=== PATIENT | female | born 1930 | race Caucasian/White ===

== ENCOUNTER 2017-02-17 13:51 | Outpatient (CLI) | payer MEDICARE, OTHER | END 2017-02-17 13:52 | disposition critical access hospital (66) | LOC: EMS 13:51 | PROVIDERS: ATTEND Surgery | DX: M25.562 Pain in left knee (principal); M25.561 Pain in right knee; M25.531 Pain in right wrist; W10.1XXA Fall (on)(from) sidewalk curb, initial encounter; Y92.480 Sidewalk as the place of occurrence of the external cause | CPT/HCPCS: A0425; A0429 ==

== ENCOUNTER 2017-02-17 14:25 | Emergency (ER) | payer MEDICARE, OTHER ==
[2017-02-17 14:40] VITALS: BP 111/65
--- NOTE | 2017-02-17 16:14 | XRAY Preliminary Report ---
Exam: XR Knee 4 View BILAT IMPRESSION: No acute disease. [facility] SITE ID: [id number]
--- NOTE | 2017-02-17 16:15 | XRAY Preliminary Report ---
Exam: XR Wrist 4 View RT IMPRESSION: No acute disease. [facility] SITE ID: [id number]
--- NOTE | 2017-02-17 16:16 | XRAY Report ---
EXAM: BILATERAL KNEE RADIOGRAPHY EXAM DATE: 02/17/2017 03:54 PM. CLINICAL HISTORY: Fall, injury. COMPARISON: None. TECHNIQUE: Each knee, 4 views, including oblique views. FINDINGS: Bones: Osteopenia. No definite fracture or other bone lesion. Joints: Joint spaces generally well preserved. No effusion. 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 Soft Tissues: Unremarkable. IMPRESSION: No acute disease. [facility] Referring Provider Line: [phone] SITE ID: [id number]
--- NOTE | 2017-02-17 16:18 | XRAY Report ---
EXAM: RIGHT WRIST RADIOGRAPHY EXAM DATE: 02/17/2017 03:57 PM. CLINICAL HISTORY: Fall, pain. COMPARISON: None. TECHNIQUE: 4 views. FINDINGS: Bones: Normal. No fractures or bone lesions. Joints: Joint spaces well-preserved. Tiny subchondral cysts in base of navicular and in radial styloi d process. Minimal marginal lipping at first CMC level. Soft Tissues: Unremarkable. IMPRESSION: No acute disease. [facility] Referring Provider Line: [phone] SITE ID: [id number]
[2017-02-17] MEDS ORDERED: traMADol 50 MG TABLET PO STA (16:27)
--- NOTE | 2017-02-17 16:32 | ED Physician Documentation ---
PD HPI Fall - Stated complaint Stated Complaint: GLF - Chief complaint Chief Complaint: Ext Problem - History obtained from History obtained from: Patient, EMS - History of Present Illness Mechanism of injury: Slipped Fall distance: Standing position Where injury occurred: Home Timing - onset: Today Injury(ies) location: Right Upper Extremity (wrist), Right Lower Extremity (knee ), Left Lower Extremity (knee) Pain level max: 3 Pain level now: 3 Quality of pain: Pain, Aching Associated symptoms: No: LOC, AMS, Amnesia, Seizures, Ear drainage, Nasal drainage, Neck pain, Weakness, Paresthesias, Dyspnea, Nausea / vomiting, Hematemesis, Abdominal distension Symptoms improve with: Rest Worsens with: Movement, Palpation Contributing factors: No: Anticoagulated, Intoxicated Similar symptoms before: Has not had sx before Recently seen: Not recently seen - Additional information Additional information: Pt tripped and fell, hurt B knees and R palm. mild abrasions Review of Systems Nose: denies: Rhinorrhea / runny nose, Congestion Throat: denies: Sore throat Cardiac: denies: Chest pain / pressure Respiratory: denies: Cough, Wheezing GI: denies: Nausea, Vomiting, Diarrhea Skin: denies: Rash Musculoskeletal: denies: Neck pain, Back pain Neurologic: denies: Focal weakness, Numbness, Headache PD PAST MEDICAL HISTORY - Past Medical History Cardiovascular: Hypertension, Other Respiratory: COPD Neuro: None Endocrine/Autoimmune: None GI: GERD HEENT: Glaucoma, Macular degeneration Psych: Depression, Anxiety Derm: None - Past Surgical History Past Surgical History: Yes General: Cholecystectomy, Other Ortho: Spine surgery /FINISH REMOVER: Hysterectomy - Present Medications Home Medications: Ambulatory Orders Medication Instructions Recorded Confirmed Albuterol Sulfate [Proair Hfa] 2 puffs INH Q4HR PRN 02/17/14 02/17/14 Aspirin [Dionisio] 325 mg ORAL DAILY 02/17/14 02/17/14 LORazepam [Ativan] 0.5 mg ORAL DAILY 02/17/14 02/17/14 Pantoprazole [Protonix] 20 mg ORAL DAILY 02/17/14 02/17/14 Pregabalin [Lyrica] 50 mg ORAL DAILY 02/17/14 02/17/14 Travoprost [Travatan Z] 1 drop EACHEYE DAILY 02/17/14 02/17/14 traMADol [Ultram] 50 mg ORAL BID 02/17/14 02/17/14 - Allergies Allergies/Adverse Reactions: Allergies Allergy/AdvReac Type Severity Reaction Status Date / Time hydrocodone [Hydrocodone] Allergy Rash Verified 02/17/17 14:40 Penicillins Allergy Rash Verified 02/17/17 14:40 rofecoxib [From Vioxx] Allergy Rash Verified 02/17/17 14:40 - Social History Does the pt smoke?: No Smoking Status: Never smoker Does the pt drink ETOH?: No Does the pt have substance abuse?: No - Immunizations Immunizations are current?: Yes Immunizations: TDAP current <10years PD ED PE NORMAL - Vitals Vital signs reviewed: Yes - General General: Alert and oriented X 3, No acute distress, Well developed/nourished - HEENT HEENT: Atraumatic, PERRL, EOMI, Ears normal, Moist mucous membranes, Pharynx benign - Neck Neck: Supple, no meningeal sign, No bony TTP - Cardiac Cardiac: RRR - Respiratory Respiratory: No respiratory distress, Clear bilaterally - Back Back: No spinal TTP - Derm Derm: Warm and dry, No rash - Extremities Extremities: No deformity, Other (mild diffuse TTP over the anterior aspects of the B knees. No effusions. mild abrasions. TTP over the R wrist diffusely. no deformity. No snuffbox tenderness. NVI) - Neuro Neuro: Alert and oriented X 3, loan consultant 2-12 intact, No motor deficit, No sensory deficit, Normal speech - Psych Psych: Normal mood, Normal affect Results - Vitals Vitals: Oxygen O2 Source Nasal cannula - Rads (name of study) R wrist xray Radiology: Prelim report reviewed, EMP read contemporaneously, See rad report ( No acute disease. ) B knee xray Radiology: Prelim report reviewed, EMP read contemporaneously, See rad report ( No acute disease. ) PD MEDICAL DECISION MAKING - ED course Complexity details: reviewed results, re-evaluated patient, considered differential, d/w patient, d/w family ED course: Patient is an 86-year-old female who is status post a ground-level fall, injuring the bilateral knees and wrist. There are slight abrasions at each knee and on the breast, these were cleansed and bandaged. Tetanus up-to-date. No acute findings on x-ray. Ambulating well. Declines any pain medication for home. Did not strike her head. No headache. Normal neurological exam. Patient counseled regarding signs and symptoms for which I believe and urgent re -evaluation would be necessary. Patient with good understanding of and agreement to plan and is comfortable going home at this time This document was made in part using voice recognition software. While efforts are made to proofread this document, sound alike and grammatical errors may occur. Departure - Departure Disposition: 01 Home, Self Care Clinical Impression: Abrasion Fall Qualifiers: Encounter type: initial encounter Qualified Code(s): W19.XXXA - Unspecified fall, initial encounter Condition: Good Instructions: ED Abrasion Follow-Up: Imtiaz Barba MD [Primary Care Provider] - Within 1 week Comments: Return if you worsen. Keep the wounds clean and dry. Your x-rays are normal today. Discharge Date/Time: 02/17/17 16:49
[2017-02-17] MEDS ORDERED: traMADol 50 MG TABLET PO ONE (16:37)
[2017-02-17] MEDS ORDERED: BACITRACIN OINT TOP ONE (16:43)
== END 2017-02-17 16:49 | disposition home or self-care (01) ==
LOC: EDUNIT# → ED 14:25
DX: S80.211A Abrasion, right knee, initial encounter (principal); S80.212A Abrasion, left knee, initial encounter; S20.119A Abrasion of breast, unspecified breast, initial encounter; S69.91XA Unspecified injury of right wrist, hand and finger(s), initial encounter; W01.0XXA Fall on same level from slipping, tripping and stumbling without subsequent striking against object, initial encounter; Y92.009 Unspecified place in unspecified non-institutional (private) residence as the place of occurrence of the external cause; I10 Essential (primary) hypertension; Z79.82 Long term (current) use of aspirin
CPT/HCPCS: 73110; 73564; 99283; A9270

== ENCOUNTER 2017-02-19 09:19 | Outpatient (CLI) | payer MEDICARE, OTHER | END 2017-02-19 09:20 | disposition short-term general hospital (02) | LOC: EMS 09:19 | PROVIDERS: ATTEND Surgery | DX: R53.1 Weakness (principal); R41.82 Altered mental status, unspecified; R51 Headache; R47.81 Slurred speech | CPT/HCPCS: A0170; A0425; A0427 ==

== ENCOUNTER 2017-11-19 14:27 | Outpatient (CLI) | payer MEDICARE, OTHER ==
--- NOTE | 2017-11-19 14:48 | XRAY Report ---
Procedure Date: 11/19/2017 Accession Number: [id number] / [id number] Procedure: XRS - Chest 2 View X-Ray CPT Code: 91951 FULL RESULT: EXAM: Chest 2 View X-Ray DATE: 11/19/2017 2:41 PM CLINICAL HISTORY: COUGH, SOB, CP COMPARISON: 02/17/2014 TECHNIQUE: 2 views. FINDINGS: Lungs/Pleura: No focal opacities evident. No pneumothorax or pleural effusion. Normal volumes. Mediastinum: Heart is enlarged in size. Other: Degenerative change in the spine. Surgical clips right upper quadrant. IMPRESSION: Cardiac enlargement. Clear lungs. [facility]
== END 2017-11-19 14:28 | disposition home or self-care (01) ==
LOC: DI.S 14:27
PROVIDERS: ATTEND Internal Medicine
DX: R05 Cough (principal); R06.02 Shortness of breath; R07.9 Chest pain, unspecified; I51.7 Cardiomegaly
CPT/HCPCS: 71046

== ENCOUNTER 2017-12-30 15:00 | Outpatient (CLI) | payer MEDICARE, OTHER ==
[2017-12-30 15:24] LABS: BASOPHILS % (AUTO) 0.2 %; EOSINOPHILS # (AUTO) 0.1 10^3/uL (0.0-0.7); EOSINOPHILS % (AUTO) 0.4 %; LYMPHOCYTES # (AUTO) 1.4 10^3/uL (1.5-3.5); LYMPHOCYTES % (AUTO) 8.1 %; MEAN CORPUSCULAR HEMOGLOBIN 31.4 pg (27.0-31.0); MEAN CORPUSCULAR VOLUME 95.3 fL (81.0-99.0); MEAN PLATELET VOLUME 8.4 fL (7.9-10.8); MONOCYTES # (AUTO) 0.8 10^3/uL (0.0-1.0); MONOCYTES % (AUTO) 4.7 %; NEUTROPHILS # (AUTO) 15.1 10^3/uL (1.5-6.6); NEUTROPHILS % (AUTO) 86.6 %; PLT - PLATELET COUNT 216 10^3/uL (130-450); RED BLOOD COUNT 4.45 10^6/uL (4.20-5.40); RED CELL DISTRIBUTION WIDTH 14.5 % (12.0-15.0)
[2017-12-30 15:31] LABS: INR 0.9 (0.8-1.2); PT - PROTHROMBIN TIME 10.4 secs (9.9-12.6)
[2017-12-30 15:37] LABS: ALBUMIN 3.8 g/dL (3.2-5.5); ALBUMIN/GLOBULIN RATIO 1.4 (1.0-2.2); BILIRUBIN,TOTAL 1.1 mg/dL (0.2-1.0); CREATININE 0.9 mg/dL (0.4-1.0); TOTAL PROTEIN 6.5 g/dL (6.7-8.2)
[2017-12-30 15:53] LABS: D-DIMER 350.4 ng/mL (200.0-255.0)
[2017-12-30 19:48] LABS: WHITE BLOOD COUNT 17.5 x10^3/uL (4.8-10.8)
== END 2017-12-30 15:01 | disposition home or self-care (01) ==
LOC: LAB 15:00
PROVIDERS: ATTEND Nurse Practitioner Family
DX: D68.9 Coagulation defect, unspecified (principal); R21 Rash and other nonspecific skin eruption; L30.9 Dermatitis, unspecified; E11.9 Type 2 diabetes mellitus without complications; I10 Essential (primary) hypertension; R60.9 Edema, unspecified
CPT/HCPCS: 36415; 80053; 85025; 85379; 85610; 85730

== ENCOUNTER 2018-02-25 18:33 | Outpatient (CLI) | payer MEDICARE, OTHER | END 2018-02-25 18:34 | disposition short-term general hospital (02) | LOC: EMS 18:33 | PROVIDERS: ATTEND Surgery | DX: R06.02 Shortness of breath (principal); R05 Cough | CPT/HCPCS: A0425; A0429 ==

== ENCOUNTER 2018-08-05 10:26 | Outpatient (CLI) | payer MEDICARE, OTHER ==
--- NOTE | 2018-08-05 13:16 | XRAY Report ---
Reason: ACUTE BRONCHITIS,UNSPECIFIED Procedure Date: 08/05/2018 Accession Number: [id number] / [id number] Procedure: XR - Chest 2 View X-Ray CPT Code: 66956 FULL RESULT: EXAM: CHEST RADIOGRAPHY EXAM DATE: 08/05/2018 10:59 AM. CLINICAL HISTORY: Acute bronchitis, unspecified. COMPARISON: CHEST 2 VIEW 11/19/2017 2:44 PM. TECHNIQUE: 2 views. FINDINGS: Lungs/Pleura: No focal opacities evident. No pleural effusion. No pneumothorax. Normal volumes. Mediastinum: Stable cardiomediastinal silhouette with tortuous aorta, mildly calcified arch. Other: The bones are qualitatively osteopenic; this limits evaluation for underlying fractures or masses. Thoracic kyphosis is noted. IMPRESSION: No definite acute airspace disease is detected. [facility]
== END 2018-08-05 10:27 | disposition home or self-care (01) ==
LOC: DI 10:26
PROVIDERS: ATTEND Nurse Practitioner Family
DX: J20.9 Acute bronchitis, unspecified (principal)
CPT/HCPCS: 71046

== ENCOUNTER 2018-08-14 09:21 | Outpatient (CLI) | payer MEDICARE, OTHER | END 2018-08-14 09:22 | disposition short-term general hospital (02) | LOC: EMS 09:21 | PROVIDERS: ATTEND Surgery | DX: R06.02 Shortness of breath (principal); R06.2 Wheezing; R42 Dizziness and giddiness; R53.83 Other fatigue; R53.1 Weakness | CPT/HCPCS: A0425; A0429 ==

== ENCOUNTER 2019-03-07 11:24 | Outpatient (CLI) | payer MEDICARE, OTHER ==
[2019-03-07 11:47] LABS: BASOPHILS # (AUTO) 0.1 10^3/uL (0.0-0.1); BASOPHILS % (AUTO) 0.7 %; EOSINOPHILS # (AUTO) 0.1 10^3/uL (0.0-0.7); HGB - HEMOGLOBIN 13.7 g/dL (12.0-16.0); LYMPHOCYTES # (AUTO) 1.6 10^3/uL (1.5-3.5); LYMPHOCYTES % (AUTO) 18.1 %; MEAN CORPUSCULAR HEMOGLOBIN 29.3 pg (27.0-31.0); MEAN CORPUSCULAR HGB CONC 29.5 g/dL (32.0-36.0); MEAN CORPUSCULAR VOLUME 99.4 fL (81.0-99.0); MEAN PLATELET VOLUME 10.6 fL (7.9-10.8); MONOCYTES # (AUTO) 0.6 10^3/uL (0.0-1.0); MONOCYTES % (AUTO) 6.9 %; NEUTROPHILS # (AUTO) 6.5 10^3/uL (1.5-6.6); PLT - PLATELET COUNT 224 10^3/uL (130-450); RED BLOOD COUNT 4.68 10^6/uL (4.20-5.40); RED CELL DISTRIBUTION WIDTH 14.6 % (12.0-15.0); WHITE BLOOD COUNT 8.9 x10^3/uL (4.8-10.8)
== END 2019-03-07 11:25 | disposition home or self-care (01) ==
LOC: LAB 11:24
PROVIDERS: ATTEND Internal Medicine
DX: E44.0 Moderate protein-calorie malnutrition (principal)
CPT/HCPCS: 36415; 82607; 85025

== ENCOUNTER 2019-07-04 10:41 | Outpatient (CLI) | payer MEDICARE, OTHER | END 2019-07-04 10:42 | disposition short-term general hospital (02) | LOC: EMS 10:41 | PROVIDERS: ATTEND Surgery | DX: R06.02 Shortness of breath (principal); R05 Cough; R50.9 Fever, unspecified | CPT/HCPCS: A0425; A0427 ==

== ENCOUNTER 2019-09-16 21:03 | Outpatient (CLI) | payer MEDICARE, OTHER | END 2019-09-16 21:04 | disposition short-term general hospital (02) | LOC: EMS 21:03 | PROVIDERS: ATTEND Surgery | DX: R06.02 Shortness of breath (principal); R50.9 Fever, unspecified; R05 Cough | CPT/HCPCS: A0425; A0427 ==

== ENCOUNTER 2019-10-03 17:35 | Outpatient (CLI) | payer MEDICARE, OTHER | END 2019-10-03 17:36 | disposition critical access hospital (66) | LOC: EMS 17:35 | PROVIDERS: ATTEND Surgery | DX: R50.9 Fever, unspecified (principal); R53.1 Weakness; R52 Pain, unspecified | CPT/HCPCS: A0425; A0427 ==

== ENCOUNTER 2019-10-03 18:06 | Inpatient (IN) | payer MEDICARE, OTHER ==
--- NOTE | 2019-10-03 18:34 | ED Physician Documentation ---
History of Present Illness - Stated complaint Stated Complaint: FEVER - History obtained from History obtained from: Patient (Patient is brought in by EMS From [facility], with a chief complaint of having a low-grade fever. Until the patient was seen and inpatient over [facility] in [place], she was there for urinary tract infection that grew Pseudomonas. She was on IV antibiotics for 6 days, then discharged home without oral antibiotics. Since being home the patient states that she has had a continued low-grade fever. She is unsure why she keeps getting recurrent urinary tract infections. Patient was also worked up [facility] for meningitis she came back negative, right foot first MTP joint worked up for gout, she was told this was negative.) Review of Systems Constitutional: reports: Fever, Chills Eyes: reports: Loss of vision (chronic, can see shadows.) Ears: reports: Reviewed and negative Nose: reports: Reviewed and negative Throat: reports: Reviewed and negative Cardiac: denies: Chest pain / pressure, Palpitations, Pedal edema Respiratory: reports: Cough, Wheezing GI: denies: Nausea : reports: Reviewed and negative Skin: reports: Other (right MTP edematous and erythemous.) Neurologic: reports: Generalized weakness PD PAST MEDICAL HISTORY - Past Medical History Cardiovascular: None Respiratory: Asthma, COPD Neuro: None Endocrine/Autoimmune: Type 2 diabetes GI: GERD : None HEENT: Glaucoma, Macular degeneration Psych: Depression, Anxiety Musculoskeletal: Fatigue Derm: None - Past Surgical History Past Surgical History: Yes General: Cholecystectomy, Other Ortho: Spine surgery /ANIMAL CARE PROVIDER: Hysterectomy - Present Medications Home Medications: Ambulatory Orders Medication Instructions Recorded Confirmed Albuterol Sulfate [Proair Hfa] 2 puffs INH Q4HR PRN 02/17/14 02/17/14 Pantoprazole [Protonix] 20 mg ORAL DAILY 02/17/14 02/17/14 Travoprost [Travatan Z] 1 drop EACHEYE DAILY 02/17/14 02/17/14 traMADol [Ultram] 50 mg ORAL PRN 02/17/14 02/17/14 Acetaminophen [Tylenol] 325 mg PO PRN 06/30/19 Biotin 5,000 mcg PO DAILY 06/30/19 06/30/19 Brimonidine 0.2% Ophth Drops 1 drops OPTH TID 06/30/19 06/30/19 [Alphagan P 0.2% Ophth Drops] C,E,Zinc,Copper 11/Dbomu3a/Lut 1 each PO DAILY 06/30/19 06/30/19 [Ocuvite Adult 50 Plus Softgel] Calcium Carbonate [Tums (Calcium 500 mg PO TID 06/30/19 06/30/19 Carbonate 500mg)] Cyanocobalamin (Vitamin B-12) 500 mcg SL DAILY 06/30/19 06/30/19 [Vitamin B-12 (500 mcg sublingual)] Ibuprofen [Motrin] 400 mg PO Q6HR PRN 06/30/19 06/30/19 Miconazole Cream [Remedy 0 applic TOP PRN 06/30/19 Antifungal] Phenylephrine/Dm/Acetaminop/GG 100 ml PO BID 06/30/19 06/30/19 [Mucinex Fast-Max Cold-Flu Liq] Potassium Chloride 20 meq PO DAILY 06/30/19 06/30/19 Pravastatin [Pravachol] 40 mg PO DAILY 06/30/19 06/30/19 Prednisone 10 mg PO DAILY 06/30/19 06/30/19 Pregabalin [Lyrica] 250 mg PO BID 06/30/19 06/30/19 Vit A/Vit C/Vit E/Zinc/Copper 1 each PO DAILY 06/30/19 06/30/19 [Preservision Areds Softgel] acetaZOLAMIDE [Acetazolamide] 250 mg PO BID 06/30/19 06/30/19 polyethylene glycoL 3350 [Miralax] 17 gm PO DAILY PRN 06/30/19 06/30/19 - Allergies Allergies/Adverse Reactions: Allergies Allergy/AdvReac Type Severity Reaction Status Date / Time azithromycin Allergy Anaphylaxis Verified 10/03/19 18:38 diclofenac Allergy Hives Verified 10/03/19 18:38 hydrocodone [Hydrocodone] Allergy Rash Verified 10/03/19 18:38 penicillin G Allergy Hives Verified 10/03/19 18:38 Penicillins Allergy Rash Verified 10/03/19 18:38 rofecoxib [From Vioxx] Allergy Rash Verified 10/03/19 18:38 Sulfa (Sulfonamide Allergy Hives Verified 10/03/19 18:38 Antibiotics) Cephalosporins AdvReac Unknown Verified 10/03/19 18:38 codeine AdvReac Hives Verified 10/03/19 18:38 oxycodone AdvReac Unknown Verified 10/03/19 18:38 - Social History Does the pt smoke?: No Smoking Status: Never smoker Does the pt drink ETOH?: No Does the pt have substance abuse?: No - Immunizations Immunizations are current?: Yes PD ED PE NORMAL - General General: Alert and oriented X 3, No acute distress - HEENT HEENT: Atraumatic, PERRL (4 mm) - Neck Neck: Supple, no meningeal sign - Cardiac Cardiac: RRR. No: No murmur (murmur) - Respiratory Respiratory: No respiratory distress. No: Clear bilaterally (coarse breath sounds, expiratory wheezing. ) - Abdomen Abdomen: Normal bowel sounds, Soft, Non tender - Back Back: No CVA TTP - Neuro Neuro: Alert and oriented X 3 Eye Opening: Spontaneous Motor: Obeys Commands Verbal: Oriented GCS Score: 15 Results - Vitals Vitals: Vital Signs - 24 hr 10/03/19 10/03/19 18:38 20:29 Temperature 37.7 C H Heart Rate 85 74 Respiratory 16 18 Rate Blood Pressure 144/85 H 138/64 H O2 Saturation 96 97 Oxygen O2 Source Room air - Labs Labs: Laboratory Tests 10/03/19 10/03/19 10/03/19 18:40 19:02 19:02 WBC 19.8 H RBC 4.37 Hgb 13.5 Hct 39.8 MCV 91.1 MCH 30.9 MCHC 33.9 RDW 15.3 H Plt Count 351 MPV 10.0 Neut # (Auto) Not Reportable Lymph # (Auto) Not Reportable Moore # (Auto) Not Reportable Eos # (Auto) Not Reportable Baso # (Auto) Not Reportable Absolute Nucleated RBC Not Reportable Total Counted 100 Band Neuts % (Manual) 2 Reactive Lymphs % (Man) 1 Abnorm Lymph % (Manual) 0 Nucleated RBC % Not Reportable Neutrophils # (Manual) 15.8 H Lymphocytes # (Manual) 2.8 Monocytes # (Manual) 1.0 Eosinophils # (Manual) 0.2 Basophils # (Manual) 0.0 Differential Comment MANUAL DIFFERENTIAL Platelet Estimate NORMAL (130-450,000) Platelet Morphology NORMAL APPEARANCE RBC Morph Micro Appear NORMAL APPEARANCE Sodium 136 Potassium 2.7 L Chloride 103 Carbon Dioxide 23 Anion Gap 10.0 BUN 20 Creatinine 0.8 Estimated GFR (MDRD) 68 L Glucose 115 H Lactic Acid Calcium 8.8 Total Bilirubin 1.0 AST 19 ALT 20 Alkaline Phosphatase 81 B-Natriuretic Peptide Total Protein 6.6 L Albumin 3.0 L Globulin 3.6 Albumin/Globulin Ratio 0.8 L Lipase 28 Urine Color YELLOW Urine Clarity CLEAR Urine pH 7.5 Ur Specific [place] 1.010 Urine Protein NEGATIVE Urine Glucose (UA) NEGATIVE Urine Ketones NEGATIVE Urine Occult Blood TRACE-INTA Urine Nitrite POSITIVE H Urine Bilirubin NEGATIVE Urine Urobilinogen 1 (NORMAL) Ur Leukocyte Esterase NEGATIVE Urine RBC 0-5 Urine WBC 0-3 Ur Squamous Epith Cells NONE SEEN Amorphous Sediment Moderate Urine Bacteria Rare Ur Microscopic Review INDICATED Urine Culture Comments INDICATED 10/03/19 10/03/19 19:02 19:55 WBC RBC Hgb Hct MCV MCH MCHC RDW Plt Count MPV Neut # (Auto) Lymph # (Auto) Moore # (Auto) Eos # (Auto) Baso # (Auto) Absolute Nucleated RBC Total Counted Band Neuts % (Manual) Reactive Lymphs % (Man) Abnorm Lymph % (Manual) Nucleated RBC % Neutrophils # (Manual) Lymphocytes # (Manual) Monocytes # (Manual) Eosinophils # (Manual) Basophils # (Manual) Differential Comment Platelet Estimate Platelet Morphology RBC Morph Micro Appear Sodium Potassium Chloride Carbon Dioxide Anion Gap BUN Creatinine Estimated GFR (MDRD) Glucose Lactic Acid 1.3 Calcium Total Bilirubin AST ALT Alkaline Phosphatase B-Natriuretic Peptide 43 Total Protein Albumin Globulin Albumin/Globulin Ratio Lipase Urine Color Urine Clarity Urine pH Ur Specific [place] Urine Protein Urine Glucose (UA) Urine Ketones Urine Occult Blood Urine Nitrite Urine Bilirubin Urine Urobilinogen Ur Leukocyte Esterase Urine RBC Urine WBC Ur Squamous Epith Cells Amorphous Sediment Urine Bacteria Ur Microscopic Review Urine Culture Comments - Rads (name of study) No standard instances Radiology: Final report received (1. developing mild perihilar interstitial edema.) PD MEDICAL DECISION MAKING - ED course Complexity details: reviewed results, re-evaluated patient, d/w patient ED course: After obtaining the patient's urinalysis, blood work, noting her hypokalemia 2.7, and elevated white blood cell count at 19.8. Called and spoke to Dr. Mason in the hospitalist group who is agreed to accept the patient. Patient was given Tylenol 650 mg p.o. for fever in the ER today. She is also given 20 mEq of potassium chloride for her hypokalemia. IV fluids were not started due to developing mild perihilar interstitial edema noted on the x-ray, the sounds of her lungs. Patient's daughter has been updated on the patient's status and that she is here to be admitted Departure - Departure Disposition: [facility] DC/Xfer Clinical Impression: Fever Qualifiers: Fever type: unspecified Qualified Code(s): R50.9 - Fever, unspecified UTI (urinary tract infection) Qualifiers: Urinary tract infection type: site unspecified Hematuria presence: with hematuria Qualified Code(s): N39.0 - Urinary tract infection, site not specified; R31.9 - Hematuria, unspecified
[2019-10-03 18:50] LABS: BILIRUBIN,URINE NEGATIVE (NEGATIVE); GLUCOSE, URINE (UA) NEGATIVE (NEGATIVE); KETONES,URINE (UA) NEGATIVE (NEGATIVE); LEUKOCYTE ESTERASE, URINE NEGATIVE (NEGATIVE); NITRITE,URINE POSITIVE (NEGATIVE); OCCULT BLOOD,URINE TRACE-INTA (NEGATIVE); PH,URINE 7.5 PH (5.0-7.5); PROTEIN,URINE NEGATIVE (NEGATIVE); UROBILINOGEN,URINE 1 (NORMAL) E.U./dL (NORMAL)
[2019-10-03 18:51] LABS: CLARITY,URINE CLEAR (CLEAR)
[2019-10-03 18:58] LABS: RBC,URINE 0-5 /HPF (0-5); SQUAMOUS EPITHELIAL CELL,UR NONE SEEN (<= Few)
[2019-10-03 18:59] LABS: AMORPHOUS SEDIMENT,UR Moderate /LPF; BACTERIA,URINE Rare /HPF (None Seen)
[2019-10-03 19:10] LABS: BASOPHILS % (AUTO) 0.4 %; EOSINOPHILS % (AUTO) 0.5 %; HGB - HEMOGLOBIN 13.5 g/dL (12.0-16.0); LYMPHOCYTES % (AUTO) 10.7 %; MEAN CORPUSCULAR HEMOGLOBIN 30.9 pg (27.0-31.0); MEAN CORPUSCULAR HGB CONC 33.9 g/dL (32.0-36.0); MEAN CORPUSCULAR VOLUME 91.1 fL (81.0-99.0); MONOCYTES % (AUTO) 8.4 %; NEUTROPHILS % (AUTO) 79.3 %; PLT - PLATELET COUNT 351 10^3/uL (130-450); RED BLOOD COUNT 4.37 10^6/uL (4.20-5.40); RED CELL DISTRIBUTION WIDTH 15.3 % (12.0-15.0); WHITE BLOOD COUNT 19.8 x10^3/uL (4.8-10.8)
[2019-10-03 19:15] LABS: ABNORMAL LYMPHS % (MANUAL) 0 %
--- NOTE | 2019-10-03 19:16 | XRAY Report ---
Reason: chest pain Procedure Date: 10/03/2019 Accession Number: [id number] / [id number] Procedure: XR - Chest 1 View X-Ray CPT Code: 99825 Final Report FULL RESULT: EXAM: CHEST RADIOGRAPHY EXAM DATE: 10/03/2019 07:05 PM. CLINICAL HISTORY: Chest pain. COMPARISON: CHEST 2 VIEW 08/05/2018 10:59 AM. TECHNIQUE: 1 view. FINDINGS: Lungs/Pleura: There are bilateral perihilar interstitial opacities with mild thickening of the minor fissure. There is no consolidation. Lung volumes are stable. Negative for pneumothorax. Mediastinum: Heart size is normal. There is mild to moderate calcification of the thoracic aorta. Other: None. IMPRESSION: 1. Developing mild perihilar interstitial edema. [facility]
[2019-10-03 19:23] LABS: ALBUMIN/GLOBULIN RATIO 0.8 (1.0-2.2); CALCIUM 8.8 mg/dL (8.5-10.3); CREATININE 0.8 mg/dL (0.4-1.0); TOTAL PROTEIN 6.6 g/dL (6.7-8.2)
[2019-10-03 19:39] LABS: BAND NEUTROPHILS % (MANUAL) 2 %; DIFFERENTIAL COMMENT MANUAL DIFFERENTIAL; EOSINOPHILS # (MANUAL) 0.2 10^3/uL (0-0.7); LYMPHOCYTES # (MANUAL) 2.8 10^3/uL (1.5-3.5); LYMPHOCYTES % (MANUAL) 13 %; PLATELET ESTIMATE, MANUAL NORMAL (130-450,000) (NORMAL); PLATELET MORPHOLOGY NORMAL APPEARANCE (NORMAL); RBC MORPHOLOGY (MULTIPLE) NORMAL APPEARANCE (NORMAL)
[2019-10-03] MEDS ORDERED: POTASSIUM CHLOR 20 MEQ/100 ML 20 MEQ/100 ML BAG IV ONE (19:55)
[2019-10-03] MEDS ORDERED: ACETAMINOPHEN 325 MG TABLET PO STA (20:15)
[2019-10-03] MEDS ORDERED: ONDANSETRON 4 MG/2 ML VIAL IVP PRN (21:02)
--- NOTE | 2019-10-03 21:20 | HISTORY & PHYSICAL EXAMINATION ---
Chief Complaint - Chief Complaint Chief Complaint: fever History of Present Illness - Admitted From [facility] - History Obtained From Records Reviewed: yes History obtained from: records, patient, family and ED staff - History of Present Illness HPI Comment/Other: Patient is an 88-year-old female with a significant medical history of COPD, diabetes mellitus type 2, hypertension, recurrent UTIs, glaucoma and chronic pain who presented to the ED from [place]. She was sent to the ED because she had a fever today. Upon presentation recheck showed a temperature of 37.7 C. However she was also found to have a white blood cell count of 19.8. On 09/20/2019, her WBC was 6.5. The patient is awake alert but somewhat lethargic. She was recently discharged from [facility] on September 24, 2019. She had been admitted there with generalized weakness and fever on September 16, 2019 she was treated for pseudomonal UTI with ceftazadime for 5 days, then transitioned to cefdinir for the last 2 days. She has a significant history of joint pains and back pain for which she underwent a significant work-up.This included a bilateral temporal artery biopsy which was negative. Her CHANDAN was unremarkable. Her ESR was mildly elevated at 42. However she was still treated with high-dose IV methylprednisolone 500 mg daily for 3 days. She also had a COVID-19 testing which was negative. She underwent a lumbar puncture, CT scan of her head and neck which were all largely unremarkable She sees physiatry outpatient for SI joint and lumbar epidural injections. As a result of her presentation she is being admitted for further work up. She was scheduled to see rheumatology outpatient on October 04, 2019. However that was canceled because she was admitted in the hospital. At bedside she denies chest pain, dyspnea, abdominal pain, nausea, vomiting. She reports a greenish productive cough, generalized joint and back pain. In particular her right big toe appears erythematous and painful to touch. This was noted on her last admission in [place] as well. It was also noted to improve when she was treated with IV steroids. The cause at that time was thought to be likely rheumatologic and less likely or unlikely to be infectious. 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 He was a smoker) Living arrangement: Assisted living ([facility]) Social History Notes: Hx of tobacco use in the past. No illicit drug use - POLST Patient has POLST: Yes POLST Status: DNR Meds/Allgy - Home Medications Home Medications: Ambulatory Orders Medication Instructions Recorded Confirmed Albuterol Sulfate [Proair Hfa] 2 puffs INH Q4HR PRN 02/17/14 10/04/19 Travoprost [Travatan Z] 1 drop RIGHTEYE QPM 02/17/14 10/04/19 traMADol [Ultram] 50 mg PO BID PRN 02/17/14 10/04/19 Acetaminophen [Tylenol] 650 mg PO Q4H PRN 06/30/19 10/04/19 Brimonidine 0.2% Ophth Drops 1 drops EACHEYE TID 06/30/19 10/04/19 [Alphagan P 0.2% Ophth Drops] C,E,Zinc,Copper 11/Fosxd9f/Lut 1 each PO DAILY 06/30/19 10/04/19 [Ocuvite Adult 50 Plus Softgel] Cyanocobalamin (Vitamin B-12) 500 mcg SL DAILY 06/30/19 10/04/19 [Vitamin B-12 (500 mcg sublingual)] Potassium Chloride 20 meq PO DAILY 06/30/19 10/04/19 Pravastatin [Pravachol] 40 mg PO QPM 06/30/19 10/04/19 Vit A/Vit C/Vit E/Zinc/Copper 1 each PO DAILY 06/30/19 10/04/19 [Preservision Areds Softgel] acetaZOLAMIDE [Acetazolamide] 250 mg PO BID 06/30/19 10/04/19 polyethylene glycoL 3350 [Miralax] 17 gm PO DAILY PRN 06/30/19 10/04/19 Calcium Carbonate 500 mg PO TIDWM 10/04/19 10/04/19 Pregabalin 125 mg PO BID 10/04/19 10/04/19 Trazodone HCl 100 mg PO QPM 10/04/19 10/04/19 hydroCHLOROthiazide 25 mg PO DAILY 10/04/19 10/04/19 [Hydrochlorothiazide] predniSONE [Prednisone] 10 mg PO DAILYWM 10/04/19 10/04/19 - Allergies Allergies/Adverse Reactions: Allergies Allergy/AdvReac Type Severity Reaction Status Date / Time azithromycin Allergy Anaphylaxis Verified 10/03/19 18:38 diclofenac Allergy Hives Verified 10/03/19 18:38 hydrocodone [Hydrocodone] Allergy Rash Verified 10/03/19 18:38 penicillin G Allergy Hives Verified 10/03/19 18:38 Penicillins Allergy Rash Verified 10/03/19 18:38 rofecoxib [From Vioxx] Allergy Rash Verified 10/03/19 18:38 Sulfa (Sulfonamide Allergy Hives Verified 10/03/19 18:38 Antibiotics) Cephalosporins AdvReac Unknown Verified 10/03/19 18:38 codeine AdvReac Hives Verified 10/03/19 18:38 oxycodone AdvReac Unknown Verified 10/03/19 18:38 Review of Systems - Constitutional Constitutional: reports: Fever, Weakness - Eyes Eyes: denies: Pain, Vision loss - Ears, Nose & Throat Ears, Nose & Throat: denies: Vertigo, Sore throat - Cardiovascular Cariovascular: reports: Edema. denies: Irregular heart rate, Chest pain, Lightheadedness, Syncope, Exertional dyspnea - Respiratory Respiratory: reports: Cough, Sputum production (greenish), Wheezing. denies: SO B at rest, SOB with exertion - Gastrointestinal Gastrointestinal: denies: Abdominal pain, Abdominal distention, Constipation, Diarrhea, Nausea, Vomiting - Genitourinary Genitourinary: denies: Dysuria, Frequency, Urgency, Hematuria, Incontinence - Musculoskeletal Musculoskeletal: reports: Muscle pain, Back pain, Stiffness, Joint pain, Joint swelling (right big toe) - Integumentary Integumentary: denies: Rash, Pruritis, Lesions - Neurological Neurological: reports: General weakness. denies: Focal weakness, Headache, Dizziness - Psychiatric Psychiatric: denies: Depression, Anxiety - Endocrine Endocrine: denies: Polyuria, Polydypsia - Hematologic/Lymphatic Hematologic/Lymphatic: denies: Anemia, Bruising, Petechiae Prior Level of Functionality: She resides at [facility]. She gets around using a wheelchair. She is to be able to handle her personal cares but has been unable to do so in the past couple of weeks since she has been very sick. Exam - Vital Signs Vital Signs: Vital Signs x48h Temp Pulse Resp BP Pulse Ox 10/03/19 21:18 74 15 116/56 L 98 10/03/19 20:29 74 18 138/64 H 97 10/03/19 18:38 37.7 C H 85 16 144/85 H 96 - Physical Exam General Appearance: positive: Alert, Mild distress, Moderate distress, Lethargic Eyes Bilateral: positive: PERRL, EOMI ENT: positive: No signs of dehydration Neck: positive: No JVD, Trachea midline Respiratory: positive: Chest non-tender, No respiratory distress, Rhonchi Cardiovascular: positive: Regular rate & rhythm, No murmur Abdomen: positive: Non-tender, No organomegaly, Nml bowel sounds, No distention. negative: Guarding, Rebound Back: positive: Nml inspection Skin: positive: No rash, Warm, Dry Extremities: positive: No pedal edema, Joint swelling (right big toes swollen and erythematous) Neurologic/Psychiatric: positive: Oriented x3, Weakness, Depressed mood/affect Conclusion/Plan - Problem List (1) Fever Conclusion/Plan: Etiology undetermined Infectious versus rheumatologic Patient's white blood cell count is 19.8. 2 weeks ago it was 6.5. Patient was recently treated for pseudomonal UTI with ceftazidime and subsequently cefdinir. She had 7 days worth of antibiotics. Urine culture and blood cultures have been obtained. Patient has been started on vancomycin and meropenem. COVID-19 testing pending.The previous test done at [place] during her last admission 2 weeks ago was negative Tylenol PRN for fever. Patient underwent temporal artery biopsy bilaterally which were unremarkable. However during her last admission she was treated with high-dose steroids IV for 3 days. She was scheduled to see rheumatology outpatient today. This has been postponed because she is in the hospital. Qualifiers: Fever type: unspecified Qualified Code(s): R50.9 - Fever, unspecified (2) Chronic pain Conclusion/Plan: Likely multifactorial. Patient has history of chronic back pain for which she has undergone multiple back surgeries. She also follows outpatient with physiatry and gets SI joint and lumbar epidural injections. Work-up within the past 2 weeks at her last admission at [place] included an LP, CT of the head and neck, CHANDAN, CRP and temporal artery biopsies. Patient is to follow-up with rheumatology outpatient We will manage pain as needed. (3) COPD (chronic obstructive pulmonary disease) Conclusion/Plan: Currently not in exacerbation. Patient breathing on room air. We will order albuterol inhaler to be used as needed until patient's COVID testing comes back. At which point we will determine if patient can be placed on nebulizer treatment. (4) Diabetes mellitus Conclusion/Plan: Will monitor. Sliding-scale insulin ordered. Accu-Cheks. Qualifiers: Diabetes mellitus type: type 2 (5) Hypokalemia Conclusion/Plan: Hold HCTZ. Will replace and recheck. We will also check magnesium level. (6) Hyperlipidemia Conclusion/Plan: Patient's pravastatin was recently discontinued by her primary care physician Dr. Colby Torres due to the patient's generalized body pain, joint aches and wea kness. - Lab Results Fish Bones: 10/04/19 06:10 10/04/19 06:10 Core Measures - Anticipated LOS I expect patient to be DC'd or transferred within 96 hours.: Yes - DVT/VTE - Prophylaxis VTE/DVT Device ordered at admit?: Yes VTE/DVT Prophylaxis med ordered at admit?: Yes
[2019-10-03] MEDS ORDERED: SODIUM CHLORIDE 0.9% 1,000 ML IV SCH (22:00)
[2019-10-03] MEDS ORDERED: MEROPENEM 1 GM in SODIUM CHLORIDE 0.9% MINIBAG 100 ML IV SCH (23:45)
[2019-10-04] MEDS: SODIUM CHLORIDE FLUSH 0.9% 10 ML SYRINGE IVP PRN ×2 (00:16→06:05)
[2019-10-04] MEDS ORDERED: ALBUTEROL NEB 2.5 MG/3 ML INH PRN (00:23)
[2019-10-04] MEDS: SODIUM CHLORIDE FLUSH 0.9% 10 ML SYRINGE IVP SCH ×3 (00:54→16:18)
[2019-10-04] MEDS ORDERED: VANCOMYCIN INJ 0.75 GM in SODIUM CHLORIDE 0.9% 250 ML IV SCH (01:00)
[2019-10-04] MEDS: POTASSIUM CHLOR 10 MEQ/100 ML 10 MEQ/100 ML BAG IV SCH ×10 (01:02→13:43)
[2019-10-04] MEDS: ACETAMINOPHEN 325 MG TABLET PO PRN (03:32)
[2019-10-04] MEDS: traMADol 50 MG TABLET PO PRN ×3 (05:01→22:12)
[2019-10-04] MEDS: PANTOPRAZOLE 40 MG VIAL IVP SCH (06:07)
[2019-10-04 06:22] LABS: BASOPHILS # (AUTO) 0.1 10^3/uL (0.0-0.1); BASOPHILS % (AUTO) 0.5 %; EOSINOPHILS # (AUTO) 0.1 10^3/uL (0.0-0.7); EOSINOPHILS % (AUTO) 0.9 %; HGB - HEMOGLOBIN 12.3 g/dL (12.0-16.0); LYMPHOCYTES # (AUTO) 2.5 10^3/uL (1.5-3.5); MEAN CORPUSCULAR HEMOGLOBIN 30.4 pg (27.0-31.0); MEAN CORPUSCULAR HGB CONC 32.6 g/dL (32.0-36.0); MEAN CORPUSCULAR VOLUME 93.1 fL (81.0-99.0); MEAN PLATELET VOLUME 9.9 fL (7.9-10.8); MONOCYTES # (AUTO) 1.4 10^3/uL (0.0-1.0); MONOCYTES % (AUTO) 9.6 %; NEUTROPHILS # (AUTO) 10.6 10^3/uL (1.5-6.6); NEUTROPHILS % (AUTO) 71.5 %; PLT - PLATELET COUNT 314 10^3/uL (130-450); RED BLOOD COUNT 4.05 10^6/uL (4.20-5.40); RED CELL DISTRIBUTION WIDTH 15.3 % (12.0-15.0); WHITE BLOOD COUNT 14.8 x10^3/uL (4.8-10.8)
[2019-10-04 06:34] LABS: CALCIUM 8.3 mg/dL (8.5-10.3); CREATININE 0.8 mg/dL (0.4-1.0); MAGNESIUM 2.1 mg/dL (1.7-2.8)
[2019-10-04 06:42] LABS: HB2 TOTAL 12.9 g/dL; HEMOGLOBIN A1C 0.51 g/dL; HEMOGLOBIN A1C % 5.8 % (4.6-6.2)
[2019-10-04] MEDS ORDERED: FUROSEMIDE 40 MG/4 ML VIAL IVP SCH (07:14)
[2019-10-04] MEDS: ALBUTEROL 1 PUFF INH PRN ×3 (07:45→19:36)
[2019-10-04] MEDS: MEROPENEM 1 GM in SODIUM CHLORIDE 0.9% MINIBAG 100 ML IV SCH ×2 (08:01→16:15)
[2019-10-04] MEDS: ENOXAPARIN 40 MG/0.4 ML SYRINGE SUBQ SCH (08:18)
[2019-10-04] MEDS: polyethylene glycoL 3350 17 GM PACKET PO SCH (08:19)
[2019-10-04] MEDS ORDERED: IPRATROPIUM/ALBUTEROL 3 ML NEB INH PRN (08:29)
[2019-10-04] MEDS: DOCUSATE SODIUM 250 MG CAPSULE PO SCH (08:35)
[2019-10-04] MEDS: INSULIN ASPART 300 UNIT/3 ML PEN SUBQ SCH ×4 (09:14→22:11)
--- NOTE | 2019-10-04 09:22 | PHARMACY PROGRESS NOTE ---
- Therapy Status Vancomycin regimen day #: 1 Therapy status: Awaiting steady state Basis for treatment: Empirical Treatment indication: Slight fever and high WBC Concurrent antibiotics: Meropenem - FLORESITA Risk Risk level for Acute Kidney Injury: Moderate Acute Kidney Injury risk factors: Goal trough >15, Chronic baseline hypertension, Diabetes - Monitoring and Recommendation Clinical response to treatment: I&O Previous 24 hours 10/02/19 10/03/19 10/04/19 23:59 23:59 23:59 Intake Total 100 1100 Output Total 100 1150 Balance 0 -50 Lab Results 10/04/19 10/03/19 06:10 19:02 BUN 17 20 Creatinine 0.8 0.8 Estimated GFR (MDRD) 68 L 68 L Monitoring plan: Daily serum creatinine Next trough due (date/time): 10/06/2019 at 0530 Areas for additional monitoring: IV to PO when appropriate, Therapy de-escalatio n based on culture results Pharmacy recommendation: Continue current regime
--- NOTE | 2019-10-04 09:58 | PHARMACY PROGRESS NOTE ---
- Best Possible Medication History Admit Date and Time: 10/03/192101 Processed by: Pharmacy Medication History completed: In progress Waiting on Med list from [facility] As the person ultimately responsible for medication therapy, providers are able to order a medication from an existing home medication list in [facility] via the "Reconcile Routine" prior to Confirmation of that medication by program support assistant. Such practice is discouraged except when the physician, in their clinical judgment, deems that a medical need exists for a medication without regard to previous use.
--- NOTE | 2019-10-04 10:03 | XRAY Report ---
Reason: right big toe pain and swelling Procedure Date: 10/04/2019 Accession Number: [id number] / [id number] Procedure: XR - Foot 3 View RT CPT Code: Final Report FULL RESULT: EXAM: RIGHT FOOT RADIOGRAPHY EXAM DATE: 10/04/2019 09:37 AM. CLINICAL HISTORY: Right big toe pain and swelling. COMPARISON: None. TECHNIQUE: 3 views. FINDINGS: Bones: Moderate plantar and small Achilles calcaneal enthesophytes. Minimal bony bunion formation medially at the first metatarsal head. No fractures or bone lesions. Joints: Mild joint space narrowing and minimal osteophyte formation at the first metatarsal phalangeal joint. Soft Tissues: Minimal calcification of the distal Achilles tendon without pavel thickening. Mild soft tissue thickening medial to the first metatarsal head. Minimal atherosclerotic calcification of dorsalis pedis and posterior tibial arteries. IMPRESSION: 1. Mild bony and soft tissue bunion formation medially at the first metatarsal head. 2. 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 3. Nonspecific moderate plantar and mild Achilles calcaneal enthesophytes. Minimal calcification of the distal Achilles tendon without pavel thickening, suggesting mild chronic calcific tendinosis. RADIA
--- NOTE | 2019-10-04 10:07 | PROVIDER PROGRESS NOTE ---
Subjective - Prog Note Date Prog Note Date: 10/04/19 - Subjective Pt reports feeling: No change Subjective: pt still complain pain over to all of her joints. she denies fever, chill, chest pain, shortness of breath. her right big toe presents mild swelling and mild erythema. Pt also present profound weakness. Current Medications - Current Medications Current Medications: Active Medications Acetaminophen (Tylenol) 650 mg PO Q6HR PRN PRN Reason: Pain 1 to 4 Last Admin: 10/04/19 03:32 Dose: 650 mg Albuterol (Mdi: Albuterol) 2 puffs INH RTQ4H PRN PRN Reason: DYSPNEA Last Admin: 10/04/19 07:45 Dose: 2 puffs Albuterol/Ipratropium (Duoneb) 3 ml INH RTQID PRN PRN Reason: Shortness of Air/Wheezing Docusate Sodium (Colace 250mg Capsule) 250 - 500 mg PO DAILY [facility] Last Admin: 10/04/19 08:35 Dose: Not Given Enoxaparin Sodium (Lovenox) 40 mg SUBQ DAILY [facility] Last Admin: 10/04/19 08:18 Dose: 40 mg Meropenem 1 gm/ Sodium (Chloride) 100 mls @ 200 mls/hr IV Q8H [facility] Last Infusion: 10/04/19 09:17 Dose: Infused Potassium Chloride (Potassium Chloride) 10 meq in 100 mls @ 100 mls/hr IV Q1H [facility] Stop: 10/04/19 12:59 Last Infusion: 10/04/19 09:26 Dose: 0 mls/hr Vancomycin HCl 1 gm/ Sodium (Chloride) 250 mls @ 167 mls/hr IV Q18H [facility] Insulin Aspart (Novolog) 1 - 5 unit SUBQ 0800,1200,1700,2100 [facility]; Protocol Last Admin: 10/04/19 09:14 Dose: Not Given Ondansetron HCl (Zofran Inj) 4 mg IVP Q6HR PRN PRN Reason: Nausea / Vomiting Pantoprazole Sodium (Protonix) 40 mg IVP QDAC [facility] Last Admin: 10/04/19 06:07 Dose: 40 mg Polyethylene Glycol (Miralax) 17 gm PO DAILY [facility] Last Admin: 10/04/19 08:19 Dose: 17 gm Prednisone (Deltasone) 10 mg PO DAILYWM [facility] Pregabalin (Lyrica) 100 mg PO TID [facility] Sodium Chloride (Normal Saline Flush 0.9%) 10 ml IVP PRN PRN PRN Reason: NEEDED PER PROVIDER ORDERS Last Admin: 10/04/19 06:05 Dose: 10 ml Sodium Chloride (Normal Saline Flush 0.9%) 10 ml IVP 0100,0900,1700 [facility] Last Admin: 10/04/19 09:17 Dose: 10 ml Tramadol HCl (Ultram) 50 mg PO Q6HR PRN PRN Reason: PAIN Last Admin: 10/04/19 05:01 Dose: 50 mg Albuterol Sulfate [Proair Hfa] 2 puffs INH Q4HR PRN 02/17/14 Pantoprazole [Protonix] 20 mg ORAL DAILY 02/17/14 Travoprost [Travatan Z] 1 drop EACHEYE DAILY 02/17/14 traMADol [Ultram] 50 mg ORAL PRN 02/17/14 Acetaminophen [Tylenol] 325 mg PO PRN 06/30/19 Biotin 5,000 mcg PO DAILY 06/30/19 Brimonidine 0.2% Ophth Drops [Alphagan P 0.2% Ophth Drops] 1 drops OPTH TID 06/30/19 C,E,Zinc,Copper 11/Vkizf8y/Lut [Ocuvite Adult 50 Plus Softgel] 1 each PO DAILY 06/30/19 Calcium Carbonate [Tums (Calcium Carbonate 500mg)] 500 mg PO TID 06/30/19 Cyanocobalamin (Vitamin B-12) [Vitamin B-12 (500 mcg sublingual)] 500 mcg SL DAILY 06/30/19 Ibuprofen [Motrin] 400 mg PO Q6HR PRN 06/30/19 Miconazole Cream [Remedy Antifungal] 0 applic TOP PRN 06/30/19 Phenylephrine/Dm/Acetaminop/GG [Mucinex Fast-Max Cold-Flu Liq] 100 ml PO BID 06/30/19 Potassium Chloride 20 meq PO DAILY 06/30/19 Pravastatin [Pravachol] 40 mg PO DAILY 06/30/19 Prednisone 10 mg PO DAILY 06/30/19 Pregabalin [Lyrica] 250 mg PO BID 06/30/19 Vit A/Vit C/Vit E/Zinc/Copper [Preservision Areds Softgel] 1 each PO DAILY 06/30/19 acetaZOLAMIDE [Acetazolamide] 250 mg PO BID 06/30/19 polyethylene glycoL 3350 [Miralax] 17 gm PO DAILY PRN 06/30/19 Objective - Vital Signs/Intake & Output Vital Signs: Vital Signs x48h Temp Pulse Pulse Resp BP Pulse Ox 10/04/19 09:36 36.6 C 58 L 18 98 10/04/19 09:00 36.4 C L 55 L 19 100/42 L 95 10/04/19 07:45 58 L 18 10/04/19 03:20 36.6 C 58 L 18 105/69 98 Intake & Output: Intake & Output 10/01/19 10/02/19 10/03/19 10/04/19 23:59 23:59 23:59 23:59 Intake Total 100 1116.667 Output Total 100 1800 Balance 0 -683.333 - Objective General Appearance: positive: No acute distress, Alert. negative: Lethargic Eyes Bilateral: positive: Normal inspection, PERRL, No lid inflammation ENT: positive: ENT inspection nml, No signs of dehydration. negative: Purulent nasal drainage Neck: positive: Nml inspection, Thyroid nml, Trachea midline. negative: Thyromegaly, Stiff neck, Tracheal deviation Respiratory: positive: Chest non-tender, No respiratory distress. negative: Wheezes, Rales, Rhonchi Cardiovascular: positive: Regular rate & rhythm, No murmur, Bradycardia. negative: Tachycardia, Systolic murmur, Diastolic murmur Peripheral Pulses: 2+ Radial (R), 2+ Radial (L), 2+ Dorsalis pedis (R), 2+ Dorsalis pedis (L) Abdomen: positive: Non-tender, No organomegaly, Nml bowel sounds, No distention. negative: Tenderness, Guarding, Rebound Back: positive: Nml inspection. negative: CVA tenderness (R), CVA tenderness (L) Skin: positive: Color nml, No rash, Warm, Dry. negative: Cyanosis, Diaphoresis, Pallor Extremities: positive: Non-tender, Nml appearance. negative: Calf tenderness, Michael's sign/cords Neurologic/Psychiatric: positive: Sensation nml. negative: Weakness, Sensory loss, Facial droop, Slurred/abnml speech - Lab Results Fish Bones: 10/04/19 06:10 10/04/19 06:10 Other Labs: Lab Results x24hrs 10/04/19 10/04/19 10/04/19 Range/Units 06:10 06:10 06:10 WBC (4.8-10.8) x10^3/uL RBC (4.20-5.40) 10^6/uL Hgb (12.0-16.0) g/dL Hct (37.0-47.0) % MCV (81.0-99.0) fL MCH (27.0-31.0) pg MCHC (32.0-36.0) g/dL RDW (12.0-15.0) % Plt Count (130-450) 10^3/uL MPV (7.9-10.8) fL Neut # (Auto) Lymph # (Auto) [place] # (Auto) Eos # (Auto) Baso # (Auto) Absolute Nucleated RBC Total Counted Band Neuts % (Manual) (0 - 10) % Reactive Lymphs % (Man) % Abnorm Lymph % (Manual) % Nucleated RBC % Neutrophils # (Manual) (1.5-6.6) 10^3/uL Lymphocytes # (Manual) (1.5-3.5) 10^3/uL Monocytes # (Manual) (0.0-1.0) 10^3/uL Eosinophils # (Manual) (0-0.7) 10^3/uL Basophils # (Manual) (0-0.1) 10^3/uL Differential Comment Platelet Estimate (NORMAL) Platelet Morphology (NORMAL) RBC Morph Micro Appear (NORMAL) Sodium 136 (135-145) mmol/L Potassium 3.2 L (3.5-5.0) mmol/L Chloride 106 (101-111) mmol/L Carbon Dioxide 23 (21-32) mmol/L Anion Gap 7.0 (6-13) BUN 17 (6-20) mg/dL Creatinine 0.8 (0.4-1.0) mg/dL Estimated GFR (MDRD) 68 L (>89) Glucose 117 H (70-100) mg/dL Glycated Hemoglobin 5.8 (4.6-6.2) % Estim Average Glucose 120 H (70-100) Lactic Acid (0.5-2.2) mmol/L Uric Acid 5.7 (2.6-7.2) mg/dL Calcium 8.3 L (8.5-10.3) mg/dL Magnesium 2.1 (1.7-2.8) mg/dL Total Bilirubin (0.2-1.0) mg/dL AST (10-42) IU/L ALT (10-60) IU/L Alkaline Phosphatase (42-121) IU/L B-Natriuretic Peptide (5-100) pg/mL Total Protein (6.7-8.2) g/dL Albumin (3.2-5.5) g/dL Globulin (2.1-4.2) g/dL Albumin/Globulin Ratio (1.0-2.2) Lipase (22-51) U/L Urine Color Urine Clarity (CLEAR) Urine pH (5.0-7.5) PH Ur Specific Altha (1.002-1.030) Urine Protein (NEGATIVE) mg/dL Urine Glucose (UA) (NEGATIVE) mg/dL Urine Ketones (NEGATIVE) mg/dL Urine Occult Blood (NEGATIVE) Urine Nitrite (NEGATIVE) Urine Bilirubin (NEGATIVE) Urine Urobilinogen (NORMAL) E.U./dL Ur Leukocyte Esterase (NEGATIVE) Urine RBC (0-5) /HPF Urine WBC (0-5) /HPF Ur Squamous Epith Cells (<= Few) Amorphous Sediment /LPF Urine Bacteria (None Seen) /HPF Ur Microscopic Review Urine Culture Comments 10/04/19 10/03/19 10/03/19 Range/Units 06:10 19:55 19:02 WBC 14.8 H (4.8-10.8) x10^3/uL RBC 4.05 L (4.20-5.40) 10^6/uL Hgb 12.3 (12.0-16.0) g/dL Hct 37.7 (37.0-47.0) % MCV 93.1 (81.0-99.0) fL MCH 30.4 (27.0-31.0) pg MCHC 32.6 (32.0-36.0) g/dL RDW 15.3 H (12.0-15.0) % Plt Count 314 (130-450) 10^3/uL MPV 9.9 (7.9-10.8) fL Neut # (Auto) 10.6 H Lymph # (Auto) 2.5 [place] # (Auto) 1.4 H Eos # (Auto) 0.1 Baso # (Auto) 0.1 Absolute Nucleated RBC 0.00 Total Counted Band Neuts % (Manual) (0 - 10) % Reactive Lymphs % (Man) % Abnorm Lymph % (Manual) % Nucleated RBC % 0.0 Neutrophils # (Manual) (1.5-6.6) 10^3/uL Lymphocytes # (Manual) (1.5-3.5) 10^3/uL Monocytes # (Manual) (0.0-1.0) 10^3/uL Eosinophils # (Manual) (0-0.7) 10^3/uL Basophils # (Manual) (0-0.1) 10^3/uL Differential Comment Platelet Estimate (NORMAL) Platelet Morphology (NORMAL) RBC Morph Micro Appear (NORMAL) Sodium (135-145) mmol/L Potassium (3.5-5.0) mmol/L Chloride (101-111) mmol/L Carbon Dioxide (21-32) mmol/L Anion Gap (6-13) BUN (6-20) mg/dL Creatinine (0.4-1.0) mg/dL Estimated GFR (MDRD) (>89) Glucose (70-100) mg/dL Glycated Hemoglobin (4.6-6.2) % Estim Average Glucose (70-100) Lactic Acid 1.3 (0.5-2.2) mmol/L Uric Acid (2.6-7.2) mg/dL Calcium (8.5-10.3) mg/dL Magnesium (1.7-2.8) mg/dL Total Bilirubin (0.2-1.0) mg/dL AST (10-42) IU/L ALT (10-60) IU/L Alkaline Phosphatase (42-121) IU/L B-Natriuretic Peptide 43 (5-100) pg/mL Total Protein (6.7-8.2) g/dL Albumin (3.2-5.5) g/dL Globulin (2.1-4.2) g/dL Albumin/Globulin Ratio (1.0-2.2) Lipase (22-51) U/L Urine Color Urine Clarity (CLEAR) Urine pH (5.0-7.5) PH Ur Specific Altha (1.002-1.030) Urine Protein (NEGATIVE) mg/dL Urine Glucose (UA) (NEGATIVE) mg/dL Urine Ketones (NEGATIVE) mg/dL Urine Occult Blood (NEGATIVE) Urine Nitrite (NEGATIVE) Urine Bilirubin (NEGATIVE) Urine Urobilinogen (NORMAL) E.U./dL Ur Leukocyte Esterase (NEGATIVE) Urine RBC (0-5) /HPF Urine WBC (0-5) /HPF Ur Squamous Epith Cells (<= Few) Amorphous Sediment /LPF Urine Bacteria (None Seen) /HPF Ur Microscopic Review Urine Culture Comments 10/03/19 10/03/19 10/03/19 Range/Units 19:02 19:02 18:40 WBC 19.8 H (4.8-10.8) x10^3/uL RBC 4.37 (4.20-5.40) 10^6/uL Hgb 13.5 (12.0-16.0) g/dL Hct 39.8 (37.0-47.0) % MCV 91.1 (81.0-99.0) fL MCH 30.9 (27.0-31.0) pg MCHC 33.9 (32.0-36.0) g/dL RDW 15.3 H (12.0-15.0) % Plt Count 351 (130-450) 10^3/uL MPV 10.0 (7.9-10.8) fL Neut # (Auto) Not Reportable Lymph # (Auto) Not Reportable [place] # (Auto) Not Reportable Eos # (Auto) Not Reportable Baso # (Auto) Not Reportable Absolute Nucleated RBC Not Reportable Total Counted 100 Band Neuts % (Manual) 2 (0 - 10) % Reactive Lymphs % (Man) 1 % Abnorm Lymph % (Manual) 0 % Nucleated RBC % Not Reportable Neutrophils # (Manual) 15.8 H (1.5-6.6) 10^3/uL Lymphocytes # (Manual) 2.8 (1.5-3.5) 10^3/uL Monocytes # (Manual) 1.0 (0.0-1.0) 10^3/uL Eosinophils # (Manual) 0.2 (0-0.7) 10^3/uL Basophils # (Manual) 0.0 (0-0.1) 10^3/uL Differential Comment MANUAL DIFFERENTIAL Platelet Estimate NORMAL (130-450,000) (NORMAL) Platelet Morphology NORMAL APPEARANCE (NORMAL) RBC Morph Micro Appear NORMAL APPEARANCE (NORMAL) Sodium 136 (135-145) mmol/L Potassium 2.7 L (3.5-5.0) mmol/L Chloride 103 (101-111) mmol/L Carbon Dioxide 23 (21-32) mmol/L Anion Gap 10.0 (6-13) BUN 20 (6-20) mg/dL Creatinine 0.8 (0.4-1.0) mg/dL Estimated GFR (MDRD) 68 L (>89) Glucose 115 H (70-100) mg/dL Glycated Hemoglobin (4.6-6.2) % Estim Average Glucose (70-100) Lactic Acid (0.5-2.2) mmol/L Uric Acid (2.6-7.2) mg/dL Calcium 8.8 (8.5-10.3) mg/dL Magnesium (1.7-2.8) mg/dL Total Bilirubin 1.0 (0.2-1.0) mg/dL AST 19 (10-42) IU/L ALT 20 (10-60) IU/L Alkaline Phosphatase 81 (42-121) IU/L B-Natriuretic Peptide (5-100) pg/mL Total Protein 6.6 L (6.7-8.2) g/dL Albumin 3.0 L (3.2-5.5) g/dL Globulin 3.6 (2.1-4.2) g/dL Albumin/Globulin Ratio 0.8 L (1.0-2.2) Lipase 28 (22-51) U/L Urine Color YELLOW Urine Clarity CLEAR (CLEAR) Urine pH 7.5 (5.0-7.5) PH Ur Specific Altha 1.010 (1.002-1.030) Urine Protein NEGATIVE (NEGATIVE) mg/dL Urine Glucose (UA) NEGATIVE (NEGATIVE) mg/dL Urine Ketones NEGATIVE (NEGATIVE) mg/dL Urine Occult Blood TRACE-INTA (NEGATIVE) Urine Nitrite POSITIVE H (NEGATIVE) Urine Bilirubin NEGATIVE (NEGATIVE) Urine Urobilinogen 1 (NORMAL) (NORMAL) E.U./dL Ur Leukocyte Esterase NEGATIVE (NEGATIVE) Urine RBC 0-5 (0-5) /HPF Urine WBC 0-3 (0-5) /HPF Ur Squamous Epith Cells NONE SEEN (<= Few) Amorphous Sediment Moderate /LPF Urine Bacteria Rare (None Seen) /HPF Ur Microscopic Review INDICATED Urine Culture Comments INDICATED ABX Reporting Has patient been on IV antibiotics over the past 48 hours?: Yes Sepsis Event Note (H) - Evaluation Current Stage of Sepsis: Sepsis Possible source of Sepsis: positive: Genitourinary - Sepsis Criteria Sepsis Criteria: Recorded Temperature greater than 38.3C or Less than 36C, WBC count greater than 10% bands, WBC count greater than 12,000 or less than 4000 Assessment/Plan - Problem List (1) Sepsis Impression: 5/6 pt has no more fever on today, blood and urine culture both are pending. pt's WBC is running down. the resource is likely from UTI Plan: continue antibiotics, slight hydration. Covid 19 test is pending (2)UTI 5/6 pt has recent hx of pseudomonus UTI. UA analysis indicate pt might have UTI again. continue antibiotics (3) right big toe swelling 5/6 pt's right big toe has mild to moderate swelling, erythema and slight warmth. unfortunately we does not have orthopedics surgeon for consult. PLan: order Xray to r/o injury and detect if there is any effusion in the joint. order uric acid, continue home lower dosage of Prednisone and pain meds Lyrica. (4)profound weakness 5/6 pt present profound weakness today. she denies chest pain, SOB. pt came on last night, we let pt have some sleep on the day, continue PT/OT on tomorrow. (5) Chronic pain Conclusion/Plan: 5/6 it is likely multifactorial cause. Patient has hx of chronic back pain for which she has undergone multiple back surgeries in the previous. She also follows outpatient with physiatry and gets SI joint and lumbar epidural injections at outpt setting. pt has been Work-up within the past 2 weeks at her last admission at [facility]. pt had LP, CT of the head and neck, CHANDAN, CRP and temporal artery biopsies which were all unremarkable per 's report. Patient is to follow-up with rheumatology outpatient today but she is here. continue manage pain as needed, and resume home Lyrica (6) COPD (chronic obstructive pulmonary disease) Conclusion/Plan: 5/6 stable, resume PRN breath treatment of Albuterol and Duoneb (7) Diabetes mellitus Conclusion/Plan: 5/6 A1C is 5.8, continue Sliding-scale insulin ordered. Accu-Cheks. (8) Hypokalemia Conclusion/Plan: will replacement, and lab monitor (9) Hyperlipidemia Conclusion/Plan: hold Statin, per her PCP, due to the patient's generalized body pain, joint aches and weakness.
[2019-10-04] MEDS: PREGABALIN 100 MG CAPSULE PO SCH ×2 (10:20→22:12)
[2019-10-04] MEDS: predniSONE 10 MG TABLET PO SCH (10:20)
--- NOTE | 2019-10-04 13:37 | PHARMACY PROGRESS NOTE ---
- Best Possible Medication History Admit Date and Time: 10/03/192101 Processed by: Pharmacy Medication History completed: Yes Secondary Source(s): Facility MAR as ONLY source As the person ultimately responsible for medication therapy, providers are able to order a medication from an existing home medication list in [facility] via the "Reconcile Routine" prior to Confirmation of that medication by it desktop support technician. Such practice is discouraged except when the physician, in their clinical judgment, deems that a medical need exists for a medication without regard to previous use.
[2019-10-04] MEDS: SODIUM CHLORIDE 0.9% 1,000 ML IV SCH ×3 (13:51→18:55)
[2019-10-04] MEDS ORDERED: VANCOMYCIN INJ 1 GM in SODIUM CHLORIDE 0.9% 250 ML IV SCH (18:00)
[2019-10-05] MEDS: MEROPENEM 1 GM in SODIUM CHLORIDE 0.9% MINIBAG 100 ML IV SCH ×2 (00:25→08:06)
[2019-10-05] MEDS: ACETAMINOPHEN 325 MG TABLET PO PRN ×2 (00:27→18:47)
[2019-10-05] MEDS: SODIUM CHLORIDE FLUSH 0.9% 10 ML SYRINGE IVP SCH ×4 (01:04→23:28)
[2019-10-05 05:06] LABS: BASOPHILS # (AUTO) 0.1 10^3/uL (0.0-0.1); BASOPHILS % (AUTO) 0.7 %; EOSINOPHILS # (AUTO) 0.2 10^3/uL (0.0-0.7); HGB - HEMOGLOBIN 11.7 g/dL (12.0-16.0); LYMPHOCYTES # (AUTO) 2.5 10^3/uL (1.5-3.5); MEAN CORPUSCULAR HEMOGLOBIN 29.9 pg (27.0-31.0); MEAN CORPUSCULAR HGB CONC 32.1 g/dL (32.0-36.0); MEAN CORPUSCULAR VOLUME 93.4 fL (81.0-99.0); MEAN PLATELET VOLUME 10.1 fL (7.9-10.8); MONOCYTES # (AUTO) 0.8 10^3/uL (0.0-1.0); MONOCYTES % (AUTO) 7.6 %; NEUTROPHILS # (AUTO) 6.8 10^3/uL (1.5-6.6); NEUTROPHILS % (AUTO) 65.2 %; PLT - PLATELET COUNT 291 10^3/uL (130-450); RED BLOOD COUNT 3.91 10^6/uL (4.20-5.40); RED CELL DISTRIBUTION WIDTH 15.3 % (12.0-15.0); WHITE BLOOD COUNT 10.5 x10^3/uL (4.8-10.8)
[2019-10-05 05:13] LABS: CALCIUM 8.1 mg/dL (8.5-10.3); CREATININE 0.6 mg/dL (0.4-1.0); MAGNESIUM 2.3 mg/dL (1.7-2.8)
[2019-10-05] MEDS: ALBUTEROL 1 PUFF INH SCH ×4 (05:19→21:56)
[2019-10-05] MEDS: PREGABALIN 100 MG CAPSULE PO SCH ×3 (06:26→21:11)
[2019-10-05] MEDS: PANTOPRAZOLE 40 MG VIAL IVP SCH (06:26)
[2019-10-05] MEDS: SODIUM CHLORIDE FLUSH 0.9% 10 ML SYRINGE IVP PRN (06:28)
[2019-10-05] MEDS: INSULIN ASPART 300 UNIT/3 ML PEN SUBQ SCH ×4 (08:05→21:14)
[2019-10-05] MEDS ORDERED: POTASSIUM CHLORIDE 20 MEQ TABLET PO SCH (08:06)
[2019-10-05] MEDS: predniSONE 10 MG TABLET PO SCH (08:11)
[2019-10-05] MEDS: polyethylene glycoL 3350 17 GM PACKET PO SCH (08:11)
[2019-10-05] MEDS: ENOXAPARIN 40 MG/0.4 ML SYRINGE SUBQ SCH (08:21)
[2019-10-05] MEDS ORDERED: FUROSEMIDE 20 MG TABLET PO SCH (09:00)
[2019-10-05] MEDS: DOCUSATE SODIUM 250 MG CAPSULE PO SCH (09:00)
[2019-10-05] MEDS: traMADol 50 MG TABLET PO SCH ×2 (09:24→21:11)
[2019-10-05] MEDS ORDERED: FUROSEMIDE 20 MG/2 ML VIAL IVP ONE (09:30)
--- NOTE | 2019-10-05 10:38 | PROVIDER PROGRESS NOTE ---
Subjective - Prog Note Date Prog Note Date: 10/05/19 - Subjective Pt reports feeling: No change Subjective: pt is feeding by her self. it seems comfortable now. pt still complain of lots pain on all her joints. she denies fever, chill, chest pain, and shortness of breath. Per neonatal social worker pt talked with her pest to have wish palliative care and hospice care, eventually wish naturally . pt did have this wish. pt's daughter knew this is pt's wish per neonatal social worker report, and want to followup her wish. we will consult with palliative care first. Current Medications - Current Medications Current Medications: Active Medications Acetaminophen (Tylenol) 650 mg PO Q6HR PRN PRN Reason: Pain 1 to 4 Last Admin: 10/05/19 00:27 Dose: 650 mg Albuterol (Mdi: Albuterol) 2 puffs INH TID [facility] Last Admin: 10/05/19 06:08 Dose: 2 puffs Albuterol/Ipratropium (Duoneb) 3 ml INH RTQID PRN PRN Reason: Shortness of Air/Wheezing Docusate Sodium (Colace 250mg Capsule) 250 - 500 mg PO DAILY [facility] Last Admin: 10/05/19 09:00 Dose: Not Given Enoxaparin Sodium (Lovenox) 40 mg SUBQ DAILY [facility] Last Admin: 10/05/19 08:21 Dose: 40 mg Meropenem 1 gm/ Sodium (Chloride) 100 mls @ 200 mls/hr IV Q8H [facility] Last Infusion: 10/05/19 09:38 Dose: Infused Vancomycin HCl 1 gm/ Sodium (Chloride) 250 mls @ 167 mls/hr IV Q18H [facility] Last Infusion: 10/04/19 20:26 Dose: Infused Insulin Aspart (Novolog) 1 - 5 unit SUBQ 0800,1200,1700,2100 [facility]; Protocol Last Admin: 10/05/19 08:05 Dose: Not Given Ondansetron HCl (Zofran Inj) 4 mg IVP Q6HR PRN PRN Reason: Nausea / Vomiting Pantoprazole Sodium (Protonix) 40 mg IVP QDAC [facility] Last Admin: 10/05/19 06:26 Dose: 40 mg Polyethylene Glycol (Miralax) 17 gm PO DAILY [facility] Last Admin: 10/05/19 08:11 Dose: 17 gm Prednisone (Deltasone) 10 mg PO DAILYWM [facility] Last Admin: 10/05/19 08:11 Dose: 10 mg Pregabalin (Lyrica) 100 mg PO TID [facility] Last Admin: 10/05/19 06:26 Dose: 100 mg Sodium Chloride (Normal Saline Flush 0.9%) 10 ml IVP PRN PRN PRN Reason: NEEDED PER PROVIDER ORDERS Last Admin: 10/05/19 06:28 Dose: 10 ml Sodium Chloride (Normal Saline Flush 0.9%) 10 ml IVP 0100,0900,1700 [facility] Last Admin: 10/05/19 08:24 Dose: 10 ml Tramadol HCl (Ultram) 50 mg PO BID [facility] Last Admin: 10/05/19 09:24 Dose: 50 mg Albuterol Sulfate [Proair Hfa] 2 puffs INH Q4HR PRN 02/17/14 Travoprost [Travatan Z] 1 drop RIGHTEYE QPM 02/17/14 traMADol [Ultram] 50 mg PO BID PRN 02/17/14 Acetaminophen [Tylenol] 650 mg PO Q4H PRN 06/30/19 Brimonidine 0.2% Ophth Drops [Alphagan P 0.2% Ophth Drops] 1 drops EACHEYE TID 06/30/19 C,E,Zinc,Copper 11/Afdpy0j/Lut [Ocuvite Adult 50 Plus Softgel] 1 each PO DAILY 06/30/19 Cyanocobalamin (Vitamin B-12) [Vitamin B-12 (500 mcg sublingual)] 500 mcg SL DAILY 06/30/19 Potassium Chloride 20 meq PO DAILY 06/30/19 Pravastatin [Pravachol] 40 mg PO QPM 06/30/19 Vit A/Vit C/Vit E/Zinc/Copper [Preservision Areds Softgel] 1 each PO DAILY 06/30/19 acetaZOLAMIDE [Acetazolamide] 250 mg PO BID 06/30/19 polyethylene glycoL 3350 [Miralax] 17 gm PO DAILY PRN 06/30/19 Calcium Carbonate 500 mg PO TIDWM 10/04/19 Pregabalin 125 mg PO BID 10/04/19 Trazodone HCl 100 mg PO QPM 10/04/19 hydroCHLOROthiazide [Hydrochlorothiazide] 25 mg PO DAILY 10/04/19 predniSONE [Prednisone] 10 mg PO DAILYWM 10/04/19 Objective - Vital Signs/Intake & Output Vital Signs: Vital Signs x48h Temp Pulse Pulse Resp BP Pulse Ox 10/05/19 08:28 36.9 C 54 L 12 121/42 L 97 10/05/19 06:23 36.5 C 52 L 16 108/72 93 10/05/19 06:12 66 16 Intake & Output: Intake & Output 10/02/19 10/03/19 10/04/19 10/05/19 23:59 23:59 23:59 23:59 Intake Total 100 2390.000 1660 Output Total 100 3325 775 Balance 0 -935.000 885 - Objective General Appearance: positive: Alert, Mild distress. negative: Lethargic Eyes Bilateral: positive: Normal inspection, PERRL, No lid inflammation ENT: positive: ENT inspection nml, No signs of dehydration. negative: Purulent nasal drainage Neck: positive: Nml inspection, Thyroid nml, Trachea midline. negative: Thyromegaly, Stiff neck, Tracheal deviation Respiratory: positive: Chest non-tender, No respiratory distress. negative: Wheezes, Rales Cardiovascular: positive: Regular rate & rhythm, No murmur, No gallop, Bradycardia. negative: Tachycardia, Systolic murmur, Diastolic murmur Peripheral Pulses: 2+ Radial (R), 2+ Radial (L), 2+ Dorsalis pedis (R), 2+ Dorsalis pedis (L) Abdomen: positive: Non-tender, No organomegaly, Nml bowel sounds. negative: Tenderness, Guarding, Rebound Back: positive: Nml inspection Skin: positive: Color nml, No rash, Warm, Dry. negative: Cyanosis, Diaphoresis, Pallor Extremities: positive: Non-tender. negative: Calf tenderness, Michael's sign/cords Neurologic/Psychiatric: positive: Oriented x3, Sensation nml. negative: Weakness, Sensory loss, Facial droop, Slurred/abnml speech - Lab Results Fish Bones: 10/05/19 04:40 10/05/19 04:40 Other Labs: Lab Results x24hrs 10/05/19 10/05/19 10/03/19 Range/Units 04:40 04:40 18:40 WBC 10.5 (4.8-10.8) x10^3/uL RBC 3.91 L (4.20-5.40) 10^6/uL Hgb 11.7 L (12.0-16.0) g/dL Hct 36.5 L (37.0-47.0) % MCV 93.4 (81.0-99.0) fL MCH 29.9 (27.0-31.0) pg MCHC 32.1 (32.0-36.0) g/dL RDW 15.3 H (12.0-15.0) % Plt Count 291 (130-450) 10^3/uL MPV 10.1 (7.9-10.8) fL Neut # (Auto) 6.8 H (1.5-6.6) 10^3/uL Lymph # (Auto) 2.5 (1.5-3.5) 10^3/uL [place] # (Auto) 0.8 (0.0-1.0) 10^3/uL Eos # (Auto) 0.2 (0.0-0.7) 10^3/uL Baso # (Auto) 0.1 (0.0-0.1) 10^3/uL Absolute Nucleated RBC 0.00 x10^3/uL Nucleated RBC % 0.0 /100WBC Sodium 139 (135-145) mmol/L Potassium 3.2 L (3.5-5.0) mmol/L Chloride 110 (101-111) mmol/L Carbon Dioxide 23 (21-32) mmol/L Anion Gap 6.0 (6-13) BUN 14 (6-20) mg/dL Creatinine 0.6 (0.4-1.0) mg/dL Estimated GFR (MDRD) 95 (>89) Glucose 97 (70-100) mg/dL Calcium 8.1 L (8.5-10.3) mg/dL Magnesium 2.3 (1.7-2.8) mg/dL Coronavirus (PCR) NEGATIVE ABX Reporting Has patient been on IV antibiotics over the past 48 hours?: Yes Sepsis Event Note (H) - Evaluation Current Stage of Sepsis: Sepsis Possible source of Sepsis: positive: Genitourinary - Sepsis Criteria Sepsis Criteria: Recorded Temperature greater than 38.3C or Less than 36C, WBC count greater than 10% bands, WBC count greater than 12,000 or less than 4000 Assessment/Plan - Problem List (1) Sepsis Impression: 10/04 improved. pt has no more fever. blood culture is negative. WBC is down to normal. UA culture show positive for pseudomenaus, sensitivity study is still pending. continue antibiotics. and vital and lab monitor 5/6 pt has no more fever on today, blood and urine culture both are pending. pt's WBC is running down. the resource is likely from UTI Plan: continue antibiotics, slight hydration. Covid 19 test is pending (2)UTI 10/04 UA culture show positive for pseudomenaus, sensitivity study is still pending. continue antibiotics 5/6 pt has recent hx of pseudomonus UTI. UA analysis indicate pt might have UTI again. continue antibiotics (3) right big toe swelling 5/7 significant improved. pt denies pain on her right big toe, erythema and swelling is significantly reducing. Xray reveals mild chronic calcific tendinosis. 5/6 pt's right big toe has mild to moderate swelling, erythema and slight warmth. unfortunately we does not have orthopedics surgeon for consult. PLan: order Xray to r/o injury and detect if there is any effusion in the joint. order uric acid, continue home lower dosage of Prednisone and pain meds Lyrica. (4)profound weakness / improved. pt can feed by her self. continue PT/OT at this moment 5/6 pt present profound weakness today. she denies chest pain, SOB. pt came on last night, we let pt have some sleep on the day, continue PT/OT on tomorrow. (5) Chronic pain Conclusion/Plan: 10/04 still present. schedule Tramadol as her home schedule, continue Lyrica. 5/6 it is likely multifactorial cause. Patient has hx of chronic back pain for which she has undergone multiple back surgeries in the previous. She also follows outpatient with physiatry and gets SI joint and lumbar epidural injections at outpt setting. pt has been Work-up within the past 2 weeks at her last admission at [facility]. pt had LP, CT of the head and neck, CHANDAN, CRP and temporal artery biopsies which were all unremarkable per 's report. Patient is to follow-up with rheumatology outpatient today but she is here. continue manage pain as needed, and resume home Lyrica (6) COPD (chronic obstructive pulmonary disease) Conclusion/Plan: 10/04 CXR reveals interstitial edema. clinic pt's lung sound indicate mild to moderate fluid overloaded. pt is given once Lasix. closely monitor pt. now pt has 97% sat on room air. 5/6 stable, resume PRN breath treatment of Albuterol and Duoneb (7) Diabetes mellitus Conclusion/Plan: 10/03 A1C is 5.8, continue Sliding-scale insulin ordered. Accu-Cheks. (8) Hypokalemia Conclusion/Plan: will replacement, and lab monitor (9) Hyperlipidemia stable (10)palliative care pt's wish to have palliative care and hospice care, consult with palliative care and will followup
[2019-10-05] MEDS: CIPROFLOXACIN 250 MG TABLET PO SCH ×2 (12:24→21:11)
[2019-10-05] MEDS: SENNA 8.6 MG TABLET PO SCH (21:11)
[2019-10-06] MEDS ORDERED: traMADol 50 MG TABLET PO PRN (00:08)
[2019-10-06] MEDS: SENNA 8.6 MG TABLET PO SCH ×3 (02:58→13:29)
[2019-10-06 05:25] LABS: BASOPHILS # (AUTO) 0.1 10^3/uL (0.0-0.1); BASOPHILS % (AUTO) 0.8 %; EOSINOPHILS # (AUTO) 0.4 10^3/uL (0.0-0.7); EOSINOPHILS % (AUTO) 4.8 %; HGB - HEMOGLOBIN 12.2 g/dL (12.0-16.0); LYMPHOCYTES # (AUTO) 2.8 10^3/uL (1.5-3.5); LYMPHOCYTES % (AUTO) 36.7 %; MEAN CORPUSCULAR HEMOGLOBIN 29.3 pg (27.0-31.0); MEAN CORPUSCULAR HGB CONC 30.3 g/dL (32.0-36.0); MEAN CORPUSCULAR VOLUME 96.6 fL (81.0-99.0); MEAN PLATELET VOLUME 10.1 fL (7.9-10.8); MONOCYTES # (AUTO) 0.6 10^3/uL (0.0-1.0); MONOCYTES % (AUTO) 8.3 %; NEUTROPHILS # (AUTO) 3.7 10^3/uL (1.5-6.6); NEUTROPHILS % (AUTO) 49.1 %; PLT - PLATELET COUNT 326 10^3/uL (130-450); RED BLOOD COUNT 4.17 10^6/uL (4.20-5.40); RED CELL DISTRIBUTION WIDTH 15.5 % (12.0-15.0); WHITE BLOOD COUNT 7.6 x10^3/uL (4.8-10.8)
[2019-10-06] MEDS: PREGABALIN 100 MG CAPSULE PO SCH ×3 (05:32→21:38)
[2019-10-06 05:39] LABS: CALCIUM 8.6 mg/dL (8.5-10.3); CREATININE 0.6 mg/dL (0.4-1.0); MAGNESIUM 2.3 mg/dL (1.7-2.8)
[2019-10-06] MEDS: ALBUTEROL NEB 2.5 MG/3 ML INH SCH ×2 (07:39→16:31)
[2019-10-06] MEDS: INSULIN ASPART 300 UNIT/3 ML PEN SUBQ SCH ×4 (08:48→21:44)
[2019-10-06] MEDS ORDERED: FAMOTIDINE 20 MG TABLET PO SCH (09:00)
--- NOTE | 2019-10-06 10:14 | PROVIDER PROGRESS NOTE ---
Subjective - Prog Note Date Prog Note Date: 10/06/19 - Subjective Pt reports feeling: Improved Subjective: pt report she feel better, she is sitting comfort at the chair and feeding herself. pt refused to have new IV insert for her on yesterday. TOday, I d iscussed with pt about PICC. pt state she had PICC line before, she like to have that, and agreed to have PICC line. I called pt's daughter Esme Law at [phone], update her mother's medical condition, discussed with the care plan. she report her mother had previous twice UTI with pseudomoneus infection, need continuing with IV antibiotics with PICC line. she will followup her mother's wishes for advance care plan if her mother choose to do. Current Medications - Current Medications Current Medications: Active Medications Acetaminophen (Tylenol) 650 mg PO Q6HR PRN PRN Reason: Pain 1 to 4 Last Admin: 10/05/19 18:47 Dose: 650 mg Albuterol () 2.5 mg INH RTTID [facility] Last Admin: 10/06/19 07:39 Dose: 2.5 mg Albuterol/Ipratropium (Duoneb) 3 ml INH RTQID PRN PRN Reason: Shortness of Air/Wheezing Cholecalciferol (Vitamin D3) 2,000 unit PO DAILY [facility] Docusate Sodium (Colace 250mg Capsule) 250 - 500 mg PO DAILY [facility] Last Admin: 10/05/19 09:00 Dose: Not Given Enoxaparin Sodium (Lovenox) 40 mg SUBQ DAILY [facility] Last Admin: 10/05/19 08:21 Dose: 40 mg Famotidine (Pepcid) 20 mg PO BID [facility] Meropenem 1 gm/ Sodium (Chloride) 100 mls @ 200 mls/hr IV BID [facility] Insulin Aspart (Novolog) 1 - 5 unit SUBQ 0800,1200,1700,2100 [facility]; Protocol Last Admin: 10/06/19 08:48 Dose: Not Given Ondansetron HCl (Zofran Inj) 4 mg IVP Q6HR PRN PRN Reason: Nausea / Vomiting Polyethylene Glycol (Miralax) 17 gm PO DAILY [facility] Last Admin: 10/05/19 08:11 Dose: 17 gm Prednisone (Deltasone) 10 mg PO DAILYWM [facility] Last Admin: 10/05/19 08:11 Dose: 10 mg Pregabalin (Lyrica) 100 mg PO TID [facility] Last Admin: 10/06/19 05:32 Dose: 100 mg Senna (Senokot) 17.2 - 25.8 mg PO Q6H [facility] Stop: 10/06/19 14:01 Last Admin: 10/06/19 02:58 Dose: Not Given Sodium Chloride (Normal Saline Flush 0.9%) 10 ml IVP PRN PRN PRN Reason: NEEDED PER PROVIDER ORDERS Last Admin: 10/05/19 06:28 Dose: 10 ml Sodium Chloride (Normal Saline Flush 0.9%) 10 ml IVP 0100,0900,1700 [facility] Last Admin: 10/05/19 23:28 Dose: Not Given Tramadol HCl (Ultram) 50 mg PO BID [facility] Last Admin: 10/05/19 21:11 Dose: 50 mg Albuterol Sulfate [Proair Hfa] 2 puffs INH Q4HR PRN 02/17/14 Travoprost [Travatan Z] 1 drop RIGHTEYE QPM 02/17/14 traMADol [Ultram] 50 mg PO BID PRN 02/17/14 Acetaminophen [Tylenol] 650 mg PO Q4H PRN 06/30/19 Brimonidine 0.2% Ophth Drops [Alphagan P 0.2% Ophth Drops] 1 drops EACHEYE TID 06/30/19 C,E,Zinc,Copper 11/Wabvc5y/Lut [Ocuvite Adult 50 Plus Softgel] 1 each PO DAILY 06/30/19 Cyanocobalamin (Vitamin B-12) [Vitamin B-12 (500 mcg sublingual)] 500 mcg SL DAILY 06/30/19 Potassium Chloride 20 meq PO DAILY 06/30/19 Pravastatin [Pravachol] 40 mg PO QPM 06/30/19 Vit A/Vit C/Vit E/Zinc/Copper [Preservision Areds Softgel] 1 each PO DAILY 06/30/19 acetaZOLAMIDE [Acetazolamide] 250 mg PO BID 06/30/19 polyethylene glycoL 3350 [Miralax] 17 gm PO DAILY PRN 06/30/19 Calcium Carbonate 500 mg PO TIDWM 10/04/19 Pregabalin 125 mg PO BID 10/04/19 Trazodone HCl 100 mg PO QPM 10/04/19 hydroCHLOROthiazide [Hydrochlorothiazide] 25 mg PO DAILY 10/04/19 predniSONE [Prednisone] 10 mg PO DAILYWM 10/04/19 Objective - Vital Signs/Intake & Output Vital Signs: Vital Signs x48h Temp Pulse Pulse Resp BP Pulse Ox 10/06/19 08:45 36.8 C 72 18 117/72 98 10/06/19 07:36 60 16 10/06/19 03:47 36.6 C 58 L 16 115/54 L 95 Intake & Output: Intake & Output 10/03/19 10/04/19 10/05/19 10/06/19 23:59 23:59 23:59 23:59 Intake Total 100 2390.000 2710 160 Output Total 100 3325 2505 350 Balance 0 -935.000 205 -190 - Objective General Appearance: positive: No acute distress, Alert. negative: Lethargic Eyes Bilateral: positive: Normal inspection, PERRL, No lid inflammation ENT: positive: ENT inspection nml, No signs of dehydration. negative: Purulent nasal drainage Neck: positive: Nml inspection, Thyroid nml, No JVD, Trachea midline. negative: Thyromegaly, Stiff neck, Tracheal deviation Respiratory: positive: Chest non-tender, No respiratory distress, Rales. negative: Wheezes Cardiovascular: positive: Regular rate & rhythm, No murmur, No gallop. negative: Tachycardia, Bradycardia, Systolic murmur, Diastolic murmur Peripheral Pulses: 2+ Radial (R), 2+ Radial (L), 2+ Dorsalis pedis (R), 2+ Dorsalis pedis (L) Abdomen: positive: Non-tender, No organomegaly, Nml bowel sounds, No distention. negative: Tenderness, Guarding, Rebound Back: positive: Nml inspection. negative: CVA tenderness (R), CVA tenderness (L) Skin: positive: Color nml, No rash, Warm, Dry. negative: Cyanosis, Diaphoresis, Pallor Extremities: positive: Non-tender, Nml appearance. negative: Calf tenderness, Michael's sign/cords Neurologic/Psychiatric: positive: Oriented x3, Sensation nml. negative: Weakness, Sensory loss, Facial droop, Slurred/abnml speech - Lab Results Fish Bones: 10/06/19 04:20 10/06/19 04:20 Other Labs: Lab Results x24hrs 10/06/19 10/06/19 Range/Units 04:20 04:20 WBC 7.6 (4.8-10.8) x10^3/uL RBC 4.17 L (4.20-5.40) 10^6/uL Hgb 12.2 (12.0-16.0) g/dL Hct 40.3 (37.0-47.0) % MCV 96.6 (81.0-99.0) fL MCH 29.3 (27.0-31.0) pg MCHC 30.3 L (32.0-36.0) g/dL RDW 15.5 H (12.0-15.0) % Plt Count 326 (130-450) 10^3/uL MPV 10.1 (7.9-10.8) fL Neut # (Auto) 3.7 (1.5-6.6) 10^3/uL Lymph # (Auto) 2.8 (1.5-3.5) 10^3/uL Whiteside # (Auto) 0.6 (0.0-1.0) 10^3/uL Eos # (Auto) 0.4 (0.0-0.7) 10^3/uL Baso # (Auto) 0.1 (0.0-0.1) 10^3/uL Absolute Nucleated RBC 0.00 x10^3/uL Nucleated RBC % 0.0 /100WBC Sodium 139 (135-145) mmol/L Potassium 3.9 (3.5-5.0) mmol/L Chloride 110 (101-111) mmol/L Carbon Dioxide 23 (21-32) mmol/L Anion Gap 6.0 (6-13) BUN 16 (6-20) mg/dL Creatinine 0.6 (0.4-1.0) mg/dL Estimated GFR (MDRD) 95 (>89) Glucose 99 (70-100) mg/dL Calcium 8.6 (8.5-10.3) mg/dL Magnesium 2.3 (1.7-2.8) mg/dL ABX Reporting Has patient been on IV antibiotics over the past 48 hours?: Yes Sepsis Event Note (H) - Evaluation Current Stage of Sepsis: Sepsis Possible source of Sepsis: positive: Genitourinary - Sepsis Criteria Sepsis Criteria: Recorded Temperature greater than 38.3C or Less than 36C, WBC count greater than 10% bands, WBC count greater than 12,000 or less than 4000 Assessment/Plan - Problem List (1) Sepsis Impression: 10/05 improved. WBC is normal. pt has no fever, blood culture was negative. UA culture reveals pseudomoneus. 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 So far only IV antibiotics is working in the sensitivity study. pt refused to have IV peripheral, now she agreed to have PICC line. order PICC and order Meropenem IV, plan total have 10-14 days antibiotics. 5/ improved. pt has no more fever. blood culture is negative. WBC is down to normal. UA culture show positive for pseudomenaus, sensitivity study is still pending. continue antibiotics. and vital and lab monitor 5/6 pt has no more fever on today, blood and urine culture both are pending. pt's WBC is running down. the resource is likely from UTI Plan: continue antibiotics, slight hydration. Covid 19 test is pending (2)UTI 10/05 PICC and order Meropenem IV, plan total have 10-14 days antibiotics according to sensitivity of UA study. 10/04 UA culture show positive for pseudomenaus, sensitivity study is still pending. continue antibiotics 5/6 pt has recent hx of pseudomonus UTI. UA analysis indicate pt might have UTI again. continue antibiotics (3) right big toe swelling / significant improved. 5/7 significant improved. pt denies pain on her right big toe, erythema and swelling is significantly reducing. Xray reveals mild chronic calcific tendinosis. 5/6 pt's right big toe has mild to moderate swelling, erythema and slight warmth. unfortunately we does not have orthopedics surgeon for consult. PLan: order Xray to r/o injury and detect if there is any effusion in the joint. order uric acid, continue home lower dosage of Prednisone and pain meds Lyrica. (4)profound weakness /8 significant improved, pt is alert and oriented today. continue PT/OT 5/7 improved. pt can feed by her self. continue PT/OT at this moment 5/6 pt present profound weakness today. she denies chest pain, SOB. pt came on last night, we let pt have some sleep on the day, continue PT/OT on tomorrow. (5) Chronic pain Conclusion/Plan: 10/05 improved. according to palliative care provider suggestions, continue schedule Tramadol, add PRN as well 10/04 still present. schedule Tramadol as her home schedule, continue Lyrica. 10/03 it is likely multifactorial cause. Patient has hx of chronic back pain for which she has undergone multiple back surgeries in the previous. She also follows outpatient with physiatry and gets SI joint and lumbar epidural injections at outpt setting. pt has been Work-up within the past 2 weeks at her last admission at [facility]. pt had LP, CT of the head and neck, CHANDAN, CRP and temporal artery biopsies which were all unremarkable per 's report. Patient is to follow-up with rheumatology outpatient today but she is here. continue manage pain as needed, and resume home Lyrica (6) COPD (chronic obstructive pulmonary disease) Conclusion/Plan: 10/05 present mild congestion, as her chronic condition. pt will CXR for PICC line, will followup. order INH of Duoneb as schedule, continue home lower dosage of steroid. 10/04 CXR reveals interstitial edema. clinic pt's lung sound indicate mild to moderate fluid overloaded. pt is given once Lasix. closely monitor pt. now pt has 97% sat on room air. 6 stable, resume PRN breath treatment of Albuterol and Duoneb (7) Diabetes mellitus Conclusion/Plan: 10/03 A1C is 5.8, continue Sliding-scale insulin ordered. Accu-Cheks. (8) Hypokalemia Conclusion/Plan: will replacement, and lab monitor (9) Hyperlipidemia stable (10)palliative care 10/05 palliative care provider Esme will see pt, will followup recommendations. pt's wish to have palliative care and hospice care, consult with palliative care and will followup
--- NOTE | 2019-10-06 10:37 | CONSULTATION NOTE ---
Palliative Care Consultation - Referral Referring Provider: Zachery CATES Time of Visit: 10:00-11:15 Referral setting: Hospitalized patient Referral Reason: FTT/Goals of Care - Information Sources Records reviewed: Previous records reviewed History/Review of Systems obtained from: Patient Exam limitations: Clinical condition (hard of hearing; A & O x 3) - History of Present Illness Brief History of Present Illness: This is a 88-year-old woman who has multiple comorbidities, but is hospitalized with recurrent UTI. Unfortunately has grown out Pseudomonas, with multiple resistance and patient with multiple allergies. She has had several infections, including sepsis in April, was treated for Pseudomonas in her second infection in May, was just at [facility] and discharged on 09/26, and now admitted yet again. Patient has poor venous access, will be getting a PICC line for IV antibiotics, and will need 14 days thus pushing need for further SNF placement. Patient also recently diagnosed with RA, nothing definitive one way or the other, has had multiple tests and trying to define her exacerbation of pain. This is been mostly in her joints, diminishing her functional status, 6 weeks ago she was walking, and able to manage her own ADLs. She has had escalating pain, patient long-term has chronic pain including peripheral neuropathy, which is currently managed on pregabalin now scheduled 100 mg 3 times daily. Patient has multiple reactions to previous opioids, has been able to tolerate the tramadol. Currently is scheduled for 50 mg twice daily, would benefit from a PRN dosing for escalating pain. In review with patient, she has had a significant difficulty with quarantine, and isolation. She already has macular degeneration and glaucoma, poor vision, and is finding social isolation at [facility] very depressing and adding to her distress. Her daughter reports her appetite is been decreasing, she has had weight loss, and does attribute this to not being with her friends and having stimulation. Family are not allowed in as well. She was also not allowed to have family in during hospitalization. Patient does report this is definitely adding to her worsening quality of life. When discussed with patient regarding goals of care, and concerned that she has been expressing that she was ready to go. She reports reports "I do not know what to do", she thought her demise would be related to her lungs. In fact patient has not had her regular treatments and feelings like she might have a "touch of pneumonia,". She does have moist cough, with expiratory wheezes and diminished breath sounds throughout. Patient is actually been quite functional up to about 6 weeks ago, with her methocarbamol on discharge from [facility], was having increased confusion, also with difficulty getting staff to change her depends, she ended up incontinent without assistance. Daughter is concerned that her knees will not be managed particularly with her most recent current decline in infection, and is in agreement SNF placement would be appropriate. Medical/Surgical History - Past Medical History Cardiovascular: reports: Hypertension, High cholesterol, Coronary artery disease Respiratory: reports: Asthma, COPD, Other (Tracheobronchomalacia s/p Y stent placement in 2017) Neuro: TIA, Peripheral neuropathy Endocrine/Autoimmune: reports: Type 2 diabetes GI: reports: GERD : reports: Chronic bladder infection HEENT: reports: Glaucoma, Macular degeneration, Chronic hearing loss Psych: reports: Depression, Anxiety Musculoskeletal: reports: Osteoarthritis, Rheumatoid arthritis, Fatigue Derm: reports: None MRSA Hx?: No Other Past Medical History: Asthma, COPD, glaucoma, macular degeneration - Past Surgical History General: reports: Cholecystectomy, Other Ortho: reports: Spine surgery /[employer]: reports: Hysterectomy Social History - Living Situation Living arrangement: Assisted living Living Situation: Alone Support System: Patient lives at [facility], this had been a good fit, she has had many of her long-term friends there, unfortunately most of she has 1 left there that she wants to keep in touch with. Unfortunately with the COVID restrictions has not been able to see her or dying with her usual contacts and friendships. She does have a daughter Esme, who is very distressed at patient's isolation and worsening depression. She is more than happy to support mother's goals, but does see this as coming out more of a place of her current isolation and distress with this. She is concerned as they are talking about not opening it up for more family support or dining until November. Family History - Family History Family History: Mother: (father lung cancer), Father: Medications/Allergies - Medications Active Medication List: Active Medications Acetaminophen (Tylenol) 650 mg PO Q6HR PRN PRN Reason: Pain 1 to 4 Last Admin: 10/05/19 18:47 Dose: 650 mg Albuterol () 2.5 mg INH RTTID RAMSES Last Admin: 10/06/19 07:39 Dose: 2.5 mg Albuterol/Ipratropium (Duoneb) 3 ml INH RTQID PRN PRN Reason: Shortness of Air/Wheezing Cholecalciferol (Vitamin D3) 2,000 unit PO DAILY [facility] Docusate Sodium (Colace 250mg Capsule) 250 - 500 mg PO DAILY [facility] Last Admin: 10/05/19 09:00 Dose: Not Given Enoxaparin Sodium (Lovenox) 40 mg SUBQ DAILY [facility] Last Admin: 10/05/19 08:21 Dose: 40 mg Famotidine (Pepcid) 20 mg PO BID [facility] Meropenem 1 gm/ Sodium (Chloride) 100 mls @ 200 mls/hr IV Q8H [facility] Insulin Aspart (Novolog) 1 - 5 unit SUBQ 0800,1200,1700,2100 [facility]; Protocol Last Admin: 10/06/19 08:48 Dose: Not Given Ondansetron HCl (Zofran Inj) 4 mg IVP Q6HR PRN PRN Reason: Nausea / Vomiting Polyethylene Glycol (Miralax) 17 gm PO DAILY [facility] Last Admin: 10/05/19 08:11 Dose: 17 gm Prednisone (Deltasone) 10 mg PO DAILYWM [facility] Last Admin: 10/05/19 08:11 Dose: 10 mg Pregabalin (Lyrica) 100 mg PO TID [facility] Last Admin: 10/06/19 05:32 Dose: 100 mg Senna (Senokot) 17.2 - 25.8 mg PO Q6H [facility] Stop: 10/06/19 14:01 Last Admin: 10/06/19 02:58 Dose: Not Given Sodium Chloride (Normal Saline Flush 0.9%) 10 ml IVP PRN PRN PRN Reason: NEEDED PER PROVIDER ORDERS Last Admin: 10/05/19 06:28 Dose: 10 ml Sodium Chloride (Normal Saline Flush 0.9%) 10 ml IVP 0100,0900,1700 [facility] Last Admin: 10/05/19 23:28 Dose: Not Given Tramadol HCl (Ultram) 50 mg PO BID [facility] Last Admin: 10/05/19 21:11 Dose: 50 mg Albuterol Sulfate [Proair Hfa] 2 puffs INH Q4HR PRN 02/17/14 Travoprost [Travatan Z] 1 drop RIGHTEYE QPM 02/17/14 traMADol [Ultram] 50 mg PO BID PRN 02/17/14 Acetaminophen [Tylenol] 650 mg PO Q4H PRN 06/30/19 Brimonidine 0.2% Ophth Drops [Alphagan P 0.2% Ophth Drops] 1 drops EACHEYE TID 06/30/19 C,E,Zinc,Copper 11/Yftrd9v/Lut [Ocuvite Adult 50 Plus Softgel] 1 each PO DAILY 06/30/19 Cyanocobalamin (Vitamin B-12) [Vitamin B-12 (500 mcg sublingual)] 500 mcg SL DAILY 06/30/19 Potassium Chloride 20 meq PO DAILY 06/30/19 Pravastatin [Pravachol] 40 mg PO QPM 06/30/19 Vit A/Vit C/Vit E/Zinc/Copper [Preservision Areds Softgel] 1 each PO DAILY 06/30/19 acetaZOLAMIDE [Acetazolamide] 250 mg PO BID 06/30/19 polyethylene glycoL 3350 [Miralax] 17 gm PO DAILY PRN 06/30/19 Calcium Carbonate 500 mg PO TIDWM 10/04/19 Pregabalin 125 mg PO BID 10/04/19 Trazodone HCl 100 mg PO QPM 10/04/19 hydroCHLOROthiazide [Hydrochlorothiazide] 25 mg PO DAILY 10/04/19 predniSONE [Prednisone] 10 mg PO DAILYWM 10/04/19 - Allergies Allergies/Adverse Reactions: Allergies Allergy/AdvReac Type Severity Reaction Status Date / Time azithromycin Allergy Anaphylaxis Verified 10/03/19 18:38 diclofenac Allergy Hives Verified 10/03/19 18:38 hydrocodone [Hydrocodone] Allergy Rash Verified 10/03/19 18:38 penicillin G Allergy Hives Verified 10/03/19 18:38 Penicillins Allergy Rash Verified 10/03/19 18:38 rofecoxib [From Vioxx] Allergy Rash Verified 10/03/19 18:38 Sulfa (Sulfonamide Allergy Hives Verified 10/03/19 18:38 Antibiotics) Cephalosporins AdvReac Unknown Verified 10/03/19 18:38 codeine AdvReac Hives Verified 10/03/19 18:38 oxycodone AdvReac Unknown Verified 10/03/19 18:38 Review of Systems - Constitutional Constitutional: reports: Fatigue, Fever (previous to admit), Poor appetite, Weight loss - Eyes Eyes: reports: Blurred vision, Vision loss - Ears, Nose & Throat Ears, Nose & Throat: reports: Hearing loss, Hearing aids (needs batteries not working well), Dentures, Dry mouth - Cardiovascular Cardiovascular: reports: Exertional dyspnea, Decr. exercise tolerance. denies: Chest pain - Respiratory Respiratory: reports: Cough (patient concerned not getting regular neb; scheduled at home TID; had been on COVID restrictions; feels more difficult getting secretions moved), SOB with exertion. denies: SOB at rest - Gastrointestinal Gastrointestinal: reports: Early satiety. denies: Nausea - Genitourinary Genitourinary: reports: Other (has anderson catheter) - Musculoskeletal Musculoskeletal: reports: Muscle pain, Back pain, Muscle aches, Stiffness, Limited range of motion, Muscle weakness, Joint pain - Integumentary Integumentary: reports: Dryness - Neurological Neurological: reports: General weakness, Numbness - Psychiatric Psychiatric: reports: Depression, Anxiety - Endocrine Endocrine: reports: Diabetes type 2 - Hematologic/Lymphatic Hematologic/Lymphatic: reports: Recurrent infections (bladder) - All Other Systems All Other Systems: reports: Reviewed and negative Physical Exam - Vital Signs Vital Signs: Vital Signs x48h Temp Pulse Pulse Resp BP Pulse Ox 10/06/19 08:45 36.8 C 72 18 117/72 98 10/06/19 07:36 60 16 10/06/19 03:47 36.6 C 58 L 16 115/54 L 95 - Physical Exam General Appearance: positive: No acute distress, Alert Eyes Bilateral: positive: Other (macular degeneration/glaucoma can see only shadows on exam) ENT: negative: Pharyngeal erythema Neck: positive: Trachea midline Cardiovascular: positive: Regular rate & rhythm Respiratory: positive: Diminished throughout, Rhonchi, Other (difficult with cough effort) Abdomen: positive: Soft Skin: positive: Pallor, Bruising (poor IV access; getting PICC line placed) Extremities: positive: Other (difficulty moving with pain in neck/back and joints) Neurologic/Psychiatric: positive: Oriented x3, Depressed mood/affect, Flat affect Palliative Care - POLST Patient has POLST: Yes POLST Status: DNR, Selective Treatment Pain: Pain worsening, Location (see HPI) Tiredness/Fatigue: Moderate (4-6) Drowsiness/Sedation: Mild (1-3) Nausea: Mild (1-3) Anorexia: Mild (1-3) Dyspnea: Moderate (4-6) Depression: Moderate (4-6) Anxiety: Moderate (4-6) Feelings of wellbeing/Perceived Quality of Life: Poor, Worsening Sleep: Variable sleep pattern Performance Status: Patient did have eaten home health working with physical therapy, she reports she was mostly wheelchair-bound. She had been ambulatory previous to [facility] admit and pain escalation. She does admit to being quite deconditioned, daughter perceives patient was receiving methocarbamol with no improvement in pain and worsening functional status as well as confusion. - Palliative Care Discussion: Discussed patient's feelings of helplessness and hopelessness, her declining quality of life particularly in the context of isolation. She very much misses seeing and being with her daughter, and is tired of the persistent pain. We did discuss in the context of his current window in time, which she be willing her with this makes sense to her to consider trying to get stronger, working on her pain control, and considering a transition plan at least to a SNF. Patient had been offered SNF before on discharge from [facility], daughter reports she had chosen to go back home. Though she had not been able to improve. Patient is more alert and awake today, we did discuss she is not with any "terminal diagnosis", though her recurrent UTIs are certainly of concern. We discussed at any point in time she can make a different decision, but at this point she would like to move forward and looking at SNF placement, and treating her current infection. She had always thought she would most likely of her COPD, and is worried currently she might have a touch of pneumonia". She has not had her follow-up with Rheumatology, so may have other options as far as treatment and relief of her distress. She does feel the tramadol helps, but does worry about long-term suffering. We did discuss in the context of choosing to focus on comfort only that this is still an option in the future if things continue to deteriorate. When spoke with Esme, if patient were to transition to hospice, she would want to bring her home to her house. She is hoping that a SNF stay will get her over this current hump, though we did discuss the seriousness of recurrent UTIs, and can lead to long-term debilitation and deterioration. Patient does have already a POLST form, with DNA R and limited additional interventions, at this point in time she is willing to accept supportive measures and treatment for infections. Results - Lab Results Lab results reviewed: Yes Fish Bones: 10/06/19 04:20 10/06/19 04:20 Lab and Imaging Results: Lab Results x24hrs 10/06/19 10/06/19 Range/Units 04:20 04:20 WBC 7.6 (4.8-10.8) x10^3/uL RBC 4.17 L (4.20-5.40) 10^6/uL Hgb 12.2 (12.0-16.0) g/dL Hct 40.3 (37.0-47.0) % MCV 96.6 (81.0-99.0) fL MCH 29.3 (27.0-31.0) pg MCHC 30.3 L (32.0-36.0) g/dL RDW 15.5 H (12.0-15.0) % Plt Count 326 (130-450) 10^3/uL MPV 10.1 (7.9-10.8) fL Neut # (Auto) 3.7 (1.5-6.6) 10^3/uL Lymph # (Auto) 2.8 (1.5-3.5) 10^3/uL Dunn # (Auto) 0.6 (0.0-1.0) 10^3/uL Eos # (Auto) 0.4 (0.0-0.7) 10^3/uL Baso # (Auto) 0.1 (0.0-0.1) 10^3/uL Absolute Nucleated RBC 0.00 x10^3/uL Nucleated RBC % 0.0 /100WBC Sodium 139 (135-145) mmol/L Potassium 3.9 (3.5-5.0) mmol/L Chloride 110 (101-111) mmol/L Carbon Dioxide 23 (21-32) mmol/L Anion Gap 6.0 (6-13) BUN 16 (6-20) mg/dL Creatinine 0.6 (0.4-1.0) mg/dL Estimated GFR (MDRD) 95 (>89) Glucose 99 (70-100) mg/dL Calcium 8.6 (8.5-10.3) mg/dL Magnesium 2.3 (1.7-2.8) mg/dL Impression and Recommendations - Palliative Care Impression: This is an 88-year-old woman hospitalized acutely for recurrent UTI, needing long-term IV antibiotics. Patient does have multiple comorbidities, and high symptom burden of fatigue, pain, depression, anxiety, and functional decline. Patient expressing feelings of existential distress, and her emotional health has been impacted by increasing isolation brought on by COVID19. Palliative care to provide support regarding symptom management, clarification of goals, and and anticipatory guidance. Recommendations/Counseling Done: 1. Depression. This is multifactorial in origin, patient has been expressing feelings of persistent hopelessness and helplessness, worsening with isolation and current living situation. She is also been hospitalized recently again without family support. Counseling provided regarding normalizing feelings of grief and loss, did discuss with daughter initiating mirtazapine 7.5 mg at bedtime, this would help with sleep depression and appetite as she has had weight loss and decreased interest in eating. 2. Acute on chronic pain. Patient with new diagnosis of rheumatoid arthritis, has not been able to follow through on most recent referral. Patient is on prednisone 10 mg for her maintenance of her COPD, not her RA. Patient also has long-term peripheral neuropathy, would recommend continue on the pregabalin at 100 mg 3 times daily. Patient does have scheduled tramadol 50 mg twice daily, would recommend continuing this as well as adding 50 mg PRN dosing in between. Patient would benefit from ongoing PT/OT and increased activity. Patient at this point in time is scheduled to transition to SNF. Patient goals including improving functional status and independence. 3.Recurrent UTIs. This is multifactorial, does appear additional risk factor is incontinence and difficulty in her current living situation for regular melyssa- care and or assistance to the bathroom. This is her fourth infection since April when she was admitted for sepsis. Patient will be discharged on IV antibiotics for 2 weeks. Counseling provided daughter regarding multiresistant UTI and concern for future, we did discuss weighing benefits and burdens with each episode as they come up. Given patient's goals of care in the context of her current situation and functional status at that time. 4. COPD. Patient is concerned regarding she might have "a touch of pneumonia". She feels she would be better if she had her regular scheduled nebulizers 3 times a day, this was communicated to the hospitalist, she had been on precautions because of COVID-19. Patient does have a loose cough, she will get a chest x-ray with PICC line placement, she does have advanced disease. 5. Advanced care planning. Patient is struggling with her declining quality of life, increasing isolation, and now recurrent hospitalizations. Both patient and daughter recognize the seriousness of her illness and possible impending dec line. Daughter is quite supportive of patient, and willing to take her home for hospice if this were appropriate. Patient does not have any terminal diagnosis at this point in time, she is quite frail, and is at high risk for ongoing decline. Current goals so are to treat infection, improved functional status, and independence. Daughter feels if patient's living situation were improved, this may help. She will explore other options as well as hopefully treating depression will assist patient's mood in meantime. Will get outpatient referral for follow-up when she discharges home, patient is quite frail most likely continued to decline. Time Spent: 75 minutes with greater than 50% of this done in counseling and coordination of care related to finding defining goals of care, pain and symptom management and anticipatory guidance.
[2019-10-06] MEDS: predniSONE 10 MG TABLET PO SCH (11:49)
[2019-10-06] MEDS: DOCUSATE SODIUM 250 MG CAPSULE PO SCH (11:51)
[2019-10-06] MEDS: ENOXAPARIN 40 MG/0.4 ML SYRINGE SUBQ SCH (11:51)
[2019-10-06] MEDS: traMADol 50 MG TABLET PO SCH ×2 (11:52→21:37)
[2019-10-06] MEDS: polyethylene glycoL 3350 17 GM PACKET PO SCH (11:52)
[2019-10-06] MEDS: CHOLECALCIFEROL 1,000 UNIT TABLET PO SCH (11:52)
[2019-10-06] MEDS: SODIUM CHLORIDE FLUSH 0.9% 10 ML SYRINGE IVP SCH ×2 (11:52→16:45)
--- NOTE | 2019-10-06 11:52 | ANESTHESIA PROCEDURE NOTE ---
Height and Weight: Height 5 ft 4 in Weight (kg) 68 kg Body Mass Index 25.7 Vital Signs: Temp Pulse Resp BP Pulse Ox 36.8 C 72 18 117/72 98 10/06/19 08:45 10/06/19 08:45 10/06/19 08:45 10/06/19 08:45 10/06/19 08:45 Allergies azithromycin Allergy (Verified 10/03/19 18:38) Anaphylaxis diclofenac Allergy (Verified 10/03/19 18:38) Hives hydrocodone [Hydrocodone] Allergy (Verified 10/03/19 18:38) Rash penicillin G Allergy (Verified 10/03/19 18:38) Hives Penicillins Allergy (Verified 10/03/19 18:38) Rash rofecoxib [From Vioxx] Allergy (Verified 10/03/19 18:38) Rash Sulfa (Sulfonamide Antibiotics) Allergy (Verified 10/03/19 18:38) Hives Cephalosporins Adverse Reaction (Verified 10/03/19 18:38) Unknown codeine Adverse Reaction (Verified 10/03/19 18:38) Hives oxycodone Adverse Reaction (Verified 10/03/19 18:38) Unknown Anesth Central Line Template - Central Line Central Line Preparation: Consent Obtained, Unable to obtain consent, Time out completed, Ultrasound used, Sterile prep and drape Central line type: Double lumen Central line catheter tip site resides: Superior vena cava (SVC) Central line aftercare: Secured, Placement confirmed, No complications, Bundle checklist complete, Pt tolerated well, Other (double lumeb picc 5 uzbek total 33cm in zero at the skin.)
--- NOTE | 2019-10-06 11:55 | PROCEDURE REPORT ---
Hospitalist Procedure Note - Procedure Note Procedure Note: PICC line placed in right UE. Double lumen 5 croatian picc placed as per hospitalist request. US guidance used. Sterile prep and sterility maintained through out the procedure. Radiographic confirmation obtained. Informed consent obtained from the patient. Risks and benefits explained to the patient and all her questions were answered. Patient tolerated the procedure well.
--- NOTE | 2019-10-06 11:58 | ADVANCE CARE PLANNING NOTE ---
Advance Care Planning - Planning Encounter Date: 10/06/19 Time: 10:00 Purpose: advance care plan for pt Parties in Attendance: pt, pt's daughter Esme, and me Decisional Capacity of the Patient: today pt's pain is good control. she is alert and oriented today, she can make her own decision now. - Diagnosis for Encounter (1) Sepsis Summary: (1) Sepsis (2)recurrent UTI (3) right big toe swelling (4)profound weakness (5) Chronic pain (6) COPD (chronic obstructive pulmonary disease) (7) Diabetes mellitus (8) Hypokalemia (9) Hyperlipidemia - Encounter Subjective/Patient's Story: pt has been telling her pest she want to have palliative care and end of with hospice care. I discussed with pt Ms. Esme Law, pt's daughter, she report her mother did talk about the idea before. When I discussed with patient regarding goals of care today, and concerned that she has been expressing that she was ready to go. She reports reports "I do not know what I can". In fact clinically pt recovered significantly from when she was admitted. she is alert and oriented today. she became stronger than before, she did work with PT/OT. Unfortunately pt had recurrent UTI with pseudomonaus infection with multiple antibiotics resistance and previous twice infection, and sepsis. As about quality of life, she choose moving forward at this time. pt is planing to be d/c to SNF. Patient is actually been quite functional up to about 6 weeks ago, with her methocarbamol on discharge from [place], was having increased confusion, also with difficulty getting staff to change her depends. pt is in agreement SNF placement would be appropriate. Objective/Medical Story: pt has a significant medical history of COPD, diabetes mellitus type 2, hypertension, recurrent UTIs with pseudomoneas infection, glaucoma and chronic pain pt is currently living at [place]. She was sent to the ED because she had a fever. pt was found septic. She was recently discharged from [facility] on September 24, 2019. She had been admitted there with generalized weakness and fever on September 16, 2019 she was treated for pseudomonal UTI She has a significant history of joint pains and back pain for which she underwent a significant work-up.This included a bilateral temporal artery biopsy which was negative. Her CHANDAN was unremarkable. Her ESR was mildly elevated at 42. However she was d/c with lower dosage of Prednisone. She also had a COVID- 19 testing which was negative. She underwent a lumbar puncture, CT scan of her head and neck which were all largely unremarkable. Goals of Care: quality of life Plan: continue keep DNR/DNI code status, and plan d/c to SNF for weakness, and continue for treatment of recurrent and complex pseudomonas infection which caused her sepsis. Code Status: Do Not Attempt Resuscitation Time spent on advance care plannin
[2019-10-06] MEDS ORDERED: BISACODYL 10 MG SUPP PR ONE (12:05)
--- NOTE | 2019-10-06 12:06 | XRAY Report ---
Reason: picc placemen Procedure Date: 10/06/2019 Accession Number: [id number] / [id number] Procedure: XR - Chest for Line Placement CPT Code: Final Report FULL RESULT: EXAM: CHEST RADIOGRAPHY EXAM DATE: 10/06/2019 11:47 AM. CLINICAL HISTORY: Picc placemen. COMPARISON: CHEST 1 VIEW 10/03/2019 6:37 PM. TECHNIQUE: 1 view. FINDINGS: Lungs/Pleura: Increased interstitial markings bilaterally. Possible retrocardiac nodule, left costophrenic angle infiltrate. No focal opacities evident. No pleural effusion. No pneumothorax. Mediastinum: Within exam limitations, the cardiomediastinal contour is normal. Other: Right-sided PICC line tip in the lower SVC. IMPRESSION: 1. Possible retrocardiac nodule. Costophrenic angle infiltrate. 2. Right-sided PICC line in lower SVC RADIA
[2019-10-06] MEDS: IPRATROPIUM/ALBUTEROL 3 ML NEB INH SCH ×3 (12:49→20:08)
[2019-10-06] MEDS ORDERED: FUROSEMIDE 20 MG TABLET PO SCH (13:00)
[2019-10-06] MEDS: MEROPENEM 1 GM in SODIUM CHLORIDE 0.9% MINIBAG 100 ML IV SCH ×2 (14:00→22:20)
[2019-10-06] MEDS: traMADol 50 MG TABLET PO PRN (15:53)
--- NOTE | 2019-10-06 17:05 | CT Report ---
Reason: noduls and SOB Procedure Date: 10/06/2019 Accession Number: [id number] / [id number] Procedure: CT - CHEST WO CPT Code: Final Report FULL RESULT: EXAM: CT CHEST EXAM DATE: 10/06/2019 04:17 PM. CLINICAL HISTORY: Increasing shortness of breath COMPARISONS: CHEST FOR LINE PLACEMENT 10/06/2019 11:26 AM. TECHNIQUE: Routine helical CT imaging was performed through the chest. IV contrast: None. Reconstructions: Coronal and sagittal. In accordance with CT protocol optimization, one or more of the following dose reduction techniques were utilized for this exam: automated exposure control, adjustment of mA and/or KV based on patient size, or use of iterative reconstructive technique. FINDINGS: The visible portions of the thyroid gland are within normal limits. Atherosclerotic plaque calcifications are seen in the aorta. The unenhanced aorta and pulmonary artery are normal in course and caliber. The heart is normal in size. There is no pericardial effusion. Subcentimeter mediastinal lymph nodes are seen without evidence of lymphadenopathy. There is no hilar or axillary lymphadenopathy. A bronchial stent is seen extending from the midportion of the trachea into the right and left mainstem bronchi. A small amount of debris is seen within the stent. A right upper extremity approach PICC terminates at the cavoatrial junction. Tree-in-bud opacities are seen in the inferior left lower lobe. Subpleural reticulations are seen in both lung bases, likely chronic. There is no focal consolidation, pleural effusion, or pneumothorax. Bronchiectasis is seen bilaterally, greatest in the bilateral lower lobes. A 7 mm nodule is seen in the superior segment of the left lower lobe (series 6, image 60). The visible portions of the unenhanced liver and spleen are within normal limits. Postcholecystectomy clips are seen. The pancreas is mildly atrophic. Diverticula are seen in the imaged portions of the colon. Mild degenerative changes are seen in the spine. There is an upper thoracic levoscoliosis with lower thoracic dextroscoliosis. IMPRESSION: 1. Tree-in-bud opacities in the left lung base, which may be the result of infection or aspiration. 2. 7 mm nodule in the left lower lobe. Per Fleischner guidelines, a follow-up CT is recommended in 6-12 months. 3. Lower lobe predominant bronchiectasis. 4. Subpleural reticulations in both lung bases, likely chronic. 5. Patent tracheal stent. Recommend follow-up of the described nodule(s) according to the following guidelines: Fleischner Society Recommendations 2017 MacMahon et al. Radiology 2017 Solid Nodules-Low Risk Patients: <6 mm (single or multiple) - No routine follow-up* 6-8 mm (single) -CT at 6-12 months, then consider CT at 18-24 months 6-8mm (multiple) -CT at 3-6 months, then consider at CT 18-24 months >8 mm (single) -Consider CT, PET/CT, or tissue sampling at 3 months >8 mm (multiple) -CT at 3-6 months, then consider CT at 18-24 months Solid Nodules-High Risk Patients: <6 mm (single or multiple) -Optional CT at 12 months* 6-8 mm (single) -CT at 6-12 months, then CT at 18-24 months 6-8mm (multiple) -CT at 3-6 months, then CT at 18-24 months >8 mm (single) -Consider CT, PET/CT, or tissue sampling at 3 months >8 mm (multiple) -CT at 3-6 months, then at 18-24 months *Nodules < 6mm do not require routine follow-up, but suspicious nodule morphology, upper lobe location, or both may warrant 12 month follow-up Subsolid nodules: <6 mm (single, GG or part solid) -No routine follow-up >=6 mm (single GG) -CT at 6-12 months to confirm, then CT q2 years until 5 years >=6 mm (single part solid) -CT at 3-6 months to confirm, if unchanged and solid <6mm, annual CT for 5 years <6 mm (multiple GG or part solid) -CT at 3-6 months. If stable, consider CT at 2 and 4 years >=6 mm (multiple GG or part solid) -CT at 3-6 months. Subsequent management based on most suspicious nodule(s). Consider follow-up at 2 and 4 years for certain suspicious nodules <6mm. If solid component develops or growth, consider resection. RADIA
[2019-10-06] MEDS: MIRTAZAPINE 15 MG TABLET PO SCH (21:37)
[2019-10-07] MEDS: SODIUM CHLORIDE FLUSH 0.9% 10 ML SYRINGE IVP SCH ×3 (00:08→18:09)
[2019-10-07] MEDS: ACETAMINOPHEN 325 MG TABLET PO PRN ×2 (00:35→21:10)
[2019-10-07] MEDS ORDERED: SODIUM CHLORIDE FLUSH 0.9% 10 ML SYRINGE IVP PRN (01:20)
[2019-10-07 05:15] LABS: BASOPHILS % (AUTO) 0.4 %; EOSINOPHILS # (AUTO) 0.2 10^3/uL (0.0-0.7); EOSINOPHILS % (AUTO) 1.9 %; HGB - HEMOGLOBIN 12.1 g/dL (12.0-16.0); LYMPHOCYTES # (AUTO) 2.4 10^3/uL (1.5-3.5); LYMPHOCYTES % (AUTO) 24.9 %; MEAN CORPUSCULAR HGB CONC 31.7 g/dL (32.0-36.0); MEAN CORPUSCULAR VOLUME 94.8 fL (81.0-99.0); MEAN PLATELET VOLUME 10.1 fL (7.9-10.8); MONOCYTES # (AUTO) 0.6 10^3/uL (0.0-1.0); MONOCYTES % (AUTO) 6.3 %; NEUTROPHILS # (AUTO) 6.5 10^3/uL (1.5-6.6); NEUTROPHILS % (AUTO) 66.2 %; PLT - PLATELET COUNT 332 10^3/uL (130-450); RED BLOOD COUNT 4.03 10^6/uL (4.20-5.40); RED CELL DISTRIBUTION WIDTH 15.2 % (12.0-15.0); WHITE BLOOD COUNT 9.8 x10^3/uL (4.8-10.8)
[2019-10-07 05:17] LABS: CALCIUM 8.5 mg/dL (8.5-10.3); CREATININE 0.5 mg/dL (0.4-1.0); MAGNESIUM 2.3 mg/dL (1.7-2.8)
[2019-10-07] MEDS: PREGABALIN 100 MG CAPSULE PO SCH ×3 (05:34→20:59)
[2019-10-07] MEDS: IPRATROPIUM/ALBUTEROL 3 ML NEB INH SCH ×4 (07:56→19:34)
[2019-10-07] MEDS: MEROPENEM 1 GM in SODIUM CHLORIDE 0.9% MINIBAG 100 ML IV SCH ×2 (08:29→20:58)
[2019-10-07] MEDS: CHOLECALCIFEROL 1,000 UNIT TABLET PO SCH (08:32)
[2019-10-07] MEDS: FAMOTIDINE 20 MG TABLET PO SCH (08:32)
[2019-10-07] MEDS: traMADol 50 MG TABLET PO SCH ×2 (08:32→20:59)
[2019-10-07] MEDS: predniSONE 10 MG TABLET PO SCH (08:32)
[2019-10-07] MEDS: INSULIN ASPART 300 UNIT/3 ML PEN SUBQ SCH ×4 (08:33→20:50)
[2019-10-07] MEDS: ENOXAPARIN 40 MG/0.4 ML SYRINGE SUBQ SCH (08:34)
[2019-10-07] MEDS: DOCUSATE SODIUM 250 MG CAPSULE PO SCH (08:34)
[2019-10-07] MEDS: polyethylene glycoL 3350 17 GM PACKET PO SCH (08:34)
--- NOTE | 2019-10-07 16:21 | PROVIDER PROGRESS NOTE ---
Assessment/Plan - Problem List (1) Pseudomonas urinary tract infection Assessment/Plan: She has a PICC line already and needs a 14 day total course of antibiotics. The plan is for this to be administered at a SNF, and we are awaiting a second COVID result to be negative, for her to be accepted at that facility. (2) Generalized weakness Assessment/Plan: PT had started, but today her back and neck pain prevent her from getting OOB. (3) Chronic pain Assessment/Plan: As per Hx. She has been undergoing eval for what type of arthritis she has. (4) COPD (chronic obstructive pulmonary disease) Assessment/Plan: She did not have an exacerbation. Her usual meds continue. (5) Diabetes mellitus Qualifiers: Diabetes mellitus type: type 2 Assessment/Plan: ss Insulin and fingerstick checks continue. (6) Hypokalemia Assessment/Plan: Replace. Follow BMP daily. (7) Hyperlipidemia Assessment/Plan: Her statin continues (8) Sepsis Assessment/Plan: Resolved - Current Meds Current Meds: Current Medications Generic Name Dose Route Start Last Admin Trade Name Freq PRN Reason Stop Dose Admin Acetaminophen 650 mg 10/03/19 21:02 10/07/19 00:35 Tylenol PO 650 mg Q6HR PRN Administration Pain 1 to 4 Albuterol/Ipratropium 3 ml 10/06/19 11:45 10/07/19 15:23 Duoneb INH 3 ml RTQID RAMSES Administration Cholecalciferol 2,000 unit 10/06/19 10:00 10/07/19 08:32 Vitamin D3 PO 2,000 unit DAILY RAMSES Administration Docusate Sodium 250 - 500 mg 10/04/19 09:00 10/07/19 08:34 Colace 250mg Capsule PO Not Given DAILY RAMSES Enoxaparin Sodium 40 mg 10/04/19 09:00 10/07/19 08:34 Lovenox SUBQ 40 mg DAILY RAMSES Administration Famotidine 20 mg 10/07/19 09:00 10/07/19 08:32 Pepcid PO 20 mg DAILY RAMSES Administration Meropenem 1 gm/ Sodium 100 mls @ 200 mls/hr 10/06/19 12:00 10/07/19 09:06 Chloride IV Infused BID RAMSES Infusion Insulin Aspart 1 - 5 unit 10/04/19 08:00 10/07/19 11:48 Novolog SUBQ 1 unit 0800,1200,1700,2100 RAMSES Administration Protocol Mirtazapine 7.5 mg 10/06/19 21:00 10/06/19 21:37 Remeron PO 7.5 mg QPM RAMSES Administration Polyethylene Glycol 17 gm 10/04/19 09:00 10/07/19 08:34 Miralax PO 17 gm DAILY RAMSES Administration Prednisone 10 mg 10/04/19 10:00 10/07/19 08:32 Deltasone PO 10 mg DAILYWM RAMSES Administration Pregabalin 100 mg 10/04/19 10:00 10/07/19 13:03 Lyrica PO 100 mg TID RAMSES Administration Sodium Chloride 10 ml 10/03/19 21:02 10/05/19 06:28 Normal Saline Flush 0.9% IVP 10 ml PRN PRN Administration NEEDED PER PROVIDER ORDERS Sodium Chloride 10 ml 10/04/19 01:00 10/07/19 08:34 Normal Saline Flush 0.9% IVP 10 ml 0100,0900,1700 RAMSES Administration Tramadol HCl 50 mg 10/05/19 09:07 10/07/19 08:32 Ultram PO 50 mg BID RAMSES Administration Tramadol HCl 50 mg 10/06/19 11:32 10/06/19 15:53 Ultram PO 50 mg Q12H PRN Administration PAIN - Lab Result Fish Bone Diagrams: 10/08/19 04:50 10/08/19 04:50 Subjective - Subjective Patient Reports: Pain (Today her back and neck hurt, the PT thinks she slept in a bad position of her neck overnight. Due to the pain, she refuses to get OOIB or to participate with PT today.) Objective Vital Signs: Vital Signs - 24 hr 10/06/19 10/06/19 10/06/19 16:32 20:07 20:10 Temperature 36.9 C Heart Rate 67 70 Heart Rate [ 65 Brachial] Respiratory 18 18 18 Rate Blood Pressure 103/40 L [Left Brachial artery] O2 Saturation 95 10/07/19 10/07/19 10/07/19 00:25 07:55 08:22 Temperature 37.1 C 36.8 C Heart Rate 72 Heart Rate [ 60 61 Brachial] Respiratory 16 16 16 Rate Blood Pressure 131/56 H 111/56 L [Left Brachial artery] O2 Saturation 94 92 10/07/19 10/07/19 10:37 15:23 Temperature Heart Rate 71 73 Heart Rate [ Brachial] Respiratory 16 16 Rate Blood Pressure [Left Brachial artery] O2 Saturation Oxygen O2 Source Room air I&O (Last 24 Hrs): Intake and Output Totals x24h 10/05/19 10/06/19 10/07/19 23:59 23:59 23:59 Intake Total 2710 630 510 Output Total 2505 1050 625 Balance 205 -420 -115 General: Alert, Oriented x3, Other (Sleeping on her stomach currently, had a warm pack on her neck and spine.) HEENT: Mucous membr. moist/pink, Other (Face is facing downward into her pillow, in bed.) Neck: Other (Not visulaized) Neuro: Alert Cardiovascular: Regular rate Respiratory: No respiratory distress, Breath sounds nml Abdomen: Other (Not seen) Extremities: No edema - Results Results: Laboratory Results WBC 9.8 x10^3/uL (4.8-10.8) 10/07/19 04:30 RBC 4.03 10^6/uL (4.20-5.40) L 10/07/19 04:30 Hgb 12.1 g/dL (12.0-16.0) 10/07/19 04:30 Hct 38.2 % (37.0-47.0) 10/07/19 04:30 MCV 94.8 fL (81.0-99.0) 10/07/19 04:30 MCH 30.0 pg (27.0-31.0) 10/07/19 04:30 MCHC 31.7 g/dL (32.0-36.0) L 10/07/19 04:30 RDW 15.2 % (12.0-15.0) H 10/07/19 04:30 Plt Count 332 10^3/uL (130-450) 10/07/19 04:30 MPV 10.1 fL (7.9-10.8) 10/07/19 04:30 Neut # (Auto) 6.5 10^3/uL (1.5-6.6) 10/07/19 04:30 Lymph # (Auto) 2.4 10^3/uL (1.5-3.5) 10/07/19 04:30 [place] # (Auto) 0.6 10^3/uL (0.0-1.0) 10/07/19 04:30 Eos # (Auto) 0.2 10^3/uL (0.0-0.7) 10/07/19 04:30 Baso # (Auto) 0.0 10^3/uL (0.0-0.1) 10/07/19 04:30 Absolute Nucleated RBC 0.00 x10^3/uL 10/07/19 04:30 Total Counted 100 10/03/19 19:02 Band Neuts % (Manual) 2 % (0-10) 10/03/19 19:02 Reactive Lymphs % (Man) 1 % 10/03/19 19:02 Abnorm Lymph % (Manual) 0 % 10/03/19 19:02 Nucleated RBC % 0.0 /100WBC 10/07/19 04:30 Neutrophils # (Manual) 15.8 10^3/uL (1.5-6.6) H 10/03/19 19:02 Lymphocytes # (Manual) 2.8 10^3/uL (1.5-3.5) 10/03/19 19:02 Monocytes # (Manual) 1.0 10^3/uL (0.0-1.0) 10/03/19 19:02 Eosinophils # (Manual) 0.2 10^3/uL (0-0.7) 10/03/19 19:02 Basophils # (Manual) 0.0 10^3/uL (0-0.1) 10/03/19 19:02 Differential Comment MANUAL DIFFERENTIAL 10/03/19 19:02 Platelet Estimate NORMAL (130-450,000) (NORMAL) 10/03/19 19:02 Platelet Morphology NORMAL APPEARANCE (NORMAL) 10/03/19 19:02 RBC Morph Micro Appear NORMAL APPEARANCE (NORMAL) 10/03/19 19:02 Sodium 140 mmol/L (135-145) 10/07/19 04:30 Potassium 4.1 mmol/L (3.5-5.0) 10/07/19 04:30 Chloride 106 mmol/L (101-111) 10/07/19 04:30 Carbon Dioxide 27 mmol/L (21-32) 10/07/19 04:30 Anion Gap 7.0 (6-13) 10/07/19 04:30 BUN 18 mg/dL (6-20) 10/07/19 04:30 Creatinine 0.5 mg/dL (0.4-1.0) 10/07/19 04:30 Estimated GFR (MDRD) 117 (>89) 10/07/19 04:30 Glucose 103 mg/dL (70-100) H 10/07/19 04:30 Glycated Hemoglobin 5.8 % (4.6-6.2) 10/04/19 06:10 Estim Average Glucose 120 (70-100) H 10/04/19 06:10 Lactic Acid 1.3 mmol/L (0.5-2.2) 10/03/19 19:55 Uric Acid 5.7 mg/dL (2.6-7.2) 10/04/19 06:10 Calcium 8.5 mg/dL (8.5-10.3) 10/07/19 04:30 Magnesium 2.3 mg/dL (1.7-2.8) 10/07/19 04:30 Total Bilirubin 1.0 mg/dL (0.2-1.0) 10/03/19 19:02 AST 19 IU/L (10-42) 10/03/19 19:02 ALT 20 IU/L (10-60) 10/03/19 19:02 Alkaline Phosphatase 81 IU/L (42-121) 10/03/19 19:02 B-Natriuretic Peptide 43 pg/mL (5-100) 10/03/19 19:02 Total Protein 6.6 g/dL (6.7-8.2) L 10/03/19 19:02 Albumin 3.0 g/dL (3.2-5.5) L 10/03/19 19:02 Globulin 3.6 g/dL (2.1-4.2) 10/03/19 19:02 Albumin/Globulin Ratio 0.8 (1.0-2.2) L 10/03/19 19:02 Lipase 28 U/L (22-51) 10/03/19 19:02 Urine Color YELLOW 10/03/19 18:40 Urine Clarity CLEAR (CLEAR) 10/03/19 18:40 Urine pH 7.5 PH (5.0-7.5) 10/03/19 18:40 Ur Specific [place] 1.010 (1.002-1.030) 10/03/19 18:40 Urine Protein NEGATIVE mg/dL (NEGATIVE) 10/03/19 18:40 Urine Glucose (UA) NEGATIVE mg/dL (NEGATIVE) 10/03/19 18:40 Urine Ketones NEGATIVE mg/dL (NEGATIVE) 10/03/19 18:40 Urine Occult Blood TRACE-INTA (NEGATIVE) 10/03/19 18:40 Urine Nitrite POSITIVE (NEGATIVE) H 10/03/19 18:40 Urine Bilirubin NEGATIVE (NEGATIVE) 10/03/19 18:40 Urine Urobilinogen 1 (NORMAL) E.U./dL (NORMAL) 10/03/19 18:40 Ur Leukocyte Esterase NEGATIVE (NEGATIVE) 10/03/19 18:40 Urine RBC 0-5 /HPF (0-5) 10/03/19 18:40 Urine WBC 0-3 /HPF (0-5) 10/03/19 18:40 Ur Squamous Epith Cells NONE SEEN (<= Few) 10/03/19 18:40 Amorphous Sediment Moderate /LPF 10/03/19 18:40 Urine Bacteria Rare /HPF (None Seen) 10/03/19 18:40 Ur Microscopic Review INDICATED 10/03/19 18:40 Urine Culture Comments INDICATED 10/03/19 18:40 Coronavirus (PCR) NEGATIVE 10/03/19 18:40 Sepsis Event Note (H) - Evaluation Current Stage of Sepsis: Sepsis Possible source of Sepsis: positive: Genitourinary - Sepsis Criteria Sepsis Criteria: Recorded Temperature greater than 38.3C or Less than 36C, WBC count greater than 10% bands, WBC count greater than 12,000 or less than 4000
[2019-10-07] MEDS: MIRTAZAPINE 15 MG TABLET PO SCH (20:58)
[2019-10-08] MEDS: NYSTATIN CREAM 15 GM TUBE TOP SCH ×2 (00:59→08:53)
[2019-10-08] MEDS: SODIUM CHLORIDE FLUSH 0.9% 10 ML SYRINGE IVP SCH ×2 (01:00→08:53)
[2019-10-08] MEDS: SODIUM CHLORIDE FLUSH 0.9% 10 ML SYRINGE IVP PRN (01:00)
[2019-10-08] MEDS: traMADol 50 MG TABLET PO PRN ×2 (01:07→13:55)
[2019-10-08] MEDS: PREGABALIN 100 MG CAPSULE PO SCH ×2 (05:20→13:55)
[2019-10-08 05:47] LABS: BASOPHILS # (AUTO) 0.1 10^3/uL (0.0-0.1); BASOPHILS % (AUTO) 0.4 %; EOSINOPHILS # (AUTO) 0.3 10^3/uL (0.0-0.7); EOSINOPHILS % (AUTO) 1.5 %; HGB - HEMOGLOBIN 11.8 g/dL (12.0-16.0); LYMPHOCYTES # (AUTO) 2.9 10^3/uL (1.5-3.5); LYMPHOCYTES % (AUTO) 15.5 %; MEAN CORPUSCULAR HEMOGLOBIN 29.1 pg (27.0-31.0); MEAN CORPUSCULAR HGB CONC 31.1 g/dL (32.0-36.0); MEAN CORPUSCULAR VOLUME 93.8 fL (81.0-99.0); MEAN PLATELET VOLUME 10.3 fL (7.9-10.8); MONOCYTES # (AUTO) 1.2 10^3/uL (0.0-1.0); MONOCYTES % (AUTO) 6.3 %; NEUTROPHILS # (AUTO) 14.3 10^3/uL (1.5-6.6); NEUTROPHILS % (AUTO) 75.7 %; PLT - PLATELET COUNT 312 10^3/uL (130-450); RED BLOOD COUNT 4.05 10^6/uL (4.20-5.40); RED CELL DISTRIBUTION WIDTH 15.4 % (12.0-15.0); WHITE BLOOD COUNT 18.9 x10^3/uL (4.8-10.8)
[2019-10-08 05:49] LABS: CALCIUM 8.4 mg/dL (8.5-10.3); CREATININE 0.6 mg/dL (0.4-1.0); MAGNESIUM 2.3 mg/dL (1.7-2.8)
[2019-10-08] MEDS: IPRATROPIUM/ALBUTEROL 3 ML NEB INH SCH ×2 (08:11→10:44)
[2019-10-08 08:26] VITALS: BP 99/50
[2019-10-08] MEDS: INSULIN ASPART 300 UNIT/3 ML PEN SUBQ SCH (08:32)
[2019-10-08] MEDS: MEROPENEM 1 GM in SODIUM CHLORIDE 0.9% MINIBAG 100 ML IV SCH (08:49)
--- NOTE | 2019-10-08 08:49 | Discharge Plan ---
"Discharge Plan for SNF / [facility] - Discharge Plan And Transition Orders Problem Reviewed?: Yes Disposition: 03 SNF DC/Xfer Condition: Fair Allergies and Adverse Reactions: Allergies Allergy/AdvReac Type Severity Reaction Status Date / Time azithromycin Allergy Anaphylaxis Verified 10/03/19 18:38 diclofenac Allergy Hives Verified 10/03/19 18:38 hydrocodone [Hydrocodone] Allergy Rash Verified 10/03/19 18:38 penicillin G Allergy Hives Verified 10/03/19 18:38 Penicillins Allergy Rash Verified 10/03/19 18:38 rofecoxib [From Vioxx] Allergy Rash Verified 10/03/19 18:38 Sulfa (Sulfonamide Allergy Hives Verified 10/03/19 18:38 Antibiotics) Cephalosporins AdvReac Unknown Verified 10/03/19 18:38 codeine AdvReac Hives Verified 10/03/19 18:38 oxycodone AdvReac Unknown Verified 10/03/19 18:38 Health Concerns: Admitted with sepsis from a UTI. 2 weeks of antibiotics are needed for a Pseudomonas positive culture. Plan of Treatment: IV antibiotics for a total of 14 days. 12 more days are left. Pain medications for her back pain. Daily PT and OT. PICC line care per protocol. Care Goals: Improvement in symptoms and stabilization are the goals. Assessment: The patient understands the plan. - SNF / [facility] Transition Orders Admit to (Facility): [facility] Discharge Diagnosis: (1) Sepsis, resolved (2) Pseudomonas UTI, recurrent (3) COPD without exacerbation (4) Diabetes mellitus (5) Arthritis (6) Chronic pain (7) Weakness (8) Hypokalemia, resolved (9) Hyperlipidemia Medicare Certification Statement: I certify that Post Hospital detention care is medically necessary on a continuing basis for any of the conditions for which she/he is receiving care during hospitalization. Notify PCP of admission and forward orders to primary provider for signature. Weight on admission and: Weekly Call PCP immediately if weight increases by: 5 kg Other Notification Orders: Call PCP immediately if patient develops dyspnea, chest pain/tightness or edema. House Bowel Program: Yes Additional Bowel Program Orders: If no BM after 2 days, nurse may give M.O.M. 30ml PO PRN and/or ducolax Supp 1 [place] and/or CARLITO 250mg P.O., and/or senna 1-2 tabs PO. On day 3 nurse may give repeat above order until residents constipation is resolved. Annual Influenza Vaccine (between Jan 29 and August 28): Yes Two-step PPD per [facility] [id number] or approved exception documents: Yes Treatments & Other Orders: Twice daily antibiotics via her PICC line. Daily PT. Daily OT. PICC line care per protocol of SNF. Pills have to be crushed. Lab Tests or X-ray Orders: BMP every Mon to check Potassium Medication Orders: PLEASE REFER TO THE DISCHARGE MEDICATION LIST. Insulin Orders?: Yes - Medications New Prescriptions: Cholecalciferol [Vitamin D3] 5,000 unit PO DAILY #30 capsule Dextromethorphan Polistirex [Robitussin ER] 30 mg PO BID PRN 30 Days ronal.er.12h PRN Reason: Cough Insulin Aspart [NovoLOG] 1 - 5 unit SUBQ 0800,1200,1700,2100 #1 pen Lidocaine Patch 5% [Lidoderm Patch] 1 patch TOP DAILY #30 patch Meropenem [Merrem] 1 gm IV BID #24 vial Mirtazapine [Remeron] 7.5 mg PO QPM #30 tablet Pregabalin [Lyrica] 100 mg PO TID #90 capsule - Diet Type: Geriatric (Diabetic diet) Texture: Regular Liquids: Thin May have monthly special meal: Yes - Therapies | Activity Therapy: Evaluation | Treat if indicated: PT, OT Rehabilitation Potential: Maximize functional status Activity: Activity as Tolerated Weight Bearing: Full Weight Assistance Devices: Walker Additional Instructions: See PCP after discharge from SNF. Insulin Orders - SNF Basal | Correction | Custom Orders: Diagnosis: Diabetes Initiate hypo and hyperglycemia protocols for BG <70 and BG >375. May check BG PRN for signs/symptoms of dysglycemia. Frequency of BG checks: [AC/Meal/HS] Basal Insulin: None Correction Insulin: - Select the type of insulin below Novolog 100 units /ml insulin inject subq per orders indicate below [X] LOW DOSE [] MODERATE DOSE [] MODERATE/HIGH DOSE [] HIGH DOSE GB UNITS GB UNITS GB UNITS GB UNITS 61-140 0 UNITS 61-140 0 UNITS 61-140 0 UNITS 61-140 0 UNITS 141-175 1 UNITS 141-175 1 UNITS 141-175 2 UNITS 141-175 3 UNITS 176-225 2 UNITS 176-225 3 UNITS 176-225 4 UNITS 176-225 5 UNITS 226-275 3 UNITS 226-275 5 UNITS 226-275 6 UNITS 226-275 7 UNITS 276-325 4 UNITS 276-325 7 UNITS 276-325 8 UNITS 276-325 9 UNITS 326-375 5 UNITS 326-375 9 UNITS 326-375 10 UNITS 326-375 11 UNITS >375 CONTACT MD >375 CONTACT MD >375 CONTACT MD >375 CONTACT MD c"
[2019-10-08] MEDS: polyethylene glycoL 3350 17 GM PACKET PO SCH ×2 (08:52→10:01)
[2019-10-08] MEDS: FAMOTIDINE 20 MG TABLET PO SCH (08:52)
[2019-10-08] MEDS: predniSONE 10 MG TABLET PO SCH (08:52)
[2019-10-08] MEDS: ENOXAPARIN 40 MG/0.4 ML SYRINGE SUBQ SCH (08:52)
[2019-10-08] MEDS: CHOLECALCIFEROL 1,000 UNIT TABLET PO SCH (08:52)
[2019-10-08] MEDS: DOCUSATE SODIUM 250 MG CAPSULE PO SCH (08:55)
[2019-10-08] MEDS ORDERED: LIDOCAINE PATCH 5% TOP SCH (09:00)
[2019-10-08] MEDS ORDERED: guaiFENesin 600 MG TABLET PO SCH (11:00)
--- NOTE | 2019-10-08 11:31 | DISCHARGE SUMMARY ---
Discharge Summary Admit Date: 10/03/19 Discharge Date: 10/08/19 Discharging Provider: Dr Reina Vaughan Primary Care Provider: Dr Colby Swenson Code Status: Do Not Attempt Resuscitation Condition at Discharge: Fair Discharge Disposition: SNF DC/Xfer Discharge Facility Name: [facility] History of Present Illness: From the admission H&P of Dr Helena Villedau: Patient is an 88-year-old female with a significant medical history of COPD, diabetes mellitus type 2, hypertension, recurrent UTIs, glaucoma and chronic pain who presented to the ED from [facility]. She was sent to the ED because she had a fever today. Upon presentation recheck showed a low-grade fever of 37.7 C. The patient is awake alert but somewhat lethargic. She was also found to have a white blood cell count of 19.8. (On 09/20/2019, her WBC was 6.5). Her urine showed a UTI. She was recently discharged from [facility] on September 24, 2019. She had been admitted there with generalized weakness and fever on September 16, 2019 she was treated for Pseudomonal UTI with ceftazadime for 5 days, then transitioned to oral Cefdinir for the last 2 days. She has a significant history of joint pains and back pain for which she underwent a significant work-up. This included a bilateral temporal artery biopsy which was negative. Her CHANDAN was unremarkable. Her ESR was mildly elevated at 42. However she was still treated with high-dose IV methylp rednisolone 500 mg daily for 3 days. She also had a COVID-19 testing which was negative. She underwent a lumbar puncture, CT scan of her head and neck which were all largely unremarkable. She sees physiatry outpatient for SI joint and lumbar epidural injections. She was scheduled to see Rheumatology outpatient on October 04, 2019. However that was canceled because she was admitted in the hospital. At bedside she denies chest pain, dyspnea, abdominal pain, nausea, vomiting. She reports a greenish productive cough, generalized joint and back pain. In particular her right big toe appears erythematous and painful to touch. This was noted on her last admission in [facility] as well. It was also noted to improve when she was treated with IV steroids. The cause at that time was thought to be likely rheumatologic and less likely or unlikely to be infectious. As a result of her presentation she is being admitted for further work up. - HOSPITAL COURSE Hospital Course: (1) Sepsis, resolved She was started on iv fluids and empiric antibiotics of Vanco and Meropenem. Her fever and WBC improved. The blood culture remained neg. The urine culture grew Pseudomonas. (2) Pseudomonas UTI, recurrent When the bacteria was identified, she had a PICC line inserted and needs a 14 day total course of iv antibiotics due to recurrence of the Pseudomonas, using Meropenem, based on the culture sensitivity results. The plan is for this to be administered at a SNF, and two COVID negative results were awaited, for her to be accepted at that facility. There was no renal imaging ordered by her provider, Zachery Plummer NP, while here. At the time of discharge it was noted that the patient had no pharmacy listed in our EMR, even regarding where her previous home meds were dispensed from. Head Inspector called the SNF and learned that she will be getting meds from [id number]. This is not a pharmacy that is listed in our EMR, [facility], and we do not have email prescrip tion ordering capability. Therefore, [facility] requested that all her prescriptions be provided to them on a hard copy, which was done. (3) COPD without exacerbation She did not have an exacerbation. Her usual meds were continued. (4) Diabetes mellitus She was put on a sliding scale of insulin coverage, carb controlled diet and ss Insulin were ordered for the SNF. (5) Arthritis As per Hx. She has been undergoing extensive outpatient evaluation, even including temporal artery biopsy, for what type of arthritis she has. (6) Chronic pain Multifactorial. Pain meds were offered. New Lidocaine patch was ordered at discharge. One location was her right big toe, which had erythema and swelling at admission. The swelling and pain significantly reduced. Foot Xray revealed mild chronic calcific tendinosis. (7) Weakness Physical Therapy was started here, but during the last 2 days, her back and neck pain prevented her from getting OOB. (8) Hypokalemia, resolved It was felt to be from HCTZ use, was replaced. We followed her BMP daily. (9) Hyperlipidemia Patient's Pravastatin was recently discontinued by her primary care physician Dr. Colby Swenson, due to the patient's generalized body pain, joint aches and weakness. It can be restarted now, if possible. (10) Glaucoma Her eye drops were continued. - ALLERGIES Allergies/Adverse Reactions: Allergies Allergy/AdvReac Type Severity Reaction Status Date / Time azithromycin Allergy Anaphylaxis Verified 10/03/19 18:38 diclofenac Allergy Hives Verified 10/03/19 18:38 hydrocodone [Hydrocodone] Allergy Rash Verified 10/03/19 18:38 penicillin G Allergy Hives Verified 10/03/19 18:38 Penicillins Allergy Rash Verified 10/03/19 18:38 rofecoxib [From Vioxx] Allergy Rash Verified 10/03/19 18:38 Sulfa (Sulfonamide Allergy Hives Verified 10/03/19 18:38 Antibiotics) Cephalosporins AdvReac Unknown Verified 10/03/19 18:38 codeine AdvReac Hives Verified 10/03/19 18:38 oxycodone AdvReac Unknown Verified 10/03/19 18:38 - MEDICATIONS Home Medications: Ambulatory Orders Medication Instructions Recorded Confirmed Albuterol Sulfate [Proair Hfa 2 puffs INH Q4HR PRN 02/17/14 10/04/19 Inhaler] Travoprost [Travatan Z] 1 drop RIGHTEYE QPM 02/17/14 10/04/19 traMADol [Ultram] 50 mg PO BID PRN 02/17/14 10/04/19 Acetaminophen [Tylenol] 650 mg PO Q4H PRN 06/30/19 10/04/19 Brimonidine 0.2% Ophth Drops 1 drops EACHEYE TID 06/30/19 10/04/19 [Alphagan P 0.2% Ophth Drops] C,E,Zinc,Copper 11/Vcitj2t/Lut 1 each PO DAILY 06/30/19 10/04/19 [Ocuvite Adult 50 Plus Softgel] Cyanocobalamin (Vitamin B-12) 500 mcg SL DAILY 06/30/19 10/04/19 [Vitamin B-12 (500 mcg sublingual)] Potassium Chloride 20 meq PO DAILY 06/30/19 10/04/19 Pravastatin [Pravachol] 40 mg PO QPM 06/30/19 10/04/19 Vit A/Vit C/Vit E/Zinc/Copper 1 each PO DAILY 06/30/19 10/04/19 [Preservision Areds Softgel] polyethylene glycoL 3350 [Miralax] 17 gm PO DAILY PRN 06/30/19 10/04/19 Calcium Carbonate 500 mg PO TIDWM 10/04/19 10/04/19 predniSONE [Prednisone] 10 mg PO DAILYWM 10/04/19 10/04/19 Cholecalciferol [Vitamin D3] 5,000 unit PO DAILY #30 capsule 10/08/19 Dextromethorphan Polistirex 30 mg PO BID PRN 30 Days 10/08/19 [Robitussin ER] [email or web address] Insulin Aspart [NovoLOG] 1 - 5 unit SUBQ 10/08/19 0800,1200,1700,2100 #1 pen Lidocaine Patch 5% [Lidoderm Patch] 1 patch TOP DAILY #30 patch 10/08/19 Meropenem [Merrem] 1 gm IV BID #24 vial 10/08/19 Mirtazapine [Remeron] 7.5 mg PO QPM #30 tablet 10/08/19 Pregabalin [Lyrica] 100 mg PO TID #90 capsule 10/08/19 Trazodone HCl 100 mg PO QPM PRN #0 10/08/19 10/04/19 predniSONE [Deltasone] 10 mg PO DAILYWM tablet 10/08/19 - PHYSICAL EXAM AT DISCHARGE General Appearance: positive: No acute distress, Alert Eyes Bilateral: positive: Normal inspection, EOMI ENT: positive: ENT inspection nml, No signs of dehydration Neck: positive: Nml inspection, No JVD Respiratory: positive: No respiratory distress, Breath sounds nml Cardiovascular: positive: Regular rate & rhythm Abdomen: positive: Non-tender, No distention Skin: positive: Color nml Extremities: positive: No pedal edema, Other (Minimal swelling of R great toe.) Neurologic/Psychiatric: positive: Oriented x3, Other (Grossly non-focal.) - LABS Result Diagrams: 10/08/19 04:50 10/08/19 04:50 - DIAGNOSTIC IMAGING Diagnostic Imaging Results: Final report reviewed - SEPSIS Current Stage of Sepsis: Sepsis Possible source of Sepsis: Genitourinary Sepsis Criteria: Recorded Temperature greater than 38.3C or Less than 36C, WBC count greater than 10% bands, WBC count greater than 12,000 or less than 4000 - FOLLOW UP Follow Up: PCP F/U as per SNF orders when discharged from [facility]. - TIME SPENT Time Spent in Discharge (Minutes): 90
== END 2019-10-08 14:00 | DRG 872 ==
LOC: EDUNIT# → ED 18:06 → MS2 21:02
PROVIDERS: ADMIT Internal Medicine; ATTEND Nurse Practitioner Gerontology
PROC: 02HV33Z Insertion of Infusion Device into Superior Vena Cava, Percutaneous Approach (ICD-10-PCS; principal; 2019-10-06)
DX: A41.52 Sepsis due to Pseudomonas (principal); R31.9 Hematuria, unspecified; N39.0 Urinary tract infection, site not specified; J44.9 Chronic obstructive pulmonary disease, unspecified; E11.9 Type 2 diabetes mellitus without complications; E11.42 Type 2 diabetes mellitus with diabetic polyneuropathy; M79.674 Pain in right toe(s); R53.83 Other fatigue; E87.6 Hypokalemia; M54.9 Dorsalgia, unspecified; H40.9 Unspecified glaucoma; H35.30 Unspecified macular degeneration; G89.29 Other chronic pain; M19.90 Unspecified osteoarthritis, unspecified site; Z20.828 Contact with and (suspected) exposure to other viral communicable diseases; E78.5 Hyperlipidemia, unspecified; R91.8 Other nonspecific abnormal finding of lung field; I10 Essential (primary) hypertension; I25.10 Atherosclerotic heart disease of native coronary artery without angina pectoris; K21.9 Gastro-esophageal reflux disease without esophagitis; Z86.73 Personal history of transient ischemic attack (TIA), and cerebral infarction without residual deficits; Z87.891 Personal history of nicotine dependence; Z66 Do not resuscitate; Z99.3 Dependence on wheelchair; Z51.5 Encounter for palliative care; J39.8 Other specified diseases of upper respiratory tract; Z96.89 Presence of other specified functional implants; F32.9 Major depressive disorder, single episode, unspecified
CPT/HCPCS: 36415; 71045; 71250; 73630; 80048; 80053; 81001; 82652; 83036; 83605; 83690; 83735; 83880; 84550; 85025; 87040; 87086; 87181; 93306; 94640; 96365; 97161; 97166; 97530; 99223; 99284; 99285; A9270; J1650; J2185; J3370; U0004; 81003; 81599

== ENCOUNTER 2020-03-09 11:17 | Outpatient (CLI) | payer MEDICARE, OTHER | END 2020-03-09 11:18 | disposition critical access hospital (66) | LOC: EMS 11:17 | PROVIDERS: ATTEND Surgery | DX: R55 Syncope and collapse (principal) | CPT/HCPCS: A0425; A0427 ==

== ENCOUNTER 2020-03-09 11:40 | Inpatient (IN) | payer MEDICARE, OTHER ==
--- NOTE | 2020-03-09 12:09 | CT Report ---
PROCEDURE: HEAD WO INDICATIONS: collapse unresponsive TECHNIQUE: Noncontrast 4.5 mm thick angled axial sections acquired from the foramen magnum to the vertex. For r adiation dose reduction, the following was used: automated exposure control, adjustment of mA and/or kV according to patient size. COMPARISON: None. FINDINGS: Image quality: Excellent. CSF spaces: Basal cisterns are patent. No extra-axial fluid collections. Ventricles are prominent in size secondary to expected dilatation from diffuse cortical volume loss. Brain: No midline shift. No intracranial masses or hemorrhage. Mckeon-white matter interface is norm al. Diffuse cortical volume loss. Periventricular and deep white matter hypoattenuation compatible w ith sequela of chronic small vessel ischemic disease. Skull and face: Calvarium and visualized facial bones are intact, without suspicious lesions. Sinuses: Visualized sinuses and mastoids are clear. IMPRESSION: 1. CT head without acute intracranial abnormalities. 2. No calvarial fractures. 3. Age-related senescent changes and sequela of chronic small vessel ischemic disease. Reviewed by: Joseph Hines MD on 03/09/2020 12:08 PM PDT Approved by: Joseph Hines MD on 03/09/2020 12:08 PM PDT Station ID: [id number]
[2020-03-09] MEDS ORDERED: DEXTROSE 50% ABBOJECT 25 GM/50 ML SYRINGE IVP STA (12:16)
[2020-03-09] MEDS ORDERED: SODIUM CHLORIDE 0.9% 1,000 ML IV STA (12:16)
--- NOTE | 2020-03-09 12:25 | ED Physician Documentation ---
PD HPI ALTERED MENTAL STATUS - Stated complaint Stated Complaint: POSS STROKE - Chief complaint Chief Complaint: Neuro - History obtained from History obtained from: Family, EMS - History of Present Illness Timing - onset: Today Timing - duration: Minutes Timing - details: Abrupt onset, Still present Quality / character: Unresponsive Associated symptoms: No: Fever, Headache, Stiff neck, Dyspnea, Cough, NVD, Urinary sx, General weakness, Focal weakness, Seizure activity, Syncope Contributing factors: Diabetic. 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 When she went to talk to her, her mother asked her what the weather was like outside because she is blind and cannot see and the daughter answered it was cloudy out and the patient went on her walk. She goes on a morning walk she returned was sitting at the table when she had a syncopal episode and became unresponsive. She was not feeling ill prior to this to anyone's knowledge. PD PAST MEDICAL HISTORY - Past Medical History Cardiovascular: Hypertension, High cholesterol, Coronary artery disease Respiratory: Asthma, COPD, Other (Tracheobronchomalacia s/p Y stent placement in 2017) Neuro: TIA, Peripheral neuropathy Endocrine/Autoimmune: Type 2 diabetes GI: GERD : Chronic bladder infection HEENT: Glaucoma, Macular degeneration, Chronic hearing loss Psych: Depression, Anxiety Musculoskeletal: Osteoarthritis, Rheumatoid arthritis, Fatigue Derm: None - Past Surgical History Past Surgical History: Yes General: Cholecystectomy, Other Ortho: Spine surgery /[employer]: Hysterectomy - Present Medications Home Medications: Ambulatory Orders Medication Instructions Recorded Confirmed Albuterol Sulfate [Proair Hfa 2 puffs INH Q4HR PRN 02/17/14 10/04/19 Inhaler] Travoprost [Travatan Z] 1 drop RIGHTEYE QPM 02/17/14 10/04/19 traMADol [Ultram] 50 mg PO BID PRN 02/17/14 10/04/19 Acetaminophen [Tylenol] 650 mg PO Q4H PRN 06/30/19 10/04/19 Brimonidine 0.2% Ophth Drops 1 drops EACHEYE TID 06/30/19 10/04/19 [Alphagan P 0.2% Ophth Drops] C,E,Zinc,Copper 11/Ydqos9x/Lut 1 each PO DAILY 06/30/19 10/04/19 [Ocuvite Adult 50 Plus Softgel] Cyanocobalamin (Vitamin B-12) 500 mcg SL DAILY 06/30/19 10/04/19 [Vitamin B-12 (500 mcg sublingual)] Potassium Chloride 20 meq PO DAILY 06/30/19 10/04/19 Vit A/Vit C/Vit E/Zinc/Copper 1 each PO DAILY 06/30/19 10/04/19 [Preservision Areds Softgel] polyethylene glycoL 3350 [Miralax] 17 gm PO DAILY PRN 06/30/19 10/04/19 Calcium Carbonate 500 mg PO TIDWM 10/04/19 10/04/19 predniSONE [Prednisone] 10 mg PO DAILYWM 10/04/19 10/04/19 Cholecalciferol [Vitamin D3] 5,000 unit PO DAILY #30 capsule 10/08/19 Pregabalin [Lyrica] 100 mg PO TID #90 capsule 10/08/19 Trazodone HCl 100 mg PO QPM PRN #0 10/08/19 10/04/19 Dorzolamide HCl/Pf [Dorzolamide 2% 1 drops EACHEYE TID 03/09/20 03/09/20 Eye Drop] Ipratropium/Albuterol Sulfate 3 ml TID 03/09/20 03/09/20 [Iprat-Albut 0.5-3(2.5) mg/3 ml] Tiotropium [place] [Spiriva] 1 cap DAILY 03/09/20 03/09/20 - Allergies Allergies/Adverse Reactions: Allergies Allergy/AdvReac Type Severity Reaction Status Date / Time azithromycin Allergy Anaphylaxis Verified 03/09/20 12:08 diclofenac Allergy Hives Verified 03/09/20 12:08 hydrocodone [Hydrocodone] Allergy Rash Verified 03/09/20 12:08 penicillin G Allergy Hives Verified 03/09/20 12:08 Penicillins Allergy Rash Verified 03/09/20 12:08 rofecoxib [From Vioxx] Allergy Rash Verified 03/09/20 12:08 Sulfa (Sulfonamide Allergy Hives Verified 03/09/20 12:08 Antibiotics) Cephalosporins AdvReac Unknown Verified 03/09/20 12:08 codeine AdvReac Hives Verified 03/09/20 12:08 oxycodone AdvReac Unknown Verified 03/09/20 12:08 - Social History Does the pt smoke?: No Smoking Status: Never smoker Does the pt drink ETOH?: No Does the pt have substance abuse?: No - Immunizations Immunizations are current?: Yes - POLST Patient has POLST: Yes POLST Status: DNR PD ED PE NORMAL - Vitals Vital signs reviewed: Yes (hypertensive ) - General General: No acute distress, Well developed/nourished - HEENT HEENT: Atraumatic, Other (The right pupil is round and reactive the left is mildly distorted 5mm and sluggish reaction ) - Neck Neck: Supple, no meningeal sign, No bony TTP - Cardiac Cardiac: RRR, No murmur - Respiratory Respiratory: No respiratory distress, Clear bilaterally - Abdomen Abdomen: Soft, Non tender - Back Back: No CVA TTP, No spinal TTP - Derm Derm: Normal color, Warm and dry - Extremities Extremities: No deformity, No edema, No calf tenderness / cord - Neuro Neuro: Other (On arrival the patient is closed eyed, motionless and limp. She does move eyes when forced open and has continued improvement in LOC) Eye Opening: To Pain Motor: Localizes to Pain Verbal: Incomprehensible GCS Score: 9 Results - Vitals Vitals: Vital Signs - 24 hr 03/09/20 03/09/20 03/09/20 11:57 12:24 12:30 Temperature 36.1 C L Heart Rate 67 70 67 Respiratory 12 11 L 10 L Rate Blood Pressure 138/89 H 157/67 H 147/63 H O2 Saturation 97 98 97 03/09/20 03/09/20 03/09/20 13:03 13:17 13:37 Temperature 36.0 C L 36.2 C L Heart Rate 67 66 65 Respiratory 14 20 11 L Rate Blood Pressure 146/76 H 149/73 H 149/65 H O2 Saturation 2 L 100 100 03/09/20 03/09/20 03/09/20 14:00 14:53 15:00 Temperature Heart Rate 65 63 63 Respiratory 12 12 12 Rate Blood Pressure 145/79 H 136/73 H 137/56 H O2 Saturation 100 94 94 Oxygen O2 Source Room air - EKG (time done) 1206 Rate: Rate (enter#) (74) Rhythm: NSR [place]: LAD Compare to prior EKG: Unchanged from prior EKG (SPT 02-17-2014 no changes) Computer interpretation: Agree with computer - Labs Labs: Laboratory Tests 03/09/20 03/09/20 03/09/20 12:55 12:55 12:55 WBC 12.1 H RBC 4.55 Hgb 13.8 Hct 43.5 MCV 95.6 MCH 30.3 MCHC 31.7 L RDW 14.9 Plt Count 325 MPV 9.3 Neut # (Auto) 10.4 H Lymph # (Auto) 0.9 L [place] # (Auto) 0.6 Eos # (Auto) 0.0 Baso # (Auto) 0.1 Absolute Nucleated RBC 0.00 Nucleated RBC % 0.0 Sodium 140 Potassium 4.0 Chloride 105 Carbon Dioxide 24 Anion Gap 11.0 BUN 13 Creatinine 1.1 H Estimated GFR (MDRD) 47 L Glucose 210 H Lactic Acid 2.2 Calcium 8.9 Total Bilirubin 0.7 AST 16 ALT 14 Alkaline Phosphatase 58 Troponin I High Sens B-Natriuretic Peptide Total Protein 5.8 L Albumin 3.6 Globulin 2.2 Albumin/Globulin Ratio 1.6 Lipase 24 Urine Color Urine Clarity Urine pH Ur Specific [place] Urine Protein Urine Glucose (UA) Urine Ketones Urine Occult Blood Urine Nitrite Urine Bilirubin Urine Urobilinogen Ur Leukocyte Esterase Urine RBC Urine WBC Urine WBC Clumps Ur Squamous Epith Cells Urine Bacteria Urine Casts Ur Microscopic Review Urine Culture Comments 03/09/20 03/09/20 03/09/20 12:55 12:55 13:00 WBC RBC Hgb Hct MCV MCH MCHC RDW Plt Count MPV Neut # (Auto) Lymph # (Auto) [place] # (Auto) Eos # (Auto) Baso # (Auto) Absolute Nucleated RBC Nucleated RBC % Sodium Potassium Chloride Carbon Dioxide Anion Gap BUN Creatinine Estimated GFR (MDRD) Glucose Lactic Acid Calcium Total Bilirubin AST ALT Alkaline Phosphatase Troponin I High Sens 4.9 B-Natriuretic Peptide 97 Total Protein Albumin Globulin Albumin/Globulin Ratio Lipase Urine Color YELLOW Urine Clarity TURBID Urine pH 5.5 Ur Specific [place] 1.025 Urine Protein 30 H Urine Glucose (UA) 500 H Urine Ketones NEGATIVE Urine Occult Blood TRACE-INTA Urine Nitrite NEGATIVE Urine Bilirubin NEGATIVE Urine Urobilinogen 0.2 (NORMAL) Ur Leukocyte Esterase LARGE H Urine RBC 6-10 H Urine WBC >25 H Urine WBC Clumps PRESENT Ur Squamous Epith Cells RARE Squamous Urine Bacteria Few Urine Casts 0-2 Hyaline Casts Ur Microscopic Review INDICATED Urine Culture Comments INDICATED - Rads (name of study) chest Radiology: Prelim report reviewed (Impression: Diffuse interstitial prominence and mild loss of vascular distinctness suggestive of pulmonary edema/CHF. Findings are more most pronounced in the right upper lung zone. Concurrent infectious/inflammatory process not excluded if clinically appropriate. Recommend follow-up chest x-ray), EMP read indepedently, See rad report CT head Radiology: Prelim report reviewed (Impression: 1. CT head without acute intracranial abnormalities. 2. No calvarial fractures. 3. Age-related senescent changes and sequela of chronic small vessel ischemic disease.), EMP read indepedently, See rad report CT ab/pel w Radiology: Prelim report reviewed (Impression: 1. CTA abdomen and pelvis without acute abnormalities. Minimal circumferential urinary bladder wall thickening which may be related to incomplete distention. However cystitis not excluded given history of UTI. Moderate left renal cortical scarring. ), Final report received (Otherwise, no evidence for obstructive uropathy or perinephric inflammatory changes. 3. A 1.1 cm hypodense lesion involving the pancreatic body with suggestion of communication with the main pancreatic duct. This may represent an IPMN or other pancreatic neoplasm versus pancreatic pseudocyst. ), EMP read indepedently, See rad report (consider outpatient imaging with dedicated multiphasic CT or MRI using pancreatic mass protocol to further characterize. 5.Atherosclerosis. 6. Hepatic steatosis.) Procedures - IVC sono (time) 1212 Bedside IVC sono: IVC measures (cm) (0.70), Profound dehydration (est nearly 3 liter deficit) PD MEDICAL DECISION MAKING - ED course Complexity details: reviewed old records, reviewed results, re-evaluated patient, considered differential, d/w patient, d/w family ED course: 89 y/o female with a witnessed syncopal episode without injury arrives to the ED unresponsive and limp. She has a seizure disorder and has a history of hypoglycemia. She did not appear to be seizing but the nature of her seizure disorder is not clear after talking to the patient's daughter. We found her glucose to be 69 and we administered D50. The patient had some improvement in mentation with minimal IV fluid infused and this was not dramatically better after administration of D50. We have continued to hydrate and a urine specimen is obtained indicating infection. The patient has slow steady improvement in mentation and is now A&OX4. She will need continued hydration, antibiotic and repeat imaging of the chest. Dr. Goss is consulted in the case and recommends CT ab/pel to rule out obstruction prior to admission. She is administered meropenum Departure - Departure Disposition: 66 [facility] DC/Xfer Clinical Impression: Dehydration UTI (urinary tract infection) Qualifiers: Urinary tract infection type: acute cystitis Hematuria presence: without hematuria Qualified Code(s): N30.00 - Acute cystitis without hematuria
--- NOTE | 2020-03-09 12:32 | XRAY Report ---
PROCEDURE: Chest 1 View X-Ray INDICATIONS: chest pain TECHNIQUE: One view of the chest was acquired. COMPARISON: 10/03/2019, 08/05/2018, and 11/19/2017 FINDINGS: Surgical changes and devices: None. Lungs and pleura: Diffuse interstitial prominence and mild loss of vascular distinctness, slightly m ore pronounced than before. Findings are most severe in the right upper lung zone. No focal consolida tion. No pneumothorax seen. No substantial pleural effusion. Mediastinum: Mediastinal contours appear stable. Heart size is normal. Bones and chest wall: No suspicious bony lesions. Overlying soft tissues appear unremarkable. IMPRESSION: Diffuse interstitial prominence and mild loss of vascular distinctness suggestive of pulmonary edema/ CHF. Findings are most pronounced in the right upper lung zone. Concurrent infectious/inflammatory pr ocess not excluded if clinically appropriate. Recommend follow-up chest radiograph 4-6 weeks after treatment to document return to baseline exam. Reviewed by: Joseph Hines MD on 03/09/2020 12:31 PM PDT Approved by: Joseph Hines MD on 03/09/2020 12:31 PM PDT Station ID: [id number]
[2020-03-09 13:03] LABS: BASOPHILS # (AUTO) 0.1 10^3/uL (0.0-0.1); BASOPHILS % (AUTO) 0.6 %; EOSINOPHILS % (AUTO) 0.3 %; HGB - HEMOGLOBIN 13.8 g/dL (12.0-16.0); LYMPHOCYTES # (AUTO) 0.9 10^3/uL (1.5-3.5); LYMPHOCYTES % (AUTO) 7.5 %; MEAN CORPUSCULAR HEMOGLOBIN 30.3 pg (27.0-31.0); MEAN CORPUSCULAR HGB CONC 31.7 g/dL (32.0-36.0); MEAN CORPUSCULAR VOLUME 95.6 fL (81.0-99.0); MEAN PLATELET VOLUME 9.3 fL (7.9-10.8); MONOCYTES # (AUTO) 0.6 10^3/uL (0.0-1.0); MONOCYTES % (AUTO) 4.6 %; NEUTROPHILS # (AUTO) 10.4 10^3/uL (1.5-6.6); NEUTROPHILS % (AUTO) 86.4 %; PLT - PLATELET COUNT 325 10^3/uL (130-450); RED BLOOD COUNT 4.55 10^6/uL (4.20-5.40); RED CELL DISTRIBUTION WIDTH 14.9 % (12.0-15.0); WHITE BLOOD COUNT 12.1 x10^3/uL (4.8-10.8)
[2020-03-09 13:11] LABS: BILIRUBIN,URINE NEGATIVE (NEGATIVE); GLUCOSE, URINE (UA) 500 mg/dL (NEGATIVE); KETONES,URINE (UA) NEGATIVE (NEGATIVE); LEUKOCYTE ESTERASE, URINE LARGE (NEGATIVE); NITRITE,URINE NEGATIVE (NEGATIVE); OCCULT BLOOD,URINE TRACE-INTA (NEGATIVE); PH,URINE 5.5 PH (5.0-7.5); PROTEIN,URINE 30 mg/dL (NEGATIVE); UROBILINOGEN,URINE 0.2 (NORMAL) E.U./dL (NORMAL)
[2020-03-09 13:12] LABS: CLARITY,URINE TURBID (CLEAR)
[2020-03-09 13:16] LABS: ALBUMIN 3.6 g/dL (3.2-5.5); ALBUMIN/GLOBULIN RATIO 1.6 (1.0-2.2); BILIRUBIN,TOTAL 0.7 mg/dL (0.2-1.0); CALCIUM 8.9 mg/dL (8.5-10.3); CREATININE 1.1 mg/dL (0.4-1.0); TOTAL PROTEIN 5.8 g/dL (6.7-8.2)
[2020-03-09 13:31] LABS: BACTERIA,URINE Few /HPF (None Seen); SQUAMOUS EPITHELIAL CELL,UR RARE Squamous (<= Few); WBC CLUMPS,URINE PRESENT
[2020-03-09 13:32] LABS: CASTS, URINE 0-2 Hyaline Casts /LPF
[2020-03-09] MEDS ORDERED: MEROPENEM 1 GM in SODIUM CHLORIDE 0.9% MINIBAG 100 ML IV STA (13:54)
[2020-03-09] MEDS ORDERED: IOVERSOL 320 100 ML VIAL IVP ONE ×2 (14:06→14:30)
--- NOTE | 2020-03-09 15:15 | CT Report ---
PROCEDURE: Abdomen/Pelvis W INDICATIONS: recurrent UTI CONTRAST: IV CONTRAST: Optiray 320 ml: 80 PO CONTRAST: *NO PO CONTRAST TECHNIQUE: After the administration of weight appropriate dose of intravenous contrast, 5 mm thick sections acqu ired from the diaphragms to the symphysis. 5 mm thick coronal and sagittal reformats were acquired. For radiation dose reduction, the following was used: automated exposure control, adjustment of mA and/or kV according to patient size. COMPARISON: None. FINDINGS: Image quality: Excellent. ABDOMEN: Lung bases: Patchy bibasilar atelectasis. Very small hiatal hernia. Heart size is normal. Atheroscle rotic calcifications of the coronary arteries. Solid organs: Liver and spleen are normal in size and enhancement. Hepatic steatosis. Gallbladder h as been surgically removed. Biliary system is non dilated. Prominence of the common bile duct likely related to postcholecystectomy physiologic dilatation. Pancreas enhances normally. There is a 0.9 x 1.1 cm hypodense lesion involving the pancreatic body (axial image 26, series 3). There is suggestion of communication with the main pancreatic duct. Main pancreatic duct is not dilated. No adrenal nodu les. Kidneys demonstrate normal size and enhancement, without hydronephrosis. Moderate left renal c ortical scarring. Peritoneum and bowel: Scattered colonic diverticulosis without acute diverticulitis. Bowel loops dem onstrate normal wall thickness and caliber. No free fluid or air. Nodes and vessels: No retroperitoneal or mesenteric adenopathy by size criteria. Aorta and inferior vena cava are normal in size. Scattered atherosclerosis of the abdominal aorta and iliac vessels wi thout aneurysmal dilatation. Miscellaneous: No ventral hernias. PELVIS: Genitourinary: Bladder wall thickness is minimally thickened without pericystic stranding. Miscellaneous: No inguinal hernias or adenopathy. Bones: No suspicious bony lesions. No vertebral body compression fractures. Moderate streak artifac t secondary to surgical hardware from posterior lumbar fusion of L4-S1. IMPRESSION: 1. CT abdomen and pelvis without acute abnormalities. 2. Minimal circumferential urinary bladder wall thickening which may be related to incomplete distent ion. However, cystitis not excluded given history of UTI. 3. Moderate left renal cortical scarring. Otherwise, no evidence for obstructive uropathy or perineph marva inflammatory changes. 4. A 1.1 cm hypodense lesion involving the pancreatic body with suggestion of communication with the main pancreatic duct. This may represent an IPMN or other pancreatic neoplasm versus pancreatic pseud ocyst. Consider outpatient imaging with dedicated multiphasic CT or MRI using pancreatic mass protoco l to further characterize. 5. Atherosclerosis. 6. Hepatic steatosis. Other chronic findings as above. Reviewed by: Joseph Hines MD on 03/09/2020 3:14 PM PDT Approved by: Joseph Hines MD on 03/09/2020 3:14 PM PDT Station ID: [id number]
[2020-03-09] MEDS ORDERED: ACETAMINOPHEN 325 MG TABLET PO PRN (16:10)
[2020-03-09] MEDS ORDERED: ONDANSETRON 4 MG/2 ML VIAL IVP PRN (16:10)
[2020-03-09] MEDS ORDERED: SODIUM CHLORIDE FLUSH 0.9% 10 ML SYRINGE IVP PRN (16:10)
[2020-03-09] MEDS: SODIUM CHLORIDE FLUSH 0.9% 10 ML SYRINGE IVP SCH (17:56)
[2020-03-09] MEDS: LACTATED RINGERS 1,000 ML IV SCH (17:56)
--- NOTE | 2020-03-09 19:49 | HISTORY & PHYSICAL EXAMINATION ---
Chief Complaint - Chief Complaint Chief Complaint: syncope History of Present Illness - Admitted From Admitted From:: [facility] ED - History Obtained From Records Reviewed: Yes History obtained from: Patient - History of Present Illness HPI Comment/Other: Patient is 88-year-old female with medical history significant for COPD, diabetes mellitus type 2, hypertension, recurrent UTIs, glaucoma and chronic pain who presented to the ED from [facility] after a syncopal episode. She went for a walk around 10:50 AM this morning and when she returned collapsed and does not remember anything after that. It is reported that she was unresponsive a fter the collapse. She presented to the ED where she was administered IV hydration and she readily woke up. Work-up in the ED included a UA which showed a UTI. She denies dysuria, increased urinary frequency, change in color or odor of the urine. She also denies fever, chills, dizziness or any symptoms prior to this happening. She usually goes walking using a walker and today covered 4 blocks. At the time of this visit she was resting comfortably in bed. She denied chest pain, abdominal pain, dyspnea, nausea, vomiting, fever or chills. She was presented for admission because in the past she has had a multidrug-resistant bacteria greater in previous urinary cultures for which IV antibiotic was necessary. History - Past Medical History Cardiovascular: reports: Hypertension, High cholesterol, Coronary artery disease Respiratory: reports: Asthma, COPD, Other Neuro: reports: TIA, Peripheral neuropathy Endocrine/Autoimmune: reports: Type 2 diabetes GI: reports: GERD : reports: Chronic bladder infection HEENT: reports: Glaucoma, Macular degeneration, Chronic hearing loss Psych: reports: Depression, Anxiety Musculoskeletal: reports: Osteoarthritis, Rheumatoid arthritis, Fatigue Derm: reports: None MRSA Hx?: No - Past Surgical History General: reports: Cholecystectomy, Other Ortho: reports: Spine surgery /CLIPMAN: reports: Hysterectomy - Family & Social History Family History: Mother: (father lung cancer), Father: , Cancer (lung cancer. He was a smoker) Living arrangement: [facility] ([facility] Living Situation: Alone Social History Notes: Hx of tobacco use in the past. No illicit drug use - POLST Patient has POLST: Yes POLST Status: DNR Meds/Allgy - Home Medications Home Medications: Ambulatory Orders Medication Instructions Recorded Confirmed Albuterol Sulfate [Proair Hfa 2 puffs INH Q4HR PRN 02/17/14 10/04/19 Inhaler] Travoprost [Travatan Z] 1 drop RIGHTEYE QPM 02/17/14 10/04/19 traMADol [Ultram] 50 mg PO BID PRN 02/17/14 03/09/20 Acetaminophen [Tylenol] 650 mg PO Q4H PRN 06/30/19 10/04/19 Brimonidine 0.2% Ophth Drops 1 drops EACHEYE TID 06/30/19 03/09/20 [Alphagan P 0.2% Ophth Drops] C,E,Zinc,Copper 11/Blwwt9i/Lut 1 each PO DAILY 06/30/19 10/04/19 [Ocuvite Adult 50 Plus Softgel] Cyanocobalamin (Vitamin B-12) 500 mcg SL DAILY 06/30/19 10/04/19 [Vitamin B-12 (500 mcg sublingual)] Potassium Chloride 20 meq PO DAILYWM 06/30/19 03/09/20 Vit A/Vit C/Vit E/Zinc/Copper 1 each PO DAILY 06/30/19 10/04/19 [Preservision Areds Softgel] polyethylene glycoL 3350 [Miralax] 17 gm PO DAILY PRN 06/30/19 10/04/19 Calcium Carbonate 500 mg PO TIDWM 10/04/19 10/04/19 predniSONE [Prednisone] 10 mg PO DAILYWM 10/04/19 03/09/20 Cholecalciferol [Vitamin D3] 5,000 unit PO DAILY #30 capsule 10/08/19 Pregabalin [Lyrica] 100 mg PO TID #90 capsule 10/08/19 Trazodone HCl 100 mg PO QPM PRN #0 10/08/19 10/04/19 Dorzolamide HCl/Pf [Dorzolamide 2% 1 drops EACHEYE TID 03/09/20 03/09/20 Eye Drop] Ipratropium/Albuterol Sulfate 3 ml TID 03/09/20 03/09/20 [Iprat-Albut 0.5-3(2.5) mg/3 ml] Tiotropium [place] [Spiriva] 1 cap DAILY 03/09/20 03/09/20 - Allergies Allergies/Adverse Reactions: Allergies Allergy/AdvReac Type Severity Reaction Status Date / Time azithromycin Allergy Anaphylaxis Verified 03/09/20 12:08 diclofenac Allergy Hives Verified 03/09/20 12:08 hydrocodone [Hydrocodone] Allergy Rash Verified 03/09/20 12:08 penicillin G Allergy Hives Verified 03/09/20 12:08 Penicillins Allergy Rash Verified 03/09/20 12:08 rofecoxib [From Vioxx] Allergy Rash Verified 03/09/20 12:08 Sulfa (Sulfonamide Allergy Hives Verified 03/09/20 12:08 Antibiotics) Cephalosporins AdvReac Unknown Verified 03/09/20 12:08 codeine AdvReac Hives Verified 03/09/20 12:08 oxycodone AdvReac Unknown Verified 03/09/20 12:08 Review of Systems - Constitutional Constitutional: denies: Fatigue, Fever, Chills, Weakness - Eyes Eyes: reports: Other (legally blind). denies: Pain - Ears, Nose & Throat Ears, Nose & Throat: denies: Ear pain, Sore throat - Cardiovascular Cariovascular: reports: Syncope. denies: Irregular heart rate, Palpitations, Chest pain, Edema - Respiratory Respiratory: reports: Cough (chronic), Sputum production, Wheezing. denies: SOB at rest, SOB with exertion - Gastrointestinal Gastrointestinal: denies: Abdominal pain, Abdominal distention, Constipation, Diarrhea, Nausea, Vomiting, Reflux/heartburn - Genitourinary Genitourinary: denies: Dysuria, Frequency, Urgency, Hematuria - Musculoskeletal Musculoskeletal: denies: Muscle pain, Back pain, Muscle aches - Integumentary Integumentary: denies: Rash, Pruritis, Lesions - Neurological Neurological: denies: General weakness, Focal weakness, Headache, Dizziness - Psychiatric Psychiatric: denies: Depression - Endocrine Endocrine: denies: Polyuria, Polydypsia - Hematologic/Lymphatic Hematologic/Lymphatic: denies: Anemia, Bruising, Petechiae Prior Level of Functionality: She resides at [facility]. She gets around using a walker. She usually goes for a walk daily and walks about 4 blocks. She is legally blind. Exam - Vital Signs Vital Signs: Vital Signs x48h Temp Pulse Pulse Resp BP BP Pulse Ox 03/09/20 17:15 36.5 C 63 16 160/89 H 99 03/09/20 16:37 67 13 136/55 H 99 03/09/20 16:00 67 20 147/67 H 100 03/09/20 15:30 36.3 C L 66 13 140/58 H 97 03/09/20 15:00 63 12 137/56 H 94 03/09/20 14:53 63 12 136/73 H 94 03/09/20 14:00 65 12 145/79 H 100 03/09/20 13:37 36.2 C L 65 11 L 149/65 H 100 03/09/20 13:17 66 20 149/73 H 100 03/09/20 13:03 36.0 C L 67 14 146/76 H 2 L 03/09/20 12:30 67 10 L 147/63 H 97 03/09/20 12:24 70 11 L 157/67 H 98 03/09/20 11:57 36.1 C L 67 12 138/89 H 97 - Physical Exam General Appearance: positive: No acute distress, Alert Eyes Bilateral: positive: PERRL, EOMI ENT: positive: Dry mucous membranes Neck: positive: No JVD, Trachea midline Respiratory: positive: Chest non-tender, No respiratory distress, Wheezes. negative: Rales, Rhonchi Cardiovascular: positive: Regular rate & rhythm, No murmur Abdomen: positive: Non-tender, No organomegaly, Nml bowel sounds, No distention. negative: Guarding, Rebound Back: positive: Nml inspection Skin: positive: Color nml, No rash, Warm, Dry Extremities: positive: Non-tender, Full ROM, Nml appearance, No pedal edema Neurologic/Psychiatric: positive: Oriented x3, Mood/affect nml Conclusion/Plan - Problem List (1) UTI (urinary tract infection) Conclusion/Plan: Patient has grown Pseudomonas and Klebsiella in the past. The Pseudomonas had been significantly resistant to multi antibiotics. Urine culture is pending. Will await sensitivities. Patient was started on meropenem. Will continue. Qualifiers: Urinary tract infection type: acute cystitis Hematuria presence: without hematuria Qualified Code(s): N30.00 - Acute cystitis without hematuria (2) COPD (chronic obstructive pulmonary disease) Conclusion/Plan: Not in exacerbation. Patient is on DuoNeb 3 times daily and albuterol 2 puffs every 4 hours. Will resume. (3) Chronic pain Conclusion/Plan: Patient's tramadol and Lyrica resumed. (4) Diabetes mellitus Conclusion/Plan: Accu-Cheks and sliding scale insulin ordered. It appears patient is not on any medications at home. Qualifiers: Diabetes mellitus type: type 2 (5) Glaucoma Conclusion/Plan: Patient's eyedrops resume - Lab Results Fish Bones: 03/09/20 12:55 03/09/20 12:55 Core Measures - Anticipated LOS I expect patient to be DC'd or transferred within 96 hours.: Yes - DVT/VTE - Prophylaxis VTE/DVT Device ordered at admit?: Yes VTE/DVT Prophylaxis med ordered at admit?: Yes
[2020-03-09] MEDS ORDERED: TRAVOPROST RIGHTEYE SCH (21:00)
[2020-03-09] MEDS: MEROPENEM 1 GM in SODIUM CHLORIDE 0.9% MINIBAG 100 ML IV SCH (21:07)
[2020-03-09] MEDS: PREGABALIN 100 MG CAPSULE PO SCH (21:08)
[2020-03-09] MEDS: BRIMONIDINE 0.2% OPHTH DROPS 5 ML EACHEYE SCH (21:23)
[2020-03-09] MEDS ORDERED: IPRATROPIUM/ALBUTEROL 3 ML NEB INH SCH (22:00)
[2020-03-09] MEDS ORDERED: DORZOLAMIDE HCL EACHEYE SCH (22:00)
[2020-03-10] MEDS: SODIUM CHLORIDE FLUSH 0.9% 10 ML SYRINGE IVP SCH ×3 (03:01→16:32)
[2020-03-10] MEDS: LACTATED RINGERS 1,000 ML IV SCH ×2 (04:09→14:10)
[2020-03-10 05:42] LABS: BASOPHILS # (AUTO) 0.1 10^3/uL (0.0-0.1); BASOPHILS % (AUTO) 0.8 %; EOSINOPHILS # (AUTO) 0.2 10^3/uL (0.0-0.7); EOSINOPHILS % (AUTO) 2.9 %; HGB - HEMOGLOBIN 13.2 g/dL (12.0-16.0); LYMPHOCYTES # (AUTO) 2.9 10^3/uL (1.5-3.5); LYMPHOCYTES % (AUTO) 36.4 %; MEAN CORPUSCULAR HEMOGLOBIN 29.8 pg (27.0-31.0); MEAN CORPUSCULAR HGB CONC 32.4 g/dL (32.0-36.0); MEAN CORPUSCULAR VOLUME 92.1 fL (81.0-99.0); MEAN PLATELET VOLUME 9.2 fL (7.9-10.8); MONOCYTES # (AUTO) 0.7 10^3/uL (0.0-1.0); MONOCYTES % (AUTO) 8.1 %; NEUTROPHILS # (AUTO) 4.1 10^3/uL (1.5-6.6); NEUTROPHILS % (AUTO) 51.4 %; PLT - PLATELET COUNT 310 10^3/uL (130-450); RED BLOOD COUNT 4.43 10^6/uL (4.20-5.40)
[2020-03-10 05:59] LABS: CALCIUM 8.7 mg/dL (8.5-10.3); CREATININE 0.8 mg/dL (0.4-1.0); MAGNESIUM 2.1 mg/dL (1.7-2.8); PHOSPHORUS 3.6 mg/dL (2.5-4.6)
[2020-03-10] MEDS: BRIMONIDINE 0.2% OPHTH DROPS 5 ML EACHEYE SCH ×3 (06:21→21:24)
[2020-03-10] MEDS: PREGABALIN 100 MG CAPSULE PO SCH ×3 (06:25→21:28)
[2020-03-10] MEDS ORDERED: IPRATROPIUM/ALBUTEROL 3 ML NEB INH PRN (06:41)
--- NOTE | 2020-03-10 07:37 | PROVIDER PROGRESS NOTE ---
Subjective - Prog Note Date Prog Note Date: 03/10/20 - Subjective Subjective: She reports feeling well. Denies any chest pain, dyspnea. She does not remember what happened yesterday except for the fact that she passed out after her walk. She denies having any symptoms of urinary tract infection including dysuria, urgency. Current Medications - Current Medications Current Medications: Active Medications Acetaminophen (Tylenol) 650 mg PO Q4HR PRN PRN Reason: Pain 1 to 4 Albuterol/Ipratropium (Duoneb) 3 ml INH Q4HR PRN PRN Reason: Wheezing Last Admin: 03/10/20 09:35 Dose: 3 ml Documented by: Brimonidine Tartrate (Alphagan P 0.2% Ophth Drops) 1 drops EACHEYE TID [facility] Last Admin: 03/10/20 06:21 Dose: 1 drops Documented by: Dorzolamide HCl (Trusopt 2% Ophth Drops) 1 drops EACHEYE TID [facility] Last Admin: 03/10/20 10:25 Dose: 1 drops Documented by: Enoxaparin Sodium (Lovenox) 40 mg SUBQ DAILY [facility] Last Admin: 03/10/20 09:57 Dose: 40 mg Documented by: Lactated Ringer's (Lr) 1,000 mls @ 100 mls/hr IV .Q10H [facility] Last Admin: 03/10/20 04:09 Dose: 100 mls/hr Documented by: Meropenem 1 gm/ Sodium (Chloride) 100 mls @ 200 mls/hr IV BID [facility] Last Admin: 03/10/20 09:53 Dose: 200 mls/hr Documented by: Insulin Aspart (Novolog) 1 - 5 unit SUBQ 0800,1200,1700,2100 [facility]; Protocol Last Admin: 03/10/20 10:00 Dose: Not Given Documented by: Latanoprost (Xalatan Ophth Drops) 1 drops RIGHTEYE QPM [facility] Ondansetron HCl (Zofran Inj) 4 mg IVP Q6HR PRN PRN Reason: Nausea / Vomiting Prednisone (Deltasone) 10 mg PO DAILYWM [facility] Pregabalin (Lyrica) 100 mg PO TID [facility] Last Admin: 03/10/20 06:25 Dose: 100 mg Documented by: Sodium Chloride (Normal Saline Flush 0.9%) 10 ml IVP PRN PRN PRN Reason: NEEDED PER PROVIDER ORDERS Sodium Chloride (Normal Saline Flush 0.9%) 10 ml IVP 0100,0900,1700 [facility] Last Admin: 03/10/20 10:01 Dose: Not Given Documented by: Trazodone HCl (Desyrel) 100 mg PO QPM PRN PRN Reason: Insomnia Albuterol Sulfate [Proair Hfa Inhaler] 2 puffs INH Q4HR PRN 02/17/14 Travoprost [Travatan Z] 1 drop RIGHTEYE QPM 02/17/14 traMADol [Ultram] 50 mg PO BID PRN 02/17/14 Acetaminophen [Tylenol] 650 mg PO Q4H PRN 06/30/19 Brimonidine 0.2% Ophth Drops [Alphagan P 0.2% Ophth Drops] 1 drops EACHEYE TID 06/30/19 C,E,Zinc,Copper 11/Ganqt0l/Lut [Ocuvite Adult 50 Plus Softgel] 1 each PO DAILY 06/30/19 Cyanocobalamin (Vitamin B-12) [Vitamin B-12 (500 mcg sublingual)] 500 mcg SL DAILY 06/30/19 Potassium Chloride 20 meq PO DAILYWM 06/30/19 Vit A/Vit C/Vit E/Zinc/Copper [Preservision Areds Softgel] 1 each PO DAILY 06/30/19 polyethylene glycoL 3350 [Miralax] 17 gm PO DAILY PRN 06/30/19 Calcium Carbonate 500 mg PO TIDWM 10/04/19 predniSONE [Prednisone] 10 mg PO DAILYWM 10/04/19 Dorzolamide HCl/Pf [Dorzolamide 2% Eye Drop] 1 drops EACHEYE TID 03/09/20 Ipratropium/Albuterol Sulfate [Iprat-Albut 0.5-3(2.5) mg/3 ml] 3 ml TID 03/09/20 Tiotropium [place] [Spiriva] 1 cap DAILY 03/09/20 Objective - Vital Signs/Intake & Output Reviewed Vital Signs: Yes Vital Signs: Vital Signs x48h Temp Pulse Resp BP BP Pulse Ox 03/10/20 02:58 36.4 C L 52 L 16 129/53 L 96 03/10/20 00:20 36.3 C L 53 L 16 120/49 L 94 Intake & Output: Intake & Output 03/07/20 03/08/20 03/09/20 03/10/20 23:59 23:59 23:59 23:59 Intake Total 1490 1000 Output Total 250 100 Balance 1240 900 - Objective General Appearance: positive: No acute distress, Alert Eyes Bilateral: positive: Normal inspection ENT: positive: ENT inspection nml Neck: positive: Nml inspection Respiratory: positive: No respiratory distress. negative: Wheezes, Rales Cardiovascular: positive: Regular rate & rhythm, No murmur. negative: Tachycardia, Bradycardia, Systolic murmur Abdomen: positive: Non-tender, No distention. negative: Tenderness Skin: positive: Warm, Dry Extremities: positive: No pedal edema Neurologic/Psychiatric: positive: Other (No focal deficits.). negative: Disoriented to person, Disoriented to place - Lab Results Fish Bones: 03/10/20 05:25 03/10/20 05:25 Other Labs: Lab Results x24hrs 03/10/20 03/10/20 03/09/20 Range/Units 05:25 05:25 13:00 WBC 8.0 (4.8-10.8) x10^3/uL RBC 4.43 (4.20-5.40) 10^6/uL Hgb 13.2 (12.0-16.0) g/dL Hct 40.8 (37.0-47.0) % MCV 92.1 (81.0-99.0) fL MCH 29.8 (27.0-31.0) pg MCHC 32.4 (32.0-36.0) g/dL RDW 15.0 (12.0-15.0) % Plt Count 310 (130-450) 10^3/uL MPV 9.2 (7.9-10.8) fL Neut # (Auto) 4.1 (1.5-6.6) 10^3/uL Lymph # (Auto) 2.9 (1.5-3.5) 10^3/uL [place] # (Auto) 0.7 (0.0-1.0) 10^3/uL Eos # (Auto) 0.2 (0.0-0.7) 10^3/uL Baso # (Auto) 0.1 (0.0-0.1) 10^3/uL Absolute Nucleated RBC 0.00 x10^3/uL Nucleated RBC % 0.0 /100WBC Sodium 142 (135-145) mmol/L Potassium 3.8 (3.5-5.0) mmol/L Chloride 113 H (101-111) mmol/L Carbon Dioxide 22 (21-32) mmol/L Anion Gap 7.0 (6-13) BUN 10 (6-20) mg/dL Creatinine 0.8 (0.4-1.0) mg/dL Estimated GFR (MDRD) 68 L (>89) Glucose 94 (70-100) mg/dL Lactic Acid (0.5-2.2) mmol/L Calcium 8.7 (8.5-10.3) mg/dL Phosphorus 3.6 (2.5-4.6) mg/dL Magnesium 2.1 (1.7-2.8) mg/dL Total Bilirubin (0.2-1.0) mg/dL AST (10-42) IU/L ALT (10-60) IU/L Alkaline Phosphatase (42-121) IU/L Troponin I High Sens (2.3-14.8) ng/L B-Natriuretic Peptide (5-100) pg/mL Total Protein (6.7-8.2) g/dL Albumin (3.2-5.5) g/dL Globulin (2.1-4.2) g/dL Albumin/Globulin Ratio (1.0-2.2) Lipase (22-51) U/L Urine Color YELLOW Urine Clarity TURBID (CLEAR) Urine pH 5.5 (5.0-7.5) PH Ur Specific [place] 1.025 (1.002-1.030) Urine Protein 30 H (NEGATIVE) mg/dL Urine Glucose (UA) 500 H (NEGATIVE) mg/dL Urine Ketones NEGATIVE (NEGATIVE) mg/dL Urine Occult Blood TRACE-INTA (NEGATIVE) Urine Nitrite NEGATIVE (NEGATIVE) Urine Bilirubin NEGATIVE (NEGATIVE) Urine Urobilinogen 0.2 (NORMAL) (NORMAL) E.U./dL Ur Leukocyte Esterase LARGE H (NEGATIVE) Urine RBC 6-10 H (0-5) /HPF Urine WBC >25 H (0-5) /HPF Urine WBC Clumps PRESENT Ur Squamous Epith Cells RARE Squamous (<= Few) Urine Bacteria Few (None Seen) /HPF Urine Casts 0-2 Hyaline Casts /LPF Ur Microscopic Review INDICATED Urine Culture Comments INDICATED 03/09/20 03/09/20 03/09/20 Range/Units 12:55 12:55 12:55 WBC (4.8-10.8) x10^3/uL RBC (4.20-5.40) 10^6/uL Hgb (12.0-16.0) g/dL Hct (37.0-47.0) % MCV (81.0-99.0) fL MCH (27.0-31.0) pg MCHC (32.0-36.0) g/dL RDW (12.0-15.0) % Plt Count (130-450) 10^3/uL MPV (7.9-10.8) fL Neut # (Auto) (1.5-6.6) 10^3/uL Lymph # (Auto) (1.5-3.5) 10^3/uL [place] # (Auto) (0.0-1.0) 10^3/uL Eos # (Auto) (0.0-0.7) 10^3/uL Baso # (Auto) (0.0-0.1) 10^3/uL Absolute Nucleated RBC x10^3/uL Nucleated RBC % /100WBC Sodium (135-145) mmol/L Potassium (3.5-5.0) mmol/L Chloride (101-111) mmol/L Carbon Dioxide (21-32) mmol/L Anion Gap (6-13) BUN (6-20) mg/dL Creatinine (0.4-1.0) mg/dL Estimated GFR (MDRD) (>89) Glucose (70-100) mg/dL Lactic Acid 2.2 (0.5-2.2) mmol/L Calcium (8.5-10.3) mg/dL Phosphorus (2.5-4.6) mg/dL Magnesium (1.7-2.8) mg/dL Total Bilirubin (0.2-1.0) mg/dL AST (10-42) IU/L ALT (10-60) IU/L Alkaline Phosphatase (42-121) IU/L Troponin I High Sens 4.9 (2.3-14.8) ng/L B-Natriuretic Peptide 97 (5-100) pg/mL Total Protein (6.7-8.2) g/dL Albumin (3.2-5.5) g/dL Globulin (2.1-4.2) g/dL Albumin/Globulin Ratio (1.0-2.2) Lipase (22-51) U/L Urine Color Urine Clarity (CLEAR) Urine pH (5.0-7.5) PH Ur Specific [place] (1.002-1.030) Urine Protein (NEGATIVE) mg/dL Urine Glucose (UA) (NEGATIVE) mg/dL Urine Ketones (NEGATIVE) mg/dL Urine Occult Blood (NEGATIVE) Urine Nitrite (NEGATIVE) Urine Bilirubin (NEGATIVE) Urine Urobilinogen (NORMAL) E.U./dL Ur Leukocyte Esterase (NEGATIVE) Urine RBC (0-5) /HPF Urine WBC (0-5) /HPF Urine WBC Clumps Ur Squamous Epith Cells (<= Few) Urine Bacteria (None Seen) /HPF Urine Casts /LPF Ur Microscopic Review Urine Culture Comments 03/09/20 03/09/20 Range/Units 12:55 12:55 WBC 12.1 H (4.8-10.8) x10^3/uL RBC 4.55 (4.20-5.40) 10^6/uL Hgb 13.8 (12.0-16.0) g/dL Hct 43.5 (37.0-47.0) % MCV 95.6 (81.0-99.0) fL MCH 30.3 (27.0-31.0) pg MCHC 31.7 L (32.0-36.0) g/dL RDW 14.9 (12.0-15.0) % Plt Count 325 (130-450) 10^3/uL MPV 9.3 (7.9-10.8) fL Neut # (Auto) 10.4 H (1.5-6.6) 10^3/uL Lymph # (Auto) 0.9 L (1.5-3.5) 10^3/uL [place] # (Auto) 0.6 (0.0-1.0) 10^3/uL Eos # (Auto) 0.0 (0.0-0.7) 10^3/uL Baso # (Auto) 0.1 (0.0-0.1) 10^3/uL Absolute Nucleated RBC 0.00 x10^3/uL Nucleated RBC % 0.0 /100WBC Sodium 140 (135-145) mmol/L Potassium 4.0 (3.5-5.0) mmol/L Chloride 105 (101-111) mmol/L Carbon Dioxide 24 (21-32) mmol/L Anion Gap 11.0 (6-13) BUN 13 (6-20) mg/dL Creatinine 1.1 H (0.4-1.0) mg/dL Estimated GFR (MDRD) 47 L (>89) Glucose 210 H (70-100) mg/dL Lactic Acid (0.5-2.2) mmol/L Calcium 8.9 (8.5-10.3) mg/dL Phosphorus (2.5-4.6) mg/dL Magnesium (1.7-2.8) mg/dL Total Bilirubin 0.7 (0.2-1.0) mg/dL AST 16 (10-42) IU/L ALT 14 (10-60) IU/L Alkaline Phosphatase 58 (42-121) IU/L Troponin I High Sens (2.3-14.8) ng/L B-Natriuretic Peptide (5-100) pg/mL Total Protein 5.8 L (6.7-8.2) g/dL Albumin 3.6 (3.2-5.5) g/dL Globulin 2.2 (2.1-4.2) g/dL Albumin/Globulin Ratio 1.6 (1.0-2.2) Lipase 24 (22-51) U/L Urine Color Urine Clarity (CLEAR) Urine pH (5.0-7.5) PH Ur Specific [place] (1.002-1.030) Urine Protein (NEGATIVE) mg/dL Urine Glucose (UA) (NEGATIVE) mg/dL Urine Ketones (NEGATIVE) mg/dL Urine Occult Blood (NEGATIVE) Urine Nitrite (NEGATIVE) Urine Bilirubin (NEGATIVE) Urine Urobilinogen (NORMAL) E.U./dL Ur Leukocyte Esterase (NEGATIVE) Urine RBC (0-5) /HPF Urine WBC (0-5) /HPF Urine WBC Clumps Ur Squamous Epith Cells (<= Few) Urine Bacteria (None Seen) /HPF Urine Casts /LPF Ur Microscopic Review Urine Culture Comments ABX Reporting Has patient been on IV antibiotics over the past 48 hours?: Yes Assessment/Plan - Problem List (1) UTI (urinary tract infection) Impression: This is a suspected cause of her syncope yesterday. Urinalysis is suggestive of infection although she does not have any symptoms. Imaging did not reveal any obstruction. Her prior cultures have grown Pseudomonas in the past and so we have her on meropenem IV. We are awaiting urine culture as if she grows Pseudomonas again, she will need outpatient IV antibiotics to complete her course of treatment. We will follow-up blood cultures. There is no evidence of sepsis. Qualifiers: Urinary tract infection type: acute cystitis Hematuria presence: without hematuria Qualified Code(s): N30.00 - Acute cystitis without hematuria (2) Syncope Impression: This appears to be secondary to her urinary tract infection. She had an e chocardiogram earlier this year which was relatively unremarkable so we will not repeated at this time. She really has been hydrated but we will check orthostatics. There is been no evidence of arrhythmia on telemetry we will continue to monitor on telemetry. We will continue antibiotics as mentioned above for urinary tract infection. (3) COPD (chronic obstructive pulmonary disease) Impression: Stable and not in exacerbation. She is reportedly on prednisone for her COPD which she will continue. Continue her home inhalers as well. (4) Diabetes mellitus Impression: She reportedly has a history of diabetes but not any medications at home and her last A1c was 5.8%. We will monitor her blood glucose with meals. Qualifiers: Diabetes mellitus type: type 2 (5) Glaucoma Impression: Unfortunate, she is blind which appears to be secondary to her glaucoma. We will continue her eyedrops while she is hospitalized.
[2020-03-10] MEDS: IPRATROPIUM/ALBUTEROL 3 ML NEB INH PRN (09:35)
[2020-03-10] MEDS: MEROPENEM 1 GM in SODIUM CHLORIDE 0.9% MINIBAG 100 ML IV SCH ×2 (09:53→21:28)
[2020-03-10] MEDS: ENOXAPARIN 40 MG/0.4 ML SYRINGE SUBQ SCH (09:57)
[2020-03-10] MEDS: INSULIN ASPART 300 UNIT/3 ML PEN SUBQ SCH ×4 (10:00→21:27)
[2020-03-10] MEDS: DORZOLAMIDE 2% OPHTH DROPS EACHEYE SCH ×3 (10:25→21:36)
--- NOTE | 2020-03-10 15:47 | PHARMACY PROGRESS NOTE ---
- Best Possible Medication History Admit Date and Time: 03/09/20 1610 Processed by: Pharmacy Medication History completed: Yes Secondary Source(s): Facility MAR as ONLY source As the person ultimately responsible for medication therapy, providers are able to order a medication from an existing home medication list in [facility] via the "Reconcile Routine" prior to Confirmation of that medication by operations support professionals. Such practice is discouraged except when the physician, in their clinical judgment, deems that a medical need exists for a medication without regard to previous use.
[2020-03-10] MEDS ORDERED: traZODone 50 MG TABLET PO PRN (21:00)
[2020-03-10] MEDS: LATANOPROST 0.005% OPHTH DROPS RIGHTEYE SCH (21:30)
[2020-03-11] MEDS: IPRATROPIUM/ALBUTEROL 3 ML NEB INH PRN (08:47)
[2020-03-11] MEDS ORDERED: ENOXAPARIN 40 MG/0.4 ML SYRINGE SUBQ ONE (08:53)
[2020-03-11] MEDS ORDERED: IPRATROPIUM/ALBUTEROL 3 ML NEB INH ONE ×2 (08:55→14:07)
[2020-03-11] MEDS ORDERED: predniSONE 20 MG TABLET ONE (09:07)
--- NOTE | 2020-03-11 09:18 | PROVIDER PROGRESS NOTE ---
Subjective - Prog Note Date Prog Note Date: 03/11/20 - Subjective Subjective: She reports feeling very well today. She was able to ambulate in the hallways. Denies dizziness or lightheadedness. No dyspnea. Current Medications - Current Medications Current Medications: Active Medications Acetaminophen (Tylenol) 650 mg PO Q4HR PRN PRN Reason: Pain 1 to 4 Albuterol/Ipratropium (Duoneb) 3 ml INH Q4HR PRN PRN Reason: Wheezing Last Admin: 03/11/20 08:47 Dose: 3 ml Documented by: Brimonidine Tartrate (Alphagan P 0.2% Ophth Drops) 1 drops EACHEYE TID [facility] Last Admin: 03/10/20 21:24 Dose: 1 drops Documented by: Dorzolamide HCl (Trusopt 2% Ophth Drops) 1 drops EACHEYE TID [facility] Last Admin: 03/10/20 21:36 Dose: 1 drops Documented by: Enoxaparin Sodium (Lovenox) 40 mg SUBQ DAILY [facility] Last Admin: 03/10/20 09:57 Dose: 40 mg Documented by: Lactated Ringer's (Lr) 1,000 mls @ 100 mls/hr IV .Q10H [facility] Last Infusion: 03/10/20 19:41 Dose: 100 mls/hr Documented by: Meropenem 1 gm/ Sodium (Chloride) 100 mls @ 200 mls/hr IV BID [facility] Last Infusion: 03/10/20 21:58 Dose: Infused Documented by: Insulin Aspart (Novolog) 1 - 5 unit SUBQ 0800,1200,1700,2100 [facility]; Protocol Last Admin: 03/10/20 21:27 Dose: Not Given Documented by: Latanoprost (Xalatan Ophth Drops) 1 drops RIGHTEYE QPM [facility] Last Admin: 03/10/20 21:30 Dose: 1 drops Documented by: Ondansetron HCl (Zofran Inj) 4 mg IVP Q6HR PRN PRN Reason: Nausea / Vomiting Prednisone (Deltasone) 10 mg PO DAILYWM [facility] Pregabalin (Lyrica) 100 mg PO TID [facility] Last Admin: 03/10/20 21:28 Dose: 100 mg Documented by: Sodium Chloride (Normal Saline Flush 0.9%) 10 ml IVP PRN PRN PRN Reason: NEEDED PER PROVIDER ORDERS Sodium Chloride (Normal Saline Flush 0.9%) 10 ml IVP 0100,0900,1700 [facility] Last Admin: 03/10/20 16:32 Dose: Not Given Documented by: Trazodone HCl (Desyrel) 100 mg PO QPM PRN PRN Reason: Insomnia Last Admin: 03/10/20 21:28 Dose: 100 mg Documented by: Albuterol Sulfate [Proair Hfa Inhaler] 2 puffs INH Q4HR PRN 02/17/14 Travoprost [Travatan Z] 1 drop EACHEYE QPM 02/17/14 traMADol [Ultram] 50 mg PO BID PRN 02/17/14 Acetaminophen [Tylenol] 650 mg PO Q6HR PRN 06/30/19 Brimonidine 0.2% Ophth Drops [Alphagan P 0.2% Ophth Drops] 1 drops EACHEYE TID 06/30/19 Potassium Chloride 20 meq PO DAILYWM 06/30/19 Vit A/Vit C/Vit E/Zinc/Copper [Preservision Areds Softgel] 1 each PO DAILY 06/30/19 polyethylene glycoL 3350 [Miralax] 17 gm PO DAILY PRN 06/30/19 Calcium Carbonate 500 mg PO TID 10/04/19 predniSONE [Prednisone] 10 mg PO DAILYWM 10/04/19 Dorzolamide HCl/Pf [Dorzolamide 2% Eye Drop] 1 drops EACHEYE TID 03/09/20 Ipratropium/Albuterol Sulfate [Iprat-Albut 0.5-3(2.5) mg/3 ml] 3 ml INH TID 03/09/20 Tiotropium Hanna [Spiriva] 1 cap INH DAILY 03/09/20 Benzonatate [Tessalon Perle] 100 mg PO Q8HR PRN 03/10/20 Cyanocobalamin (Vitamin B-12) [Vitamin B-12] 500 mcg PO DAILY 03/10/20 Guaifenesin/Dextromethorphan [Siltussin Dm Ashton 100-10Mg/5 ml] 10 ml PO BID 03/10/20 Lidocaine [Aspercreme Lidocaine] 1 patch TOP DAILY 03/10/20 Pregabalin [Lyrica] 100 mg PO QPM 03/10/20 Pregabalin [Lyrica] 150 mg PO DAILY 03/10/20 Objective - Vital Signs/Intake & Output Vital Signs: Vital Signs x48h Pulse Resp 03/11/20 08:50 66 16 Intake & Output: Intake & Output 03/08/20 03/09/20 03/10/20 03/11/20 23:59 23:59 23:59 23:59 Intake Total 1490 3431.667 Output Total 250 3850 Balance 1240 -418.333 - Lab Results Fish Bones: 03/11/20 05:51 03/11/20 05:51 ABX Reporting Has patient been on IV antibiotics over the past 48 hours?: Yes Assessment/Plan - Problem List (1) UTI (urinary tract infection) Impression: Clinically, she is improving and doing well. Imaging did not reveal any ob struction. Her prior cultures have grown Pseudomonas in the past and so we continue her on meropenem IV. We are awaiting urine culture as if she grows Pseudomonas again, she will need outpatient IV antibiotics to complete her course of treatment. Blood cultures have been negative. We will follow up urine culture as that will decide disposition. Qualifiers: Urinary tract infection type: acute cystitis Hematuria presence: without hematuria Qualified Code(s): N30.00 - Acute cystitis without hematuria (2) Syncope Impression: This appears to be secondary to her urinary tract infection. She had an echocardiogram earlier this year which was relatively unremarkable so we will not repeated at this time. There is been no evidence of arrhythmia on telemetry we will continue to monitor on telemetry. We will continue antibiotics as mentioned above for urinary tract infection. (3) Abnormal chest x-ray Impression: Her chest x-ray on admission was concerning for CHF and a prominent infiltrate in the right upper lung. Clinically she does not appear to have CHF and her BNP is normal. This could be aspiration causing the infiltrate. She does not appear to have pneumonia given lack of cough and normal white count. Will repeat a chest x-ray for further evaluation today. Hold off on antibiotics for pneumonia for time being. (4) Gram-positive bacteremia Impression: 1 out of 4 blood cultures growing gram-positive cocci. This is likely contaminant. We will await speciation to confirm this. (5) COPD (chronic obstructive pulmonary disease) Impression: Stable and not in exacerbation. She is reportedly on prednisone for her COPD which she will continue. Continue her home inhalers as well. (6) Diabetes mellitus Impression: She is not on therapy and her last A1c was 5.8%. Continue with her current diet as blood glucose has been controlled. Qualifiers: Diabetes mellitus type: type 2 (7) Glaucoma Impression: We will continue her eyedrops while she is hospitalized.
[2020-03-11] MEDS ORDERED: ALBUTEROL NEB 2.5 MG/3 ML INH PRN (13:35)
[2020-03-11] MEDS: IPRATROPIUM/ALBUTEROL 3 ML NEB INH SCH ×2 (14:16→20:19)
[2020-03-11] MEDS: LACTATED RINGERS 1,000 ML IV SCH ×2 (14:38)
[2020-03-11] MEDS: BRIMONIDINE 0.2% OPHTH DROPS 5 ML EACHEYE SCH ×3 (14:40→21:49)
[2020-03-11] MEDS: ENOXAPARIN 40 MG/0.4 ML SYRINGE SUBQ SCH (14:40)
[2020-03-11] MEDS: INSULIN ASPART 300 UNIT/3 ML PEN SUBQ SCH ×4 (14:40→20:49)
[2020-03-11] MEDS: predniSONE 10 MG TABLET PO SCH (14:40)
[2020-03-11] MEDS: DORZOLAMIDE 2% OPHTH DROPS EACHEYE SCH ×3 (14:40→21:54)
[2020-03-11] MEDS: SODIUM CHLORIDE FLUSH 0.9% 10 ML SYRINGE IVP SCH ×3 (14:40→17:55)
[2020-03-11] MEDS: MEROPENEM 1 GM in SODIUM CHLORIDE 0.9% MINIBAG 100 ML IV SCH ×2 (14:44→21:44)
[2020-03-11] MEDS ORDERED: LACTATED RINGERS 1,000 ML IV ONE (14:45)
[2020-03-11 16:34] LABS: CALCIUM 8.4 mg/dL (8.5-10.3); CREATININE 0.8 mg/dL (0.4-1.0); PHOSPHORUS 3.3 mg/dL (2.5-4.6)
[2020-03-11 16:48] LABS: BASOPHILS # (AUTO) 0.1 10^3/uL (0.0-0.1); BASOPHILS % (AUTO) 1.2 %; EOSINOPHILS # (AUTO) 0.2 10^3/uL (0.0-0.7); EOSINOPHILS % (AUTO) 3.9 %; HGB - HEMOGLOBIN 14.7 g/dL (12.0-16.0); LYMPHOCYTES # (AUTO) 1.7 10^3/uL (1.5-3.5); LYMPHOCYTES % (AUTO) 33.1 %; MEAN CORPUSCULAR HEMOGLOBIN 30.3 pg (27.0-31.0); MEAN CORPUSCULAR HGB CONC 32.4 g/dL (32.0-36.0); MEAN CORPUSCULAR VOLUME 93.6 fL (81.0-99.0); MEAN PLATELET VOLUME 9.6 fL (7.9-10.8); MONOCYTES # (AUTO) 0.5 10^3/uL (0.0-1.0); MONOCYTES % (AUTO) 9.9 %; NEUTROPHILS # (AUTO) 2.7 10^3/uL (1.5-6.6); NEUTROPHILS % (AUTO) 51.5 %; PLT - PLATELET COUNT 269 10^3/uL (130-450); RED BLOOD COUNT 4.85 10^6/uL (4.20-5.40); RED CELL DISTRIBUTION WIDTH 15.1 % (12.0-15.0); WHITE BLOOD COUNT 5.2 x10^3/uL (4.8-10.8)
[2020-03-11] MEDS: LATANOPROST 0.005% OPHTH DROPS RIGHTEYE SCH (21:43)
[2020-03-11] MEDS: guaiFENesin 600 MG TABLET PO SCH (21:55)
[2020-03-11] MEDS: PREGABALIN 100 MG CAPSULE PO SCH (21:55)
[2020-03-12] MEDS: LACTATED RINGERS 1,000 ML IV SCH (00:13)
[2020-03-12] MEDS: SODIUM CHLORIDE FLUSH 0.9% 10 ML SYRINGE IVP SCH ×3 (02:56→17:39)
[2020-03-12 05:20] LABS: BASOPHILS # (AUTO) 0.1 10^3/uL (0.0-0.1); BASOPHILS % (AUTO) 0.8 %; EOSINOPHILS # (AUTO) 0.2 10^3/uL (0.0-0.7); EOSINOPHILS % (AUTO) 3.3 %; HGB - HEMOGLOBIN 13.6 g/dL (12.0-16.0); LYMPHOCYTES # (AUTO) 2.9 10^3/uL (1.5-3.5); LYMPHOCYTES % (AUTO) 40.2 %; MEAN CORPUSCULAR HEMOGLOBIN 29.6 pg (27.0-31.0); MEAN CORPUSCULAR HGB CONC 31.7 g/dL (32.0-36.0); MEAN CORPUSCULAR VOLUME 93.3 fL (81.0-99.0); MEAN PLATELET VOLUME 9.4 fL (7.9-10.8); MONOCYTES # (AUTO) 0.6 10^3/uL (0.0-1.0); MONOCYTES % (AUTO) 8.5 %; NEUTROPHILS # (AUTO) 3.4 10^3/uL (1.5-6.6); NEUTROPHILS % (AUTO) 46.9 %; PLT - PLATELET COUNT 263 10^3/uL (130-450); WHITE BLOOD COUNT 7.2 x10^3/uL (4.8-10.8)
[2020-03-12 05:25] LABS: CALCIUM 8.5 mg/dL (8.5-10.3); CREATININE 0.8 mg/dL (0.4-1.0); MAGNESIUM 1.9 mg/dL (1.7-2.8); PHOSPHORUS 3.6 mg/dL (2.5-4.6)
[2020-03-12] MEDS: BRIMONIDINE 0.2% OPHTH DROPS 5 ML EACHEYE SCH ×3 (05:40→21:35)
[2020-03-12] MEDS: DORZOLAMIDE 2% OPHTH DROPS EACHEYE SCH ×3 (05:40→21:23)
[2020-03-12] MEDS ORDERED: LACTATED RINGERS 1,000 ML IV SCH (07:45)
[2020-03-12] MEDS: IPRATROPIUM/ALBUTEROL 3 ML NEB INH SCH ×3 (07:50→20:16)
[2020-03-12] MEDS: INSULIN ASPART 300 UNIT/3 ML PEN SUBQ SCH ×4 (07:54→21:22)
[2020-03-12] MEDS: predniSONE 10 MG TABLET PO SCH (07:54)
[2020-03-12] MEDS ORDERED: TIOTROPIUM BROMIDE INH SCH (09:00)
--- NOTE | 2020-03-12 09:08 | XRAY Report ---
PROCEDURE: Chest 1 View X-Ray INDICATIONS: Follow up infiltrates. TECHNIQUE: One view of the chest was acquired. COMPARISON: Chest radiograph 03/09/2020 FINDINGS: Surgical changes and devices: None. Lungs and pleura: There is improved obliteration of the lungs bilaterally, especially involving the r ight upper lobe. Mild atelectasis is seen at the left lung base. There is mild interstitial prominenc e and mild central pulmonary vascular congestion. Mediastinum: Mediastinal contours appear normal. Heart size is normal. Bones and chest wall: No suspicious bony lesions. Overlying soft tissues appear unremarkable. IMPRESSION: Interstitial prominence and central pulmonary vascular congestion appear mildly improved when compare d to the radiographs from 03/09/2020, with improved aeration of the bilateral lungs including the rig ht upper lobe. Findings were discussed with Dr. Goss by telephone on the afternoon of 03/11/2020. This dictation i s being submitted the following day due to system downtime. Reviewed by: Brien Nguyen MD on 03/12/2020 9:07 AM PDT Approved by: Brien Nguyen MD on 03/12/2020 9:07 AM PDT Station ID: [id number]
[2020-03-12] MEDS: SACCHAROMYCES BOULARDII 250 MG CAPSULE PO SCH ×2 (09:49→17:38)
[2020-03-12] MEDS: ENOXAPARIN 40 MG/0.4 ML SYRINGE SUBQ SCH (09:49)
[2020-03-12] MEDS: guaiFENesin 600 MG TABLET PO SCH ×2 (09:49→21:27)
[2020-03-12] MEDS: PREGABALIN 25 MG CAPSULE PO SCH (09:49)
[2020-03-12] MEDS: PREGABALIN 100 MG CAPSULE PO SCH ×2 (09:49→21:27)
[2020-03-12] MEDS: MEROPENEM 1 GM in SODIUM CHLORIDE 0.9% MINIBAG 100 ML IV SCH ×2 (09:52→21:24)
[2020-03-12 13:13] LABS: BILIRUBIN,URINE NEGATIVE (NEGATIVE); GLUCOSE, URINE (UA) NEGATIVE (NEGATIVE); KETONES,URINE (UA) NEGATIVE (NEGATIVE); LEUKOCYTE ESTERASE, URINE NEGATIVE (NEGATIVE); NITRITE,URINE NEGATIVE (NEGATIVE); OCCULT BLOOD,URINE NEGATIVE (NEGATIVE); PH,URINE 7.5 PH (5.0-7.5); PROTEIN,URINE NEGATIVE (NEGATIVE); UROBILINOGEN,URINE 0.2 (NORMAL) E.U./dL (NORMAL)
[2020-03-12 13:23] LABS: CLARITY,URINE CLEAR (CLEAR)
[2020-03-12 13:28] LABS: BACTERIA,URINE Few /HPF (None Seen); RBC,URINE 0-5 /HPF (0-5); SQUAMOUS EPITHELIAL CELL,UR FEW Squamous (<= Few)
--- NOTE | 2020-03-12 14:08 | PROVIDER PROGRESS NOTE ---
Subjective - Prog Note Date Prog Note Date: 03/12/20 - Subjective Pt reports feeling: Improved Subjective: pt report she is doing better. 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 Microbiology report patient plate did have bacteria growth but Contaminated with mold, they can not read, recommend another urine culture, and repeat blood culture for possible contaminated from initially blood culture. New Covid 19 test for Richelle. Updated pt's medical condition and discussed care plan with the patient's daughter. Patient's daughter concerned patient's situation in the [facility], she had episode of severe hypoglycemia before this admission, dehydration, poor appetite, [facility]. I discussed social work for the [facility] patient, social work will contact and request more care for her with Richelle. Current Medications - Current Medications Current Medications: Active Medications Acetaminophen (Tylenol) 650 mg PO Q4HR PRN PRN Reason: Pain 1 to 4 Albuterol () 2.5 mg INH RTQ4H PRN PRN Reason: Wheezing Albuterol/Ipratropium (Duoneb) 3 ml INH TID [facility] Last Admin: 03/12/20 13:45 Dose: 3 ml Documented by: Brimonidine Tartrate (Alphagan P 0.2% Ophth Drops) 1 drops EACHEYE TID [facility] Last Admin: 03/12/20 13:17 Dose: 1 drops Documented by: Dorzolamide HCl (Trusopt 2% Ophth Drops) 1 drops EACHEYE TID [facility] Last Admin: 03/12/20 13:17 Dose: 1 drops Documented by: Enoxaparin Sodium (Lovenox) 40 mg SUBQ DAILY [facility] Last Admin: 03/12/20 09:49 Dose: 40 mg Documented by: Guaifenesin (Mucinex) 600 mg PO BID [facility] Last Admin: 03/12/20 09:49 Dose: 600 mg Documented by: Meropenem 1 gm/ Sodium (Chloride) 100 mls @ 200 mls/hr IV BID [facility] Last Infusion: 03/12/20 11:08 Dose: Infused Documented by: Insulin Aspart (Novolog) 1 - 5 unit SUBQ 0800,1200,1700,2100 [facility]; Protocol Last Admin: 03/12/20 11:39 Dose: Not Given Documented by: Latanoprost (Xalatan Ophth Drops) 1 drops RIGHTEYE QPM [facility] Last Admin: 03/11/20 21:43 Dose: 1 drops Documented by: Ondansetron HCl (Zofran Inj) 4 mg IVP Q6HR PRN PRN Reason: Nausea / Vomiting Prednisone (Deltasone) 10 mg PO DAILYWM [facility] Last Admin: 03/12/20 07:54 Dose: 10 mg Documented by: Pregabalin (Lyrica) 100 mg PO DAILY [facility] Last Admin: 03/12/20 09:49 Dose: 100 mg Documented by: Pregabalin (Lyrica) 100 mg PO QPM [facility] Last Admin: 03/11/20 21:55 Dose: 100 mg Documented by: Pregabalin (Lyrica) 50 mg PO DAILY [facility] Last Admin: 03/12/20 09:49 Dose: 50 mg Documented by: Saccharomyces Boulardii (Florastor) 250 mg PO BIDWM [facility] Last Admin: 03/12/20 09:49 Dose: 250 mg Documented by: Sodium Chloride (Normal Saline Flush 0.9%) 10 ml IVP PRN PRN PRN Reason: NEEDED PER PROVIDER ORDERS Sodium Chloride (Normal Saline Flush 0.9%) 10 ml IVP 0100,0900,1700 [facility] Last Admin: 03/12/20 11:39 Dose: Not Given Documented by: Trazodone HCl (Desyrel) 100 mg PO QPM PRN PRN Reason: Insomnia Last Admin: 03/10/20 21:28 Dose: 100 mg Documented by: Albuterol Sulfate [Proair Hfa Inhaler] 2 puffs INH Q4HR PRN 02/17/14 Travoprost [Travatan Z] 1 drop EACHEYE QPM 02/17/14 traMADol [Ultram] 50 mg PO BID PRN 02/17/14 Acetaminophen [Tylenol] 650 mg PO Q6HR PRN 06/30/19 Brimonidine 0.2% Ophth Drops [Alphagan P 0.2% Ophth Drops] 1 drops EACHEYE TID 06/30/19 Potassium Chloride 20 meq PO DAILYWM 06/30/19 Vit A/Vit C/Vit E/Zinc/Copper [Preservision Areds Softgel] 1 each PO DAILY 06/30/19 polyethylene glycoL 3350 [Miralax] 17 gm PO DAILY PRN 06/30/19 Calcium Carbonate 500 mg PO TID 10/04/19 predniSONE [Prednisone] 10 mg PO DAILYWM 10/04/19 Dorzolamide HCl/Pf [Dorzolamide 2% Eye Drop] 1 drops EACHEYE TID 03/09/20 Ipratropium/Albuterol Sulfate [Iprat-Albut 0.5-3(2.5) mg/3 ml] 3 ml INH TID 03/09/20 Tiotropium Olin [Spiriva] 1 cap INH DAILY 03/09/20 Benzonatate [Tessalon Perle] 100 mg PO Q8HR PRN 03/10/20 Cyanocobalamin (Vitamin B-12) [Vitamin B-12] 500 mcg PO DAILY 03/10/20 Guaifenesin/Dextromethorphan [Siltussin Dm Ashton 100-10Mg/5 ml] 10 ml PO BID 03/10/20 Lidocaine [Aspercreme Lidocaine] 1 patch TOP DAILY 03/10/20 Pregabalin [Lyrica] 100 mg PO QPM 03/10/20 Pregabalin [Lyrica] 150 mg PO DAILY 03/10/20 Objective - Vital Signs/Intake & Output Vital Signs: Vital Signs x48h Temp Pulse Pulse Resp BP Pulse Ox 03/12/20 13:45 78 16 03/12/20 12:05 36.6 C 63 18 152/74 H 99 03/12/20 08:51 36.8 C 71 16 124/66 100 03/12/20 07:50 74 16 Intake & Output: Intake & Output 03/09/20 03/10/20 03/11/20 03/12/20 23:59 23:59 23:59 23:59 Intake Total 1490 3431.667 3138.333 2508.333 Output Total 250 3850 2200 0 Balance 1240 -418.333 938.333 458.333 - Objective General Appearance: positive: No acute distress, Alert. negative: Lethargic Eyes Bilateral: positive: Normal inspection, PERRL, No lid inflammation ENT: positive: ENT inspection nml, Pharynx nml. negative: Purulent nasal d rainage Neck: positive: Nml inspection, Thyroid nml. negative: Thyromegaly, Tracheal deviation Respiratory: positive: Chest non-tender, No respiratory distress. negative: Wheezes, Rales, Rhonchi Cardiovascular: positive: Regular rate & rhythm, No murmur. negative: Tachycardia, Bradycardia, Systolic murmur, Diastolic murmur Peripheral Pulses: 2+ Radial (R), 2+ Radial (L) Abdomen: positive: Non-tender, Nml bowel sounds, No distention. negative: Tenderness, Guarding, Rebound Back: positive: Nml inspection Skin: positive: Color nml, No rash, Warm, Dry. negative: Cyanosis, Diaphoresis, Pallor Extremities: positive: Non-tender, Full ROM, Nml appearance. negative: Calf tenderness Neurologic/Psychiatric: positive: Motor nml, Sensation nml. negative: Weakness, Sensory loss, Facial droop, Slurred/abnml speech, Depressed mood/affect - Lab Results Fish Bones: 03/12/20 05:00 03/12/20 05:00 Other Labs: Lab Results x24hrs 03/12/20 03/12/20 03/12/20 Range/Units 12:45 05:00 05:00 WBC 7.2 (4.8-10.8) x10^3/uL RBC 4.60 (4.20-5.40) 10^6/uL Hgb 13.6 (12.0-16.0) g/dL Hct 42.9 (37.0-47.0) % MCV 93.3 (81.0-99.0) fL MCH 29.6 (27.0-31.0) pg MCHC 31.7 L (32.0-36.0) g/dL RDW 15.0 (12.0-15.0) % Plt Count 263 (130-450) 10^3/uL MPV 9.4 (7.9-10.8) fL Neut # (Auto) 3.4 (1.5-6.6) 10^3/uL Lymph # (Auto) 2.9 (1.5-3.5) 10^3/uL [place] # (Auto) 0.6 (0.0-1.0) 10^3/uL Eos # (Auto) 0.2 (0.0-0.7) 10^3/uL Baso # (Auto) 0.1 (0.0-0.1) 10^3/uL Absolute Nucleated RBC 0.00 x10^3/uL Nucleated RBC % 0.0 /100WBC Sodium 142 (135-145) mmol/L Potassium 3.9 (3.5-5.0) mmol/L Chloride 109 (101-111) mmol/L Carbon Dioxide 25 (21-32) mmol/L Anion Gap 8.0 (6-13) BUN 10 (6-20) mg/dL Creatinine 0.8 (0.4-1.0) mg/dL Estimated GFR (MDRD) 68 L (>89) Glucose 93 (70-100) mg/dL Calcium 8.5 (8.5-10.3) mg/dL Phosphorus 3.6 (2.5-4.6) mg/dL Magnesium 1.9 (1.7-2.8) mg/dL Urine Color LIGHT YELLOW Urine Clarity CLEAR (CLEAR) Urine pH 7.5 (5.0-7.5) PH Ur Specific [place] 1.015 (1.002-1.030) Urine Protein NEGATIVE (NEGATIVE) mg/dL Urine Glucose (UA) NEGATIVE (NEGATIVE) mg/dL Urine Ketones NEGATIVE (NEGATIVE) mg/dL Urine Occult Blood NEGATIVE (NEGATIVE) Urine Nitrite NEGATIVE (NEGATIVE) Urine Bilirubin NEGATIVE (NEGATIVE) Urine Urobilinogen 0.2 (NORMAL) (NORMAL) E.U./dL Ur Leukocyte Esterase NEGATIVE (NEGATIVE) Urine RBC 0-5 (0-5) /HPF Urine WBC 0-3 (0-5) /HPF Ur Squamous Epith Cells FEW Squamous (<= Few) Urine Bacteria Few (None Seen) /HPF Urine Culture Comments NOT INDICATED Coronavirus (PCR) 03/11/20 03/11/20 03/10/20 Range/Units 05:51 05:51 09:02 WBC 5.2 (4.8-10.8) x10^3/uL RBC 4.85 (4.20-5.40) 10^6/uL Hgb 14.7 (12.0-16.0) g/dL Hct 45.4 (37.0-47.0) % MCV 93.6 (81.0-99.0) fL MCH 30.3 (27.0-31.0) pg MCHC 32.4 (32.0-36.0) g/dL RDW 15.1 H (12.0-15.0) % Plt Count 269 (130-450) 10^3/uL MPV 9.6 (7.9-10.8) fL Neut # (Auto) 2.7 (1.5-6.6) 10^3/uL Lymph # (Auto) 1.7 (1.5-3.5) 10^3/uL [place] # (Auto) 0.5 (0.0-1.0) 10^3/uL Eos # (Auto) 0.2 (0.0-0.7) 10^3/uL Baso # (Auto) 0.1 (0.0-0.1) 10^3/uL Absolute Nucleated RBC 0.00 x10^3/uL Nucleated RBC % 0.0 /100WBC Sodium 142 (135-145) mmol/L Potassium 3.8 (3.5-5.0) mmol/L Chloride 111 (101-111) mmol/L Carbon Dioxide 24 (21-32) mmol/L Anion Gap 7.0 (6-13) BUN 9 (6-20) mg/dL Creatinine 0.8 (0.4-1.0) mg/dL Estimated GFR (MDRD) 68 L (>89) Glucose 89 (70-100) mg/dL Calcium 8.4 L (8.5-10.3) mg/dL Phosphorus 3.3 (2.5-4.6) mg/dL Magnesium 2.0 (1.7-2.8) mg/dL Urine Color Urine Clarity (CLEAR) Urine pH (5.0-7.5) PH Ur Specific [place] (1.002-1.030) Urine Protein (NEGATIVE) mg/dL Urine Glucose (UA) (NEGATIVE) mg/dL Urine Ketones (NEGATIVE) mg/dL Urine Occult Blood (NEGATIVE) Urine Nitrite (NEGATIVE) Urine Bilirubin (NEGATIVE) Urine Urobilinogen (NORMAL) E.U./dL Ur Leukocyte Esterase (NEGATIVE) Urine RBC (0-5) /HPF Urine WBC (0-5) /HPF Ur Squamous Epith Cells (<= Few) Urine Bacteria (None Seen) /HPF Urine Culture Comments Coronavirus (PCR) NEGATIVE ABX Reporting Has patient been on IV antibiotics over the past 48 hours?: Yes Assessment/Plan - Problem List (1) UTI (urinary tract infection) Impression: Urine culture did grow bacteria but Contaminated with mold, can not be read. repeat UA culture. Clinically, she is improving. Imaging did not reveal any obstruction. Her prior cultures have grown Pseudomonas in the past and so we continue her on meropenem IV. Now We are awaiting urine culture. repeat Blood cultures since one tube is positive staph epidermatitis, it is possible contaminated. updated patient medical condition to her daughter, Consult with social work for family concern. (2) Syncope Patient's daughter reported patient also had severe hypoglycemia in [facility] before patient was admitted hospital. Consult with social work to contact with [facility] for more care for patient. Agree this appears to be secondary to her urinary tract infection. She had an echocardiogram earlier this year which was relatively unremarkable so we will not repeated at this time. There is been no evidence of arrhythmia on telemetry we will continue to monitor on telemetry. We will continue antibiotics as mentioned above for urinary tract infection. (3) Abnormal chest x-ray Impression: Patient has 99% sats on room air, patient has no acute respiratory distress now. New chest x-ray will review mild improvement of Pulmonary vascular congestion. Stop patient intravenous IV fluids. Her chest x-ray on admission was concerning for CHF and a prominent infiltrate in the right upper lung. Clinically she does not appear to have CHF and her BNP is normal. This could be aspiration causing the infiltrate. She does not appear to have pneumonia given lack of cough and normal white count. Will repeat a chest x-ray for further evaluation today. Hold off on antibiotics for pneumonia for time being. (4) Gram-positive bacteremia Impression: repeat blood culture is pending to make sure, agree This is likely contaminant. 1 out of 4 blood cultures growing gram-positive cocci. (5) COPD (chronic obstructive pulmonary disease) Impression: Stable and not in exacerbation. (6) Diabetes mellitus Impression: She is not on therapy and her last A1c was 5.8%. (7) Glaucoma Impression: We will continue her eyedrops while she is hospitalized. Qualifiers: Urinary tract infection type: acute cystitis Hematuria presence: without hematuria Qualified Code(s): N30.00 - Acute cystitis without hematuria
[2020-03-12] MEDS: LATANOPROST 0.005% OPHTH DROPS RIGHTEYE SCH (21:27)
[2020-03-13] MEDS: SODIUM CHLORIDE FLUSH 0.9% 10 ML SYRINGE IVP SCH ×2 (00:03→08:53)
[2020-03-13 05:51] LABS: BASOPHILS # (AUTO) 0.1 10^3/uL (0.0-0.1); BASOPHILS % (AUTO) 1.1 %; EOSINOPHILS # (AUTO) 0.3 10^3/uL (0.0-0.7); EOSINOPHILS % (AUTO) 4.9 %; HGB - HEMOGLOBIN 13.3 g/dL (12.0-16.0); LYMPHOCYTES # (AUTO) 2.8 10^3/uL (1.5-3.5); LYMPHOCYTES % (AUTO) 43.4 %; MEAN CORPUSCULAR HEMOGLOBIN 29.2 pg (27.0-31.0); MEAN CORPUSCULAR HGB CONC 31.5 g/dL (32.0-36.0); MEAN CORPUSCULAR VOLUME 92.7 fL (81.0-99.0); MEAN PLATELET VOLUME 9.8 fL (7.9-10.8); MONOCYTES # (AUTO) 0.5 10^3/uL (0.0-1.0); MONOCYTES % (AUTO) 7.6 %; NEUTROPHILS # (AUTO) 2.8 10^3/uL (1.5-6.6); NEUTROPHILS % (AUTO) 42.8 %; PLT - PLATELET COUNT 262 10^3/uL (130-450); RED BLOOD COUNT 4.55 10^6/uL (4.20-5.40); RED CELL DISTRIBUTION WIDTH 15.2 % (12.0-15.0); WHITE BLOOD COUNT 6.5 x10^3/uL (4.8-10.8)
[2020-03-13] MEDS: DORZOLAMIDE 2% OPHTH DROPS EACHEYE SCH ×2 (05:52→13:15)
[2020-03-13] MEDS: BRIMONIDINE 0.2% OPHTH DROPS 5 ML EACHEYE SCH ×2 (05:52→13:15)
[2020-03-13 06:04] LABS: CALCIUM 8.8 mg/dL (8.5-10.3); CREATININE 0.8 mg/dL (0.4-1.0); MAGNESIUM 2.2 mg/dL (1.7-2.8); PHOSPHORUS 3.4 mg/dL (2.5-4.6)
[2020-03-13] MEDS: IPRATROPIUM/ALBUTEROL 3 ML NEB INH SCH ×2 (07:36→11:39)
[2020-03-13] MEDS: guaiFENesin 600 MG TABLET PO SCH (08:36)
[2020-03-13] MEDS: MEROPENEM 1 GM in SODIUM CHLORIDE 0.9% MINIBAG 100 ML IV SCH (08:36)
[2020-03-13] MEDS: SACCHAROMYCES BOULARDII 250 MG CAPSULE PO SCH (08:36)
[2020-03-13] MEDS: PREGABALIN 25 MG CAPSULE PO SCH (08:36)
[2020-03-13] MEDS: ENOXAPARIN 40 MG/0.4 ML SYRINGE SUBQ SCH (08:36)
[2020-03-13] MEDS: PREGABALIN 100 MG CAPSULE PO SCH (08:36)
[2020-03-13] MEDS: INSULIN ASPART 300 UNIT/3 ML PEN SUBQ SCH ×2 (08:37→11:59)
[2020-03-13] MEDS: predniSONE 10 MG TABLET PO SCH (08:49)
--- NOTE | 2020-03-13 10:46 | Discharge Plan ---
Discharge Plan Problem Reviewed?: Yes Disposition: Home, Self Care Condition: Stable Diet: Regular Activity Restrictions: Activity as Tolerated Shower Restrictions: No (fall precaution, caregiver closely monitor) Instruction Topics: Hypoglycemia, Syncope, Dehydration Health Concerns: syncope Plan of Treatment: your hypoglycemia, poor appetite and poor nutrition intake, and dehydration does contribute to your syncope in your nurse home. consult with social science teacher for increase care level for pt in nurse home [place], add out-pt PT/OT for pt. Pt had cleaned UA culture now, no further antibiotics needed. Care Goals: stabilization and improvement of your medical conditions Assessment: discussed the care plan with you, and your daughter by phone, you understood. Additional Instructions or Follow Up instructions: you may followup with your PCP in one to two weeks. Should your symptoms return or worsen, you may present ER or call 911 for help. Follow-Up Care: Outpatient Rehab - PT, Outpatient Rehab - OT No Smoking: If you smoke, Please STOP! Call for help. Follow-up with: SEPIDEH ALVARADO SI [Primary Care Provider] -
--- NOTE | 2020-03-13 11:54 | DISCHARGE SUMMARY ---
Discharge Summary Admit Date: 03/09/20 Discharge Date: 03/13/20 Discharging Provider: Zachery Plummer Primary Care Provider: maria esther Colón Condition at Discharge: Stable Discharge Disposition: 01 Home, Self Care Discharge Facility Name: [facility] - DIAGNOSES Discharge Diagnoses with Status of Each Condition: (1) UTI (urinary tract infection) New UA show patient has been clean urinalysis. Urine culture in the admission show contaminant with mold which could not provide data per Microbiology's report and laboratory test report. Social work was consulted for increase of care level in [facility]. Patient was advised to keep hydration, hygiene, nutrition. (2) Syncope Patient's daughter reported patient also had severe hypoglycemia and dehydration in [facility] before patient was admitted hospital. Consult with social work to contact with [facility] for increase care level for patient. She had an ech ocardiogram earlier this year which was relatively unremarkable. There is no evidence of arrhythmia on telemetry.Social work was consulted for increase of care level in [facility]. (3) Abnormal chest x-ray improved in chest x-ray.Patient has 99% sats on room air (4) Gram-positive bacteremia This is likely contaminant. 1 out of 4 blood cultures growing gram-positive cocci. Repeated blood culture show negative (5) COPD (chronic obstructive pulmonary disease) Stable (6) Diabetes mellitus She is not on therapy and her last A1c was 5.8%. (7) Glaucoma stable - HPI History of Present Illness: refer from Dr. Mason's HPI on 03/09/2020 Patient is 88-year-old female with medical history significant for COPD, diabetes mellitus type 2, hypertension, recurrent UTIs, glaucoma and chronic pain who presented to the ED from [facility] after a syncopal episode. She went for a walk around 10:50 AM this morning and when she returned collapsed and does not remember anything after that. It is reported that she was unresponsive after the collapse. She presented to the ED where she was administered IV hydration and she readily woke up. Work-up in the ED included a UA which showed a UTI. She denies dysuria, increased urinary frequency, change in color or odor of the urine. She also denies fever, chills, dizziness or any symptoms prior to this happening. She usually goes walking using a walker and today covered 4 blocks. At the time of this visit she was resting comfortably in bed. She denied chest pain, abdominal pain, dyspnea, nausea, vomiting, fever or chills. She was presented for admission because in the past she has had a multidrug-resistant bacteria greater in previous urinary cultures for which IV antibiotic was necessary. - HOSPITAL COURSE Hospital Course: Patient was admitted for evaluation of syncope. Patient had echo done early this year which show relatively unremarkable. EKG and telemetry show no arrhythmia.Patient's daughter report patient had a severe hypoglycemia in [facility] before patient was admitted for syncope, also patient show significant dehydration as well. 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 Repeated urine culture show patient clean for infection. After treatment, patient become hemodynamic stable. Consulted with social work for increases of patient care level in [facility], per patient daughter's concern. Patient had a fuel cell battery technician consult in hospital. Patient can safely walk with a walker in hospital. I saw pt walked with a walker to bathroom. Nurse reported the same condition. Patient was recommended to have outpatient physical therapist and occupational therapist. - ALLERGIES Allergies/Adverse Reactions: Allergies Allergy/AdvReac Type Severity Reaction Status Date / Time azithromycin Allergy Anaphylaxis Verified 03/09/20 12:08 diclofenac Allergy Hives Verified 03/09/20 12:08 hydrocodone [Hydrocodone] Allergy Rash Verified 03/09/20 12:08 penicillin G Allergy Hives Verified 03/09/20 12:08 Penicillins Allergy Rash Verified 03/09/20 12:08 rofecoxib [From Vioxx] Allergy Rash Verified 03/09/20 12:08 Sulfa (Sulfonamide Allergy Hives Verified 03/09/20 12:08 Antibiotics) Cephalosporins AdvReac Unknown Verified 03/09/20 12:08 codeine AdvReac Hives Verified 03/09/20 12:08 oxycodone AdvReac Unknown Verified 03/09/20 12:08 - MEDICATIONS Home Medications: Ambulatory Orders Medication Instructions Recorded Confirmed Albuterol Sulfate [Proair Hfa 2 puffs INH Q4HR PRN 02/17/14 03/10/20 Inhaler] Travoprost [Travatan Z] 1 drop EACHEYE QPM 02/17/14 03/10/20 traMADol [Ultram] 50 mg PO BID PRN 02/17/14 03/10/20 Acetaminophen [Tylenol] 650 mg PO Q6HR PRN 06/30/19 03/10/20 Brimonidine 0.2% Ophth Drops 1 drops EACHEYE TID 06/30/19 03/10/20 [Alphagan P 0.2% Ophth Drops] Potassium Chloride 20 meq PO DAILYWM 06/30/19 03/10/20 Vit A/Vit C/Vit E/Zinc/Copper 1 each PO DAILY 06/30/19 03/10/20 [Preservision Areds Softgel] polyethylene glycoL 3350 [Miralax] 17 gm PO DAILY PRN 06/30/19 03/10/20 Calcium Carbonate 500 mg PO TID 10/04/19 03/10/20 predniSONE [Prednisone] 10 mg PO DAILYWM 10/04/19 03/10/20 Dorzolamide HCl/Pf [Dorzolamide 2% 1 drops EACHEYE TID 03/09/20 03/10/20 Eye Drop] Ipratropium/Albuterol Sulfate 3 ml INH TID 03/09/20 03/10/20 [Iprat-Albut 0.5-3(2.5) mg/3 ml] Tiotropium [place] [Spiriva] 1 cap INH DAILY 03/09/20 03/10/20 Benzonatate [Tessalon Perle] 100 mg PO Q8HR PRN 03/10/20 03/10/20 Cyanocobalamin (Vitamin B-12) 500 mcg PO DAILY 03/10/20 03/10/20 [Vitamin B-12] Guaifenesin/Dextromethorphan 10 ml PO BID 03/10/20 03/10/20 [Siltussin Dm Ashton 100-10Mg/5 ml] Lidocaine [Aspercreme Lidocaine] 1 patch TOP DAILY 03/10/20 03/10/20 Pregabalin [Lyrica] 100 mg PO QPM 03/10/20 03/10/20 Pregabalin [Lyrica] 150 mg PO DAILY 03/10/20 03/10/20 - PHYSICAL EXAM AT DISCHARGE General Appearance: positive: No acute distress, Alert. negative: Lethargic Eyes Bilateral: positive: Normal inspection, PERRL, No lid inflammation ENT: positive: ENT inspection nml, No signs of dehydration. negative: Purulent nasal drainage Neck: positive: Nml inspection, Thyroid nml, Trachea midline. negative: Th yromegaly, Tracheal deviation Respiratory: positive: Chest non-tender, No respiratory distress. negative: Wheezes, Rales, Rhonchi Cardiovascular: positive: Regular rate & rhythm, No murmur. negative: Tachycardia, Bradycardia, Systolic murmur, Diastolic murmur Peripheral Pulses: positive: 2+ Abdomen: positive: Non-tender, Nml bowel sounds, No distention. negative: Tenderness, Guarding, Rebound Back: positive: Nml inspection. negative: CVA tenderness (R), CVA tenderness (L) Skin: positive: Color nml, No rash, Warm, Dry. negative: Cyanosis, Diaphoresis, Pallor Extremities: positive: Non-tender, Full ROM, Nml appearance. negative: Calf tenderness Neurologic/Psychiatric: positive: Motor nml, Sensation nml, Mood/affect nml. negative: Weakness, Sensory loss, Facial droop, Slurred/abnml speech, Depressed mood/affect - LABS Result Diagrams: 03/13/20 05:20 03/13/20 05:20 - FOLLOW UP Follow Up: your hypoglycemia, poor appetite and poor nutrition intake, and dehydration does contribute to your syncope in your nurse home. consult with social services designee for increase care level for pt in nurse home [place], add out-pt PT/OT for pt. Pt had cleaned UA culture now, no further antibiotics needed. you may followup with your PCP in one to two weeks. Should your symptoms return or worsen, you may present ER or call 911 for help. - TIME SPENT Time Spent in Discharge (Minutes): 30
[2020-03-13 12:29] VITALS: BP 148/65
== END 2020-03-13 13:30 | disposition home or self-care (01) | DRG 312 ==
LOC: EDUNIT# → ED 11:40 → MS2 16:10
PROVIDERS: ADMIT Internal Medicine; ATTEND Nurse Practitioner Gerontology
DX: R55 Syncope and collapse (principal); E86.0 Dehydration; N30.00 Acute cystitis without hematuria; R78.81 Bacteremia; E78.00 Pure hypercholesterolemia, unspecified; B95.7 Other staphylococcus as the cause of diseases classified elsewhere; R91.8 Other nonspecific abnormal finding of lung field; I10 Essential (primary) hypertension; I25.10 Atherosclerotic heart disease of native coronary artery without angina pectoris; E11.649 Type 2 diabetes mellitus with hypoglycemia without coma; K86.9 Disease of pancreas, unspecified; J44.9 Chronic obstructive pulmonary disease, unspecified; E11.42 Type 2 diabetes mellitus with diabetic polyneuropathy; M06.9 Rheumatoid arthritis, unspecified; G89.29 Other chronic pain; F32.9 Major depressive disorder, single episode, unspecified; G40.909 Epilepsy, unspecified, not intractable, without status epilepticus; F41.9 Anxiety disorder, unspecified; H54.8 Legal blindness, as defined in USA; H40.9 Unspecified glaucoma; H35.30 Unspecified macular degeneration; H91.90 Unspecified hearing loss, unspecified ear; Z20.828 Contact with and (suspected) exposure to other viral communicable diseases; Z66 Do not resuscitate; Z93.0 Tracheostomy status; Z87.440 Personal history of urinary (tract) infections; Z86.73 Personal history of transient ischemic attack (TIA), and cerebral infarction without residual deficits; Z79.51 Long term (current) use of inhaled steroids; Z79.52 Long term (current) use of systemic steroids; Z79.899 Other long term (current) drug therapy; Z87.891 Personal history of nicotine dependence
CPT/HCPCS: 36415; 70450; 71045; 74177; 80048; 80053; 81001; 83605; 83690; 83735; 83880; 84100; 84484; 85025; 87040; 87077; 87086; 87181; 93005; 94640; 96361; 96365; 96375; 99284; 99285; A9270; J1650; J2185; J7120; J7512; Q9967; U0004; 81003

== ENCOUNTER 2020-03-25 09:18 | Outpatient (CLI) | payer MEDICARE, OTHER | END 2020-03-25 09:19 | disposition critical access hospital (66) | LOC: EMS 09:18 | PROVIDERS: ATTEND Surgery | DX: R55 Syncope and collapse (principal) | CPT/HCPCS: A0425; A0427 ==

== ENCOUNTER 2020-03-25 09:37 | Inpatient (IN) | payer MEDICARE, OTHER ==
--- NOTE | 2020-03-25 09:45 | ED Physician Documentation ---
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 She presented similarly 16 days ago after coming in from a walk and she was found to be profoundly dehydrated. She responded to IV fluid. The urine specimen obtained at that time grew what appeared to be contaminant and she was discharged without antibiotic. Today she is again unresponsive and responds to the first of the IV fluid given in the ED. She indicates she has been drinking lots of water she thinks more than 4, 16 ounce bottles of water per day. Her daughter does not confirm this and indicates the patient has some dementia and she is blind. Not sure she can tell how much she is drinking. Review of Systems Constitutional: denies: Fever Eyes: denies: Decreased vision Ears: denies: Ear pain Nose: denies: Rhinorrhea / runny nose, Congestion Throat: denies: Sore throat Cardiac: denies: Chest pain / pressure Respiratory: reports: Dyspnea, Cough GI: denies: Abdominal Pain, Nausea, Vomiting : denies: Dysuria, Frequency PD PAST MEDICAL HISTORY - Past Medical History Cardiovascular: Hypertension, High cholesterol, Coronary artery disease Respiratory: Asthma, COPD, Other Neuro: TIA, Peripheral neuropathy Endocrine/Autoimmune: Type 2 diabetes GI: GERD : Chronic bladder infection HEENT: Glaucoma, Macular degeneration, Chronic hearing loss Psych: Depression, Anxiety Musculoskeletal: Osteoarthritis, Rheumatoid arthritis, Fatigue Derm: None - Past Surgical History Past Surgical History: Yes General: Cholecystectomy, Other Ortho: Spine surgery /[employer]EDER: Hysterectomy - Present Medications Home Medications: Ambulatory Orders Medication Instructions Recorded Confirmed Albuterol Sulfate [Proair Hfa 2 puffs INH Q4HR PRN 02/17/14 03/25/20 Inhaler] Travoprost [Travatan Z] 1 drop EACHEYE QPM 02/17/14 03/25/20 traMADol [Ultram] 50 mg PO BID PRN 02/17/14 03/25/20 Acetaminophen [Tylenol] 650 mg PO Q6HR PRN 06/30/19 03/25/20 Brimonidine 0.2% Ophth Drops 1 drops EACHEYE TID 06/30/19 03/25/20 [Alphagan P 0.2% Ophth Drops] Potassium Chloride 20 meq PO DAILYWM 06/30/19 03/25/20 Vit A/Vit C/Vit E/Zinc/Copper 1 each PO DAILY 06/30/19 03/25/20 [Preservision Areds Softgel] polyethylene glycoL 3350 [Miralax] 17 gm PO DAILY PRN 06/30/19 03/25/20 Calcium Carbonate 500 mg PO TID 10/04/19 03/25/20 predniSONE [Prednisone] 10 mg PO DAILYWM 10/04/19 03/25/20 Dorzolamide HCl/Pf [Dorzolamide 2% 1 drops EACHEYE TID 03/09/20 03/25/20 Eye Drop] Ipratropium/Albuterol Sulfate 3 ml INH TID 03/09/20 03/25/20 [Iprat-Albut 0.5-3(2.5) mg/3 ml] Tiotropium [place] [Spiriva] 18 mcg INH DAILY 03/09/20 03/25/20 Cyanocobalamin (Vitamin B-12) 500 mcg PO DAILY 03/10/20 03/25/20 [Vitamin B-12] Guaifenesin/Dextromethorphan 10 ml PO BID 03/10/20 03/25/20 [Siltussin Dm Ashton 100-10Mg/5 ml] Lidocaine [Aspercreme Lidocaine] 1 patch TOP DAILY PRN 03/10/20 03/25/20 Pregabalin [Lyrica] 50 mg PO .1400 03/10/20 03/25/20 Pregabalin [Lyrica] 100 mg PO BID 03/10/20 03/25/20 - Allergies Allergies/Adverse Reactions: Allergies Allergy/AdvReac Type Severity Reaction Status Date / Time azithromycin Allergy Anaphylaxis Verified 03/25/20 10:07 diclofenac Allergy Hives Verified 03/25/20 10:07 hydrocodone [Hydrocodone] Allergy Rash Verified 03/25/20 10:07 penicillin G Allergy Hives Verified 03/25/20 10:07 Penicillins Allergy Rash Verified 03/25/20 10:07 rofecoxib [From Vioxx] Allergy Rash Verified 03/25/20 10:07 Sulfa (Sulfonamide Allergy Hives Verified 03/25/20 10:07 Antibiotics) Cephalosporins AdvReac Unknown Verified 03/25/20 10:07 codeine AdvReac Hives Verified 03/25/20 10:07 oxycodone AdvReac Unknown Verified 03/25/20 10:07 - Social History Does the pt smoke?: No Smoking Status: Never smoker Does the pt drink ETOH?: No Does the pt have substance abuse?: No - Immunizations Immunizations are current?: Yes - POLST Patient has POLST: Yes POLST Status: DNR PD ED PE NORMAL - Vitals Vital signs reviewed: Yes (hyperternsive with wide pulse pressure) - General General: No acute distress, Well developed/nourished - HEENT HEENT: Atraumatic, EOMI, Other (The left pupil is larger and less reactive than the right. Similar to prior. the mucous membranes are parched. ) - Neck Neck: Supple, no meningeal sign, No bony TTP - Cardiac Cardiac: RRR, No murmur - Respiratory Respiratory: No respiratory distress, Other (diminished breath sounds. 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 ) Eye Opening: Spontaneous Motor: Obeys Commands Verbal: Oriented GCS Score: 15 - Psych Psych: Other (mood is withdrawn and the affect is flat ) Results - Vitals Vitals: Vital Signs - 24 hr 03/25/20 03/25/20 03/25/20 10:04 10:21 10:56 Temperature 36.2 C L Heart Rate 69 68 65 Respiratory 11 L 12 16 Rate Blood Pressure 132/60 H 131/63 H 130/59 L O2 Saturation 100 98 100 03/25/20 03/25/20 03/25/20 11:06 11:44 12:10 Temperature Heart Rate 68 70 69 Respiratory 10 L 11 L 14 Rate Blood Pressure 137/65 H 113/88 H O2 Saturation 99 100 03/25/20 03/25/20 03/25/20 12:28 12:30 13:00 Temperature Heart Rate 71 69 67 Respiratory 13 15 14 Rate Blood Pressure 134/62 H 131/62 H 139/70 H O2 Saturation 100 95 96 03/25/20 03/25/20 13:30 14:00 Temperature Heart Rate 68 69 Respiratory 15 14 Rate Blood Pressure 140/71 H 148/64 H O2 Saturation 97 98 Oxygen O2 Source Room air - EKG (time done) 0959 Rate: Rate (enter#) (66) Rhythm: NSR [place]: LAD QRS: Low voltage Other comments: Other comments (RSR') Compare to prior EKG: Unchanged from prior EKG ([facility] 03-09-2020 no sig change) Computer interpretation: Agree with computer - Labs Labs: Laboratory Tests 03/25/20 03/25/20 03/25/20 10:28 10:28 10:28 WBC 16.5 H RBC 4.62 Hgb 14.2 Hct 42.4 MCV 91.8 MCH 30.7 MCHC 33.5 RDW 15.0 Plt Count 294 MPV 10.0 Neut # (Auto) 12.6 H Lymph # (Auto) 2.3 Terrell # (Auto) 1.3 H Eos # (Auto) 0.2 Baso # (Auto) 0.1 Absolute Nucleated RBC 0.00 Nucleated RBC % 0.0 PT 12.4 INR 1.1 Sodium Potassium Chloride Carbon Dioxide Anion Gap BUN Creatinine Estimated GFR (MDRD) Glucose Lactic Acid 1.4 Calcium Total Bilirubin AST ALT Alkaline Phosphatase B-Natriuretic Peptide Total Protein Albumin Globulin Albumin/Globulin Ratio Lipase Urine Color Urine Clarity Urine pH Ur Specific [place] Urine Protein Urine Glucose (UA) Urine Ketones Urine Occult Blood Urine Nitrite Urine Bilirubin Urine Urobilinogen Ur Leukocyte Esterase Urine RBC Urine WBC Ur Squamous Epith Cells Urine Bacteria Ur Microscopic Review Urine Culture Comments 03/25/20 03/25/20 03/25/20 10:28 10:55 11:35 WBC RBC Hgb Hct MCV MCH MCHC RDW Plt Count MPV Neut # (Auto) Lymph # (Auto) Terrell # (Auto) Eos # (Auto) Baso # (Auto) Absolute Nucleated RBC Nucleated RBC % PT INR Sodium 134 L Potassium 4.2 Chloride 99 L Carbon Dioxide 28 Anion Gap 7.0 BUN 11 Creatinine 0.9 Estimated GFR (MDRD) 59 L Glucose 130 H Lactic Acid Calcium 9.0 Total Bilirubin 1.3 H AST 16 ALT 14 Alkaline Phosphatase 62 B-Natriuretic Peptide 67 Total Protein 5.9 L Albumin 3.7 Globulin 2.2 Albumin/Globulin Ratio 1.7 Lipase 21 L Urine Color YELLOW Urine Clarity HAZY Urine pH 7.0 Ur Specific [place] 1.020 Urine Protein NEGATIVE Urine Glucose (UA) NEGATIVE Urine Ketones NEGATIVE Urine Occult Blood TRACE-INTA Urine Nitrite POSITIVE H Urine Bilirubin NEGATIVE Urine Urobilinogen 0.2 (NORMAL) Ur Leukocyte Esterase SMALL H Urine RBC 0-5 Urine WBC >25 H Ur Squamous Epith Cells NONE SEEN Urine Bacteria Rare Ur Microscopic Review INDICATED Urine Culture Comments INDICATED - Rads (name of study) CT head w/o Radiology: Prelim report reviewed (Impression: 1. No acute intracranial abnormalities. 2. Moderate cerebral volume loss. 3. Mild periventricular white matter chronic small vessel ischemic hemic changes.), EMP read indepedently, See rad report chest Radiology: Prelim report reviewed (Impression: 1. Trace bilateral pleural effusions. 2 Bilateral lung interstitial prominence which could represent pulmonary edema versus atypical pneumonia.), EMP read indepedently, See rad report Procedures - IVC sono (time) 1020 Bedside IVC sono: IVC measures (cm) (0.78), Dehydration (est 2-3 liter deficit) PD MEDICAL DECISION MAKING - ED course Complexity details: reviewed old records, reviewed results, re-evaluated pat ient, considered differential, d/w patient, d/w family, d/w child development consultant (Dr. Rowland will admit for further care. ) ED course: 89-year-old female resident of [facility] has recently been admitted for dehydration and urinary tract infection and that admission was preceded by an episode of unresponsiveness. The patient has had similar unresponsiveness this morning and she is brought back to the hospital. She is found again to be significantly dehydrated. She has not been on diuretic and she claims to be drinking 6 to 8 16 ounce bottles of water per day. She comes into the emergency department today with parched mucous membranes and a flattened inferior vena cava. When fluid is begun she begins to respond almost immediately. IV access is an issue. She has obvious infection on a catheterize specimen and rocephin is administered. Departure - Departure Disposition: 66 [facility] DC/Xfer Clinical Impression: Dehydration UTI (urinary tract infection) Qualifiers: Urinary tract infection type: acute cystitis Hematuria presence: without hematuria Qualified Code(s): N30.00 - Acute cystitis without hematuria Altered mental status Qualifiers: Altered mental status type: stupor Qualified Code(s): R40.1 - Stupor Discharge Date/Time: 03/25/20 14:57
[2020-03-25] MEDS ORDERED: SODIUM CHLORIDE 0.9% 1,000 ML IV STA (10:10)
--- NOTE | 2020-03-25 10:28 | CT Report ---
PROCEDURE: HEAD WO INDICATIONS: Decreased responsiveness TECHNIQUE: Noncontrast 4.5 mm thick angled axial sections acquired from the foramen magnum to the vertex. For r adiation dose reduction, the following was used: automated exposure control, adjustment of mA and/or kV according to patient size. COMPARISON: CT Head 03/09/2020. FINDINGS: Image quality: Excellent. CSF spaces: Basal cisterns are patent. No extra-axial fluid collections. Ventricles are normal in size and shape. Brain: There is moderate cerebral volume loss. Mild periventricular white matter chronic small vesse l ischemic changes are present. No midline shift. No intracranial masses or hemorrhage. Mckeon-white matter interface is normal. Skull and face: Calvarium and visualized facial bones are intact, without suspicious lesions. Sinuses: Visualized sinuses and mastoids are clear. IMPRESSION: 1. No acute intracranial abnormalities. 2. Moderate cerebral volume loss. 3. Mild periventricular white matter chronic small vessel ischemic changes. Reviewed by: Perico Barney MD on 03/25/2020 10:27 AM PDT Approved by: Perico Barney MD on 03/25/2020 10:27 AM PDT Station ID: [id number]
[2020-03-25 10:41] LABS: BASOPHILS # (AUTO) 0.1 10^3/uL (0.0-0.1); BASOPHILS % (AUTO) 0.5 %; EOSINOPHILS # (AUTO) 0.2 10^3/uL (0.0-0.7); EOSINOPHILS % (AUTO) 1.1 %; HGB - HEMOGLOBIN 14.2 g/dL (12.0-16.0); LYMPHOCYTES # (AUTO) 2.3 10^3/uL (1.5-3.5); MEAN CORPUSCULAR HEMOGLOBIN 30.7 pg (27.0-31.0); MEAN CORPUSCULAR HGB CONC 33.5 g/dL (32.0-36.0); MEAN CORPUSCULAR VOLUME 91.8 fL (81.0-99.0); MONOCYTES # (AUTO) 1.3 10^3/uL (0.0-1.0); NEUTROPHILS # (AUTO) 12.6 10^3/uL (1.5-6.6); NEUTROPHILS % (AUTO) 75.9 %; PLT - PLATELET COUNT 294 10^3/uL (130-450); RED BLOOD COUNT 4.62 10^6/uL (4.20-5.40); WHITE BLOOD COUNT 16.5 x10^3/uL (4.8-10.8)
[2020-03-25 10:48] LABS: INR 1.1 (0.8-1.2); PT - PROTHROMBIN TIME 12.4 secs (9.9-12.6)
[2020-03-25 11:09] LABS: BILIRUBIN,URINE NEGATIVE (NEGATIVE); GLUCOSE, URINE (UA) NEGATIVE (NEGATIVE); KETONES,URINE (UA) NEGATIVE (NEGATIVE); LEUKOCYTE ESTERASE, URINE SMALL (NEGATIVE); NITRITE,URINE POSITIVE (NEGATIVE); OCCULT BLOOD,URINE TRACE-INTA (NEGATIVE); PROTEIN,URINE NEGATIVE (NEGATIVE); UROBILINOGEN,URINE 0.2 (NORMAL) E.U./dL (NORMAL)
[2020-03-25 11:12] LABS: CLARITY,URINE HAZY (CLEAR)
--- NOTE | 2020-03-25 11:16 | XRAY Report ---
PROCEDURE: Chest 1 View X-Ray INDICATIONS: cough sputum decreased responsiveness TECHNIQUE: One view of the chest was acquired. COMPARISON: 03/11/2020 FINDINGS: Surgical changes and devices: None. Lungs and pleura: Trace bilateral pleural effusions. Interstitial prominence is noted. Mediastinum: Mediastinal contours appear normal. Heart size is normal. Bones and chest wall: No suspicious bony lesions. Overlying soft tissues appear unremarkable. IMPRESSION: 1. Trace bilateral pleural effusions. 2. Bilateral lung interstitial prominence which could represent pulmonary edema versus atypical pneum onia. Reviewed by: Lien Mejia MD, PhD on 03/25/2020 11:14 AM PDT Approved by: Lien Mejia MD, PhD on 03/25/2020 11:14 AM PDT Station ID: [id number]
[2020-03-25 11:25] LABS: BACTERIA,URINE Rare /HPF (None Seen); RBC,URINE 0-5 /HPF (0-5); SQUAMOUS EPITHELIAL CELL,UR NONE SEEN (<= Few)
[2020-03-25] MEDS ORDERED: IPRATROPIUM/ALBUTEROL 3 ML NEB INH STA (11:42)
[2020-03-25 11:54] LABS: ALBUMIN 3.7 g/dL (3.2-5.5); ALBUMIN/GLOBULIN RATIO 1.7 (1.0-2.2); BILIRUBIN,TOTAL 1.3 mg/dL (0.2-1.0); CREATININE 0.9 mg/dL (0.4-1.0); TOTAL PROTEIN 5.9 g/dL (6.7-8.2)
[2020-03-25] MEDS ORDERED: cefTRIAXone 1 GM VIAL IVP STA (12:11)
--- NOTE | 2020-03-25 16:02 | PHARMACY PROGRESS NOTE ---
- Best Possible Medication History Admit Date and Time: 03/25/20 1427 Processed by: Pharmacy Medication History completed: Yes Patient Interview: Completed Secondary Source(s): Physician records (PATIENT INTERVIEWED BY CONSUMER SERVICES ADVISOR. PATIENT'S MAR FROM [facility]. MEDICATION RECONCILIATION COMPLETED USING MAR FROM FACILITY.), Pharmacy records, Insurance records As the person ultimately responsible for medication therapy, providers are able to order a medication from an existing home medication list in [facility] via the "Reconcile Routine" prior to Confirmation of that medication by computer support specialist. Such practice is discouraged except when the physician, in their clinical judgment, deems that a medical need exists for a medication without regard to previous use.
[2020-03-25] MEDS: D5NS W/20 MEQ KCL 1,000 ML IV SCH (16:06)
[2020-03-25] MEDS: SODIUM CHLORIDE FLUSH 0.9% 10 ML SYRINGE IVP SCH (16:09)
--- NOTE | 2020-03-25 16:29 | CONSULTATION NOTE ---
Consultation Report: Called for difficult IV placement. A #20G IV was placed in the right saphenous vein x1 attempt. Patient tolerated well.
[2020-03-25] MEDS: MEROPENEM 1 GM in SODIUM CHLORIDE 0.9% MINIBAG 100 ML IV SCH (18:24)
[2020-03-25] MEDS ORDERED: IPRATROPIUM 0.2 MG/ML NEB INH SCH (20:00)
[2020-03-25] MEDS ORDERED: TRAVOPROST EACHEYE SCH (21:00)
--- NOTE | 2020-03-25 21:12 | HISTORY & PHYSICAL EXAMINATION ---
DATE OF SERVICE: 03/25/2020 Physician: Reina Vaughan MD HISTORY OF PRESENT ILLNESS: This is an 89-year-old white female with a history of living at [facility]; has a history of hypertension, high cholesterol, CAD, COPD/asthma, TIA, diabetes, GERD, glaucoma, hearing loss, macular degeneration and some blindness, anxiety and depression, rheumatoid arthritis. There is a history of being admitted two years ago for altered mental status, which responded to IV hydration, and a UTI was found, and her mental status also improved with IV antibiotics. She was admitted here earlier this month with weakness and a possible UTI, but the urine culture did not grow any bacteria, empiric antibiotics were stopped. The patient was now found unresponsive at the [facility] and was brought to the emergency room. She is noted to be profoundly dehydrated with dry oral mucosa and IVC evaluation shows that she has volume depletion as well. She started to get IV fluids in the emergency room and has already started to become more responsive. She is overall somnolent, however. She was never hypotensive or tachycardic. She was able to answer some questions in the ER, stating that she thinks she drinks a lot of water, but her daughter does not confirm that and reports that the mother has dementia as well and blindness and therefore cannot tell how much she is drinking. PAST MEDICAL HISTORY 1. Dementia. 2. Macular degeneration and blindness. 3. Hypertension. 4. Hyperlipidemia. 5. CAD. 6. Asthma/COPD. 7. TIA. 8. Type 2 diabetes. 9. Recurrent UTIs. 10. Hearing loss. 11. Anxiety. 12. Rheumatoid arthritis. PAST SURGICAL HISTORY 1. Cholecystectomy. 2. Spine surgery. 3. Hysterectomy. ALLERGIES 1. ZITHROMAX, WHICH GAVE HER ANAPHYLAXIS. 2. DICLOFENAC, WHICH GAVE HER HIVES. 3. HYDROCODONE, WHICH GAVE HER A RASH. 4. PENICILLIN G, WHICH GAVE HER HIVES. 5. VIOXX, WHICH GAVE HER A RASH. 6. SULFA, WHICH GAVE HER HIVES. 7. CEPHALOSPORIN, GAVE AN UNKNOWN REACTION. 8. CODEINE AND OXYCODONE, GAVE HIVES. MEDICATIONS 1. Tylenol p.r.n. 2. Albuterol p.r.n. 3. Alphagan eyedrops. 4. Calcium carbonate t.i.d. scheduled. 5. Vitamin B12 at 500 mcg daily. 6. Dorzolamide eyedrops t.i.d. 7. Guaifenesin with dextromethorphan 10 mL p.o. b.i.d. 8. Ipratropium/albuterol inhaler t.i.d. 9. Lidocaine patch p.r.n. 10. MiraLax p.r.n. 11. Potassium chloride 20 mEq daily. 12. Prednisone 10 mEq daily. 13. Lyrica 50 mg in the afternoon and 100 mg b.i.d. 14. Spiriva 18 mcg once a day. 15. Tramadol 50 mg b.i.d. p.r.n. pain. 16. Travatan eyedrops every night. 17. Multivitamin with minerals. FAMILY HISTORY: No inherited diseases. SOCIAL HISTORY: She has dementia and lives in assisted living. REVIEW OF SYSTEMS: She has very mild dementia. She takes a walk daily at the [facility]. Patient is awake, and she can tell me that she has no pain anywhere currently. A comprehensive review of systems was performed mainly from chart review and speaking to the emergency room doctor, and her daughter by phone, and the pertinent positives are listed, the rest are negative. PHYSICAL EXAM GENERAL: Elderly white female. She was mostly sleeping and appeared comfortable, she is currently able to drink, and it is obvious that she is blind. VITAL SIGNS: Blood pressure 140/64, heart rate 70 in sinus rhythm, afebrile, room air saturation 97%. HEENT: Reveals disconjugate gaze and opaqueness of her left iris. Her tongue is dry. NECK: No JVD. CHEST: Clear anteriorly. HEART: Sounds normal. No murmur. ABDOMEN: Soft, nontender. Normal bowel sounds. EXTREMITIES: No clubbing, cyanosis, or edema. NEUROLOGIC: Grossly intact except for somnolence and her history of blindness. LABORATORY DATA: Sodium 134, potassium 4.2, chloride 99, anion gap is normal at 7, BUN 11, creatinine 0.9, glucose 130. Lactic acid 1.4, bilirubin 1.3. Normal liver tests. BNP 67. Lipase normal at 21. White blood count 16.5, hemoglobin 14.2, platelet count 294. INR 1.1. Urinalysis was hazy with a pH of 7 and specific gravity high at 1.02, positive for nitrites, small leukocyte esterase, many white blood cells were seen. IMAGING Head CT was done because of the altered mental status, which showed no acute intracranial abnormalities, but there is moderate cerebral volume loss and small vessel ischemic changes. Chest x-ray: Bilateral lung interstitial prominence, which could be pulmonary edema versus atypical pneumonia. EKG: Normal sinus rhythm, rate 66, right IVCD with early R/S transition. IMPRESSION/DIAGNOSES 1. Altered mental status. 2. Dehydration. 3. Urinary tract infection. 4. Abnormal chest x-ray. The validity of an infiltrate is in question. 5. Dementia, mild. 6. Glaucoma. 7. Legally blind. 8. History of chronic obstructive pulmonary disease, not in a current exacerbation. 9. Rheumatoid arthritis, on daily prednisone. 10. Chronic pain, on several medications. PLAN: Admit the patient to Inpatient status in med/surg on telemetry. Continue with moderately aggressive IV crystalloid replacement to treat the dehydration, which is already helping her altered mental status. Begin empiric treatment for the UTI with IV antibiotics. Ceftriaxone was started in the ER; however, review of her last two admissions for UTI shows that she has grown Pseudomonas, and meropenem was required. Therefore, we will start meropenem at this time. Await the urine culture identification and then sensitivity results to tailor antibiotics. Repeat the chest x-ray since there is no hypoxia, no cough, no signs of a pulmonary source to correlate with that abnormal CXR result. Continue with her eyedrops, her inhalers as needed, and her prednisone to avoid addisonian crisis. Continue with the pain medication, but decrease their doses if possible because of her obtunded state already. DEEP VENOUS THROMBOSIS PROPHYLAXIS: SCDs. CODE STATUS: DNR. ATTESTATION: The patient is expected to be discharged or transferred to another facility within 96 hours: Yes. cc: Colby Swenson MD TD: 03/25/2020 19:18 [facility]
[2020-03-25] MEDS: DORZOLAMIDE 2% OPHTH DROPS EACHEYE SCH (21:15)
[2020-03-25] MEDS: NYSTATIN POWDER 15 GM TOP SCH (21:15)
[2020-03-25] MEDS: PREGABALIN 100 MG CAPSULE PO SCH (21:15)
[2020-03-25] MEDS: CALCIUM CARB (OYSTER SHELL) 500 MG TABLET PO SCH (21:15)
[2020-03-25] MEDS: BRIMONIDINE 0.2% OPHTH DROPS 5 ML EACHEYE SCH (21:16)
[2020-03-25] MEDS: IPRATROPIUM/ALBUTEROL 3 ML NEB INH SCH (22:00)
[2020-03-26] MEDS: IPRATROPIUM/ALBUTEROL 3 ML NEB INH SCH ×5 (00:37→21:04)
[2020-03-26] MEDS: MEROPENEM 1 GM in SODIUM CHLORIDE 0.9% MINIBAG 100 ML IV SCH ×3 (02:13→17:45)
[2020-03-26] MEDS: SODIUM CHLORIDE FLUSH 0.9% 10 ML SYRINGE IVP SCH ×3 (03:32→16:59)
[2020-03-26] MEDS: D5NS W/20 MEQ KCL 1,000 ML IV SCH ×3 (03:32→17:46)
[2020-03-26 05:55] LABS: BASOPHILS # (AUTO) 0.1 10^3/uL (0.0-0.1); BASOPHILS % (AUTO) 0.7 %; EOSINOPHILS # (AUTO) 0.1 10^3/uL (0.0-0.7); EOSINOPHILS % (AUTO) 1.2 %; HGB - HEMOGLOBIN 13.3 g/dL (12.0-16.0); LYMPHOCYTES # (AUTO) 2.7 10^3/uL (1.5-3.5); LYMPHOCYTES % (AUTO) 29.2 %; MEAN CORPUSCULAR HEMOGLOBIN 30.1 pg (27.0-31.0); MEAN CORPUSCULAR HGB CONC 32.7 g/dL (32.0-36.0); MEAN CORPUSCULAR VOLUME 92.1 fL (81.0-99.0); MEAN PLATELET VOLUME 9.8 fL (7.9-10.8); MONOCYTES # (AUTO) 0.8 10^3/uL (0.0-1.0); MONOCYTES % (AUTO) 8.8 %; NEUTROPHILS # (AUTO) 5.4 10^3/uL (1.5-6.6); NEUTROPHILS % (AUTO) 59.9 %; PLT - PLATELET COUNT 271 10^3/uL (130-450); RED BLOOD COUNT 4.42 10^6/uL (4.20-5.40); RED CELL DISTRIBUTION WIDTH 14.9 % (12.0-15.0); WHITE BLOOD COUNT 9.1 x10^3/uL (4.8-10.8)
[2020-03-26] MEDS: BRIMONIDINE 0.2% OPHTH DROPS 5 ML EACHEYE SCH ×3 (06:00→22:00)
[2020-03-26] MEDS: DORZOLAMIDE 2% OPHTH DROPS EACHEYE SCH ×3 (06:01→20:51)
[2020-03-26] MEDS: CALCIUM CARB (OYSTER SHELL) 500 MG TABLET PO SCH ×3 (06:02→20:50)
[2020-03-26 06:03] LABS: CALCIUM 8.2 mg/dL (8.5-10.3); CREATININE 0.7 mg/dL (0.4-1.0); MAGNESIUM 1.9 mg/dL (1.7-2.8)
[2020-03-26] MEDS: PANTOPRAZOLE 40 MG VIAL IVP SCH (06:06)
[2020-03-26] MEDS: SODIUM CHLORIDE FLUSH 0.9% 10 ML SYRINGE IVP PRN (06:06)
[2020-03-26] MEDS: predniSONE 5 MG TABLET PO SCH (08:00)
--- NOTE | 2020-03-26 08:54 | XRAY Report ---
PROCEDURE: Chest 1 View X-Ray INDICATIONS: F/U XRay, atelectasis vs infiltrate TECHNIQUE: One view of the chest was acquired. COMPARISON: Chest radiographs 03/25/2020 and 03/11/2020 FINDINGS: Surgical changes and devices: None. Lungs and pleura: Chronic scarring and atelectasis in the lung bases is similar. Chronic interstitia l prominence is also unchanged. No acute airspace opacity. No pleural effusion or pneumothorax. Mediastinum: Mediastinal contours appear normal. Heart size is normal. Bones and chest wall: No suspicious bony lesions. Overlying soft tissues appear unremarkable. IMPRESSION: No new or worsening acute airspace opacity. Unchanged chronic interstitial opacity and bibasilar scar ring/atelectasis. Reviewed by: Chevy Mueller MD on 03/26/2020 8:53 AM PDT Approved by: Chevy Mueller MD on 03/26/2020 8:53 AM PDT Station ID: [id number]
[2020-03-26] MEDS: PREGABALIN 100 MG CAPSULE PO SCH ×2 (09:28→20:50)
[2020-03-26] MEDS: CYANOCOBALAMIN 500 MCG TABLET PO SCH (09:28)
[2020-03-26] MEDS: NYSTATIN POWDER 15 GM TOP SCH ×2 (09:32→20:50)
--- NOTE | 2020-03-26 11:42 | PROVIDER PROGRESS NOTE ---
Subjective - Prog Note Date Prog Note Date: 03/26/20 - Subjective Pt reports feeling: Improved Subjective: Today patient is alert, not confused, can logically answer the questions. She denies any fever or chilly or chest pain. She reported she has chronic cough as usual. Current Medications - Current Medications Current Medications: Active Medications Albuterol/Ipratropium (Duoneb) 3 ml INH RTTID [facility] Last Admin: 03/26/20 09:00 Dose: 3 ml Documented by: Brimonidine Tartrate (Alphagan P 0.2% Ophth Drops) 1 drops EACHEYE TID [facility] Last Admin: 03/26/20 06:00 Dose: 1 drops Documented by: Calcium Carbonate/Glycine (Oysco-500) 500 mg PO TID [facility] Last Admin: 03/26/20 06:02 Dose: 500 mg Documented by: Cyanocobalamin (Vitamin B-12) 500 mcg PO DAILY [facility] Last Admin: 03/26/20 09:28 Dose: 500 mcg Documented by: Dorzolamide HCl (Trusopt 2% Ophth Drops) 1 drops EACHEYE TID [facility] Last Admin: 03/26/20 06:01 Dose: 1 drops Documented by: Guaifenesin (Mucinex) 600 mg PO BID [facility] Meropenem 1 gm/ Sodium (Chloride) 100 mls @ 100 mls/hr IV Q8H [facility] Last Admin: 03/26/20 09:29 Dose: 100 mls/hr Documented by: Potassium Chloride/Dextrose/Sod Cl () 1,000 mls @ 100 mls/hr IV .Q10H [facility] Stop: 03/27/20 03:52 Last Admin: 03/26/20 09:36 Dose: 100 mls/hr Documented by: Ipratropium [place] (Atrovent) 0.5 mg INH RTQ6H [facility] Last Admin: 03/25/20 22:04 Dose: Not Given Documented by: Latanoprost (Xalatan Ophth Drops) 1 drops EACHEYE QPM [facility] Lidocaine (Lidoderm Patch) 1 patch TOP DAILY PRN PRN Reason: PAIN Nystatin (Nystop) 1 applic TOP BID [facility] Last Admin: 03/26/20 09:32 Dose: 1 applic Documented by: Pantoprazole Sodium (Protonix) 40 mg IVP QDAC [facility] Last Admin: 03/26/20 06:06 Dose: 40 mg Documented by: Polyethylene Glycol (Miralax) 17 gm PO DAILY PRN PRN Reason: Constipation Prednisone (Deltasone) 10 mg PO DAILYWM [facility] Last Admin: 03/26/20 08:00 Dose: 10 mg Documented by: Pregabalin (Lyrica) 50 mg PO 1400 [place] Pregabalin (Lyrica) 100 mg PO BID [facility] Last Admin: 03/26/20 09:28 Dose: 100 mg Documented by: Sodium Chloride (Normal Saline Flush 0.9%) 10 ml IVP PRN PRN PRN Reason: NEEDED PER PROVIDER ORDERS Last Admin: 03/26/20 06:06 Dose: 10 ml Documented by: Sodium Chloride (Normal Saline Flush 0.9%) 10 ml IVP 0100,0900,1700 [facility] Last Admin: 03/26/20 09:29 Dose: Not Given Documented by: Albuterol Sulfate [Proair Hfa Inhaler] 2 puffs INH Q4HR PRN 02/17/14 Travoprost [Travatan Z] 1 drop EACHEYE QPM 02/17/14 traMADol [Ultram] 50 mg PO BID PRN 02/17/14 Acetaminophen [Tylenol] 650 mg PO Q6HR PRN 06/30/19 Brimonidine 0.2% Ophth Drops [Alphagan P 0.2% Ophth Drops] 1 drops EACHEYE TID 06/30/19 Potassium Chloride 20 meq PO DAILYWM 06/30/19 Vit A/Vit C/Vit E/Zinc/Copper [Preservision Areds Softgel] 1 each PO DAILY 06/30/19 polyethylene glycoL 3350 [Miralax] 17 gm PO DAILY PRN 06/30/19 Calcium Carbonate 500 mg PO TID 10/04/19 predniSONE [Prednisone] 10 mg PO DAILYWM 10/04/19 Dorzolamide HCl/Pf [Dorzolamide 2% Eye Drop] 1 drops EACHEYE TID 03/09/20 Ipratropium/Albuterol Sulfate [Iprat-Albut 0.5-3(2.5) mg/3 ml] 3 ml INH TID 03/09/20 Tiotropium [place] [Spiriva] 18 mcg INH DAILY 03/09/20 Cyanocobalamin (Vitamin B-12) [Vitamin B-12] 500 mcg PO DAILY 03/10/20 Guaifenesin/Dextromethorphan [Siltussin Dm [place] 100-10Mg/5 ml] 10 ml PO BID 03/10/20 Lidocaine [Aspercreme Lidocaine] 1 patch TOP DAILY PRN 03/10/20 Pregabalin [Lyrica] 50 mg PO .1400 03/10/20 Pregabalin [Lyrica] 100 mg PO BID 03/10/20 Objective - Vital Signs/Intake & Output Vital Signs: Vital Signs x48h Temp Pulse Pulse Resp BP Pulse Ox 03/26/20 09:00 68 16 03/26/20 08:00 37.7 C H 65 16 149/44 H 98 Intake & Output: Intake & Output 03/23/20 03/24/20 03/25/20 03/26/20 23:59 23:59 23:59 23:59 Intake Total 1607.5 1031.667 Output Total 400 225 Balance 1207.5 806.667 - Objective General Appearance: positive: No acute distress, Alert. negative: Lethargic Eyes Bilateral: positive: Normal inspection, PERRL, No lid inflammation ENT: positive: ENT inspection nml, No signs of dehydration. negative: Purulent nasal drainage Neck: positive: Nml inspection, Thyroid nml, Trachea midline. negative: Thyromegaly, Tracheal deviation Respiratory: positive: Chest non-tender, No respiratory distress, Rales. negative: Breath sounds nml, Wheezes, Rhonchi Cardiovascular: positive: Regular rate & rhythm, No murmur. negative: Tachycardia, Bradycardia, Systolic murmur, Diastolic murmur Peripheral Pulses: 2+ Radial (R), 2+ Radial (L) Abdomen: positive: Non-tender, Nml bowel sounds, No distention. negative: Tenderness, Guarding, Rebound Back: positive: Nml inspection Skin: positive: Color nml, No rash, Warm, Dry. negative: Cyanosis, Diaphoresis, Pallor Extremities: positive: Non-tender, Full ROM, Nml appearance. negative: Calf tenderness Neurologic/Psychiatric: positive: Motor nml, Sensation nml, Mood/affect nml. negative: Weakness, Sensory loss, Facial droop, Slurred/abnml speech - Lab Results Fish Bones: 03/26/20 05:25 10/27/20 05:25 Other Labs: Lab Results x24hrs 03/26/20 03/26/20 03/25/20 Range/Units 05:25 05:25 11:35 WBC 9.1 (4.8-10.8) x10^3/uL RBC 4.42 (4.20-5.40) 10^6/uL Hgb 13.3 (12.0-16.0) g/dL Hct 40.7 (37.0-47.0) % MCV 92.1 (81.0-99.0) fL MCH 30.1 (27.0-31.0) pg MCHC 32.7 (32.0-36.0) g/dL RDW 14.9 (12.0-15.0) % Plt Count 271 (130-450) 10^3/uL MPV 9.8 (7.9-10.8) fL Neut # (Auto) 5.4 (1.5-6.6) 10^3/uL Lymph # (Auto) 2.7 (1.5-3.5) 10^3/uL [place] # (Auto) 0.8 (0.0-1.0) 10^3/uL Eos # (Auto) 0.1 (0.0-0.7) 10^3/uL Baso # (Auto) 0.1 (0.0-0.1) 10^3/uL Absolute Nucleated RBC 0.00 x10^3/uL Nucleated RBC % 0.0 /100WBC Sodium 137 134 L (135-145) mmol/L Potassium 3.9 4.2 (3.5-5.0) mmol/L Chloride 109 99 L (101-111) mmol/L Carbon Dioxide 21 28 (21-32) mmol/L Anion Gap 7.0 7.0 (6-13) BUN 6 11 (6-20) mg/dL Creatinine 0.7 0.9 (0.4-1.0) mg/dL Estimated GFR (MDRD) 79 L 59 L (>89) Glucose 119 H 130 H (70-100) mg/dL Calcium 8.2 L 9.0 (8.5-10.3) mg/dL Magnesium 1.9 (1.7-2.8) mg/dL Total Bilirubin 1.3 H (0.2-1.0) mg/dL AST 16 (10-42) IU/L ALT 14 (10-60) IU/L Alkaline Phosphatase 62 (42-121) IU/L Total Protein 5.9 L (6.7-8.2) g/dL Albumin 3.7 (3.2-5.5) g/dL Globulin 2.2 (2.1-4.2) g/dL Albumin/Globulin Ratio 1.7 (1.0-2.2) Lipase 21 L (22-51) U/L ABX Reporting Has patient been on IV antibiotics over the past 48 hours?: Yes Sepsis Event Note (H) - Evaluation Current Stage of Sepsis: Ruled out Assessment/Plan - Problem List (1) Altered mental status Impression: Has greatly improved today, patient is alert and logical to talk and answer for the question. We will continue intravenous antibiotics, continue to monitor IV fluids Continue neuro Check, nurse continue orient to pt It is likely caused by patient urinary tract infection and dehydration, And history of dementia Qualifiers: Altered mental status type: stupor Qualified Code(s): R40.1 - Stupor (2) UTI (urinary tract infection) Impression: Urine culture indicated patient might have a urine tract infection, UA culture is pending, patient has history of Pseudomonas UTI, will continue meropenem intravenous antibiotics, add probiotics (3) Dehydration Impression: Improved, will continue intravenous IV fluids for 2 bag of normal saline, Continue laboratory geneticist (4) Abnormal chest x-ray Impression: Patient reported she had a chronically cough, repeated chest x-ray show unchanged for acute finding. Patient has 98% sats on room air, Continue PRN DuoNeb for patient chronically COPD (5) Dementia Impression: Patient has a history dementia, will continue support to patient (6) Glaucoma Impression: Stable, will continue home medication for glaucoma (7) History of COPD Impression: Patient has hx of COPD, she has 98% of sats on room air without Respiratory distress. Added DuoNeb as needed (8) Rheumatoid arthritis Impression: Stable, continue Prednisone
[2020-03-26] MEDS: guaiFENesin 600 MG TABLET PO SCH ×2 (12:53→20:50)
[2020-03-26] MEDS: PREGABALIN 25 MG CAPSULE PO SCH (13:54)
[2020-03-26 16:27] LABS: HEMOGLOBIN A1c% 5.5 % (4.27-6.07)
[2020-03-26] MEDS: LIDOCAINE PATCH 5% TOP PRN (17:03)
[2020-03-26] MEDS: SACCHAROMYCES BOULARDII 250 MG CAPSULE PO SCH (17:08)
[2020-03-26] MEDS: SODIUM CHLORIDE 0.9% 250 ML IV PRN (18:00)
[2020-03-26] MEDS: traMADol 50 MG TABLET PO PRN (21:59)
[2020-03-26] MEDS: LATANOPROST 0.005% OPHTH DROPS EACHEYE SCH (21:59)
[2020-03-27] MEDS: SODIUM CHLORIDE FLUSH 0.9% 10 ML SYRINGE IVP SCH ×3 (01:46→17:05)
[2020-03-27] MEDS: MEROPENEM 1 GM in SODIUM CHLORIDE 0.9% MINIBAG 100 ML IV SCH ×3 (02:51→17:39)
[2020-03-27] MEDS: traMADol 50 MG TABLET PO PRN ×5 (02:57→21:09)
[2020-03-27 05:42] LABS: BASOPHILS # (AUTO) 0.1 10^3/uL (0.0-0.1); BASOPHILS % (AUTO) 0.9 %; EOSINOPHILS # (AUTO) 0.2 10^3/uL (0.0-0.7); EOSINOPHILS % (AUTO) 2.5 %; LYMPHOCYTES # (AUTO) 2.4 10^3/uL (1.5-3.5); LYMPHOCYTES % (AUTO) 29.2 %; MEAN CORPUSCULAR HEMOGLOBIN 29.7 pg (27.0-31.0); MEAN CORPUSCULAR HGB CONC 32.1 g/dL (32.0-36.0); MEAN CORPUSCULAR VOLUME 92.7 fL (81.0-99.0); MEAN PLATELET VOLUME 9.9 fL (7.9-10.8); MONOCYTES # (AUTO) 0.8 10^3/uL (0.0-1.0); MONOCYTES % (AUTO) 9.3 %; NEUTROPHILS # (AUTO) 4.7 10^3/uL (1.5-6.6); NEUTROPHILS % (AUTO) 57.9 %; PLT - PLATELET COUNT 259 10^3/uL (130-450); RED BLOOD COUNT 4.37 10^6/uL (4.20-5.40); RED CELL DISTRIBUTION WIDTH 15.1 % (12.0-15.0); WHITE BLOOD COUNT 8.1 x10^3/uL (4.8-10.8)
[2020-03-27 05:49] LABS: CALCIUM 8.9 mg/dL (8.5-10.3); CREATININE 0.7 mg/dL (0.4-1.0)
[2020-03-27] MEDS: BRIMONIDINE 0.2% OPHTH DROPS 5 ML EACHEYE SCH ×3 (07:07→21:10)
[2020-03-27] MEDS: CALCIUM CARB (OYSTER SHELL) 500 MG TABLET PO SCH ×3 (07:07→21:09)
[2020-03-27] MEDS: DORZOLAMIDE 2% OPHTH DROPS EACHEYE SCH ×3 (07:07→21:14)
[2020-03-27] MEDS: SODIUM CHLORIDE FLUSH 0.9% 10 ML SYRINGE IVP PRN ×2 (07:15→11:13)
[2020-03-27] MEDS: PANTOPRAZOLE 40 MG VIAL IVP SCH (07:15)
[2020-03-27] MEDS: IPRATROPIUM/ALBUTEROL 3 ML NEB INH SCH ×2 (07:27→21:53)
[2020-03-27] MEDS: predniSONE 5 MG TABLET PO SCH (08:14)
[2020-03-27] MEDS: PREGABALIN 100 MG CAPSULE PO SCH ×2 (08:15→21:08)
[2020-03-27] MEDS: guaiFENesin 600 MG TABLET PO SCH ×2 (08:16→21:09)
[2020-03-27] MEDS: CYANOCOBALAMIN 500 MCG TABLET PO SCH (08:16)
[2020-03-27] MEDS: SACCHAROMYCES BOULARDII 250 MG CAPSULE PO SCH ×2 (08:16→17:00)
[2020-03-27] MEDS: polyethylene glycoL 3350 17 GM PACKET PO PRN (11:14)
[2020-03-27] MEDS: NYSTATIN POWDER 15 GM TOP SCH ×2 (11:14→21:08)
--- NOTE | 2020-03-27 13:48 | PROVIDER PROGRESS NOTE ---
Assessment/Plan - Problem List (1) Altered mental status Qualifiers: Altered mental status type: stupor Qualified Code(s): R40.1 - Stupor Assessment/Plan: 1028,resolved. Patient's mental status continued to improved, return into her baseline. Patient has a history of dementia. pt Has greatly improved today, patient is alert and logical to talk and answer for the question. We will continue intravenous antibiotics, continue to monitor IV fluids Continue neuro Check, nurse continue orient to pt It is likely caused by patient urinary tract infection and dehydration, And history of dementia (2) UTI (urinary tract infection) Impression: 1028, urine culture showed patient had 3 kind of bacteria in the culture, one is growing negative rods, two are gram-positive, The final report including sensitive study is still pending. 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 Patient has 98% sats on room air, Continue PRN DuoNeb for patient chronically COPD (5) Dementia Impression: Patient has a history dementia, will continue support to patient (6) Glaucoma Impression: Stable, will continue home medication for glaucoma (7) History of COPD Impression: Patient has hx of COPD, she has 98% of sats on room air without Respiratory distress. Added DuoNeb as needed (8) Rheumatoid arthritis Impression: Stable, continue Prednisone (9)hx of dysphagia Patient's daughter report patient has history dysphagia, Patient has history of choke before. her daughter is DPOA, she want the patient to have dysphagia diet, finally patient agreed. patient requested regular diet before. There is no report for she had difficulty swallow or cough on the swallowing as far. - Current Meds Current Meds: Current Medications Generic Name Dose Route Start Last Admin Trade Name Freq PRN Reason Stop Dose Admin Albuterol/Ipratropium 3 ml 03/25/20 22:00 03/27/20 07:27 Duoneb INH 3 ml RTTID RAMSES Administration Brimonidine Tartrate 1 drops 03/25/20 22:00 03/27/20 07:07 Alphagan P 0.2% Ophth Drops EACHEYE 1 drops TID RAMSES Administration Calcium Carbonate/Glycine 500 mg 03/25/20 22:00 03/27/20 07:07 Oysco-500 PO 500 mg TID RAMSES Administration Cyanocobalamin 500 mcg 03/26/20 09:00 03/27/20 08:16 Vitamin B-12 PO 500 mcg DAILY RAMSES Administration Dorzolamide HCl 1 drops 03/25/20 22:00 03/27/20 07:07 Trusopt 2% Ophth Drops EACHEYE 1 drops TID RAMSES Administration Guaifenesin 600 mg 03/26/20 12:00 03/27/20 08:16 Mucinex PO 600 mg BID RAMSES Administration Meropenem 1 gm/ Sodium 100 mls @ 100 mls/hr 03/25/20 18:00 03/27/20 11:14 Chloride IV 100 mls/hr Q8H RAMSES Administration Sodium Chloride 250 mls @ 0 mls/hr 03/26/20 17:47 03/27/20 08:23 Normal Saline 0.9% IV 30 mls/hr Q24H PRN Infusion TKO RATE TKO Ipratropium [place] 0.5 mg 03/25/20 20:00 03/25/20 22:04 Atrovent INH Not Given RTQ6H RAMSES Latanoprost 1 drops 03/26/20 21:00 03/26/20 21:59 Xalatan Ophth Drops EACHEYE 1 drops QPM RAMSES Administration Lidocaine 1 patch 03/26/20 09:35 03/26/20 17:03 Lidoderm Patch TOP 1 patch DAILY PRN Administration PAIN Nystatin 1 applic 03/25/20 21:00 03/27/20 11:14 Nystop TOP 1 applic BID RAMSES Administration Pantoprazole Sodium 40 mg 03/26/20 07:00 03/27/20 07:15 Protonix IVP 40 mg QDAC RAMSES Administration Polyethylene Glycol 17 gm 03/25/20 19:13 03/27/20 11:14 Miralax PO 17 gm DAILY PRN Administration Constipation Prednisone 10 mg 03/26/20 08:00 03/27/20 08:14 Deltasone PO 10 mg DAILYWM RAMSES Administration Pregabalin 50 mg 03/26/20 14:00 03/26/20 13:54 Lyrica PO 50 mg 1400 RAMSES Administration Pregabalin 100 mg 03/25/20 21:00 03/27/20 08:15 Lyrica PO 100 mg BID RAMSES Administration Saccharomyces Boulardii 250 mg 03/26/20 17:00 03/27/20 08:16 Florastor PO 250 mg BIDWM RAMSES Administration Sodium Chloride 10 ml 03/25/20 14:39 03/27/20 11:13 Normal Saline Flush 0.9% IVP 10 ml PRN PRN Administration NEEDED PER PROVIDER ORDERS Sodium Chloride 10 ml 03/25/20 17:00 03/27/20 08:17 Normal Saline Flush 0.9% IVP Not Given 0100,0900,1700 RAMSES Tramadol HCl 50 mg 03/26/20 21:01 03/27/20 11:16 Ultram PO 50 mg Q4HR PRN Administration PAIN - Lab Result Fish Bone Diagrams: 03/27/20 05:12 03/27/20 05:12 - Additional Planning My Orders: My Active Orders 03/26/20 17:00 Saccharomyces Boulardii [Florastor] 250 mg PO BIDWM 03/26/20 17:47 Sodium Chloride 0.9% [Normal Saline 0.9%] 250 ml IV Q24H 03/27/20 Lunch Dysphagia Mechanically Altered Diet [DIET] 03/28/20 05:00 BMP - BASIC METABOLIC PANEL [CHEM] DAILYLAB CBC - COMP BLD CT W/AUTO DIFF [HEME] DAILYLAB 03/29/20 05:00 BMP - BASIC METABOLIC PANEL [CHEM] DAILYLAB CBC - COMP BLD CT W/AUTO DIFF [HEME] DAILYLAB 03/30/20 05:00 BMP - BASIC METABOLIC PANEL [CHEM] DAILYLAB CBC - COMP BLD CT W/AUTO DIFF [HEME] DAILYLAB Subjective - Subjective Patient Reports: Feeling Better Nursing Reports: No Complaints Objective Vital Signs: Vital Signs - 24 hr 03/26/20 03/26/20 03/27/20 16:00 21:00 00:00 Temperature 37.2 C 37.0 C Heart Rate 70 67 Heart Rate [ 70 64 Brachial] Heart Rate [ Supine] Respiratory 18 20 16 Rate Blood Pressure 143/54 H [Left Brachial artery] Blood Pressure 147/56 H [Right Brachial artery] Blood Pressure [Supine] O2 Saturation 98 97 03/27/20 03/27/20 03/27/20 03:00 07:29 08:00 Temperature 37.1 C 36.5 C Heart Rate 67 Heart Rate [ 69 63 Brachial] Heart Rate [ Supine] Respiratory 18 18 18 Rate Blood Pressure 136/59 H [Left Brachial artery] Blood Pressure 127/62 [Right Brachial artery] Blood Pressure [Supine] O2 Saturation 95 97 03/27/20 10:40 Temperature Heart Rate Heart Rate [ Brachial] Heart Rate [ 70 Supine] Respiratory Rate Blood Pressure [Left Brachial artery] Blood Pressure [Right Brachial artery] Blood Pressure 122/61 [Supine] O2 Saturation Oxygen O2 Source Room air I&O (Last 24 Hrs): Intake and Output Totals x24h 03/25/20 03/26/20 03/27/20 23:59 23:59 23:59 Intake Total 1607.5 4416.334 1580 Output Total 400 1825 2750 Balance 1207.5 2591.334 -1170 General: Alert, Cooperative, No acute distress HEENT: Atraumatic Neck: Supple Lymphatic: no adenopathy Neuro: Alert, Non Focal Cardiovascular: Regular rate, Normal S1, Normal S2 Respiratory: Chest non-tender, No respiratory distress Abdomen: Normal bowel sounds, Soft, No tenderness Extremities: Normal pulses - Results Results: Laboratory Results WBC 8.1 x10^3/uL (4.8-10.8) 03/27/20 05:12 RBC 4.37 10^6/uL (4.20-5.40) 03/27/20 05:12 Hgb 13.0 g/dL (12.0-16.0) 03/27/20 05:12 Hct 40.5 % (37.0-47.0) 03/27/20 05:12 MCV 92.7 fL (81.0-99.0) 03/27/20 05:12 MCH 29.7 pg (27.0-31.0) 03/27/20 05:12 MCHC 32.1 g/dL (32.0-36.0) 03/27/20 05:12 RDW 15.1 % (12.0-15.0) H 03/27/20 05:12 Plt Count 259 10^3/uL (130-450) 03/27/20 05:12 MPV 9.9 fL (7.9-10.8) 03/27/20 05:12 Neut # (Auto) 4.7 10^3/uL (1.5-6.6) 03/27/20 05:12 Lymph # (Auto) 2.4 10^3/uL (1.5-3.5) 03/27/20 05:12 [place] # (Auto) 0.8 10^3/uL (0.0-1.0) 03/27/20 05:12 Eos # (Auto) 0.2 10^3/uL (0.0-0.7) 03/27/20 05:12 Baso # (Auto) 0.1 10^3/uL (0.0-0.1) 03/27/20 05:12 Absolute Nucleated RBC 0.00 x10^3/uL 03/27/20 05:12 Nucleated RBC % 0.0 /100WBC 03/27/20 05:12 PT 12.4 secs (9.9-12.6) 03/25/20 10:28 INR 1.1 (0.8-1.2) 03/25/20 10:28 Sodium 144 mmol/L (135-145) 03/27/20 05:12 Potassium 4.1 mmol/L (3.5-5.0) 03/27/20 05:12 Chloride 115 mmol/L (101-111) H 03/27/20 05:12 Carbon Dioxide 24 mmol/L (21-32) 03/27/20 05:12 Anion Gap 5.0 (6-13) L 03/27/20 05:12 BUN 9 mg/dL (6-20) 03/27/20 05:12 Creatinine 0.7 mg/dL (0.4-1.0) 03/27/20 05:12 Estimated GFR (MDRD) 79 (>89) L 03/27/20 05:12 Glucose 83 mg/dL (70-100) 03/27/20 05:12 Estimat Average Glucose 111 mg/dL (70-100) H 03/26/20 05:25 Hemoglobin A1c % 5.5 % (4.27-6.07) 03/26/20 05:25 Lactic Acid 1.4 mmol/L (0.5-2.2) 03/25/20 10:28 Calcium 8.9 mg/dL (8.5-10.3) 03/27/20 05:12 Magnesium 1.9 mg/dL (1.7-2.8) 03/26/20 05:25 Total Bilirubin 1.3 mg/dL (0.2-1.0) H 03/25/20 11:35 AST 16 IU/L (10-42) 03/25/20 11:35 ALT 14 IU/L (10-60) 03/25/20 11:35 Alkaline Phosphatase 62 IU/L (42-121) 03/25/20 11:35 B-Natriuretic Peptide 67 pg/mL (5-100) 03/25/20 10:28 Total Protein 5.9 g/dL (6.7-8.2) L 03/25/20 11:35 Albumin 3.7 g/dL (3.2-5.5) 03/25/20 11:35 Globulin 2.2 g/dL (2.1-4.2) 03/25/20 11:35 Albumin/Globulin Ratio 1.7 (1.0-2.2) 03/25/20 11:35 Lipase 21 U/L (22-51) L 03/25/20 11:35 Urine Color YELLOW 03/25/20 10:55 Urine Clarity HAZY (CLEAR) 03/25/20 10:55 Urine pH 7.0 PH (5.0-7.5) 03/25/20 10:55 Ur Specific [place] 1.020 (1.002-1.030) 03/25/20 10:55 Urine Protein NEGATIVE mg/dL (NEGATIVE) 03/25/20 10:55 Urine Glucose (UA) NEGATIVE mg/dL (NEGATIVE) 03/25/20 10:55 Urine Ketones NEGATIVE mg/dL (NEGATIVE) 03/25/20 10:55 Urine Occult Blood TRACE-INTA (NEGATIVE) 03/25/20 10:55 Urine Nitrite POSITIVE (NEGATIVE) H 03/25/20 10:55 Urine Bilirubin NEGATIVE (NEGATIVE) 03/25/20 10:55 Urine Urobilinogen 0.2 (NORMAL) E.U./dL (NORMAL) 03/25/20 10:55 Ur Leukocyte Esterase SMALL (NEGATIVE) H 03/25/20 10:55 Urine RBC 0-5 /HPF (0-5) 03/25/20 10:55 Urine WBC >25 /HPF (0-5) H 03/25/20 10:55 Ur Squamous Epith Cells NONE SEEN (<= Few) 03/25/20 10:55 Urine Bacteria Rare /HPF (None Seen) 03/25/20 10:55 Ur Microscopic Review INDICATED 03/25/20 10:55 Urine Culture Comments INDICATED 03/25/20 10:55 - Procedures Procedures: Procedures INSERTION OF INFUSION DEV INTO SUP VENA CAVA, PERC APPROACH (10/03/19) Sepsis Event Note (H) - Evaluation Current Stage of Sepsis: Ruled out ABX Reporting Has patient been on IV antibiotics over the past 48 hours?: Yes Current Medications - Current Medications Current Medications: Active Medications Albuterol/Ipratropium (Duoneb) 3 ml INH RTTID [facility] Last Admin: 03/27/20 07:27 Dose: 3 ml Documented by: Brimonidine Tartrate (Alphagan P 0.2% Ophth Drops) 1 drops EACHEYE TID [facility] Last Admin: 03/27/20 07:07 Dose: 1 drops Documented by: Calcium Carbonate/Glycine (Oysco-500) 500 mg PO TID [facility] Last Admin: 03/27/20 07:07 Dose: 500 mg Documented by: Cyanocobalamin (Vitamin B-12) 500 mcg PO DAILY [facility] Last Admin: 03/27/20 08:16 Dose: 500 mcg Documented by: Dorzolamide HCl (Trusopt 2% Ophth Drops) 1 drops EACHEYE TID [facility] Last Admin: 03/27/20 07:07 Dose: 1 drops Documented by: Guaifenesin (Mucinex) 600 mg PO BID [facility] Last Admin: 03/27/20 08:16 Dose: 600 mg Documented by: Meropenem 1 gm/ Sodium (Chloride) 100 mls @ 100 mls/hr IV Q8H [facility] Last Admin: 03/27/20 11:14 Dose: 100 mls/hr Documented by: Sodium Chloride (Normal Saline 0.9%) 250 mls @ 0 mls/hr IV Q24H PRN PRN Reason: TKO RATE Last Infusion: 03/27/20 08:23 Dose: 30 mls/hr Documented by: Ipratropium [place] (Atrovent) 0.5 mg INH RTQ6H [facility] Last Admin: 03/25/20 22:04 Dose: Not Given Documented by: Latanoprost (Xalatan Ophth Drops) 1 drops EACHEYE QPM [facility] Last Admin: 03/26/20 21:59 Dose: 1 drops Documented by: Lidocaine (Lidoderm Patch) 1 patch TOP DAILY PRN PRN Reason: PAIN Last Admin: 03/26/20 17:03 Dose: 1 patch Documented by: Nystatin (Nystop) 1 applic TOP BID [facility] Last Admin: 03/27/20 11:14 Dose: 1 applic Documented by: Pantoprazole Sodium (Protonix) 40 mg IVP QDAC [facility] Last Admin: 03/27/20 07:15 Dose: 40 mg Documented by: Polyethylene Glycol (Miralax) 17 gm PO DAILY PRN PRN Reason: Constipation Last Admin: 03/27/20 11:14 Dose: 17 gm Documented by: Prednisone (Deltasone) 10 mg PO DAILYWM [facility] Last Admin: 03/27/20 08:14 Dose: 10 mg Documented by: Pregabalin (Lyrica) 50 mg PO 1400 [facility] Last Admin: 03/26/20 13:54 Dose: 50 mg Documented by: Pregabalin (Lyrica) 100 mg PO BID [facility] Last Admin: 03/27/20 08:15 Dose: 100 mg Documented by: Saccharomyces Boulardii (Florastor) 250 mg PO BIDWM [facility] Last Admin: 03/27/20 08:16 Dose: 250 mg Documented by: Sodium Chloride (Normal Saline Flush 0.9%) 10 ml IVP PRN PRN PRN Reason: NEEDED PER PROVIDER ORDERS Last Admin: 03/27/20 11:13 Dose: 10 ml Documented by: Sodium Chloride (Normal Saline Flush 0.9%) 10 ml IVP 0100,0900,1700 [facility] Last Admin: 03/27/20 08:17 Dose: Not Given Documented by: Tramadol HCl (Ultram) 50 mg PO Q4HR PRN PRN Reason: PAIN Last Admin: 03/27/20 11:16 Dose: 50 mg Documented by: Albuterol Sulfate [Proair Hfa Inhaler] 2 puffs INH Q4HR PRN 02/17/14 Travoprost [Travatan Z] 1 drop EACHEYE QPM 02/17/14 traMADol [Ultram] 50 mg PO BID PRN 02/17/14 Acetaminophen [Tylenol] 650 mg PO Q6HR PRN 06/30/19 Brimonidine 0.2% Ophth Drops [Alphagan P 0.2% Ophth Drops] 1 drops EACHEYE TID 06/30/19 Potassium Chloride 20 meq PO DAILYWM 06/30/19 Vit A/Vit C/Vit E/Zinc/Copper [Preservision Areds Softgel] 1 each PO DAILY 06/30 polyethylene glycoL 3350 [Miralax] 17 gm PO DAILY PRN 06/30/19 Calcium Carbonate 500 mg PO TID 10/04/19 predniSONE [Prednisone] 10 mg PO DAILYWM 10/04/19 Dorzolamide HCl/Pf [Dorzolamide 2% Eye Drop] 1 drops EACHEYE TID 03/09/20 Ipratropium/Albuterol Sulfate [Iprat-Albut 0.5-3(2.5) mg/3 ml] 3 ml INH TID 03/09/[address] T[address] [place] [Spiriva] 18 mcg INH DAILY 03/09/20 Cyanocobalamin (Vitamin B-12) [Vitamin B-12] 500 mcg PO DAILY 03/10/20 Guaifenesin/Dextromethorphan [Siltussin [place] 100-10Mg/5 ml] 10 ml PO BID 03/10/20 Lidocaine [Aspercreme Lidocaine] 1 patch TOP DAILY PRN 03/10/20 Pregabalin [Lyrica] 50 mg PO .1400 03/10/20 Pregabalin [Lyrica] 100 mg PO BID 03/10/20
[2020-03-27] MEDS: PREGABALIN 25 MG CAPSULE PO SCH (15:34)
[2020-03-27] MEDS: SODIUM CHLORIDE 0.9% 250 ML IV PRN (17:00)
[2020-03-27] MEDS: LATANOPROST 0.005% OPHTH DROPS EACHEYE SCH (21:07)
[2020-03-28] MEDS: SODIUM CHLORIDE FLUSH 0.9% 10 ML SYRINGE IVP SCH ×3 (01:49→15:44)
[2020-03-28] MEDS: MEROPENEM 1 GM in SODIUM CHLORIDE 0.9% MINIBAG 100 ML IV SCH ×3 (01:49→21:20)
[2020-03-28] MEDS: traMADol 50 MG TABLET PO PRN ×3 (04:05→15:44)
[2020-03-28 05:43] LABS: BASOPHILS # (AUTO) 0.1 10^3/uL (0.0-0.1); EOSINOPHILS # (AUTO) 0.2 10^3/uL (0.0-0.7); EOSINOPHILS % (AUTO) 3.4 %; HGB - HEMOGLOBIN 13.1 g/dL (12.0-16.0); LYMPHOCYTES # (AUTO) 2.6 10^3/uL (1.5-3.5); LYMPHOCYTES % (AUTO) 37.2 %; MEAN CORPUSCULAR HEMOGLOBIN 29.7 pg (27.0-31.0); MEAN PLATELET VOLUME 9.8 fL (7.9-10.8); MONOCYTES # (AUTO) 0.7 10^3/uL (0.0-1.0); MONOCYTES % (AUTO) 9.4 %; NEUTROPHILS # (AUTO) 3.4 10^3/uL (1.5-6.6); NEUTROPHILS % (AUTO) 48.7 %; PLT - PLATELET COUNT 252 10^3/uL (130-450); RED BLOOD COUNT 4.41 10^6/uL (4.20-5.40)
[2020-03-28 05:49] LABS: CALCIUM 8.8 mg/dL (8.5-10.3); CREATININE 0.8 mg/dL (0.4-1.0)
[2020-03-28] MEDS: SODIUM CHLORIDE FLUSH 0.9% 10 ML SYRINGE IVP PRN (06:23)
[2020-03-28] MEDS: PANTOPRAZOLE 40 MG VIAL IVP SCH (06:23)
[2020-03-28] MEDS: CALCIUM CARB (OYSTER SHELL) 500 MG TABLET PO SCH ×3 (06:23→21:29)
[2020-03-28] MEDS: DORZOLAMIDE 2% OPHTH DROPS EACHEYE SCH ×3 (06:24→21:24)
[2020-03-28] MEDS: BRIMONIDINE 0.2% OPHTH DROPS 5 ML EACHEYE SCH ×3 (06:25→21:25)
[2020-03-28] MEDS: IPRATROPIUM/ALBUTEROL 3 ML NEB INH SCH ×2 (08:12→14:20)
[2020-03-28] MEDS: DOCUSATE SODIUM 250 MG CAPSULE PO SCH (09:06)
[2020-03-28] MEDS: guaiFENesin 600 MG TABLET PO SCH ×2 (09:06→21:29)
[2020-03-28] MEDS: CYANOCOBALAMIN 500 MCG TABLET PO SCH (09:07)
[2020-03-28] MEDS: predniSONE 5 MG TABLET PO SCH (09:07)
[2020-03-28] MEDS: SACCHAROMYCES BOULARDII 250 MG CAPSULE PO SCH ×2 (09:07→15:44)
[2020-03-28] MEDS: PREGABALIN 100 MG CAPSULE PO SCH ×2 (09:07→21:29)
[2020-03-28] MEDS: SENNA 8.6 MG TABLET PO SCH (09:08)
[2020-03-28] MEDS: LIDOCAINE PATCH 5% TOP PRN (09:08)
[2020-03-28] MEDS: polyethylene glycoL 3350 17 GM PACKET PO PRN (09:12)
[2020-03-28] MEDS: NYSTATIN POWDER 15 GM TOP SCH ×2 (09:14→21:26)
[2020-03-28] MEDS: SODIUM CHLORIDE 0.9% 250 ML IV PRN (09:18)
--- NOTE | 2020-03-28 11:59 | Discharge Plan ---
Discharge Plan Problem Reviewed?: Yes Disposition: [address] DC/Xfer Condition: Stable No Smoking: If you smoke, Please STOP! Call for help.
--- NOTE | 2020-03-28 12:10 | ANESTHESIA PROCEDURE NOTE ---
Anesth Central Line Template - Central Line Central Line Preparation: Consent Obtained, Time out completed, Ultrasound used, Sterile prep and drape Central line location: Right Basilic Central line type: PICC Double Lumen Central line catheter tip site resides: Superior vena cava (SVC) Central line aftercare: Secured, Placement confirmed, No pneumothorax, No complications, Bundle checklist complete, Pt tolerated well (PT ID, consent. Time out. Cath cut to 30cm per measure tape and chart. Caps easily aspirate/flush. Unable to elicit pwave changes with tiptracker but tip terminates in correct anatomical position screen. Cath hubbed, secured wSTAT lock and tegaderm. call for PCXR.)
--- NOTE | 2020-03-28 12:36 | XRAY Report ---
PROCEDURE: Chest for Line Placement INDICATIONS: check for PICC line placement TECHNIQUE: One view of the chest was acquired. COMPARISON: 03/26/2020 FINDINGS: Surgical changes and devices: Right upper extremity PICC has been placed with the distal tip projecti ng over the upper SVC. Lungs and pleura: Diffuse chronic interstitial prominence unchanged. Flattening of the hemidiaphragm s also unchanged. No acute consolidations. The right costophrenic angle has been excluded on this jesse dy. No pneumothorax. Mediastinum: Mediastinal contours appear stable. Heart size is normal. Bones and chest wall: No suspicious bony lesions. Overlying soft tissues appear unremarkable. IMPRESSION: Right upper extremity PICC with distal tip projecting over the upper SVC. Stable cardiopulmonary evaluation. Reviewed by: Joseph Hines MD on 03/28/2020 12:34 PM PDT Approved by: Joseph Hines MD on 03/28/2020 12:34 PM PDT Station ID: [id number]
[2020-03-28] MEDS: PREGABALIN 25 MG CAPSULE PO SCH (13:24)
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
[2020-03-28] MEDS ORDERED: BISACODYL 10 MG SUPP PR SCH (17:45)
[2020-03-28] MEDS: LATANOPROST 0.005% OPHTH DROPS EACHEYE SCH (21:25)
[2020-03-29] MEDS: traMADol 50 MG TABLET PO PRN ×5 (02:26→20:58)
[2020-03-29] MEDS: SODIUM CHLORIDE FLUSH 0.9% 10 ML SYRINGE IVP SCH ×3 (02:41→16:17)
[2020-03-29] MEDS: SODIUM CHLORIDE FLUSH 0.9% 10 ML SYRINGE IVP PRN ×2 (02:41→06:25)
[2020-03-29] MEDS: PANTOPRAZOLE 40 MG VIAL IVP SCH (06:25)
[2020-03-29] MEDS: CALCIUM CARB (OYSTER SHELL) 500 MG TABLET PO SCH ×3 (06:33→20:47)
[2020-03-29] MEDS: BRIMONIDINE 0.2% OPHTH DROPS 5 ML EACHEYE SCH ×3 (06:38→20:49)
[2020-03-29] MEDS: DORZOLAMIDE 2% OPHTH DROPS EACHEYE SCH ×3 (06:38→20:49)
[2020-03-29 06:45] LABS: BASOPHILS # (AUTO) 0.1 10^3/uL (0.0-0.1); BASOPHILS % (AUTO) 0.8 %; EOSINOPHILS # (AUTO) 0.2 10^3/uL (0.0-0.7); EOSINOPHILS % (AUTO) 2.5 %; HGB - HEMOGLOBIN 12.8 g/dL (12.0-16.0); LYMPHOCYTES % (AUTO) 39.5 %; MEAN CORPUSCULAR HEMOGLOBIN 30.9 pg (27.0-31.0); MEAN CORPUSCULAR HGB CONC 33.5 g/dL (32.0-36.0); MEAN CORPUSCULAR VOLUME 92.3 fL (81.0-99.0); MEAN PLATELET VOLUME 9.9 fL (7.9-10.8); MONOCYTES # (AUTO) 0.8 10^3/uL (0.0-1.0); MONOCYTES % (AUTO) 9.9 %; NEUTROPHILS # (AUTO) 3.6 10^3/uL (1.5-6.6); NEUTROPHILS % (AUTO) 46.9 %; PLT - PLATELET COUNT 235 10^3/uL (130-450); RED BLOOD COUNT 4.14 10^6/uL (4.20-5.40); RED CELL DISTRIBUTION WIDTH 14.8 % (12.0-15.0); WHITE BLOOD COUNT 7.7 x10^3/uL (4.8-10.8)
[2020-03-29 06:46] LABS: CALCIUM 8.6 mg/dL (8.5-10.3); CREATININE 0.8 mg/dL (0.4-1.0)
[2020-03-29] MEDS: IPRATROPIUM/ALBUTEROL 3 ML NEB INH SCH ×4 (07:45→21:58)
[2020-03-29] MEDS: PREGABALIN 100 MG CAPSULE PO SCH ×2 (09:20→20:47)
[2020-03-29] MEDS: CHOLECALCIFEROL 25 MCG TABLET PO SCH (09:20)
[2020-03-29] MEDS: CYANOCOBALAMIN 500 MCG TABLET PO SCH (09:21)
[2020-03-29] MEDS: guaiFENesin 600 MG TABLET PO SCH ×2 (09:22→20:50)
[2020-03-29] MEDS: predniSONE 5 MG TABLET PO SCH (09:22)
[2020-03-29] MEDS: SACCHAROMYCES BOULARDII 250 MG CAPSULE PO SCH ×2 (09:25→16:17)
[2020-03-29] MEDS: DOCUSATE SODIUM 250 MG CAPSULE PO SCH (09:26)
[2020-03-29] MEDS: NYSTATIN POWDER 15 GM TOP SCH ×2 (09:26→20:49)
[2020-03-29] MEDS: SENNA 8.6 MG TABLET PO SCH (09:27)
[2020-03-29] MEDS: MEROPENEM 1 GM in SODIUM CHLORIDE 0.9% MINIBAG 100 ML IV SCH ×2 (09:27→20:57)
[2020-03-29] MEDS: PREGABALIN 25 MG CAPSULE PO SCH (14:32)
--- NOTE | 2020-03-29 15:49 | PROVIDER PROGRESS NOTE ---
Assessment/Plan - Problem List (1) Altered mental status Qualifiers: Altered mental status type: stupor Qualified Code(s): R40.1 - Stupor Assessment/Plan: 1030 resolved, as pt's baseline 1029, resolved. return pt's baseline. Physical therapist and occupational therapist evaluated and treated the patient, Patient walked 40 feet with physical therapist, Patient was advised no home health PT/OT needed. 1028,resolved. Patient's mental status continued to improved, return into her baseline. Patient has a history of dementia. pt Has greatly improved today, patient is alert and logical to talk and answer for the question. We will continue intravenous antibiotics, continue to monitor IV fluids Continue neuro Check, nurse continue orient to pt It is likely caused by patient urinary tract infection and dehydration, And history of dementia (2) UTI (urinary tract infection) Impression: 03-29, UA culture show 2 different Pseudomonas, Patient has no pyonephritis or other complication from UTI infection, According to update, According to sensitivity study, Will be finished 5 days antibiotics until tomorrow. 1029,Urinalysis showed patient had Pseudomonas infection, Which resistance to most of PO antibiotics. Patient had PICC now, We will continue finish treatment course by IV of Meropenem until tomorrow. 1028, urine culture showed patient had 3 kind of bacteria in the culture, one is growing negative rods, two are gram-positive, The final report including sensitive study is still pending. We will continue antibiotics Urine culture indicated patient might have a urine tract infection, UA culture is pending, patient has history of Pseudomonas UTI, will continue meropenem intravenous antibiotics, add probiotics (3) Dehydration Impression: 1028, resolved Improved, will continue intravenous IV fluids for 2 bag of normal saline, Continue dental laboratory assistant (4) Abnormal chest x-ray Impression: 1028, stable, patient has 97% sat on room air Patient reported she had a chronically cough, repeated chest x-ray show unchanged for acute finding. Patient has 98% sats on room air, Continue PRN DuoNeb for patient chronically COPD (5) Dementia Impression: Patient has a history dementia, will continue support to patient (6) Glaucoma Impression: Stable, will continue home medication for glaucoma (7) History of COPD Impression: Patient has hx of COPD, she has 98% of sats on room air without Respiratory distress. Added DuoNeb as needed (8) Rheumatoid arthritis Impression: Stable, continue Prednisone (9)hx of dysphagia 1029, patient tolerate dysphagia diet without issue Patient's daughter report patient has history dysphagia, Patient has history of choke before. her daughter is DPOA, she want the patient to have dysphagia diet, finally patient agreed. patient requested regular diet before. There is no r eport for she had difficulty swallow or cough on the swallowing as far. - Current Meds Current Meds: Current Medications Generic Name Dose Route Start Last Admin Trade Name Freq PRN Reason Stop Dose Admin Albuterol/Ipratropium 3 ml 03/25/20 22:00 03/29/20 15:00 Duoneb INH 3 ml RTTID [facility] Administration Brimonidine Tartrate 1 drops 03/25/20 22:00 03/29/20 14:27 Alphagan P 0.2% Ophth Drops EACHEYE 1 drops TID [facility] Administration Calcium Carbonate/Glycine 500 mg 03/25/20 22:00 03/29/20 14:31 Oysco-500 PO 500 mg TID RAMS[facility] Administration Cholecalciferol 50 mcg 03/29/20 09:00 03/29/20 09:20 Vitamin D3 PO 50 mcg DAILY RAM[facility] Administration Cyanocobalamin 500 mcg 03/26/20 09:00 03/29/20 09:21 Vitamin B-12 PO 500 mcg DAILY RAM[facility] Administration Docusate Sodium 250 - 500 mg 03/28/20 09:00 03/29/20 09:26 Colace 250mg Capsule PO Not Given DAILY RAMSES Dorzolamide HCl 1 drops 03/25/20 22:00 03/29/20 14:28 Trusopt 2% Ophth Drops EACHEYE 1 drops TID RAMS[facility] Administration Guaifenesin 600 mg 03/26/20 12:00 03/29/20 09:22 Mucinex PO 600 mg BID RAM[facility] Administration Sodium Chloride 250 mls @ 0 mls/hr 03/26/20 17:47 03/28/20 15:41 Normal Saline 0.9% IV Infused Q24H PRN Infusion TKO RATE TKO Meropenem 1 gm/ Sodium 100 mls @ 100 mls/hr 03/28/20 09:15 03/29/20 11:14 Chloride IV Infused Q12H [facility] Infusion Ipratropium [place] 0.5 mg 03/25/20 20:00 03/25/20 22:04 Atrovent INH Not Given RTQ6H RAMSES Latanoprost 1 drops 03/26/20 21:00 03/28/20 21:25 Xalatan Ophth Drops EACHEYE 1 drops QPM [facility] Administration Lidocaine 1 patch 03/26/20 09:35 03/28/20 09:08 Lidoderm Patch TOP 1 patch DAILY PRN Administration PAIN Nystatin 1 applic 03/25/20 21:00 03/29/20 09:26 Nystop TOP 1 applic BID RAMSES Administration Pantoprazole Sodium 40 mg 03/26/20 07:00 03/29/20 06:25 Protonix IVP 40 mg QDAC RAMSES Administration Polyethylene Glycol 17 gm 03/25/20 19:13 03/28/20 09:12 Miralax PO 17 gm DAILY PRN Administration Constipation Prednisone 10 mg 03/26/20 08:00 03/29/20 09:22 Deltasone PO 10 mg DAILYWM [facility] Administration Pregabalin 50 mg 03/26/20 14:00 03/29/20 14:32 Lyrica PO 50 mg 1400 [facility] Administration Pregabalin 100 mg 03/25/20 21:00 03/29/20 09:20 Lyrica PO 100 mg BID [facility] Administration Saccharomyces Boulardii 250 mg 03/26/20 17:00 03/29/20 09:25 Florastor PO 250 mg BIDWM [facility] Administration Senna 8.6 - 17.2 mg 03/28/20 09:00 03/29/20 09:27 Senokot PO Not Given DAILY RAMSES Sodium Chloride 10 ml 03/25/20 14:39 03/29/20 06:25 Normal Saline Flush 0.9% IVP 10 ml PRN PRN Administration NEEDED PER PROVIDER ORDERS Sodium Chloride 10 ml 03/25/20 17:00 03/29/20 09:30 Normal Saline Flush 0.9% IVP 10 ml 0100,0900,1700 RAMS[facility] Administration Tramadol HCl 50 mg 03/26/20 21:01 03/29/20 11:46 Ultram PO 50 mg Q4HR PRN Administration PAIN - Lab Result Fish Bone Diagrams: 03/29/20 05:25 03/29/20 05:25 - Additional Planning My Orders: My Active Orders 03/29/20 09:00 Cholecalciferol [Vitamin D3] 50 mcg PO DAILY 03/29/20 Dinner Dysphagia Puree Diet [DIET] 03/30/20 05:00 BMP - BASIC METABOLIC PANEL [CHEM] DAILYLAB CBC - COMP BLD CT W/AUTO DIFF [HEME] DAILYLAB Subjective - Subjective Patient Reports: Feeling Better Objective Vital Signs: Vital Signs - 24 hr 03/28/20 03/28/20 03/29/20 16:00 19:30 00:00 Temperature 37.0 C 36.8 C Heart Rate 76 Heart Rate [ 70 67 Brachial] Respiratory 18 18 16 Rate Blood Pressure 121/65 [Left Brachial artery] Blood Pressure 101/60 [Right Brachial artery] O2 Saturation 100 92 03/29/20 03/29/20 03/29/20 06:03 07:45 09:10 Temperature 37.3 C 36.5 C Heart Rate 73 Heart Rate [ 77 83 Brachial] Respiratory 16 16 16 Rate Blood Pressure 109/68 97/42 L [Left Brachial artery] Blood Pressure [Right Brachial artery] O2 Saturation 92 96 Oxygen O2 Source Room air I&O (Last 24 Hrs): Intake and Output Totals x24h 03/27/20 03/28/20 03/29/20 23:59 23:59 23:59 Intake Total 3430 2551 1200 Output Total 4650 1600 1800 Balance -1220 951 -600 General: Alert, No acute distress HEENT: Atraumatic Neck: Supple Lymphatic: no adenopathy Neuro: Alert, Non Focal Cardiovascular: Regular rate, Normal S1, Normal S2 Respiratory: Chest non-tender, No respiratory distress Abdomen: Normal bowel sounds, Soft, No tenderness Extremities: Normal pulses - Results Results: Laboratory Results WBC 7.7 x10^3/uL (4.8-10.8) 03/29/20 05:25 RBC 4.14 10^6/uL (4.20-5.40) L 03/29/20 05:25 Hgb 12.8 g/dL (12.0-16.0) 03/29/20 05:25 Hct 38.2 % (37.0-47.0) 03/29/20 05:25 MCV 92.3 fL (81.0-99.0) 03/29/20 05:25 MCH 30.9 pg (27.0-31.0) 03/29/20 05:25 MCHC 33.5 g/dL (32.0-36.0) 03/29/20 05:25 RDW 14.8 % (12.0-15.0) 03/29/20 05:25 Plt Count 235 10^3/uL (130-450) 03/29/20 05:25 MPV 9.9 fL (7.9-10.8) 03/29/20 05:25 Neut # (Auto) 3.6 10^3/uL (1.5-6.6) 03/29/20 05:25 Lymph # (Auto) 3.0 10^3/uL (1.5-3.5) 03/29/20 05:25 Giles # (Auto) 0.8 10^3/uL (0.0-1.0) 03/29/20 05:25 Eos # (Auto) 0.2 10^3/uL (0.0-0.7) 03/29/20 05:25 Baso # (Auto) 0.1 10^3/uL (0.0-0.1) 03/29/20 05:25 Absolute Nucleated RBC 0.00 x10^3/uL 03/29/20 05:25 Nucleated RBC % 0.0 /100WBC 03/29/20 05:25 PT 12.4 secs (9.9-12.6) 03/25/20 10:28 INR 1.1 (0.8-1.2) 03/25/20 10:28 Sodium 138 mmol/L (135-145) 03/29/20 05:25 Potassium 3.9 mmol/L (3.5-5.0) 03/29/20 05:25 Chloride 101 mmol/L (101-111) 03/29/20 05:25 Carbon Dioxide 28 mmol/L (21-32) 03/29/20 05:25 Anion Gap 9.0 (6-13) 03/29/20 05:25 BUN 11 mg/dL (6-20) 03/29/20 05:25 Creatinine 0.8 mg/dL (0.4-1.0) 03/29/20 05:25 Estimated GFR (MDRD) 68 (>89) L 03/29/20 05:25 Glucose 87 mg/dL (70-100) 03/29/20 05:25 Estimat Average Glucose 111 mg/dL (70-100) H 03/26/20 05:25 Hemoglobin A1c % 5.5 % (4.27-6.07) 03/26/20 05:25 Lactic Acid 1.4 mmol/L (0.5-2.2) 03/25/20 10:28 Calcium 8.6 mg/dL (8.5-10.3) 03/29/20 05:25 Magnesium 1.9 mg/dL (1.7-2.8) 03/26/20 05:25 Total Bilirubin 1.3 mg/dL (0.2-1.0) H 03/25/20 11:35 AST 16 IU/L (10-42) 03/25/20 11:35 ALT 14 IU/L (10-60) 03/25/20 11:35 Alkaline Phosphatase 62 IU/L (42-121) 03/25/20 11:35 B-Natriuretic Peptide 67 pg/mL (5-100) 03/25/20 10:28 Total Protein 5.9 g/dL (6.7-8.2) L 03/25/20 11:35 Albumin 3.7 g/dL (3.2-5.5) 03/25/20 11:35 Globulin 2.2 g/dL (2.1-4.2) 03/25/20 11:35 Albumin/Globulin Ratio 1.7 (1.0-2.2) 03/25/20 11:35 Lipase 21 U/L (22-51) L 03/25/20 11:35 Urine Color YELLOW 03/25/20 10:55 Urine Clarity HAZY (CLEAR) 03/25/20 10:55 Urine pH 7.0 PH (5.0-7.5) 03/25/20 10:55 Ur Specific [place] 1.020 (1.002-1.030) 03/25/20 10:55 Urine Protein NEGATIVE mg/dL (NEGATIVE) 03/25/20 10:55 Urine Glucose (UA) NEGATIVE mg/dL (NEGATIVE) 03/25/20 10:55 Urine Ketones NEGATIVE mg/dL (NEGATIVE) 03/25/20 10:55 Urine Occult Blood TRACE-INTA (NEGATIVE) 03/25/20 10:55 Urine Nitrite POSITIVE (NEGATIVE) H 03/25/20 10:55 Urine Bilirubin NEGATIVE (NEGATIVE) 10/26/20 10:55 Urine Urobilinogen 0.2 (NORMAL) E.U./dL (NORMAL) 03/25/20 10:55 Ur Leukocyte Esterase SMALL (NEGATIVE) H 03/25/20 10:55 Urine RBC 0-5 /HPF (0-5) 03/25/20 10:55 Urine WBC >25 /HPF (0-5) H 03/25/20 10:55 Ur Squamous Epith Cells NONE SEEN (<= Few) 03/25/20 10:55 Urine Bacteria Rare /HPF (None Seen) 03/25/20 10:55 Ur Microscopic Review INDICATED 03/25/20 10:55 Urine Culture Comments INDICATED 03/25/20 10:55 Coronavirus (PCR) NEGATIVE 03/26/20 11:45 SARS-CoV-2 (PCR) NOT DETECTED 03/28/20 16:42 - Procedures Procedures: Procedures INSERTION OF INFUSION DEV INTO SUP VENA CAVA, PERC APPROACH (10/03/19) Sepsis Event Note (H) - Evaluation Current Stage of Sepsis: Ruled out ABX Reporting Has patient been on IV antibiotics over the past 48 hours?: Yes Current Medications - Current Medications Current Medications: Active Medications Albuterol/Ipratropium (Duoneb) 3 ml INH RTTID [facility] Last Admin: 03/29/20 15:00 Dose: 3 ml Documented by: Brimonidine Tartrate (Alphagan P 0.2% Ophth Drops) 1 drops EACHEYE TID [facility] Last Admin: 03/29/20 14:27 Dose: 1 drops Documented by: Calcium Carbonate/Glycine (Oysco-500) 500 mg PO TID [facility] Last Admin: 03/29/20 14:31 Dose: 500 mg Documented by: Cholecalciferol (Vitamin D3) 50 mcg PO DAILY [facility] Last Admin: 03/29/20 09:20 Dose: 50 mcg Documented by: Cyanocobalamin (Vitamin B-12) 500 mcg PO DAILY [facility] Last Admin: 03/29/20 09:21 Dose: 500 mcg Documented by: Docusate Sodium (Colace 250mg Capsule) 250 - 500 mg PO DAILY [facility] Last Admin: 03/29/20 09:26 Dose: Not Given Documented by: Dorzolamide HCl (Trusopt 2% Ophth Drops) 1 drops EACHEYE TID [facility] Last Admin: 03/29/20 14:28 Dose: 1 drops Documented by: Guaifenesin (Mucinex) 600 mg PO BID [facility] Last Admin: 03/29/20 09:22 Dose: 600 mg Documented by: Sodium Chloride (Normal Saline 0.9%) 250 mls @ 0 mls/hr IV Q24H PRN PRN Reason: TKO RATE Last Infusion: 03/28/20 15:41 Dose: Infused Documented by: Meropenem 1 gm/ Sodium (Chloride) 100 mls @ 100 mls/hr IV Q12H [facility] Last Infusion: 03/29/20 11:14 Dose: Infused Documented by: Ipratropium [place] (Atrovent) 0.5 mg INH RTQ6H [facility] Last Admin: 03/25/20 22:04 Dose: Not Given Documented by: Latanoprost (Xalatan Ophth Drops) 1 drops EACHEYE QPM [facility] Last Admin: 03/28/20 21:25 Dose: 1 drops Documented by: Lidocaine (Lidoderm Patch) 1 patch TOP DAILY PRN PRN Reason: PAIN Last Admin: 03/28/20 09:08 Dose: 1 patch Documented by: Nystatin (Nystop) 1 applic TOP BID [facility] Last Admin: 03/29/20 09:26 Dose: 1 applic Documented by: Pantoprazole Sodium (Protonix) 40 mg IVP QDAC [facility] Last Admin: 03/29/20 06:25 Dose: 40 mg Documented by: Polyethylene Glycol (Miralax) 17 gm PO DAILY PRN PRN Reason: Constipation Last Admin: 03/28/20 09:12 Dose: 17 gm Documented by: Prednisone (Deltasone) 10 mg PO DAILYWM [facility] Last Admin: 03/29/20 09:22 Dose: 10 mg Documented by: Pregabalin (Lyrica) 50 mg PO 1400 [facility] Last Admin: 03/29/20 14:32 Dose: 50 mg Documented by: Pregabalin (Lyrica) 100 mg PO BID [facility] Last Admin: 03/29/20 09:20 Dose: 100 mg Documented by: Saccharomyces Boulardii (Florastor) 250 mg PO BIDWM [facility] Last Admin: 03/29/20 09:25 Dose: 250 mg Documented by: Senna (Senokot) 8.6 - 17.2 mg PO DAILY [facility] Last Admin: 03/29/20 09:27 Dose: Not Given Documented by: Sodium Chloride (Normal Saline Flush 0.9%) 10 ml IVP PRN PRN PRN Reason: NEEDED PER PROVIDER ORDERS Last Admin: 03/29/20 06:25 Dose: 10 ml Documented by: Sodium Chloride (Normal Saline Flush 0.9%) 10 ml IVP 0100,0900,1700 [facility] Last Admin: 03/29/20 09:30 Dose: 10 ml Documented by: Tramadol HCl (Ultram) 50 mg PO Q4HR PRN PRN Reason: PAIN Last Admin: 03/29/20 11:46 Dose: 50 mg Documented by: Albuterol Sulfate [Proair Hfa Inhaler] 2 puffs INH Q4HR PRN 02/17/14 Travoprost [Travatan Z] 1 drop EACHEYE QPM 02/17/14 traMADol [Ultram] 50 mg PO BID PRN 02/17/14 Acetaminophen [Tylenol] 650 mg PO Q6HR PRN 06/30/19 Brimonidine 0.2% Ophth Drops [Alphagan P 0.2% Ophth Drops] 1 drops EACHEYE TID 06/30/19 Potassium Chloride 20 meq PO DAILYWM 06/30/19 Vit A/Vit C/Vit E/Zinc/Copper [Preservision Areds Softgel] 1 each PO DAILY 06/30/19 polyethylene glycoL 3350 [Miralax] 17 gm PO DAILY PRN 06/30/19 Calcium Carbonate 500 mg PO TID 10/04/19 predniSONE [Prednisone] 10 mg PO DAILYWM 10/04/19 Dorzolamide HCl/Pf [Dorzolamide 2% Eye Drop] 1 drops EACHEYE TID 03/09/20 Ipratropium/Albuterol Sulfate [Iprat-Albut 0.5-3(2.5) mg/3 ml] 3 ml INH TID 03/09/20 Tiotropium [place] [Spiriva] 18 mcg INH DAILY 03/09/20 Cyanocobalamin (Vitamin B-12) [Vitamin B-12] 500 mcg PO DAILY 03/10/20 Guaifenesin/Dextromethorphan [Siltussin Dm [place] 100-10Mg/5 ml] 10 ml PO BID 03/10/20 Lidocaine [Aspercreme Lidocaine] 1 patch TOP DAILY PRN 03/10/20 Pregabalin [Lyrica] 50 mg PO .1400 03/10/20 Pregabalin [Lyrica] 100 mg PO BID 03/10/20
[2020-03-29] MEDS: LIDOCAINE PATCH 5% TOP PRN (16:17)
[2020-03-29] MEDS: LATANOPROST 0.005% OPHTH DROPS EACHEYE SCH (20:49)
[2020-03-30] MEDS: traMADol 50 MG TABLET PO PRN ×5 (04:22→22:55)
[2020-03-30] MEDS: SODIUM CHLORIDE FLUSH 0.9% 10 ML SYRINGE IVP SCH ×3 (04:22→17:36)
[2020-03-30 04:43] LABS: BASOPHILS # (AUTO) 0.1 10^3/uL (0.0-0.1); BASOPHILS % (AUTO) 1.1 %; EOSINOPHILS # (AUTO) 0.2 10^3/uL (0.0-0.7); EOSINOPHILS % (AUTO) 3.3 %; HGB - HEMOGLOBIN 12.2 g/dL (12.0-16.0); LYMPHOCYTES # (AUTO) 2.8 10^3/uL (1.5-3.5); LYMPHOCYTES % (AUTO) 42.7 %; MEAN CORPUSCULAR VOLUME 93.8 fL (81.0-99.0); MEAN PLATELET VOLUME 9.5 fL (7.9-10.8); MONOCYTES # (AUTO) 0.7 10^3/uL (0.0-1.0); NEUTROPHILS # (AUTO) 2.8 10^3/uL (1.5-6.6); NEUTROPHILS % (AUTO) 42.6 %; PLT - PLATELET COUNT 217 10^3/uL (130-450); RED BLOOD COUNT 4.06 10^6/uL (4.20-5.40); RED CELL DISTRIBUTION WIDTH 14.7 % (12.0-15.0); WHITE BLOOD COUNT 6.6 x10^3/uL (4.8-10.8)
[2020-03-30] MEDS: PANTOPRAZOLE 40 MG VIAL IVP SCH (06:08)
[2020-03-30] MEDS: DORZOLAMIDE 2% OPHTH DROPS EACHEYE SCH ×3 (06:08→22:05)
[2020-03-30] MEDS: CALCIUM CARB (OYSTER SHELL) 500 MG TABLET PO SCH ×3 (06:08→22:04)
[2020-03-30] MEDS: BRIMONIDINE 0.2% OPHTH DROPS 5 ML EACHEYE SCH ×3 (06:08→22:05)
[2020-03-30 06:15] LABS: CALCIUM 8.9 mg/dL (8.5-10.3); CREATININE 0.8 mg/dL (0.4-1.0)
[2020-03-30] MEDS: IPRATROPIUM/ALBUTEROL 3 ML NEB INH SCH ×3 (07:14→22:50)
--- NOTE | 2020-03-30 08:43 | Discharge Plan ---
"Discharge Plan for SNF / [facility] - Discharge Plan And Transition Orders Problem Reviewed?: Yes Disposition: 03 SNF DC/Xfer Condition: Stable Allergies and Adverse Reactions: Allergies Allergy/AdvReac Type Severity Reaction Status Date / Time azithromycin Allergy Anaphylaxis Verified 03/25/20 10:07 diclofenac Allergy Hives Verified 03/25/20 10:07 hydrocodone [Hydrocodone] Allergy Rash Verified 03/25/20 10:07 penicillin G Allergy Hives Verified 03/25/20 10:07 Penicillins Allergy Rash Verified 03/25/20 10:07 rofecoxib [From Vioxx] Allergy Rash Verified 03/25/20 10:07 Sulfa (Sulfonamide Allergy Hives Verified 03/25/20 10:07 Antibiotics) Cephalosporins AdvReac Unknown Verified 03/25/20 10:07 codeine AdvReac Hives Verified 03/25/20 10:07 oxycodone AdvReac Unknown Verified 03/25/20 10:07 Health Concerns: She was admitted with obtundation, and her altered mental status was felt to be from dehydration and another UTI. The urine culture grew 2 types of Pseudomonas. She has completed IV antibiotic treatment while here. Mental status has returned to her baseline. Plan of Treatment: Resume all her usual chronic medications and management. She has completed working with physical therapy and is at her baseline. Care Goals: Improvement in symptoms was achieved, stabilization is the plan. Assessment: Written orders provided to the [facility]. 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 Notify PCP of admission and forward orders to primary provider for signature. Weight on admission and: Monthly Other Notification Orders: Call PCP immediately if patient develops dyspnea, chest pain/tightness or edema. House Bowel Program: Yes Additional Bowel Program Orders: If no BM after 2 days, nurse may give M.O.M. 30ml PO PRN and/or ducolax Supp 1 AR and/or CARLITO 250mg P.O., and/or senna 1-2 tabs PO. On day 3 nurse may give repeat above order until residents constipation is resolved. Annual Influenza Vaccine (between Jan 29 and August 28): Yes Two-step PPD per [facility] [id number] or approved exception documents: Yes Orthopedic Orders: Wrist splint for L wrist, prn Medication Orders: PLEASE REFER TO THE DISCHARGE MEDICATION LIST. Insulin Orders?: No - Medications New Prescriptions: predniSONE [Prednisone] 30 mg PO DAILYWM #90 tab - Diet Type: Geriatric (Diabetic diet. OK for pt to have cut up canned peaches or pears. but all other foods need to be smooth. Provide nectar thick milk and juice, but coffee and water thin ok) Texture: Puree Liquids: Thin May have monthly special meal: Yes - Therapies | Activity Rehabilitation Potential: Maintain present ADL Functional Activity: Activity as Tolerated Weight Bearing: Full Weight Follow Up: See PCP in 5-10 days for routine hospital follow-up visit."
[2020-03-30] MEDS: SACCHAROMYCES BOULARDII 250 MG CAPSULE PO SCH ×2 (08:53→17:35)
[2020-03-30] MEDS: CYANOCOBALAMIN 500 MCG TABLET PO SCH (08:54)
[2020-03-30] MEDS: SENNA 8.6 MG TABLET PO SCH (08:54)
[2020-03-30] MEDS: predniSONE 5 MG TABLET PO SCH (08:54)
[2020-03-30] MEDS: DOCUSATE SODIUM 250 MG CAPSULE PO SCH (08:54)
[2020-03-30] MEDS: CHOLECALCIFEROL 25 MCG TABLET PO SCH (08:54)
[2020-03-30] MEDS: PREGABALIN 100 MG CAPSULE PO SCH ×2 (08:54→22:04)
[2020-03-30] MEDS: guaiFENesin 600 MG TABLET PO SCH ×2 (08:54→22:04)
--- NOTE | 2020-03-30 09:01 | DISCHARGE SUMMARY ---
Discharge Summary Admit Date: 03/25/20 Discharge Date: 03/31/20 Discharging Provider: Dr Reina Vaughan Primary Care Provider: Dr Colby Swenson Code Status: Do Not Attempt Resuscitation Condition at Discharge: Stable Discharge Disposition: SNF DC/Xfer Discharge Facility Name: [facility] - DIAGNOSES Discharge Diagnoses with Status of Each Condition: 1) Altered mental status, resolved 2) Dehydration, improved 3) UTI, completed treatment 4) Rheumatoid arthritis, flare-up 5) Adrenal insufficiency, resolved 6) Hx of dysphagia, on a dysphagia-pureed diet 7) DM, diet controlled 8) Dementia, mild and without behavioral disturbance 9) Glaucoma, on eye drops 10) History of COPD, without exacerbation 11) Macular degeneration and legally blind 12) Chronic pain, managed with meds - HPI History of Present Illness: This is an 89-year-old white female with a history of living at [facility]; has a history of COPD/asthma, diabetes, GERD, glaucoma, macular degeneration with blindness, anxiety and depression, rheumatoid arthritis, chronic pain, mild dementia, prior UTIs that presented with altered mental status. The patient was found unresponsive at the [facility] facility and brought to the emergency room. She was found to be profoundly dehydrated with dry oral mucosa and her bedside IVC evaluation shows that she has volume depletion as well. She started to get IV fluids in the ER and has already started to become more responsive. She is still very sleepy however. She was never hypotensive or tachycardic. She was able to answer some questions. The daughter provided more information saying that the patient does not probably drink enough water because of her blindness, the patient is normally active, walks around outside at the facility daily and the daughter visits her there. Evaluation in the ER showed a very abnormal urinalysis consistent with a UTI and she is being admitted for IV antibiotics and IV fluids. CODE STATUS is DNR. - HOSPITAL COURSE Hospital Course: 1) Altered mental status Started to awaken and become more communicative with administration of IV fluids. She was back to her baseline in several days. She was able to participate with physical therapy and had improved to her baseline and was discharged from PT. 2) Dehydration She received aggressive IV crystalloid replacement. When awake, she was able to take her diet orally and remained well-hydrated. 3) UTI Since she had grown Pseudomonas in the past, therefore iv Meropenem was empirically started for this patient. On this admission, she grow 2 different strains of Pseudomonas, sensitive to Meropenam. She completed a 7-day course of IV Meropenem while here. 4) Rheumatoid arthritis On the planned day of discharge, she complained of left wrist pain radiating up to the left shoulder with any movement. She also noticed a tender nodule of the right thumb, which was a rheumatoid nodule. This was felt to be a rheumatoid flareup. Her Prednisone 10 mg daily dose was increased to 30 mg daily at the time of discharge. She will require a very slow taper of Prednisone over the next several weeks or months. A new wrist splint was ordered to use as needed at the [facility]. 5) Adrenal insufficiency On the planned day of discharge, she was more weak and had a blood pressure of 70-90 systolic. It was deemed to be from adrenal insufficiency, since her Prednisone 10 mg daily dose had been continued, and she had not received "stress dose steroids" while here, during the UTI. Her discharge was canceled. She received saline iv hydration and Hydrocortisone 100 mg IV for several doses, and blood pressure improved by the next day. Since her Prednisone oral dose needed to be increased for her rheumatoid arthritis flareup, it will also continue to provide her with adequate glucocorticoid/mineralocorticoid activity now. 6) Hx of dysphagia She was kept on a dysphagia pured diet while here. 7) DM, diet controlled Fingerstick checks were not performed, she was on a carb controlled diet while here. Since the Prednisone dose is now higher, she could benefit from occasio nal fingerstick glucose checks to assure she is not hyperglycemic. 8) Dementia without behavioral disturbance Stable. 9) Glaucoma Shee was kept on her same eyedrops while here. 10) History of COPD There was no exacerbation during this admission. 11) Macular degeneration and legally blind As per history. 12) Chronic pain, managed with meds As per history. - ALLERGIES Allergies/Adverse Reactions: Allergies Allergy/AdvReac Type Severity Reaction Status Date / Time azithromycin Allergy Anaphylaxis Verified 03/25/20 10:07 diclofenac Allergy Hives Verified 03/25/20 10:07 hydrocodone [Hydrocodone] Allergy Rash Verified 03/25/20 10:07 penicillin G Allergy Hives Verified 03/25/20 10:07 Penicillins Allergy Rash Verified 03/25/20 10:07 rofecoxib [From Vioxx] Allergy Rash Verified 03/25/20 10:07 Sulfa (Sulfonamide Allergy Hives Verified 03/25/20 10:07 Antibiotics) Cephalosporins AdvReac Unknown Verified 03/25/20 10:07 codeine AdvReac Hives Verified 03/25/20 10:07 oxycodone AdvReac Unknown Verified 03/25/20 10:07 - MEDICATIONS Home Medications: Ambulatory Orders Medication Instructions Recorded Confirmed Albuterol Sulfate [Proair Hfa 2 puffs INH Q4HR PRN 02/17/14 03/25/20 Inhaler] Travoprost [Travatan Z] 1 drop EACHEYE QPM 02/17/14 03/25/20 traMADol [Ultram] 50 mg PO BID PRN 02/17/14 03/25/20 Acetaminophen [Tylenol] 650 mg PO Q6HR PRN 06/30/19 03/25/20 Brimonidine 0.2% Ophth Drops 1 drops EACHEYE TID 06/30/19 03/25/20 [Alphagan P 0.2% Ophth Drops] Potassium Chloride 20 meq PO DAILYWM 06/30/19 03/25/20 Vit A/Vit C/Vit E/Zinc/Copper 1 each PO DAILY 06/30/19 03/25/20 [Preservision Areds Softgel] polyethylene glycoL 3350 [Miralax] 17 gm PO DAILY PRN 06/30/19 03/25/20 Calcium Carbonate 500 mg PO TID 10/04/19 03/25/20 Dorzolamide HCl/Pf [Dorzolamide 2% 1 drops EACHEYE TID 03/09/20 03/25/20 Eye Drop] Ipratropium/Albuterol Sulfate 3 ml INH TID 03/09/20 03/25/20 [Iprat-Albut 0.5-3(2.5) mg/3 ml] Tiotropium [place] [Spiriva] 18 mcg INH DAILY 03/09/20 03/25/20 Cyanocobalamin (Vitamin B-12) 500 mcg PO DAILY 03/10/20 03/25/20 [Vitamin B-12] Guaifenesin/Dextromethorphan 10 ml PO BID 03/10/20 03/25/20 [Siltussin Dm [place] 100-10Mg/5 ml] Lidocaine [Aspercreme Lidocaine] 1 patch TOP DAILY PRN 03/10/20 03/25/20 Pregabalin [Lyrica] 50 mg PO .1400 03/10/20 03/25/20 Pregabalin [Lyrica] 100 mg PO BID 03/10/20 03/25/20 predniSONE [Prednisone] 30 mg PO DAILYWM #90 tab 03/31/20 - PHYSICAL EXAM AT DISCHARGE General Appearance: positive: No acute distress, Alert Eyes Bilateral: positive: Normal inspection, EOMI ENT: positive: ENT inspection nml, No signs of dehydration Neck: positive: Nml inspection, No JVD Respiratory: positive: No respiratory distress, Breath sounds nml Cardiovascular: positive: Regular rate & rhythm, No murmur Abdomen: positive: Non-tender, No distention Skin: positive: Warm, Dry Extremities: positive: No pedal edema, Other (Tenderness to touch or movement of the left wrist with no redness or swelling. Multiple phalanges have rheumatoid nodules present, the one on the right thumb is tender) Neurologic/Psychiatric: positive: Oriented x3 (Non-focal motor exam. Legally blind. [place] [place].) - LABS Result Diagrams: 03/31/20 04:05 03/31/20 04:05 - DIAGNOSTIC IMAGING Diagnostic Imaging Results: Final report reviewed - SEPSIS Current Stage of Sepsis: Ruled out - FOLLOW UP Follow Up: See PCP in 5 to 10 days for hospital follow-up. - TIME SPENT Time Spent in Discharge (Minutes): 60
[2020-03-30] MEDS: MEROPENEM 1 GM in SODIUM CHLORIDE 0.9% MINIBAG 100 ML IV SCH ×2 (09:08→22:04)
[2020-03-30] MEDS: NYSTATIN POWDER 15 GM TOP SCH ×2 (09:09→22:04)
[2020-03-30] MEDS ORDERED: SODIUM CHLORIDE 0.9% 500 ML IV ONE (09:29)
[2020-03-30] MEDS ORDERED: HYDROCORTISONE SUCCINATE 100 MG/2 ML VIAL IVP ONE (10:31)
--- NOTE | 2020-03-30 10:36 | PROVIDER PROGRESS NOTE ---
Assessment/Plan - Problem List (1) Adrenal crisis Assessment/Plan: This patient was rescusitated with saline since admission, and her BP improved, but her daily po Prednisone was continued and she did not receive any "stress dose" steroids. I suspect that is why she is hypotensive today. She is symptomatic with these low BPs, and is not ready to [facility] today. Will give Hydrocortisone iv one day. (2) Rheumatoid arthritis flare Assessment/Plan: As above, her prednisone dose was not increased and today she is having a rheumatoid flare. We will check an ESR. Will change to higher dose of oral prednisone starting tomorrow. (3) Diabetes mellitus Qualifiers: Diabetes mellitus type: type 2 Assessment/Plan: Diabetic diet that is dysphagia pured continues while here and sliding scale insulin coverage (4) Dementia Assessment/Plan: She has really very mild dementia, has a good memory, participates in a conversation, when she feels good she walks daily at the [facility]. (5) History of COPD Assessment/Plan: No COPD exacerbation this admission but it probably explains her abnormal chest x-ray at admission (6) Chronic pain Assessment/Plan: We added lidocaine patch for this and she is on her other pain meds. Will adjust the prednisone for the other new pain in left wristband arm and right thumb (as described in #2). (7) Glaucoma Assessment/Plan: In her home eyedrops for this. (8) Macular degeneration Assessment/Plan: This has left her with legal blindness. I witnessed her eating her dinner and she brings her tray about 2 inches from her nose and is able to see them and manipulate. (9) Dehydration Assessment/Plan: Resolved (10) Altered mental status Qualifiers: Altered mental status type: stupor Qualified Code(s): R40.1 - Stupor Assessment/Plan: Resolved (11) Pseudomonas urinary tract infection Assessment/Plan: Meropenem was needed for 2 different species of Pseudomonas. She has completed her course of treatment. - Current Meds Current Meds: Current Medications Generic Name Dose Route Start Last Admin Trade Name Freq PRN Reason Stop Dose Admin Albuterol/Ipratropium 3 ml 03/25/20 22:00 03/30/20 07:14 Duoneb INH 3 ml RTTID RAMSES Administration Brimonidine Tartrate 1 drops 03/25/20 22:00 03/30/20 06:08 Alphagan P 0.2% Ophth Drops EACHEYE 1 drops TID RAMSES Administration Calcium Carbonate/Glycine 500 mg 03/25/20 22:00 03/30/20 06:08 Oysco-500 PO 500 mg TID RAMSES Administration Cholecalciferol 50 mcg 03/29/20 09:00 03/30/20 08:54 Vitamin D3 PO 50 mcg DAILY RAMSES Administration Cyanocobalamin 500 mcg 03/26/20 09:00 03/30/20 08:54 Vitamin B-12 PO 500 mcg DAILY RAMSES Administration Docusate Sodium 250 - 500 mg 03/28/20 09:00 03/30/20 08:54 Colace 250mg Capsule PO Not Given DAILY [facility] Dorzolamide HCl 1 drops 03/25/20 22:00 03/30/20 06:08 Trusopt 2% Ophth Drops EACHEYE 1 drops TID RAMSES Administration Guaifenesin 600 mg 03/26/20 12:00 03/30/20 08:54 Mucinex PO 600 mg BID [facility] Administration Sodium Chloride 250 mls @ 0 mls/hr 03/26/20 17:47 03/28/20 15:41 Normal Saline 0.9% IV Infused Q24H PRN Infusion TKO RATE TKO Meropenem 1 gm/ Sodium 100 mls @ 100 mls/hr 03/28/20 09:15 03/30/20 10:08 Chloride IV Infused Q12H [facility] Infusion Ipratropium [place] 0.5 mg 03/25/20 20:00 03/25/20 22:04 Atrovent INH Not Given RTQ6H [facility] Latanoprost 1 drops 03/26/20 21:00 03/29/20 20:49 Xalatan Ophth Drops EACHEYE 1 drops QPM RAMSES Administration Lidocaine 1 patch 03/26/20 09:35 03/29/20 16:17 Lidoderm Patch TOP 1 patch DAILY PRN Administration PAIN Nystatin 1 applic 03/25/20 21:00 03/30/20 09:09 Nystop TOP 1 applic BID [facility] Administration Pantoprazole Sodium 40 mg 03/26/20 07:00 03/30/20 06:08 Protonix IVP 40 mg QDAC RAMSES Administration Polyethylene Glycol 17 gm 03/25/20 19:13 03/28/20 09:12 Miralax PO 17 gm DAILY PRN Administration Constipation Prednisone 10 mg 03/26/20 08:00 03/30/20 08:54 Deltasone PO 10 mg DAILYWM RAMSES Administration Pregabalin 50 mg 03/26/20 14:00 03/29/20 14:32 Lyrica PO 50 mg 1400 RAMSES Administration Pregabalin 100 mg 03/25/20 21:00 03/30/20 08:54 Lyrica PO 100 mg BID RAMSES Administration Saccharomyces Boulardii 250 mg 03/26/20 17:00 03/30/20 08:53 Florastor PO 250 mg BIDWM RAMSES Administration Senna 8.6 - 17.2 mg 03/28/20 09:00 03/30/20 08:54 Senokot PO Not Given DAILY RAMSES Sodium Chloride 10 ml 03/25/20 14:39 03/29/20 06:25 Normal Saline Flush 0.9% IVP 10 ml PRN PRN Administration NEEDED PER PROVIDER ORDERS Sodium Chloride 10 ml 03/25/20 17:00 03/30/20 09:01 Normal Saline Flush 0.9% IVP 10 ml 0100,0900,1700 RAMSES Administration Tramadol HCl 50 mg 03/26/20 21:01 03/30/20 09:04 Ultram PO 50 mg Q4HR PRN Administration PAIN - Lab Result Fish Bone Diagrams: 03/30/20 04:30 03/30/20 05:00 - Additional Planning My Orders: My Active Orders 03/30/20 10:31 Hydrocortisone Succinate [Solu-CORTEF] 100 mg IVP ONCE ONE 03/30/20 16:00 Hydrocortisone Succinate [Solu-CORTEF] 50 mg IVP Q6H Subjective - Subjective Patient Reports: Other (L arm pain with movement and also has a new, painful "lump" on R thumb.) Objective Vital Signs: Vital Signs - 24 hr 03/29/20 03/29/20 03/29/20 15:00 16:00 22:30 Temperature 36.6 C 36.8 C Heart Rate 70 Heart Rate [ 70 Brachial] Respiratory 16 18 19 Rate Blood Pressure 103/67 [Left Brachial artery] Blood Pressure [Right Ankle] O2 Saturation 97 96 03/30/20 03/30/20 03/30/20 00:00 03:36 04:47 Temperature 36.7 C 36.8 C 37.1 C Heart Rate 63 Heart Rate [ 63 66 Brachial] Respiratory 14 19 Rate Blood Pressure 90/39 L [Left Brachial artery] Blood Pressure 121/45 L [Right Ankle] O2 Saturation 89 L 93 93 03/30/20 03/30/20 03/30/20 07:14 08:20 08:25 Temperature 36.7 C Heart Rate 74 Heart Rate [ 81 82 Brachial] Respiratory 16 17 Rate Blood Pressure 89/54 L 78/48 L [Left Brachial artery] Blood Pressure [Right Ankle] O2 Saturation 96 03/30/20 08:35 Temperature Heart Rate Heart Rate [ Brachial] Respiratory Rate Blood Pressure 96/47 L [Left Brachial artery] Blood Pressure [Right Ankle] O2 Saturation Oxygen O2 Source Room air I&O (Last 24 Hrs): Intake and Output Totals x24h 03/28/20 03/29/20 03/30/20 23:59 23:59 23:59 Intake Total 2551 1700 640 Output Total 1600 1800 Balance 951 -100 640 General: Alert, Oriented x3 HEENT: Mucous membr. moist/pink, Other (Blind and [place]) Neuro: Alert Cardiovascular: Regular rate, No murmurs Respiratory: No respiratory distress, Breath sounds nml Abdomen: Normal bowel sounds, Soft Extremities: No edema, Other (The left arm is painful to move and to touch mostly at the wrist and then this pain shoots up the entire arm anteriorly to her shoulder. The right thumb, distal phalanx has a rheumatoid nodule that is painful.) - Results Results: Laboratory Results WBC 6.6 x10^3/uL (4.8-10.8) 03/30/20 04:30 RBC 4.06 10^6/uL (4.20-5.40) L 03/30/20 04:30 Hgb 12.2 g/dL (12.0-16.0) 03/30/20 04:30 Hct 38.1 % (37.0-47.0) 03/30/20 04:30 MCV 93.8 fL (81.0-99.0) 03/30/20 04:30 MCH 30.0 pg (27.0-31.0) 03/30/20 04:30 MCHC 32.0 g/dL (32.0-36.0) 03/30/20 04:30 RDW 14.7 % (12.0-15.0) 03/30/20 04:30 Plt Count 217 10^3/uL (130-450) 03/30/20 04:30 MPV 9.5 fL (7.9-10.8) 03/30/20 04:30 Neut # (Auto) 2.8 10^3/uL (1.5-6.6) 03/30/20 04:30 Lymph # (Auto) 2.8 10^3/uL (1.5-3.5) 03/30/20 04:30 Slope # (Auto) 0.7 10^3/uL (0.0-1.0) 03/30/20 04:30 Eos # (Auto) 0.2 10^3/uL (0.0-0.7) 03/30/20 04:30 Baso # (Auto) 0.1 10^3/uL (0.0-0.1) 03/30/20 04:30 Absolute Nucleated RBC 0.00 x10^3/uL 03/30/20 04:30 Nucleated RBC % 0.0 /100WBC 03/30/20 04:30 PT 12.4 secs (9.9-12.6) 03/25/20 10:28 INR 1.1 (0.8-1.2) 03/25/20 10:28 Sodium 140 mmol/L (135-145) 03/30/20 05:00 Potassium 3.8 mmol/L (3.5-5.0) 03/30/20 05:00 Chloride 103 mmol/L (101-111) 03/30/20 05:00 Carbon Dioxide 28 mmol/L (21-32) 03/30/20 05:00 Anion Gap 9.0 (6-13) 03/30/20 05:00 BUN 14 mg/dL (6-20) 03/30/20 05:00 Creatinine 0.8 mg/dL (0.4-1.0) 03/30/20 05:00 Estimated GFR (MDRD) 68 (>89) L 03/30/20 05:00 Glucose 93 mg/dL (70-100) 03/30/20 05:00 Estimat Average Glucose 111 mg/dL (70-100) H 03/26/20 05:25 Hemoglobin A1c % 5.5 % (4.27-6.07) 03/26/20 05:25 Lactic Acid 1.4 mmol/L (0.5-2.2) 03/25/20 10:28 Calcium 8.9 mg/dL (8.5-10.3) 03/30/20 05:00 Magnesium 1.9 mg/dL (1.7-2.8) 03/26/20 05:25 Total Bilirubin 1.3 mg/dL (0.2-1.0) H 03/25/20 11:35 AST 16 IU/L (10-42) 03/25/20 11:35 ALT 14 IU/L (10-60) 03/25/20 11:35 Alkaline Phosphatase 62 IU/L (42-121) 03/25/20 11:35 B-Natriuretic Peptide 67 pg/mL (5-100) 03/25/20 10:28 Total Protein 5.9 g/dL (6.7-8.2) L 03/25/20 11:35 Albumin 3.7 g/dL (3.2-5.5) 03/25/20 11:35 Globulin 2.2 g/dL (2.1-4.2) 03/25/20 11:35 Albumin/Globulin Ratio 1.7 (1.0-2.2) 03/25/20 11:35 Lipase 21 U/L (22-51) L 03/25/20 11:35 Urine Color YELLOW 03/25/20 10:55 Urine Clarity HAZY (CLEAR) 03/25/20 10:55 Urine pH 7.0 PH (5.0-7.5) 03/25/20 10:55 Ur Specific [place] 1.020 (1.002-1.030) 03/25/20 10:55 Urine Protein NEGATIVE mg/dL (NEGATIVE) 03/25/20 10:55 Urine Glucose (UA) NEGATIVE mg/dL (NEGATIVE) 03/25/20 10:55 Urine Ketones NEGATIVE mg/dL (NEGATIVE) 03/25/20 10:55 Urine Occult Blood TRACE-INTA (NEGATIVE) 03/25/20 10:55 Urine Nitrite POSITIVE (NEGATIVE) H 03/25/20 10:55 Urine Bilirubin NEGATIVE (NEGATIVE) 03/25/20 10:55 Urine Urobilinogen 0.2 (NORMAL) E.U./dL (NORMAL) 03/25/20 10:55 Ur Leukocyte Esterase SMALL (NEGATIVE) H 03/25/20 10:55 Urine RBC 0-5 /HPF (0-5) 03/25/20 10:55 Urine WBC >25 /HPF (0-5) H 03/25/20 10:55 Ur Squamous Epith Cells NONE SEEN (<= Few) 03/25/20 10:55 Urine Bacteria Rare /HPF (None Seen) 03/25/20 10:55 Ur Microscopic Review INDICATED 03/25/20 10:55 Urine Culture Comments INDICATED 03/25/20 10:55 Coronavirus (PCR) NEGATIVE 03/26/20 11:45 SARS-CoV-2 (PCR) NOT DETECTED 03/28/20 16:42 - Procedures Procedures: Procedures INSERTION OF INFUSION DEV INTO SUP VENA CAVA, PERC APPROACH (10/03/19) Sepsis Event Note (H) - Evaluation Current Stage of Sepsis: Ruled out
[2020-03-30] MEDS: PREGABALIN 25 MG CAPSULE PO SCH (13:52)
[2020-03-30] MEDS: HYDROCORTISONE SUCCINATE 100 MG/2 ML VIAL IVP SCH ×2 (17:00→22:50)
[2020-03-30] MEDS: LIDOCAINE PATCH 5% TOP PRN (17:35)
[2020-03-30] MEDS: SODIUM CHLORIDE FLUSH 0.9% 10 ML SYRINGE IVP PRN (22:04)
[2020-03-30] MEDS: LATANOPROST 0.005% OPHTH DROPS EACHEYE SCH (22:05)
[2020-03-31] MEDS: SODIUM CHLORIDE FLUSH 0.9% 10 ML SYRINGE IVP SCH ×2 (01:30→08:08)
[2020-03-31] MEDS: HYDROCORTISONE SUCCINATE 100 MG/2 ML VIAL IVP SCH (04:00)
[2020-03-31 04:18] LABS: BASOPHILS % (AUTO) 0.3 %; HGB - HEMOGLOBIN 12.6 g/dL (12.0-16.0); LYMPHOCYTES # (AUTO) 2.1 10^3/uL (1.5-3.5); LYMPHOCYTES % (AUTO) 28.7 %; MEAN CORPUSCULAR HEMOGLOBIN 30.4 pg (27.0-31.0); MEAN CORPUSCULAR HGB CONC 32.6 g/dL (32.0-36.0); MEAN CORPUSCULAR VOLUME 93.2 fL (81.0-99.0); MEAN PLATELET VOLUME 9.8 fL (7.9-10.8); MONOCYTES # (AUTO) 0.4 10^3/uL (0.0-1.0); MONOCYTES % (AUTO) 5.1 %; NEUTROPHILS # (AUTO) 4.9 10^3/uL (1.5-6.6); NEUTROPHILS % (AUTO) 65.5 %; PLT - PLATELET COUNT 235 10^3/uL (130-450); RED BLOOD COUNT 4.14 10^6/uL (4.20-5.40); RED CELL DISTRIBUTION WIDTH 14.3 % (12.0-15.0); WHITE BLOOD COUNT 7.4 x10^3/uL (4.8-10.8)
[2020-03-31 04:26] LABS: CALCIUM 8.9 mg/dL (8.5-10.3); CREATININE 0.7 mg/dL (0.4-1.0)
[2020-03-31] MEDS: PANTOPRAZOLE 40 MG VIAL IVP SCH (06:44)
[2020-03-31] MEDS: CALCIUM CARB (OYSTER SHELL) 500 MG TABLET PO SCH (06:44)
[2020-03-31] MEDS: BRIMONIDINE 0.2% OPHTH DROPS 5 ML EACHEYE SCH ×2 (06:44→13:43)
[2020-03-31] MEDS: DORZOLAMIDE 2% OPHTH DROPS EACHEYE SCH ×2 (06:44→13:43)
[2020-03-31] MEDS: IPRATROPIUM/ALBUTEROL 3 ML NEB INH SCH (07:19)
[2020-03-31] MEDS ORDERED: predniSONE 20 MG TABLET PO SCH (08:00)
[2020-03-31] MEDS: traMADol 50 MG TABLET PO PRN ×2 (08:06→13:25)
[2020-03-31] MEDS: guaiFENesin 600 MG TABLET PO SCH (08:06)
[2020-03-31] MEDS: CHOLECALCIFEROL 25 MCG TABLET PO SCH (08:07)
[2020-03-31] MEDS: CYANOCOBALAMIN 500 MCG TABLET PO SCH (08:07)
[2020-03-31] MEDS: SACCHAROMYCES BOULARDII 250 MG CAPSULE PO SCH (08:07)
[2020-03-31] MEDS: PREGABALIN 100 MG CAPSULE PO SCH (08:08)
[2020-03-31] MEDS: SENNA 8.6 MG TABLET PO SCH (08:09)
[2020-03-31] MEDS: DOCUSATE SODIUM 250 MG CAPSULE PO SCH (08:09)
[2020-03-31 08:14] VITALS: BP 126/58
[2020-03-31] MEDS: NYSTATIN POWDER 15 GM TOP SCH (10:58)
[2020-03-31] MEDS ORDERED: FAMOTIDINE 20 MG TABLET PO SCH (21:00)
== END 2020-03-31 13:50 | DRG 690 ==
LOC: EDUNIT# → ED 09:37 → MS2 14:27
PROVIDERS: ADMIT Internal Medicine; ATTEND Internal Medicine
PROC: 02HV33Z Insertion of Infusion Device into Superior Vena Cava, Percutaneous Approach (ICD-10-PCS; principal; 2020-03-28)
DX: N39.0 Urinary tract infection, site not specified (principal); E27.2 Addisonian crisis; R40.1 Stupor; N30.00 Acute cystitis without hematuria; E86.0 Dehydration; G89.29 Other chronic pain; E11.9 Type 2 diabetes mellitus without complications; M06.9 Rheumatoid arthritis, unspecified; F03.90 Unspecified dementia, unspecified severity, without behavioral disturbance, psychotic disturbance, mood disturbance, and anxiety; J44.9 Chronic obstructive pulmonary disease, unspecified; E78.5 Hyperlipidemia, unspecified; E11.42 Type 2 diabetes mellitus with diabetic polyneuropathy; K21.9 Gastro-esophageal reflux disease without esophagitis; F41.9 Anxiety disorder, unspecified; R13.10 Dysphagia, unspecified; H54.8 Legal blindness, as defined in USA; F32.9 Major depressive disorder, single episode, unspecified; I25.10 Atherosclerotic heart disease of native coronary artery without angina pectoris; E78.00 Pure hypercholesterolemia, unspecified; B96.5 Pseudomonas (aeruginosa) (mallei) (pseudomallei) as the cause of diseases classified elsewhere; R05 Cough; H40.9 Unspecified glaucoma; H35.30 Unspecified macular degeneration; Z87.898 Personal history of other specified conditions; H91.90 Unspecified hearing loss, unspecified ear; Z20.828 Contact with and (suspected) exposure to other viral communicable diseases; Z87.440 Personal history of urinary (tract) infections; Z86.73 Personal history of transient ischemic attack (TIA), and cerebral infarction without residual deficits; Z79.51 Long term (current) use of inhaled steroids; Z79.52 Long term (current) use of systemic steroids; Z79.899 Other long term (current) drug therapy; Z66 Do not resuscitate
CPT/HCPCS: 36415; 51701; 70450; 71045; 80048; 80053; 81001; 83036; 83605; 83690; 83735; 83880; 85025; 85610; 85651; 87077; 87086; 87181; 93005; 94640; 96374; 97116; 97161; 97164; 97165; 99284; 99285; A9270; C1751; J2185; J7512; U0004; 81003

== ENCOUNTER 2020-07-15 13:37 | Outpatient (CLI) | payer MEDICARE, OTHER ==
--- NOTE | 2020-07-15 14:30 | XRAY Report ---
PROCEDURE: Knee 3 View LT INDICATIONS: PAIN IN LEFT KNEE TECHNIQUE: 3 views of the left knee(s) were acquired. COMPARISON: None. FINDINGS: Bones: No fractures or dislocations. No suspicious bony lesions. Soft tissues: No joint effusion. There is chondrocalcinosis involving the lateral compartment, and t race chondrocalcinosis in the medial compartment. Moderate vascular calcification. No suspicious sof t tissue calcifications. Demineralization. IMPRESSION: 1. No visible fracture. 2. Chondrocalcinosis raises the possibility of CPPD/pseudogout. 3. Vascular calcification. Reviewed by: Connie Boothe MD on 07/15/2020 1:29 PM [place] Approved by: Connie Boothe MD on 07/15/2020 1:29 PM [place] Station ID: [id number]
== END 2020-07-15 13:38 | disposition home or self-care (01) ==
LOC: DI.S 13:37
PROVIDERS: ATTEND Nurse Practitioner Family
DX: M25.562 Pain in left knee (principal); M11.262 Other chondrocalcinosis, left knee; M25.862 Other specified joint disorders, left knee

== ENCOUNTER 2020-07-16 11:34 | Outpatient (CLI) | payer MEDICARE, OTHER | END 2020-07-16 11:35 | disposition critical access hospital (66) | LOC: EMS 11:34 | DX: R41.82 Altered mental status, unspecified (principal) | CPT/HCPCS: A0425; A0429 ==

== ENCOUNTER 2020-07-16 12:02 | Inpatient (IN) | payer MEDICARE, OTHER ==
[2020-07-16] MEDS ORDERED: SODIUM CHLORIDE 0.9% 1,000 ML IV STA ×2 (12:17)
--- NOTE | 2020-07-16 12:19 | ED Physician Documentation ---
History of Present Illness - Stated complaint Stated Complaint: AMS - Chief complaint Chief Complaint: Neuro - History obtained from History obtained from: Patient, Family, EMS - History of Present Illness Timing: Today Pain level max: 0 Pain level now: 0 - Additonal information Additional information: 89-year-old female with altered mental status today. She has a POLST form that is DNR. Patient lives at [facility]. Per the facility, she was last seen normal around 9 AM. Around 11:30 AM, they found her to be unresponsive. Did not have any loss of pulses. Has had similar episodes in the past with UTIs and dehydration. No fever. No Covid symptoms. No cough. No congestion. Nothing makes it better or worse. No new changes to her medications. Blood sugar was around 100 with EMS. 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 Acidophilus/Pectin, Converse 2 cap PO DAILY 07/16/20 07/16/20 [Acidophilus Capsule] Midodrine HCl 1 tab PO DAILY 07/16/20 07/16/20 Mupirocin 1 applic TOP TID 07/16/20 07/16/20 Peg 400/Hypromellose/Glycerin 1 drops EACHEYE QID 07/16/20 07/16/20 [Visine Tears Drops] Pregabalin [Lyrica] 2.5 ml PO DAILY 07/16/20 07/16/20 Pregabalin [Lyrica] 5 ml PO BID 07/16/20 07/16/20 Tiotropium [place] [Spiriva] 1 cap INH DAILY 07/16/20 07/16/20 Travoprost [Travatan Z] 1 drops EACHEYE DAILY 07/16/20 07/16/20 Vit A/Vit C/Vit E/Zinc/Copper 1 tab PO DAILY 07/16/20 07/16/20 [Preservision Areds Softgel] guaiFENesin [Chest Congestion 5 ml PO BID 07/16/20 07/16/20 Relief] predniSONE [Deltasone] 30 mg PO DAILY 07/16/20 07/16/20 traMADol [Ultram] 1 tab PO TID 07/16/20 07/16/20 - Allergies Allergies/Adverse Reactions: Allergies Allergy/AdvReac Type Severity Reaction Status Date / Time azithromycin Allergy Anaphylaxis Verified 07/16/20 12:22 diclofenac Allergy Hives Verified 07/16/20 12:22 hydrocodone [Hydrocodone] Allergy Rash Verified 07/16/20 12:22 penicillin G Allergy Hives Verified 07/16/20 12:22 Penicillins Allergy Rash Verified 07/16/20 12:22 rofecoxib [From Vioxx] Allergy Rash Verified 07/16/20 12:22 Sulfa (Sulfonamide Allergy Hives Verified 07/16/20 12:22 Antibiotics) Cephalosporins AdvReac Unknown Verified 07/16/20 12:22 codeine AdvReac Hives Verified 07/16/20 12:22 oxycodone AdvReac Unknown Verified 07/16/20 12:22 - Social History Does the pt smoke?: No Smoking Status: Never smoker Does the pt drink ETOH?: No Does the pt have substance abuse?: No - Immunizations Immunizations are current?: Yes - POLST Patient has POLST: Yes POLST Status: DNR PD ED PE NORMAL - Vitals Vital signs reviewed: Yes - General General: No acute distress, Well developed/nourished - HEENT HEENT: Atraumatic, Pharynx benign, Other (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 No: Moist mucous membranes (dry lips) - Neck Neck: Supple, no meningeal sign - Cardiac Cardiac: RRR, Strong equal pulses - Respiratory Respiratory: No respiratory distress, Clear bilaterally - Abdomen Abdomen: Soft, Other (TTP R upper and lower abdomen. no peritoneal signs.) - Derm Derm: Warm and dry - Extremities Extremities: No calf tenderness / cord - Neuro Neuro: Other (drowsy, responds to pain) Eye Opening: To Voice Motor: Withdraws to Pain Verbal: Inappropriate GCS Score: 10 Results - Vitals Vitals: Vital Signs - 24 hr 07/16/20 07/16/20 07/16/20 12:10 12:50 13:17 Temperature 36.3 C L Heart Rate 55 L 59 L 56 L Respiratory 14 14 18 Rate Blood Pressure 173/65 H 149/66 H 155/61 H O2 Saturation 99 100 100 07/16/20 07/16/20 07/16/20 13:56 15:30 16:14 Temperature 36.7 C Heart Rate 57 L 58 L 61 Respiratory 15 18 18 Rate Blood Pressure 157/66 H 168/81 H 164/70 H O2 Saturation 100 100 100 Oxygen O2 Source Room air - EKG (time done) 1211 Rate: Rate (enter#) (57) Rhythm: NSR [place]: Normal (borderline LAD) Intervals: Normal SD QRS: Normal Ischemia: Normal ST segments - Labs Labs: Laboratory Tests 07/16/20 07/16/20 07/16/20 12:44 12:44 12:44 WBC 16.6 H RBC 4.57 Hgb 14.1 Hct 42.9 MCV 93.9 MCH 30.9 MCHC 32.9 RDW 14.7 Plt Count 236 MPV 9.3 Neut # (Auto) 11.6 H Lymph # (Auto) 3.8 H [place] # (Auto) 1.0 Eos # (Auto) 0.1 Baso # (Auto) 0.1 Absolute Nucleated RBC 0.00 Nucleated RBC % 0.0 PT 11.8 INR 1.1 APTT 27.2 Sodium 137 Potassium 3.1 L Chloride 100 L Carbon Dioxide 23 Anion Gap 14.0 H BUN 10 Creatinine 0.8 Estimated GFR (MDRD) 68 L Glucose 98 Lactic Acid Calcium 8.7 Total Bilirubin 1.1 H AST 22 ALT 27 Alkaline Phosphatase 47 Troponin I High Sens Total Protein 5.6 L Albumin 3.5 Globulin 2.1 Albumin/Globulin Ratio 1.7 Lipase 25 Urine Color Urine Clarity Urine pH Ur Specific [place] Urine Protein Urine Glucose (UA) Urine Ketones Urine Occult Blood Urine Nitrite Urine Bilirubin Urine Urobilinogen Ur Leukocyte Esterase Urine RBC Urine WBC Urine WBC Clumps Ur Epithelial Cells Ur Squamous Epith Cells Urine Bacteria Ur Microscopic Review Urine Culture Comments Nasal Adenovirus (PCR) Nasal B. parapertussis DNA (PCR) Nasal Coronavir 229E PCR Nasal Coronavir HKU1 PCR Nasal Coronavir NL63 PCR Nasal Coronavir OC43 PCR Nasal Enterovir/Rhinovir PCR Nasal Influenza B PCR Nasal Influenza A PCR Nasal Parainfluen 1 PCR Nasal Parainfluen 2 PCR Nasal Parainfluen 3 PCR Nasal Parainfluen 4 PCR Nasal RSV (PCR) Nasal B.pertussis DNA PCR Nasal C.pneumoniae (PCR) Connor Human Metapneumo PCR Nasal M.pneumoniae (PCR) Nasal SARS-CoV-2 (PCR) 07/16/20 07/16/20 07/16/20 12:44 12:44 13:19 WBC RBC Hgb Hct MCV MCH MCHC RDW Plt Count MPV Neut # (Auto) Lymph # (Auto) [place] # (Auto) Eos # (Auto) Baso # (Auto) Absolute Nucleated RBC Nucleated RBC % PT INR APTT Sodium Potassium Chloride Carbon Dioxide Anion Gap BUN Creatinine Estimated GFR (MDRD) Glucose Lactic Acid 1.2 Calcium Total Bilirubin AST ALT Alkaline Phosphatase Troponin I High Sens 5.6 Total Protein Albumin Globulin Albumin/Globulin Ratio Lipase Urine Color DARK YELLOW Urine Clarity HAZY Urine pH 6.0 Ur Specific [place] 1.020 Urine Protein TRACE Urine Glucose (UA) NEGATIVE Urine Ketones NEGATIVE Urine Occult Blood MODERATE H Urine Nitrite POSITIVE H Urine Bilirubin NEGATIVE Urine Urobilinogen 0.2 (NORMAL) Ur Leukocyte Esterase MODERATE H Urine RBC TNTC H Urine WBC >25 H Urine WBC Clumps PRESENT Ur Epithelial Cells FEW Renal Tubular Ur Squamous Epith Cells NONE SEEN Urine Bacteria Moderate H Ur Microscopic Review INDICATED Urine Culture Comments INDICATED Nasal Adenovirus (PCR) Nasal B. parapertussis DNA (PCR) Nasal Coronavir 229E PCR Nasal Coronavir HKU1 PCR Nasal Coronavir NL63 PCR Nasal Coronavir OC43 PCR Nasal Enterovir/Rhinovir PCR Nasal Influenza B PCR Nasal Influenza A PCR Nasal Parainfluen 1 PCR Nasal Parainfluen 2 PCR Nasal Parainfluen 3 PCR Nasal Parainfluen 4 PCR Nasal RSV (PCR) Nasal B.pertussis DNA PCR Nasal C.pneumoniae (PCR) Connor Human Metapneumo PCR Nasal M.pneumoniae (PCR) Nasal SARS-CoV-2 (PCR) 07/16/20 15:30 WBC RBC Hgb Hct MCV MCH MCHC RDW Plt Count MPV Neut # (Auto) Lymph # (Auto) [place] # (Auto) Eos # (Auto) Baso # (Auto) Absolute Nucleated RBC Nucleated RBC % PT INR APTT Sodium Potassium Chloride Carbon Dioxide Anion Gap BUN Creatinine Estimated GFR (MDRD) Glucose Lactic Acid Calcium Total Bilirubin AST ALT Alkaline Phosphatase Troponin I High Sens Total Protein Albumin Globulin Albumin/Globulin Ratio Lipase Urine Color Urine Clarity Urine pH Ur Specific [place] Urine Protein Urine Glucose (UA) Urine Ketones Urine Occult Blood Urine Nitrite Urine Bilirubin Urine Urobilinogen Ur Leukocyte Esterase Urine RBC Urine WBC Urine WBC Clumps Ur Epithelial Cells Ur Squamous Epith Cells Urine Bacteria Ur Microscopic Review Urine Culture Comments Nasal Adenovirus (PCR) NOT DETECTED Nasal B. parapertussis DNA (PCR) NOT DETECTED Nasal Coronavir 229E PCR NOT DETECTED Nasal Coronavir HKU1 PCR NOT DETECTED Nasal Coronavir NL63 PCR NOT DETECTED Nasal Coronavir OC43 PCR NOT DETECTED Nasal Enterovir/Rhinovir PCR NOT DETECTED Nasal Influenza B PCR NOT DETECTED Nasal Influenza A PCR NOT DETECTED Nasal Parainfluen 1 PCR NOT DETECTED Nasal Parainfluen 2 PCR NOT DETECTED Nasal Parainfluen 3 PCR NOT DETECTED Nasal Parainfluen 4 PCR NOT DETECTED Nasal RSV (PCR) NOT DETECTED Nasal B.pertussis DNA PCR NOT DETECTED Nasal C.pneumoniae (PCR) NOT DETECTED [place] Human Metapneumo PCR NOT DETECTED Nasal M.pneumoniae (PCR) NOT DETECTED Nasal SARS-CoV-2 (PCR) NOT DETECTED PD MEDICAL DECISION MAKING - ED course Complexity details: reviewed results, re-evaluated patient, considered differential, d/w patient ED course: No acute findings on head CT, chest x-ray or abdomen pelvis CT. The patient is a very difficult IV start, anesthesia started an IV in the foot. IV fluids given. Has a history of Pseudomonas UTIs, had received meropenem for this in the past. Given meropenem here. No fever. Normal lactate. Blood cultures drawn. She is still minimally responsive, similar to prior presentations. Discussed the case with Dr. Yousef, hospitalist who accepts. This document was made in part using voice recognition software. While efforts are made to proofread this document, sound alike and grammatical errors may occur. IMPRESSION: Changes of mild bilateral alveolar opacities, infection versus infiltrate. These are new since the prior study IMPRESSION: No significant intracranial abnormality is seen. No intracranial hemorrhage is seen. Age-appropriate brain parenchymal volume loss and chronic small vessel ischemic change can be seen. IMPRESSION: 1. Stool distention in the distal colon including prominent distention in the rectum suggestive of constipation with possible impaction. No definite bowel obstruction. 2. No pericecal inflammatory changes to suggest appendicitis. There is colonic diverticulosis without acute diverticulitis. 3. Small nonobstructing right renal stone without obstructive uropathy. 4. Right middle lobe nodule measuring up to 0.5 cm. The findings are suggestive of infectious or inflammatory process given the additional indistinct nodules in the lung bases. However, a follow-up chest CT study is recommended in 6 months to demonstrate resolution if clinically indicated. Departure - Departure Disposition: 66 [facility] DC/Xfer Clinical Impression: Dehydration, Pulmonary nodule Altered mental state Qualifiers: Altered mental status type: somnolence Qualified Code(s): R40.0 - Somnolence UTI (urinary tract infection) Qualifiers: Urinary tract infection type: acute cystitis Hematuria presence: without hematuria Qualified Code(s): N30.00 - Acute cystitis without hematuria Condition: Stable Discharge Date/Time: 07/16/20 18:07
--- NOTE | 2020-07-16 12:50 | XRAY Report ---
PROCEDURE: Chest 1 View X-Ray INDICATIONS: altered mental status TECHNIQUE: One view of the chest was acquired. COMPARISON: 03/26/2020 FINDINGS: Surgical changes and devices: None. Lungs and pleura: Occasional patchy peripheral alveolar opacities in the right mid and lower lung and left lower lung. There is blunting of the left costophrenic sulcus. No pneumothorax. Mediastinum: Mediastinal contours appear normal. Heart size is normal. Bones and chest wall: No suspicious bony lesions. Overlying soft tissues appear unremarkable. IMPRESSION: Changes of mild bilateral alveolar opacities, infection versus infiltrate. These are new since the pr ior study Reviewed by: Connie Boothe MD on 07/16/2020 11:[address] [facility] Approved by: Connie Boothe MD on 07/16/2020 11:[address] [facility] Station ID: [id number]
[2020-07-16 12:57] LABS: BASOPHILS # (AUTO) 0.1 10^3/uL (0.0-0.1); BASOPHILS % (AUTO) 0.4 %; EOSINOPHILS # (AUTO) 0.1 10^3/uL (0.0-0.7); EOSINOPHILS % (AUTO) 0.6 %; HGB - HEMOGLOBIN 14.1 g/dL (12.0-16.0); LYMPHOCYTES # (AUTO) 3.8 10^3/uL (1.5-3.5); LYMPHOCYTES % (AUTO) 22.8 %; MEAN CORPUSCULAR HEMOGLOBIN 30.9 pg (27.0-31.0); MEAN CORPUSCULAR HGB CONC 32.9 g/dL (32.0-36.0); MEAN CORPUSCULAR VOLUME 93.9 fL (81.0-99.0); MEAN PLATELET VOLUME 9.3 fL (7.9-10.8); MONOCYTES % (AUTO) 5.8 %; NEUTROPHILS # (AUTO) 11.6 10^3/uL (1.5-6.6); NEUTROPHILS % (AUTO) 69.9 %; PLT - PLATELET COUNT 236 10^3/uL (130-450); RED BLOOD COUNT 4.57 10^6/uL (4.20-5.40); RED CELL DISTRIBUTION WIDTH 14.7 % (12.0-15.0); WHITE BLOOD COUNT 16.6 x10^3/uL (4.8-10.8)
[2020-07-16 13:11] LABS: ALBUMIN 3.5 g/dL (3.2-5.5); ALBUMIN/GLOBULIN RATIO 1.7 (1.0-2.2); BILIRUBIN,TOTAL 1.1 mg/dL (0.2-1.0); CALCIUM 8.7 mg/dL (8.5-10.3); CREATININE 0.8 mg/dL (0.4-1.0); TOTAL PROTEIN 5.6 g/dL (6.7-8.2)
[2020-07-16 13:25] LABS: INR 1.1 (0.8-1.2); PT - PROTHROMBIN TIME 11.8 secs (9.9-12.6)
[2020-07-16 13:32] LABS: PARTIAL THROMBOPLASTIN TIME 27.2 secs (24.9-33.3)
[2020-07-16 13:42] LABS: BILIRUBIN,URINE NEGATIVE (NEGATIVE); GLUCOSE, URINE (UA) NEGATIVE (NEGATIVE); KETONES,URINE (UA) NEGATIVE (NEGATIVE); LEUKOCYTE ESTERASE, URINE MODERATE (NEGATIVE); NITRITE,URINE POSITIVE (NEGATIVE); OCCULT BLOOD,URINE MODERATE (NEGATIVE); PROTEIN,URINE TRACE mg/dL (NEGATIVE); UROBILINOGEN,URINE 0.2 (NORMAL) E.U./dL (NORMAL)
[2020-07-16 13:43] LABS: CLARITY,URINE HAZY (CLEAR)
[2020-07-16] MEDS ORDERED: IOVERSOL 320 100 ML VIAL IVP ONE (13:47)
[2020-07-16 14:00] LABS: BACTERIA,URINE Moderate /HPF (None Seen); EPITHELIAL CELLS,UR FEW Renal Tubular /HPF (<= Few); RBC,URINE TNTC /HPF (0-5); SQUAMOUS EPITHELIAL CELL,UR NONE SEEN (<= Few); WBC CLUMPS,URINE PRESENT
[2020-07-16] MEDS ORDERED: MEROPENEM 1 GM in SODIUM CHLORIDE 0.9% MINIBAG 100 ML IV STA (14:06)
--- NOTE | 2020-07-16 14:39 | CT Report ---
PROCEDURE: HEAD WO INDICATIONS: altered mental status TECHNIQUE: Noncontrast 4.5 mm thick angled axial sections acquired from the foramen magnum to the vertex. For r adiation dose reduction, the following was used: automated exposure control, adjustment of mA and/or kV according to patient size. COMPARISON: 03/25/2020, 03/09/2020 FINDINGS: Image quality: Excellent. CSF spaces: Basal cisterns are patent. No extra-axial fluid collections. Ventricles are normal in size and shape. Brain: No midline shift. No intracranial masses or hemorrhage. Mckeon-white matter interface is norm al. Skull and face: Calvarium and visualized facial bones are intact, without suspicious lesions. Sinuses: Visualized sinuses and mastoids are clear. IMPRESSION: No significant intracranial abnormality is seen. No intracranial hemorrhage is seen. Age-appropriate brain parenchymal volume loss and chronic small vessel ischemic change can be seen. Reviewed by: Juaquin Lovell MD on 07/16/2020 1:37 PM [facility] Approved by: Juaquin Lovell MD on 07/16/2020 1:37 PM [facility] Station ID: [id number]
--- NOTE | 2020-07-16 16:50 | CT Report ---
PROCEDURE: Abdomen/Pelvis WO INDICATIONS: R sided abd pain TECHNIQUE: Noncontrast 5 mm thick sections acquired from the diaphragms to the symphysis. 5 mm coronal and sagi ttal reformats were then performed. For radiation dose reduction, the following was used: automated exposure control, adjustment of mA and/or kV according to patient size. COMPARISON: CT abdomen pelvis 03/09/2020. FINDINGS: Image quality: Extensive metallic streak artifact is present from patient's surgical hardware in the lumbar spine limiting evaluation. ABDOMEN: Lung bases: There is a right lower lobe 0.5 cm nodule on series 4 image 5 which is new from the prio r study. There are additional small clustered indistinct nodules within the lung bases predominantly within the inferior right lower lobe which appear slightly decreased in prominence compared to the pr ior study. Mild linear scarring is demonstrated bilaterally in the lung bases. Heart size is normal. Solid organs: Noncontrast evaluation of the liver demonstrates no discrete mass lesion. The gallbladd er is surgically absent. There is mild fatty atrophy of the pancreas. No pancreatic duct dilatation. No peripancreatic fat stranding or fluid collections. The spleen is normal in size. No adrenal nodule s. Kidneys demonstrate no hydronephrosis. There is a small nonobstructing stone within the inferior p ole the right kidney measuring approximately 0.3 cm. Areas of renal cortical thinning are demonstrate d within the left kidney consistent with sequelae of prior infarct, trauma, or infection. Peritoneum and bowel: Unenhanced small bowel bowel loops demonstrate normal wall thickness and calib er. No pericecal inflammatory changes to suggest appendicitis. There is colonic diverticulosis withou t acute diverticulitis. Prominent stool distention is demonstrated in the rectum compatible with cons tipation and possible impaction. No free fluid or air. Nodes and vessels: No retroperitoneal or mesenteric adenopathy by size criteria. Aorta and inferior vena cava are normal in caliber. Miscellaneous: No ventral hernias. PELVIS: Genitourinary: Bladder wall thickness is normal. Miscellaneous: No inguinal hernias or adenopathy. There is a right gluteal subcutaneous implanted ne urostimulator device with the tip extending into the right presacral region. This appears similar to the prior study. Bones: No suspicious bony lesions. Postsurgical changes are redemonstrated within the lower lumbar s pine status post posterior fusion at L4-S1. No vertebral body compression fractures. IMPRESSION: 1. Stool distention in the distal colon including prominent distention in the rectum suggestive of co nstipation with possible impaction. No definite bowel obstruction. 2. No pericecal inflammatory changes to suggest appendicitis. There is colonic diverticulosis without acute diverticulitis. 3. Small nonobstructing right renal stone without obstructive uropathy. 4. Right middle lobe nodule measuring up to 0.5 cm. The findings are suggestive of infectious or infl ammatory process given the additional indistinct nodules in the lung bases. However, a follow-up ches t CT study is recommended in 6 months to demonstrate resolution if clinically indicated. Reviewed by: Enmanuel Horn MD on 07/16/2020 4:49 PM PST Approved by: Enmanuel Horn MD on 07/16/2020 4:49 PM PST Station ID: [id number]
[2020-07-16] MEDS ORDERED: ACETAMINOPHEN 325 MG TABLET PO PRN (17:23)
[2020-07-16] MEDS ORDERED: ONDANSETRON 4 MG/2 ML VIAL IVP PRN (17:23)
[2020-07-16 17:38] LABS: C. PNEUMONIAE- RESP PCR PANEL NOT DETECTED
--- NOTE | 2020-07-16 18:08 | HISTORY & PHYSICAL EXAMINATION ---
Chief Complaint - Chief Complaint Chief Complaint: Unresponsive History of Present Illness - Admitted From Admitted From:: [facility] - History Obtained From Records Reviewed: Yes History obtained from: [facility], ER Physician, EMR Exam Limitations: Patient is altered and unable to provide a history. - History of Present Illness HPI Comment/Other: This is a 89-year-old female with a past medical history significant for macular degeneration, COPD, rheumatoid arthritis, recurrent urinary tract infections who presents today after being found unresponsive at [facility]. History is obtained from the ER physician and the patient's daughter as she is unable to provide a history given her altered mental status. Per the daughter, the patient was in her usual state of health yesterday when she was with her. This morning she was told that she was doing well at around 9 AM and when she was checked on an hour later, she was found unresponsive. She states her mother has had a cough for the past few weeks and has had issues with swallowing in the past. She supposed be on a pured diet due to history of dysphagia. She stated otherwise her mother did not appear ill whatsoever and had no other real complaints. She has been hospitalized in the past for similar episodes and has received IV fluids and antibiotics with improvement in her symptoms. Her daughter noted that each time she had an unresponsive episode, it happens up abruptly and she tends to improve quite quickly as well. In the emergency department, she was found to be afebrile and with a heart rate in the 50s. Hypertensive with a systolic blood pressure in the 150s. She was not tachypneic and saturating well on room air. Labs were significant for a white count of 16.6. Her potassium was 3.1. She had a normal lactic acid and troponin. Her urinalysis revealed pyuria with the BBC clumps, moderate bacteria, moderate leukocyte esterase, positive nitrites as well as moderate occult blood and too numerous to count RBCs. She underwent a CT of the head which showed no acute normalities. CT of the abdomen pelvis was also unremarkable. She was given meropenem IV in the emergency department. Given the above findings, medicine was consulted for admission. The patient does have a POLST form which states that she is a DNR. I confirmed this with the patient's daughter, Esme. History - Past Medical History Cardiovascular: reports: Hypertension, High cholesterol, Coronary artery disease Respiratory: reports: Asthma, COPD, Other Neuro: reports: Dementia, TIA, Peripheral neuropathy Endocrine/Autoimmune: reports: Type 2 diabetes GI: reports: GERD : reports: Chronic bladder infection HEENT: reports: Glaucoma, Macular degeneration, Chronic hearing loss Psych: reports: Depression, Anxiety Musculoskeletal: reports: Osteoarthritis, Rheumatoid arthritis, Fatigue Derm: reports: None MRSA Hx?: No - Past Surgical History General: reports: Cholecystectomy, Other Ortho: reports: Spine surgery /[employer]: reports: Hysterectomy - Family & Social History Family History: Mother: , Father: , Cancer (Father had lung cancer and he was a smoker.) Family History Comment/Other: Her mother lived until the age of 99. Living arrangement: At home, Assisted living Living Situation: Alone Social History Notes: He resides at [facility]. Never smoked but did have secondhand exposure given her father was a heavy smoker. Her daughter reports no alcohol use. - POLST Patient has POLST: Yes POLST Status: DNR Meds/Allgy - Home Medications Home Medications: Ambulatory Orders Medication Instructions Recorded Confirmed Brimonidine 0.2% Ophth Drops 1 drops EACHEYE TID 07/16/20 07/16/20 [Alphagan P 0.2% Ophth Drops] Calcium Carbonate [Tums (Calcium 1 tab PO TID 07/16/20 07/16/20 Carbonate 500mg)] Cyanocobalamin (Vitamin B-12) 1 tab PO DAILY 07/16/20 07/16/20 [Vitamin B-12 (500 mcg sublingual)] Dorzolamide 2% Ophth Drops 1 drops EACHEYE TID 07/16/20 07/16/20 [Trusopt 2% Ophth Drops] Ipratropium/Albuterol [Duoneb] 1 neb INH TID 07/16/20 07/16/20 L. Acidophilus/Pectin, Sugden 2 cap PO DAILY 07/16/20 07/16/20 [Acidophilus Capsule] Midodrine HCl 1 tab PO DAILY 07/16/20 07/16/20 Mupirocin 1 applic TOP TID 07/16/20 07/16/20 Peg 400/Hypromellose/Glycerin 1 drops EACHEYE QID 07/16/20 07/16/20 [Visine Tears Drops] Pregabalin [Lyrica] 2.5 ml PO DAILY 07/16/20 07/16/20 Pregabalin [Lyrica] 5 ml PO BID 07/16/20 07/16/20 Tiotropium Mcdonough [Spiriva] 1 cap INH DAILY 07/16/20 07/16/20 Travoprost [Travatan Z] 1 drops EACHEYE DAILY 07/16/20 07/16/20 Vit A/Vit C/Vit E/Zinc/Copper 1 tab PO DAILY 07/16/20 07/16/20 [Preservision Areds Softgel] guaiFENesin [Chest Congestion 5 ml PO BID 07/16/20 07/16/20 Relief] predniSONE [Deltasone] 30 mg PO DAILY 07/16/20 07/16/20 traMADol [Ultram] 1 tab PO TID 07/16/20 07/16/20 - Allergies Allergies/Adverse Reactions: Allergies Allergy/AdvReac Type Severity Reaction Status Date / Time azithromycin Allergy Anaphylaxis Verified 07/16/20 12:22 diclofenac Allergy Hives Verified 07/16/20 12:22 hydrocodone [Hydrocodone] Allergy Rash Verified 07/16/20 12:22 penicillin G Allergy Hives Verified 07/16/20 12:22 Penicillins Allergy Rash Verified 07/16/20 12:22 rofecoxib [From Vioxx] Allergy Rash Verified 07/16/20 12:22 Sulfa (Sulfonamide Allergy Hives Verified 07/16/20 12:22 Antibiotics) Cephalosporins AdvReac Unknown Verified 07/16/20 12:22 codeine AdvReac Hives Verified 07/16/20 12:22 oxycodone AdvReac Unknown Verified 07/16/20 12:22 Review of Systems - All Other Systems All Other Systems: reports: Other (Unable to obtain due to altered mental status.) Prior Level of Functionality: She resides at [facility]. She is independent with activity. She is blind. Exam - Vital Signs Reviewed Vital Signs: Yes Vital Signs: Vital Signs x48h Temp Pulse Resp BP Pulse Ox 07/16/20 18:00 57 L 14 165/62 H 100 07/16/20 16:14 36.7 C 61 18 164/70 H 100 07/16/20 15:30 58 L 18 168/81 H 100 07/16/20 13:56 57 L 15 157/66 H 100 07/16/20 13:17 56 L 18 155/61 H 100 07/16/20 12:50 59 L 14 149/66 H 100 07/16/20 12:10 36.3 C L 55 L 14 173/65 H 99 - Physical Exam General Appearance: positive: Lethargic, Other (She does appear lethargic but will attempt to speak.) Eyes Bilateral: positive: Conjunctivae nml, Other (Left pupil is dilated) ENT: positive: ENT inspection nml Neck: positive: Nml inspection Respiratory: positive: No respiratory distress, Rhonchi (Faint rhonchi bilaterally.). negative: Wheezes, Rales Cardiovascular: positive: Regular rate & rhythm. negative: Tachycardia Abdomen: positive: Nml bowel sounds, Tenderness (Mild diffuse tenderness.). negative: Guarding, Rebound Skin: positive: Warm, Dry Extremities: positive: No pedal edema Neurologic/Psychiatric: positive: Other (She does attempt to answer questions when spoken to but is still lethargic. She was able to move her upper and lower extremities. No obvious focal deficits although neuro exam is limited due to her mentation.) Conclusion/Plan - Problem List (1) Altered mental status Conclusion/Plan: The etiology of this is not clear. This could be due to dehydration and possib le urinary tract infection although she has had similar presentations in the past and she improves rather quickly and it would be odd for an infection to present this way. CT the head was unremarkable. She is able to converse a little more but is still quite somnolent. We will hold her sedatives until she is more awake. Continue with IV hydration. We will treat her empirically for a possible urinary tract infection with cefepime IV. Qualifiers: Altered mental status type: somnolence Qualified Code(s): R40.0 - Somnolence (2) UTI (urinary tract infection) Conclusion/Plan: Although her urinalysis does suggest infection, I suspect this may be colonization given review of her prior records. Her urinalysis always has pyuria and her last urine culture grew less than 100,000 Pseudomonas. Non etheless, we will treat her empirically for the time being given her elevated white count. We will place in cefepime IV given her prior cultures grew Pseudomonas. She does have a cephalosporin allergy which is unknown but she has received cephalosporins in the past without problems. We will monitor her closely. Qualifiers: Urinary tract infection type: acute cystitis (3) Abnormal chest x-ray Conclusion/Plan: Her chest x-ray is suggestive of a possible infiltrate. She is not hypoxic or tachypneic at this time. She will be on cefepime given the UTI but will hold off on azithromycin for the time being. We will attempt to obtain further history when she is more alert. Will consider repeating imaging. (4) Diabetes mellitus Conclusion/Plan: This iss controlled with diet. We have placed on a carb controlled diet plus sliding scale. Qualifiers: Diabetes mellitus type: type 2 (5) Hypokalemia Conclusion/Plan: We will replace this intravenously. (6) Glaucoma Conclusion/Plan: We will continue her home eyedrops. - Lab Results Lab results reviewed: Yes Fish Bones: 07/16/20 12:44 07/16/20 12:44 - Diagnostic Imaging Results Diagnostic Imaging Results: positive: Final report reviewed - EKG Results EKG Interpreted Independently: Yes EKG Findings: EKG reveals a sinus rhythm without any ischemic changes. Core Measures - Anticipated LOS I expect patient to be DC'd or transferred within 96 hours.: Yes - Issues Hospital Issues and Management Plan: 89-year-old female presents after an unresponsive episode. Concern is for possible dehydration urinary tract infection. Will admit for IV fluids and antibiotics and further work-up of her altered mental status. - DVT/VTE - Prophylaxis VTE/DVT Device ordered at admit?: Yes VTE/DVT Prophylaxis med ordered at admit?: Yes
[2020-07-16] MEDS: POTASSIUM CHLOR 10 MEQ/100 ML 10 MEQ/100 ML BAG IV SCH ×4 (18:56→22:35)
[2020-07-16] MEDS: LACTATED RINGERS 1,000 ML IV SCH (19:03)
[2020-07-16] MEDS: CEFEPIME 1 GM in SODIUM CHLORIDE 0.9% MINIBAG 100 ML IV SCH (21:17)
[2020-07-16] MEDS: BRIMONIDINE 0.2% OPHTH DROPS 5 ML EACHEYE SCH (21:53)
[2020-07-16] MEDS: LATANOPROST 0.005% OPHTH DROPS EACHEYE SCH (21:54)
[2020-07-16] MEDS: INSULIN ASPART 300 UNIT/3 ML PEN SUBQ SCH (21:54)
[2020-07-16] MEDS: CALCIUM CARBONATE CHEW 500 MG TABLET PO SCH (22:00)
[2020-07-16] MEDS ORDERED: MEROPENEM 1 GM in SODIUM CHLORIDE 0.9% MINIBAG 100 ML IV SCH (22:00)
[2020-07-16] MEDS: IPRATROPIUM/ALBUTEROL 3 ML NEB INH SCH (22:07)
[2020-07-16] MEDS: DORZOLAMIDE 2% OPHTH DROPS EACHEYE SCH (22:34)
[2020-07-17] MEDS: LACTATED RINGERS 1,000 ML IV SCH ×3 (05:10→22:43)
[2020-07-17 05:40] LABS: BASOPHILS # (AUTO) 0.1 10^3/uL (0.0-0.1); BASOPHILS % (AUTO) 0.7 %; EOSINOPHILS # (AUTO) 0.2 10^3/uL (0.0-0.7); HGB - HEMOGLOBIN 15.1 g/dL (12.0-16.0); LYMPHOCYTES # (AUTO) 3.8 10^3/uL (1.5-3.5); LYMPHOCYTES % (AUTO) 38.7 %; MEAN CORPUSCULAR HEMOGLOBIN 30.9 pg (27.0-31.0); MEAN CORPUSCULAR HGB CONC 31.5 g/dL (32.0-36.0); MEAN CORPUSCULAR VOLUME 98.4 fL (81.0-99.0); MEAN PLATELET VOLUME 10.2 fL (7.9-10.8); MONOCYTES # (AUTO) 0.8 10^3/uL (0.0-1.0); MONOCYTES % (AUTO) 7.7 %; NEUTROPHILS % (AUTO) 50.5 %; PLT - PLATELET COUNT 223 10^3/uL (130-450); RED BLOOD COUNT 4.88 10^6/uL (4.20-5.40); RED CELL DISTRIBUTION WIDTH 14.9 % (12.0-15.0); WHITE BLOOD COUNT 9.8 x10^3/uL (4.8-10.8)
[2020-07-17 06:16] LABS: CALCIUM 8.5 mg/dL (8.5-10.3); CREATININE 0.6 mg/dL (0.4-1.0); MAGNESIUM 2.3 mg/dL (1.7-2.8)
[2020-07-17] MEDS: CALCIUM CARBONATE CHEW 500 MG TABLET PO SCH ×3 (06:59→21:34)
[2020-07-17] MEDS: BRIMONIDINE 0.2% OPHTH DROPS 5 ML EACHEYE SCH ×4 (07:00→21:32)
[2020-07-17] MEDS: SODIUM CHLORIDE FLUSH 0.9% 10 ML SYRINGE IVP SCH ×3 (07:00→16:54)
[2020-07-17] MEDS: DORZOLAMIDE 2% OPHTH DROPS EACHEYE SCH ×3 (07:08→21:34)
[2020-07-17] MEDS: IPRATROPIUM/ALBUTEROL 3 ML NEB INH SCH ×3 (07:36→19:12)
--- NOTE | 2020-07-17 08:33 | PROVIDER PROGRESS NOTE ---
Subjective - Prog Note Date Prog Note Date: 07/17/20 - Subjective Subjective: She is still sleepy this morning but is more talkative. She do not know she will the hospital. She knew the year was 2020 and the month was July. She recognizes her daughter at bedside. She does complain of abdominal pain. Denies shortness of breath. She does have a cough. Current Medications - Current Medications Current Medications: Active Medications Acetaminophen (Acetaminophen 325 Mg Tablet) 650 mg PO Q4HR PRN PRN Reason: Pain 1 to 4 Albuterol/Ipratropium (Ipratropium/Albuterol 3 Ml Neb) 3 ml INH RTTID [facility] Last Admin: 07/17/20 13:24 Dose: 3 ml Documented by: Brimonidine Tartrate (Brimonidine 0.2% Ophth Drops 5 Ml) 1 drops EACHEYE TID [facility] Last Admin: 07/17/20 07:08 Dose: 1 drops Documented by: Calcium Carbonate/Glycine (Calcium Carbonate Chew 500 Mg Tablet) 500 mg PO TID [facility] Last Admin: 07/17/20 06:59 Dose: Not Given Documented by: Cholecalciferol (Cholecalciferol 25 Mcg Tablet) 50 mcg PO DAILY [facility] Cyanocobalamin (Cyanocobalamin 500 Mcg Tablet) 500 mcg PO DAILY [facility] Last Admin: 07/17/20 11:26 Dose: Not Given Documented by: Dorzolamide HCl (Dorzolamide 2% Ophth Drops) 1 drops EACHEYE TID [facility] Last Admin: 07/17/20 07:08 Dose: 1 drops Documented by: Enoxaparin Sodium (Enoxaparin 40 Mg/0.4 Ml Syringe) 40 mg SUBQ DAILY [facility] Last Admin: 07/17/20 11:24 Dose: 40 mg Documented by: Lactated Ringer's (Lr) 1,000 mls @ 100 mls/hr IV .Q10H [facility] Last Admin: 07/17/20 05:10 Dose: 100 mls/hr Documented by: Cefepime HCl 1 gm/ Sodium (Chloride) 100 mls @ 200 mls/hr IV Q12H [facility] Last Infusion: 07/17/20 12:51 Dose: Infused Documented by: Insulin Aspart (Insulin Aspart 300 Unit/3 Ml Pen) 1 - 5 unit SUBQ 0800,1200,1700,2100 [facility]; Protocol Last Admin: 07/17/20 12:17 Dose: Not Given Documented by: Latanoprost (Latanoprost 0.005% Ophth Drops) 1 drops EACHEYE QPM [facility] Last Admin: 07/16/20 21:54 Dose: 1 drops Documented by: Mineral Oil (Mineral Oil Enema 133 Ml Bottle) 133 ml RC ONCE [facility] Stop: 07/17/20 21:00 Last Admin: 07/17/20 11:06 Dose: 133 ml Documented by: Ondansetron HCl (Ondansetron 4 Mg/2 Ml Vial) 4 mg IVP Q6HR PRN PRN Reason: Nausea / Vomiting Prednisone (Prednisone 10 Mg Tablet) 30 mg PO DAILY [facility] Last Admin: 07/17/20 11:25 Dose: Not Given Documented by: Sodium Chloride (Sodium Chloride Flush 0.9% 10 Ml Syringe) 10 ml IVP PRN PRN PRN Reason: NEEDED PER PROVIDER ORDERS Sodium Chloride (Sodium Chloride Flush 0.9% 10 Ml Syringe) 10 ml IVP 0100,0900,1700 [facility] Last Admin: 07/17/20 11:25 Dose: 10 ml Documented by: Brimonidine 0.2% Ophth Drops [Alphagan P 0.2% Ophth Drops] 1 drops EACHEYE TID 07/16/20 Calcium Carbonate [Tums (Calcium Carbonate 500mg)] 500 mg PO TID 07/16/20 Cyanocobalamin (Vitamin B-12) [Vitamin B-12 (500 mcg sublingual)] 500 mcg PO DAILY 07/16/20 Dorzolamide 2% Ophth Drops [Trusopt 2% Ophth Drops] 1 drops EACHEYE TID 07/16/20 Ipratropium/Albuterol [Duoneb] 1 neb INH TID 07/16/20 L. Acidophilus/Pectin, [place] [Acidophilus Capsule] 2 cap PO DAILY 07/16/20 Midodrine HCl 5 mg PO DAILY 07/16/20 Mupirocin 1 applic TOP TID 07/16/20 Peg 400/Hypromellose/Glycerin [Visine Tears Drops] 1 drops EACHEYE QID 07/16/20 Pregabalin [Lyrica] 2.5 ml PO QPM 07/16/20 Pregabalin [Lyrica] 5 ml PO BID 07/16/20 Tiotropium [place] [Spiriva] 1 cap INH DAILY 07/16/20 Travoprost [Travatan Z] 1 drops EACHEYE DAILY 07/16/20 Vit A/Vit C/Vit E/Zinc/Copper [Preservision Areds Softgel] 1 tab PO DAILY 07/16/20 guaiFENesin [Chest Congestion Relief] 5 ml PO BID 07/16/20 predniSONE [Deltasone] 30 mg PO DAILY 07/16/20 traMADol [Ultram] 50 mg PO TID 07/16/20 Objective - Vital Signs/Intake & Output Reviewed Vital Signs: Yes Vital Signs: Vital Signs x48h Temp Pulse Pulse Resp BP Pulse Ox 07/17/20 08:15 37.4 C 75 20 131/60 H 99 07/17/20 07:40 72 16 07/17/20 03:45 37.3 C 71 16 112/62 98 07/17/20 01:00 36.2 C L 66 16 106/61 92 Intake & Output: Intake & Output 07/14/20 07/15/20 07/16/20 07/17/20 23:59 23:59 23:59 23:59 Intake Total 2441.667 1000 Output Total 1300 475 Balance 1141.667 525 - Objective General Appearance: positive: No acute distress, Lethargic (She is lethargic but will open her eyes when spoken to. She is able to converse a little more compared to yesterday) Eyes Bilateral: positive: Normal inspection, Other (Left pupil is dilated.) ENT: positive: ENT inspection nml Neck: positive: Nml inspection Respiratory: positive: No respiratory distress. negative: Wheezes, Rales Cardiovascular: positive: Regular rate & rhythm, No murmur, Extrasystoles. negative: Tachycardia, Systolic murmur Abdomen: positive: Nml bowel sounds, No distention, Tenderness (Diffuse tenderness throughout the abdomen.). negative: Guarding, Rebound Skin: positive: Warm, Dry Extremities: positive: No pedal edema Neurologic/Psychiatric: positive: Disoriented to place, Other (She is able to move all 4 extremities.). negative: Disoriented to person, Disoriented to time - Lab Results Fish Bones: 07/17/20 04:31 07/17/20 04:31 Other Labs: Lab Results x24hrs 07/17/20 07/17/20 07/16/20 Range/Units 04:31 04:31 15:30 WBC 9.8 (4.8-10.8) x10^3/uL RBC 4.88 (4.20-5.40) 10^6/uL Hgb 15.1 (12.0-16.0) g/dL Hct 48.0 H (37.0-47.0) % MCV 98.4 (81.0-99.0) fL MCH 30.9 (27.0-31.0) pg MCHC 31.5 L (32.0-36.0) g/dL RDW 14.9 (12.0-15.0) % Plt Count 223 (130-450) 10^3/uL MPV 10.2 (7.9-10.8) fL Neut # (Auto) 5.0 (1.5-6.6) 10^3/uL Lymph # (Auto) 3.8 H (1.5-3.5) 10^3/uL [place] # (Auto) 0.8 (0.0-1.0) 10^3/uL Eos # (Auto) 0.2 (0.0-0.7) 10^3/uL Baso # (Auto) 0.1 (0.0-0.1) 10^3/uL Absolute Nucleated RBC 0.00 x10^3/uL Nucleated RBC % 0.0 /100WBC PT (9.9-12.6) secs INR (0.8-1.2) APTT (24.9-33.3) secs Sodium 142 (135-145) mmol/L Potassium 4.1 (3.5-5.0) mmol/L Chloride 111 (101-111) mmol/L Carbon Dioxide 20 L (21-32) mmol/L Anion Gap 11.0 (6-13) BUN 7 (6-20) mg/dL Creatinine 0.6 (0.4-1.0) mg/dL Estimated GFR (MDRD) 94 (>89) Glucose 78 (70-100) mg/dL Lactic Acid (0.5-2.2) mmol/L Calcium 8.5 (8.5-10.3) mg/dL Magnesium 2.3 (1.7-2.8) mg/dL Total Bilirubin (0.2-1.0) mg/dL AST (10-42) IU/L ALT (10-60) IU/L Alkaline Phosphatase (42-121) IU/L Troponin I High Sens (2.3-14.8) ng/L Total Protein (6.7-8.2) g/dL Albumin (3.2-5.5) g/dL Globulin (2.1-4.2) g/dL Albumin/Globulin Ratio (1.0-2.2) Lipase (22-51) U/L Urine Color Urine Clarity (CLEAR) Urine pH (5.0-7.5) PH Ur Specific [place] (1.002-1.030) Urine Protein (NEGATIVE) mg/dL Urine Glucose (UA) (NEGATIVE) mg/dL Urine Ketones (NEGATIVE) mg/dL Urine Occult Blood (NEGATIVE) Urine Nitrite (NEGATIVE) Urine Bilirubin (NEGATIVE) Urine Urobilinogen (NORMAL) E.U./dL Ur Leukocyte Esterase (NEGATIVE) Urine RBC (0-5) /HPF Urine WBC (0-5) /HPF Urine WBC Clumps Ur Epithelial Cells (<= Few) /HPF Ur Squamous Epith Cells (<= Few) Urine Bacteria (None Seen) /HPF Ur Microscopic Review Urine Culture Comments Nasal Adenovirus (PCR) NOT DETECTED Nasal B. parapertussis DNA (PCR) NOT DETECTED Nasal Coronavir 229E PCR NOT DETECTED Nasal Coronavir HKU1 PCR NOT DETECTED Nasal Coronavir NL63 PCR NOT DETECTED Nasal Coronavir OC43 PCR NOT DETECTED Nasal Enterovir/Rhinovir PCR NOT DETECTED Nasal Influenza B PCR NOT DETECTED Nasal Influenza A PCR NOT DETECTED Nasal Parainfluen 1 PCR NOT DETECTED Nasal Parainfluen 2 PCR NOT DETECTED Nasal Parainfluen 3 PCR NOT DETECTED Nasal Parainfluen 4 PCR NOT DETECTED Nasal RSV (PCR) NOT DETECTED Nasal B.pertussis DNA PCR NOT DETECTED Nasal C.pneumoniae (PCR) NOT DETECTED Connor Human Metapneumo PCR NOT DETECTED Nasal M.pneumoniae (PCR) NOT DETECTED Nasal SARS-CoV-2 (PCR) NOT DETECTED 07/16/20 07/16/20 07/16/20 Range/Units 13:19 12:44 12:44 WBC (4.8-10.8) x10^3/uL RBC (4.20-5.40) 10^6/uL Hgb (12.0-16.0) g/dL Hct (37.0-47.0) % MCV (81.0-99.0) fL MCH (27.0-31.0) pg MCHC (32.0-36.0) g/dL RDW (12.0-15.0) % Plt Count (130-450) 10^3/uL MPV (7.9-10.8) fL Neut # (Auto) (1.5-6.6) 10^3/uL Lymph # (Auto) (1.5-3.5) 10^3/uL [place] # (Auto) (0.0-1.0) 10^3/uL Eos # (Auto) (0.0-0.7) 10^3/uL Baso # (Auto) (0.0-0.1) 10^3/uL Absolute Nucleated RBC x10^3/uL Nucleated RBC % /100WBC PT (9.9-12.6) secs INR (0.8-1.2) APTT (24.9-33.3) secs Sodium (135-145) mmol/L Potassium (3.5-5.0) mmol/L Chloride (101-111) mmol/L Carbon Dioxide (21-32) mmol/L Anion Gap (6-13) BUN (6-20) mg/dL Creatinine (0.4-1.0) mg/dL Estimated GFR (MDRD) (>89) Glucose (70-100) mg/dL Lactic Acid 1.2 (0.5-2.2) mmol/L Calcium (8.5-10.3) mg/dL Magnesium (1.7-2.8) mg/dL Total Bilirubin (0.2-1.0) mg/dL AST (10-42) IU/L ALT (10-60) IU/L Alkaline Phosphatase (42-121) IU/L Troponin I High Sens 5.6 (2.3-14.8) ng/L Total Protein (6.7-8.2) g/dL Albumin (3.2-5.5) g/dL Globulin (2.1-4.2) g/dL Albumin/Globulin Ratio (1.0-2.2) Lipase (22-51) U/L Urine Color DARK YELLOW Urine Clarity HAZY (CLEAR) Urine pH 6.0 (5.0-7.5) PH Ur Specific [place] 1.020 (1.002-1.030) Urine Protein TRACE (NEGATIVE) mg/dL Urine Glucose (UA) NEGATIVE (NEGATIVE) mg/dL Urine Ketones NEGATIVE (NEGATIVE) mg/dL Urine Occult Blood MODERATE H (NEGATIVE) Urine Nitrite POSITIVE H (NEGATIVE) Urine Bilirubin NEGATIVE (NEGATIVE) Urine Urobilinogen 0.2 (NORMAL) (NORMAL) E.U./dL Ur Leukocyte Esterase MODERATE H (NEGATIVE) Urine RBC TNTC H (0-5) /HPF Urine WBC >25 H (0-5) /HPF Urine WBC Clumps PRESENT Ur Epithelial Cells FEW Renal Tubular (<= Few) /HPF Ur Squamous Epith Cells NONE SEEN (<= Few) Urine Bacteria Moderate H (None Seen) /HPF Ur Microscopic Review INDICATED Urine Culture Comments INDICATED Nasal Adenovirus (PCR) Nasal B. parapertussis DNA (PCR) Nasal Coronavir 229E PCR Nasal Coronavir HKU1 PCR Nasal Coronavir NL63 PCR Nasal Coronavir OC43 PCR Nasal Enterovir/Rhinovir PCR Nasal Influenza B PCR Nasal Influenza A PCR Nasal Parainfluen 1 PCR Nasal Parainfluen 2 PCR Nasal Parainfluen 3 PCR Nasal Parainfluen 4 PCR Nasal RSV (PCR) Nasal B.pertussis DNA PCR Nasal C.pneumoniae (PCR) Connor Human Metapneumo PCR Nasal M.pneumoniae (PCR) Nasal SARS-CoV-2 (PCR) 07/16/20 07/16/20 07/16/20 Range/Units 12:44 12:44 12:44 WBC 16.6 H (4.8-10.8) x10^3/uL RBC 4.57 (4.20-5.40) 10^6/uL Hgb 14.1 (12.0-16.0) g/dL Hct 42.9 (37.0-47.0) % MCV 93.9 (81.0-99.0) fL MCH 30.9 (27.0-31.0) pg MCHC 32.9 (32.0-36.0) g/dL RDW 14.7 (12.0-15.0) % Plt Count 236 (130-450) 10^3/uL MPV 9.3 (7.9-10.8) fL Neut # (Auto) 11.6 H (1.5-6.6) 10^3/uL Lymph # (Auto) 3.8 H (1.5-3.5) 10^3/uL [place] # (Auto) 1.0 (0.0-1.0) 10^3/uL Eos # (Auto) 0.1 (0.0-0.7) 10^3/uL Baso # (Auto) 0.1 (0.0-0.1) 10^3/uL Absolute Nucleated RBC 0.00 x10^3/uL Nucleated RBC % 0.0 /100WBC PT 11.8 (9.9-12.6) secs INR 1.1 (0.8-1.2) APTT 27.2 (24.9-33.3) secs Sodium 137 (135-145) mmol/L Potassium 3.1 L (3.5-5.0) mmol/L Chloride 100 L (101-111) mmol/L Carbon Dioxide 23 (21-32) mmol/L Anion Gap 14.0 H (6-13) BUN 10 (6-20) mg/dL Creatinine 0.8 (0.4-1.0) mg/dL Estimated GFR (MDRD) 68 L (>89) Glucose 98 (70-100) mg/dL Lactic Acid (0.5-2.2) mmol/L Calcium 8.7 (8.5-10.3) mg/dL Magnesium (1.7-2.8) mg/dL Total Bilirubin 1.1 H (0.2-1.0) mg/dL AST 22 (10-42) IU/L ALT 27 (10-60) IU/L Alkaline Phosphatase 47 (42-121) IU/L Troponin I High Sens (2.3-14.8) ng/L Total Protein 5.6 L (6.7-8.2) g/dL Albumin 3.5 (3.2-5.5) g/dL Globulin 2.1 (2.1-4.2) g/dL Albumin/Globulin Ratio 1.7 (1.0-2.2) Lipase 25 (22-51) U/L Urine Color Urine Clarity (CLEAR) Urine pH (5.0-7.5) PH Ur Specific [place] (1.002-1.030) Urine Protein (NEGATIVE) mg/dL Urine Glucose (UA) (NEGATIVE) mg/dL Urine Ketones (NEGATIVE) mg/dL Urine Occult Blood (NEGATIVE) Urine Nitrite (NEGATIVE) Urine Bilirubin (NEGATIVE) Urine Urobilinogen (NORMAL) E.U./dL Ur Leukocyte Esterase (NEGATIVE) Urine RBC (0-5) /HPF Urine WBC (0-5) /HPF Urine WBC Clumps Ur Epithelial Cells (<= Few) /HPF Ur Squamous Epith Cells (<= Few) Urine Bacteria (None Seen) /HPF Ur Microscopic Review Urine Culture Comments Nasal Adenovirus (PCR) Nasal B. parapertussis DNA (PCR) Nasal Coronavir 229E PCR Nasal Coronavir HKU1 PCR Nasal Coronavir NL63 PCR Nasal Coronavir OC43 PCR Nasal Enterovir/Rhinovir PCR Nasal Influenza B PCR Nasal Influenza A PCR Nasal Parainfluen 1 PCR Nasal Parainfluen 2 PCR Nasal Parainfluen 3 PCR Nasal Parainfluen 4 PCR Nasal RSV (PCR) Nasal B.pertussis DNA PCR Nasal C.pneumoniae (PCR) [place] Human Metapneumo PCR Nasal M.pneumoniae (PCR) Nasal SARS-CoV-2 (PCR) ABX Reporting Has patient been on IV antibiotics over the past 48 hours?: Yes Assessment/Plan - Problem List (1) Altered mental status Impression: She is improving from a mentation standpoint although she is still lethargic she is able to speak a little more today and is oriented to self as well as year and month. She did not recognize that she was at the hospital initially. CT of the head was unremarkable. This may potentially be due to dehydration and a urinary tract infection although this could also just be asymptomatic bacteriuria. She has had admissions in the past for similar presentation and she responds well to fluids and antibiotics. We will keep her on cefepime IV for the urinary tract infection. We will continue with gentle IV hydration. We are holding her home sedatives for the time being until she is more alert. Qualifiers: Altered mental status type: somnolence Qualified Code(s): R40.0 - Somnolence (2) UTI (urinary tract infection) Impression: We are treating you for urinary tract infection given her presentation of alte red mental status and prior admissions for similar presentation. I am not sure this is a true infection as this may just be asymptomatic bacteriuria. Her white count is improved today but this could have been just reactive. We will keep her on cefepime IV until we have cultures back. She has grown Pseudomonas in the past. Qualifiers: Urinary tract infection type: acute cystitis Hematuria presence: without hematuria Qualified Code(s): N30.00 - Acute cystitis without hematuria (3) Abnormal chest x-ray Impression: Her x-ray was abnormal on admission but she is not hypoxic denies any dyspnea. She does have a cough that has been present for a few weeks. Her white count has improved today despite only being on cefepime. We will repeat a chest x-ray today and give there is still concern for infiltrates, we will start her empirically on azithromycin as well given her cough. (4) Constipation Impression: This was evident on the CT of the abdomen pelvis suspect is contributing to her abdominal pain. Disimpaction was attempted but per nursing, the stool was quite soft and therefore it was difficult to disimpact. We will give her a one-time enema today and place her on a bowel regimen. (5) History of COPD Impression: Stable and not in exacerbation. Continue home inhalers and prednisone. (6) Diabetes mellitus Impression: Stable. Continue carb controlled diet and sliding scale. Qualifiers: Diabetes mellitus type: type 2 (7) Glaucoma Impression: We will continue her home eyedrops. (8) Hypokalemia Impression: This has resolved.
[2020-07-17] MEDS ORDERED: predniSONE 10 MG TABLET PO SCH (09:00)
[2020-07-17] MEDS ORDERED: MINERAL OIL ENEMA 133 ML BOTTLE RC SCH (11:00)
[2020-07-17] MEDS: ENOXAPARIN 40 MG/0.4 ML SYRINGE SUBQ SCH (11:24)
[2020-07-17] MEDS: CEFEPIME 1 GM in SODIUM CHLORIDE 0.9% MINIBAG 100 ML IV SCH ×2 (11:24→21:27)
[2020-07-17] MEDS: CYANOCOBALAMIN 500 MCG TABLET PO SCH (11:26)
[2020-07-17] MEDS: INSULIN ASPART 300 UNIT/3 ML PEN SUBQ SCH ×4 (11:29→21:34)
--- NOTE | 2020-07-17 11:48 | PHARMACY PROGRESS NOTE ---
- Best Possible Medication History Admit Date and Time: 07/16/20 0513 Processed by: Pharmacy Medication History completed: Yes Patient Interview: Pt unable to participate Secondary Source(s): Insurance records, Facility MAR as ONLY source (CARYL revi ewed by Jessie 07/17 and entered into home med list) As the person ultimately responsible for medication therapy, providers are able to order a medication from an existing home medication list in [facility] via the "Reconcile Routine" prior to Confirmation of that medication by arch support technician. Such practice is discouraged except when the physician, in their clinical judgment, deems that a medical need exists for a medication without regard to previous use.
[2020-07-17] MEDS: CHOLECALCIFEROL 25 MCG TABLET PO SCH (17:05)
[2020-07-17] MEDS ORDERED: AZITHROMYCIN INJ 500 MG in SODIUM CHLORIDE 0.9% 250 ML IV SCH (20:00)
--- NOTE | 2020-07-17 20:50 | XRAY Report ---
PROCEDURE: Chest 1 View X-Ray INDICATIONS: Follow up infiltrates. TECHNIQUE: One view of the chest was acquired. COMPARISON: Chest radiographs 07/16/2020 and 03/26/2020. CT abdomen/pelvis 07/16/2020 FINDINGS: Surgical changes and devices: None. Lungs and pleura: No pleural effusions or pneumothorax. Bilateral mild airspace opacities do not lynda ear significantly changed when compared to the radiographs from 07/16/2020 given differences in techni que. Blunting of the left costophrenic angle is again seen secondary to an epicardial fat pad, as dem onstrated on the CT from the day prior. Definite pleural effusion or pneumothorax is seen. Mediastinum: Mediastinal contours appear normal. Heart size is normal. Bones and chest wall: No suspicious bony lesions. Overlying soft tissues appear unremarkable. IMPRESSION: Bilateral airspace opacities do not appear significantly changed when compared to the radiographs [facility] 07/16/2020 given differences in technique Reviewed by: Brien Nguyen MD on 07/17/2020 8:49 PM PST Approved by: Brien Nguyen MD on 07/17/2020 8:49 PM PST Station ID: [id number]
[2020-07-17] MEDS: LATANOPROST 0.005% OPHTH DROPS EACHEYE SCH (21:26)
[2020-07-18] MEDS: SODIUM CHLORIDE FLUSH 0.9% 10 ML SYRINGE IVP SCH ×4 (00:01→23:32)
[2020-07-18] MEDS: BRIMONIDINE 0.2% OPHTH DROPS 5 ML EACHEYE SCH ×3 (04:58→21:01)
[2020-07-18] MEDS: DORZOLAMIDE 2% OPHTH DROPS EACHEYE SCH ×3 (04:59→21:01)
[2020-07-18] MEDS: CALCIUM CARBONATE CHEW 500 MG TABLET PO SCH ×3 (05:01→21:01)
[2020-07-18 05:38] LABS: BASOPHILS # (AUTO) 0.1 10^3/uL (0.0-0.1); BASOPHILS % (AUTO) 0.7 %; EOSINOPHILS # (AUTO) 0.2 10^3/uL (0.0-0.7); EOSINOPHILS % (AUTO) 2.4 %; HGB - HEMOGLOBIN 14.1 g/dL (12.0-16.0); LYMPHOCYTES # (AUTO) 2.9 10^3/uL (1.5-3.5); LYMPHOCYTES % (AUTO) 34.1 %; MEAN CORPUSCULAR HEMOGLOBIN 30.7 pg (27.0-31.0); MEAN CORPUSCULAR HGB CONC 31.8 g/dL (32.0-36.0); MEAN CORPUSCULAR VOLUME 96.7 fL (81.0-99.0); MEAN PLATELET VOLUME 10.8 fL (7.9-10.8); MONOCYTES # (AUTO) 0.7 10^3/uL (0.0-1.0); MONOCYTES % (AUTO) 8.5 %; NEUTROPHILS # (AUTO) 4.6 10^3/uL (1.5-6.6); NEUTROPHILS % (AUTO) 54.2 %; PLT - PLATELET COUNT 213 10^3/uL (130-450); RED BLOOD COUNT 4.59 10^6/uL (4.20-5.40); RED CELL DISTRIBUTION WIDTH 14.8 % (12.0-15.0); WHITE BLOOD COUNT 8.5 x10^3/uL (4.8-10.8)
[2020-07-18 06:14] LABS: CALCIUM 8.3 mg/dL (8.5-10.3); CREATININE 0.6 mg/dL (0.4-1.0); MAGNESIUM 2.1 mg/dL (1.7-2.8)
[2020-07-18] MEDS: IPRATROPIUM/ALBUTEROL 3 ML NEB INH SCH ×3 (07:30→19:50)
[2020-07-18] MEDS: INSULIN ASPART 300 UNIT/3 ML PEN SUBQ SCH ×4 (08:35→20:31)
[2020-07-18] MEDS: CEFEPIME 1 GM in SODIUM CHLORIDE 0.9% MINIBAG 100 ML IV SCH ×2 (08:36→20:31)
[2020-07-18] MEDS: LACTATED RINGERS 1,000 ML IV SCH ×2 (08:46→18:53)
[2020-07-18] MEDS: predniSONE 10 MG TABLET PO SCH (08:48)
[2020-07-18] MEDS: ENOXAPARIN 40 MG/0.4 ML SYRINGE SUBQ SCH (08:51)
[2020-07-18] MEDS: polyethylene glycoL 3350 17 GM PACKET PO SCH (08:54)
--- NOTE | 2020-07-18 09:22 | PROVIDER PROGRESS NOTE ---
Subjective - Prog Note Date Prog Note Date: 07/18/20 - Subjective Subjective: She is more awake today and is able to converse more. She knows she is in the hospital and she knows the year and month. Recognizes her daughter at bedside. Still has little of abdominal pain. No chest pain or dyspnea. Still has a little cough. Her biggest complaint is just fatigue. She does not want to move around. She reports no dysuria or urgency. Current Medications - Current Medications Current Medications: Active Medications Acetaminophen (Acetaminophen 325 Mg Tablet) 650 mg PO Q4HR PRN PRN Reason: Pain 1 to 4 Last Admin: 07/18/20 13:12 Dose: 650 mg Documented by: Albuterol/Ipratropium (Ipratropium/Albuterol 3 Ml Neb) 3 ml INH RTTID [facility] Last Admin: 07/18/20 14:40 Dose: 3 ml Documented by: Brimonidine Tartrate (Brimonidine 0.2% Ophth Drops 5 Ml) 1 drops EACHEYE TID [facility] Last Admin: 07/18/20 13:17 Dose: 1 drops Documented by: Calcium Carbonate/Glycine (Calcium Carbonate Chew 500 Mg Tablet) 500 mg PO TID [facility] Last Admin: 07/18/20 13:19 Dose: Not Given Documented by: Cholecalciferol (Cholecalciferol 25 Mcg Tablet) 50 mcg PO DAILY [facility] Last Admin: 07/18/20 10:16 Dose: Not Given Documented by: Cyanocobalamin (Cyanocobalamin 500 Mcg Tablet) 500 mcg PO DAILY [facility] Last Admin: 07/18/20 10:16 Dose: Not Given Documented by: Dorzolamide HCl (Dorzolamide 2% Ophth Drops) 1 drops EACHEYE TID [facility] Last Admin: 07/18/20 13:17 Dose: 1 drops Documented by: Enoxaparin Sodium (Enoxaparin 40 Mg/0.4 Ml Syringe) 40 mg SUBQ DAILY [facility] Last Admin: 07/18/20 08:51 Dose: 40 mg Documented by: Lactated Ringer's (Lr) 1,000 mls @ 100 mls/hr IV .Q10H [facility] Last Admin: 07/18/20 08:46 Dose: 100 mls/hr Documented by: Cefepime HCl 1 gm/ Sodium (Chloride) 100 mls @ 200 mls/hr IV Q12H [facility] Last Infusion: 07/18/20 09:30 Dose: Infused Documented by: Doxycycline Hyclate 100 mg/ (Sodium Chloride) 100 mls @ 100 mls/hr IV BID [facility] Last Infusion: 07/18/20 12:51 Dose: Infused Documented by: Insulin Aspart (Insulin Aspart 300 Unit/3 Ml Pen) 1 - 5 unit SUBQ 0800,120 0,1700,2100 [facility]; Protocol Last Admin: 07/18/20 12:33 Dose: Not Given Documented by: Latanoprost (Latanoprost 0.005% Ophth Drops) 1 drops EACHEYE QPM [facility] Last Admin: 07/17/20 21:26 Dose: 1 drops Documented by: Ondansetron HCl (Ondansetron 4 Mg/2 Ml Vial) 4 mg IVP Q6HR PRN PRN Reason: Nausea / Vomiting Polyethylene Glycol (Polyethylene Glycol 3350 17 Gm Packet) 17 gm PO DAILY [facility] Last Admin: 07/18/20 08:54 Dose: 17 gm Documented by: Prednisone (Prednisone 10 Mg Tablet) 10 mg PO DAILY [facility] Last Admin: 07/18/20 08:48 Dose: 10 mg Documented by: Sodium Chloride (Sodium Chloride Flush 0.9% 10 Ml Syringe) 10 ml IVP PRN PRN PRN Reason: NEEDED PER PROVIDER ORDERS Sodium Chloride (Sodium Chloride Flush 0.9% 10 Ml Syringe) 10 ml IVP 0100,0900,1700 [facility] Last Admin: 07/18/20 09:33 Dose: Not Given Documented by: Brimonidine 0.2% Ophth Drops [Alphagan P 0.2% Ophth Drops] 1 drops EACHEYE TID 07/16/20 Calcium Carbonate [Tums (Calcium Carbonate 500mg)] 500 mg PO TID 07/16/20 Cyanocobalamin (Vitamin B-12) [Vitamin B-12 (500 mcg sublingual)] 500 mcg PO DAILY 07/16/20 Dorzolamide 2% Ophth Drops [Trusopt 2% Ophth Drops] 1 drops EACHEYE TID 07/16/20 Ipratropium/Albuterol [Duoneb] 1 neb INH TID 07/16/20 L. Acidophilus/Pectin, [place] [Acidophilus Capsule] 2 cap PO DAILY 07/16/20 Midodrine HCl 5 mg PO DAILY 07/16/20 Mupirocin 1 applic TOP TID 07/16/20 Peg 400/Hypromellose/Glycerin [Visine Tears Drops] 1 drops EACHEYE QID 07/16/20 Pregabalin [Lyrica] 2.5 ml PO QPM 07/16/20 Pregabalin [Lyrica] 5 ml PO BID 07/16/20 Tiotropium [place] [Spiriva] 1 cap INH DAILY 07/16/20 Travoprost [Travatan Z] 1 drops EACHEYE DAILY 07/16/20 Vit A/Vit C/Vit E/Zinc/Copper [Preservision Areds Softgel] 1 tab PO DAILY 07/16/20 guaiFENesin [Chest Congestion Relief] 5 ml PO BID 07/16/20 predniSONE [Deltasone] 30 mg PO DAILY 07/16/20 traMADol [Ultram] 50 mg PO TID 07/16/20 Objective - Vital Signs/Intake & Output Reviewed Vital Signs: Yes Vital Signs: Vital Signs x48h Temp Pulse Pulse Resp BP BP Pulse Ox 07/18/20 07:52 36.9 C 62 16 105/44 L 95 07/18/20 07:30 67 16 07/18/20 04:00 36.6 C 67 16 131/68 H 94 Intake & Output: Intake & Output 07/15/20 07/16/20 07/17/20 07/18/20 23:59 23:59 23:59 23:59 Intake Total 2441.667 3305 1000 Output Total 1300 975 600 Balance 3338.859 0812 400 - Objective General Appearance: positive: No acute distress, Lethargic (She still lethargic will open her eyes and communicate.) Eyes Bilateral: positive: Normal inspection ENT: positive: ENT inspection nml Neck: positive: Nml inspection Respiratory: positive: No respiratory distress, Rhonchi. negative: Wheezes, Rales Cardiovascular: positive: Regular rate & rhythm, No murmur Abdomen: positive: Nml bowel sounds, Tenderness (Mild tenderness in the lower abdomen). negative: Guarding, Rebound Skin: positive: Warm, Dry Extremities: positive: No pedal edema Neurologic/Psychiatric: positive: Other (She is moving all 4 extremities.). negative: Disoriented to person, Disoriented to place, Disoriented to time - Lab Results Fish Bones: 07/18/20 04:54 07/18/20 04:54 Other Labs: Lab Results x24hrs 07/18/20 07/18/20 Range/Units 04:54 04:54 WBC 8.5 (4.8-10.8) x10^3/uL RBC 4.59 (4.20-5.40) 10^6/uL Hgb 14.1 (12.0-16.0) g/dL Hct 44.4 (37.0-47.0) % MCV 96.7 (81.0-99.0) fL MCH 30.7 (27.0-31.0) pg MCHC 31.8 L (32.0-36.0) g/dL RDW 14.8 (12.0-15.0) % Plt Count 213 (130-450) 10^3/uL MPV 10.8 (7.9-10.8) fL Neut # (Auto) 4.6 (1.5-6.6) 10^3/uL Lymph # (Auto) 2.9 (1.5-3.5) 10^3/uL [place] # (Auto) 0.7 (0.0-1.0) 10^3/uL Eos # (Auto) 0.2 (0.0-0.7) 10^3/uL Baso # (Auto) 0.1 (0.0-0.1) 10^3/uL Absolute Nucleated RBC 0.00 x10^3/uL Nucleated RBC % 0.0 /100WBC Sodium 139 (135-145) mmol/L Potassium 4.0 (3.5-5.0) mmol/L Chloride 110 (101-111) mmol/L Carbon Dioxide 21 (21-32) mmol/L Anion Gap 8.0 (6-13) BUN 8 (6-20) mg/dL Creatinine 0.6 (0.4-1.0) mg/dL Estimated GFR (MDRD) 94 (>89) Glucose 93 (70-100) mg/dL Calcium 8.3 L (8.5-10.3) mg/dL Magnesium 2.1 (1.7-2.8) mg/dL ABX Reporting Has patient been on IV antibiotics over the past 48 hours?: Yes Assessment/Plan - Problem List (1) Altered mental status Impression: She is much improved today. She is alert and oriented but still lethargic. She is getting closer to her baseline. Because of this is still not clear but at this time we are treating her for urinary tract infection and she did receive some IV fluids although I am not certain that this explains her episode of unresponsiveness. We will look to resume her home medications like Lyrica tomorrow as long as she remains alert. Qualifiers: Altered mental status type: somnolence Qualified Code(s): R40.0 - Somnolence (2) UTI (urinary tract infection) Impression: She remains on cefepime IV with today being day 3. Urine culture is growing >100,000 gram-negative bacilli. We will continue cefepime IV until we have urine cultures back. Qualifiers: Urinary tract infection type: acute cystitis Hematuria presence: without hematuria Qualified Code(s): N30.00 - Acute cystitis without hematuria (3) Community acquired pneumonia Impression: Repeat x-ray yesterday was still concerning for bilateral infiltrates. Given her cough and presentation, we did add azithromycin for community-acquired pneumonia. That she reportedly has an allergy to this that is anaphylaxis although she did receive this yesterday without any side effects. We will switch her to doxycycline today. (4) Constipation Impression: She has not had a bowel movement despite administration of an enema. I believe this is the cause of her lower abdominal pain as CT was otherwise unremarkable. We will give her milk of magnesium today and will consider another enema. (5) History of COPD Impression: Stable and not in exacerbation. Continue her home inhalers. (6) Diabetes mellitus Impression: Blood glucose have all beeb less than 100 although her oral intake has been limited. We will continue blood glucose checks now that she is taking more p.o. Continue carb controlled diet. Qualifiers: Diabetes mellitus type: type 2 (7) Glaucoma Impression: Continue home eyedrops.
[2020-07-18] MEDS: CYANOCOBALAMIN 500 MCG TABLET PO SCH (10:16)
[2020-07-18] MEDS: CHOLECALCIFEROL 25 MCG TABLET PO SCH (10:16)
[2020-07-18] MEDS: DOXYCYCLINE INJ 100 MG in SODIUM CHLORIDE 0.9% MINIBAG 100 ML IV SCH ×2 (11:42→21:14)
[2020-07-18] MEDS ORDERED: MAGNESIUM HYDROXIDE 2,400 MG/30 ML UDC PO PRN (18:11)
[2020-07-18] MEDS: LATANOPROST 0.005% OPHTH DROPS EACHEYE SCH (20:31)
[2020-07-19] MEDS: LACTATED RINGERS 1,000 ML IV SCH (04:49)
[2020-07-19] MEDS: CALCIUM CARBONATE CHEW 500 MG TABLET PO SCH (04:58)
[2020-07-19] MEDS: DORZOLAMIDE 2% OPHTH DROPS EACHEYE SCH ×3 (05:00→22:04)
[2020-07-19] MEDS: BRIMONIDINE 0.2% OPHTH DROPS 5 ML EACHEYE SCH ×3 (05:01→22:02)
[2020-07-19 05:40] LABS: BASOPHILS % (AUTO) 0.6 %; EOSINOPHILS # (AUTO) 0.2 10^3/uL (0.0-0.7); EOSINOPHILS % (AUTO) 2.8 %; HGB - HEMOGLOBIN 14.4 g/dL (12.0-16.0); LYMPHOCYTES # (AUTO) 2.7 10^3/uL (1.5-3.5); LYMPHOCYTES % (AUTO) 37.6 %; MEAN CORPUSCULAR HGB CONC 33.3 g/dL (32.0-36.0); MEAN CORPUSCULAR VOLUME 92.9 fL (81.0-99.0); MEAN PLATELET VOLUME 10.1 fL (7.9-10.8); MONOCYTES # (AUTO) 0.6 10^3/uL (0.0-1.0); MONOCYTES % (AUTO) 8.3 %; NEUTROPHILS # (AUTO) 3.6 10^3/uL (1.5-6.6); NEUTROPHILS % (AUTO) 50.6 %; PLT - PLATELET COUNT 218 10^3/uL (130-450); RED BLOOD COUNT 4.65 10^6/uL (4.20-5.40); RED CELL DISTRIBUTION WIDTH 14.5 % (12.0-15.0); WHITE BLOOD COUNT 7.1 x10^3/uL (4.8-10.8)
[2020-07-19 06:05] LABS: CALCIUM 8.6 mg/dL (8.5-10.3); CREATININE 0.6 mg/dL (0.4-1.0); MAGNESIUM 2.1 mg/dL (1.7-2.8)
[2020-07-19] MEDS: IPRATROPIUM/ALBUTEROL 3 ML NEB INH SCH ×3 (07:41→20:12)
[2020-07-19] MEDS: INSULIN ASPART 300 UNIT/3 ML PEN SUBQ SCH ×4 (07:48→22:01)
[2020-07-19] MEDS: CEFEPIME 1 GM in SODIUM CHLORIDE 0.9% MINIBAG 100 ML IV SCH ×2 (08:43→21:59)
[2020-07-19] MEDS: CYANOCOBALAMIN 500 MCG TABLET PO SCH (08:52)
[2020-07-19] MEDS: CHOLECALCIFEROL 25 MCG TABLET PO SCH (08:52)
[2020-07-19] MEDS: ENOXAPARIN 40 MG/0.4 ML SYRINGE SUBQ SCH (08:52)
[2020-07-19] MEDS: polyethylene glycoL 3350 17 GM PACKET PO SCH (08:53)
[2020-07-19] MEDS: SODIUM CHLORIDE FLUSH 0.9% 10 ML SYRINGE IVP SCH ×3 (08:55→23:42)
[2020-07-19] MEDS: predniSONE 10 MG TABLET PO SCH (09:00)
[2020-07-19] MEDS: DOXYCYCLINE INJ 100 MG in SODIUM CHLORIDE 0.9% MINIBAG 100 ML IV SCH ×2 (09:47→22:49)
[2020-07-19] MEDS: SODIUM CHLORIDE FLUSH 0.9% 10 ML SYRINGE IVP PRN (11:14)
--- NOTE | 2020-07-19 11:22 | PROVIDER PROGRESS NOTE ---
Subjective - Prog Note Date Prog Note Date: 07/19/20 - Subjective Subjective: Since yesterday afternoon when she got out of bed and into a chair, she has been increasingly fatigued. This morning she is asleep in bed but will open her eyes when spoken to. She complains of feeling fatigued and still has a little abdominal pain. Has not had a significant bowel movement. Reports no nausea or vomiting. She was able to eat dinner yesterday without issues. Denies dysuria, urgency. Reports no chest pain or difficulty breathing. Still has a little cough. Her daughter is at bedside and states that the patient has been extremely fatigued and just appears very weak. Current Medications - Current Medications Current Medications: Active Medications Acetaminophen (Acetaminophen 325 Mg Tablet) 650 mg PO Q4HR PRN PRN Reason: Pain 1 to 4 Last Admin: 07/18/20 13:12 Dose: 650 mg Documented by: Albuterol/Ipratropium (Ipratropium/Albuterol 3 Ml Neb) 3 ml INH RTTID [facility] Last Admin: 07/19/20 07:41 Dose: 3 ml Documented by: Brimonidine Tartrate (Brimonidine 0.2% Ophth Drops 5 Ml) 1 drops EACHEYE TID [facility] Last Admin: 07/19/20 05:01 Dose: 1 drops Documented by: Calcium Carbonate/Glycine (Calcium Carbonate Chew 500 Mg Tablet) 500 mg PO TID [facility] Last Admin: 07/19/20 04:58 Dose: Not Given Documented by: Cholecalciferol (Cholecalciferol 25 Mcg Tablet) 50 mcg PO DAILY [facility] Last Admin: 07/19/20 08:52 Dose: 50 mcg Documented by: Cyanocobalamin (Cyanocobalamin 500 Mcg Tablet) 500 mcg PO DAILY [facility] Last Admin: 07/19/20 08:52 Dose: 500 mcg Documented by: Dorzolamide HCl (Dorzolamide 2% Ophth Drops) 1 drops EACHEYE TID [facility] Last Admin: 07/19/20 05:00 Dose: 1 drops Documented by: Enoxaparin Sodium (Enoxaparin 40 Mg/0.4 Ml Syringe) 40 mg SUBQ DAILY [facility] Last Admin: 07/19/20 08:52 Dose: 40 mg Documented by: Cefepime HCl 1 gm/ Sodium (Chloride) 100 mls @ 200 mls/hr IV Q12H [facility] Last Infusion: 02/19/21 09:35 Dose: Infused Documented by: Doxycycline Hyclate 100 mg/ (Sodium Chloride) 100 mls @ 100 mls/hr IV BID [facility] Last Infusion: 07/19/20 11:00 Dose: Infused Documented by: Insulin Aspart (Insulin Aspart 300 Unit/3 Ml Pen) 1 - 5 unit SUBQ 080 0,1200,1700,2100 [facility]; Protocol Last Admin: 07/19/20 07:48 Dose: Not Given Documented by: Latanoprost (Latanoprost 0.005% Ophth Drops) 1 drops EACHEYE QPM [facility] Last Admin: 07/18/20 20:31 Dose: Not Given Documented by: Magnesium Hydroxide (Magnesium Hydroxide 2,400 Mg/30 Ml Udc) 2,400 mg PO ONCE PRN PRN Reason: Constipation Stop: 07/23/20 18:10 Ondansetron HCl (Ondansetron 4 Mg/2 Ml Vial) 4 mg IVP Q6HR PRN PRN Reason: Nausea / Vomiting Polyethylene Glycol (Polyethylene Glycol 3350 17 Gm Packet) 17 gm PO DAILY [facility] Last Admin: 07/19/20 08:53 Dose: 17 gm Documented by: Prednisone (Prednisone 10 Mg Tablet) 10 mg PO DAILY [facility] Last Admin: 07/19/20 09:00 Dose: 10 mg Documented by: Sodium Chloride (Sodium Chloride Flush 0.9% 10 Ml Syringe) 10 ml IVP PRN PRN PRN Reason: NEEDED PER PROVIDER ORDERS Last Admin: 07/19/20 11:14 Dose: 10 ml Documented by: Sodium Chloride (Sodium Chloride Flush 0.9% 10 Ml Syringe) 10 ml IVP 0100,0900,1700 [facility] Last Admin: 07/19/20 08:55 Dose: 10 ml Documented by: Brimonidine 0.2% Ophth Drops [Alphagan P 0.2% Ophth Drops] 1 drops EACHEYE TID 07/16/20 Calcium Carbonate [Tums (Calcium Carbonate 500mg)] 500 mg PO TID 07/16/20 Cyanocobalamin (Vitamin B-12) [Vitamin B-12 (500 mcg sublingual)] 500 mcg PO DAILY 07/16/20 Dorzolamide 2% Ophth Drops [Trusopt 2% Ophth Drops] 1 drops EACHEYE TID 07/16/20 Ipratropium/Albuterol [Duoneb] 1 neb INH TID 07/16/20 L. Acidophilus/Pectin, [place] [Acidophilus Capsule] 2 cap PO DAILY 07/16/20 Midodrine HCl 5 mg PO DAILY 07/16/20 Mupirocin 1 applic TOP TID 07/16/20 Peg 400/Hypromellose/Glycerin [Visine Tears Drops] 1 drops EACHEYE QID 07/16/20 Pregabalin [Lyrica] 2.5 ml PO QPM 07/16/20 Pregabalin [Lyrica] 5 ml PO BID 07/16/20 Tiotropium [place] [Spiriva] 1 cap INH DAILY 07/16/20 Travoprost [Travatan Z] 1 drops EACHEYE DAILY 07/16/20 Vit A/Vit C/Vit E/Zinc/Copper [Preservision Areds Softgel] 1 tab PO DAILY 07/16/20 guaiFENesin [Chest Congestion Relief] 5 ml PO BID 07/16/20 predniSONE [Deltasone] 30 mg PO DAILY 07/16/20 traMADol [Ultram] 50 mg PO TID 07/16/20 Objective - Vital Signs/Intake & Output Reviewed Vital Signs: Yes Vital Signs: Vital Signs x48h Temp Pulse Pulse Resp BP Pulse Ox 07/19/20 07:54 66 16 07/19/20 07:29 36.9 C 67 20 151/63 H 97 07/19/20 05:00 36.5 C 76 18 136/61 H 98 Intake & Output: Intake & Output 07/16/20 07/17/20 07/18/20 07/19/20 23:59 23:59 23:59 23:59 Intake Total 2441.667 3305 2880 1496.666 Output Total 4111 720 6047 1250 Balance 1242.450 0433 880 246.666 - Objective General Appearance: positive: Lethargic (She appears quite lethargic and fatigued lying in bed. Will open her eyes when spoken to but will quickly shut them. Will answer questions but with minimal words. Prefers to nod yes or no.) Eyes Bilateral: positive: Normal inspection ENT: positive: ENT inspection nml Neck: positive: Nml inspection Respiratory: positive: No respiratory distress, Rhonchi. negative: Wheezes, Rales Cardiovascular: positive: Regular rate & rhythm, No murmur. negative: Tachycardia Abdomen: positive: Nml bowel sounds, No distention, Tenderness (Mild tenderness in lower abdomen.). negative: Guarding, Rebound Skin: positive: Warm, Dry Extremities: positive: No pedal edema Neurologic/Psychiatric: positive: Other (She is moving all four extremities and is oriented.). negative: Disoriented to person, Disoriented to place - Lab Results Fish Bones: 07/19/20 04:13 07/19/20 04:13 Other Labs: Lab Results x24hrs 07/19/20 07/19/20 Range/Units 04:13 04:13 WBC 7.1 (4.8-10.8) x10^3/uL RBC 4.65 (4.20-5.40) 10^6/uL Hgb 14.4 (12.0-16.0) g/dL Hct 43.2 (37.0-47.0) % MCV 92.9 (81.0-99.0) fL MCH 31.0 (27.0-31.0) pg MCHC 33.3 (32.0-36.0) g/dL RDW 14.5 (12.0-15.0) % Plt Count 218 (130-450) 10^3/uL MPV 10.1 (7.9-10.8) fL Neut # (Auto) 3.6 (1.5-6.6) 10^3/uL Lymph # (Auto) 2.7 (1.5-3.5) 10^3/uL [place] # (Auto) 0.6 (0.0-1.0) 10^3/uL Eos # (Auto) 0.2 (0.0-0.7) 10^3/uL Baso # (Auto) 0.0 (0.0-0.1) 10^3/uL Absolute Nucleated RBC 0.00 x10^3/uL Nucleated RBC % 0.0 /100WBC Sodium 140 (135-145) mmol/L Potassium 3.8 (3.5-5.0) mmol/L Chloride 109 (101-111) mmol/L Carbon Dioxide 19 L (21-32) mmol/L Anion Gap 12.0 (6-13) BUN 9 (6-20) mg/dL Creatinine 0.6 (0.4-1.0) mg/dL Estimated GFR (MDRD) 94 (>89) Glucose 96 (70-100) mg/dL Calcium 8.6 (8.5-10.3) mg/dL Magnesium 2.1 (1.7-2.8) mg/dL ABX Reporting Has patient been on IV antibiotics over the past 48 hours?: Yes Assessment/Plan - Problem List (1) Lethargy Impression: She is no longer altered but she is still quite lethargic. She is barely able to keep her eyes open but has been a conversation. Her daughter tells me she has been lethargic since receiving the Covid vaccine about 3 weeks ago but she was still able to perform most of her ADLs. Her current weakness and fatigue is new. The patient not have any focal deficits on exam and she is able to participate in combination albeit with the least amount of words that she can possibly use. CT the head was unremarkable. We will check a TSH and ammonia level although I doubt her ammonia will be elevated given her normal LFTs. This may be also later to her constipation and we will repeat abdominal x-ray. Continue to avoid sedatives. We will encourage her to get up out of bed as tolerated. Continue with PT and OT. (2) UTI (urinary tract infection) Impression: Urine culture is growing Pseudomonas which is consistent with past cultures. Sensitivities are still pending. She remains on cefepime IV with today being day 4. Although this is low suspicion for an actual infection given her lack of symptoms, we are treating her given her presentation with an elevated white count and altered mental status. We will likely treat her for 5 to 7 days. Follow-up sensitivities. Qualifiers: Urinary tract infection type: acute cystitis Hematuria presence: without hematuria Qualified Code(s): N30.00 - Acute cystitis without hematuria (3) Community acquired pneumonia Impression: Chest x-rays were concerning for mild bilateral infiltrates. She does have a cough and although she not hypoxic or tachypneic, we have decided to treat her for community-acquired pneumonia. She is on doxycycline with today being day 3. She is also on cefepime for the urinary tract infection. We will continue doxycycline and look attention to oral antibiotics tomorrow. (4) Constipation Impression: This was evident on CT of the abdomen and pelvis. There was no evidence of obstruction at that time. She still has some lower abdominal pain has not had a bowel movement despite MiraLAX and an enema. We are trying milk of magnesium today and will consider another enema. We will repeat abdominal x-ray to ensure there is no obstruction. (5) History of COPD Impression: Stable. Continue home inhalers. (6) Diabetes mellitus Qualifiers: Diabetes mellitus type: type 2 (7) Glaucoma Impression: Continue home eyedrops. (8) Altered mental status Impression: This is resolved now. She is no longer altered. Although she is still quite fatigued and lethargic, she is alert and oriented. Qualifiers: Altered mental status type: somnolence Qualified Code(s): R40.0 - Somnolence
--- NOTE | 2020-07-19 11:26 | XRAY Report ---
PROCEDURE: Abdomen 1 View X-Ray INDICATIONS: Abdominal pain. Constipation. TECHNIQUE: 1 view of the abdomen were acquired. COMPARISON: CT abdomen/pelvis 07/16/2020 FINDINGS: Surgical changes and devices: None. Bowel: No pneumoperitoneum. The bowel gas pattern is nonspecific. Gas within large and small bowel is noted.. Soft tissues: No masses; visualized solid organ contours appear normal in size. No suspicious abdom inal calcifications. Extensive prior spine fusion procedure noted at the lumbosacral spine. Electron ic control device at the lateral right hemipelvis noted. Bones: No suspicious bony abnormalities. IMPRESSION: Nonspecific bowel gas pattern, no intestinal obstruction or perforation found. Depending on the clinical status follow-up by CT scanning may become necessary. Reviewed by: Robbin Pressley MD on 07/19/2020 11:24 AM [facility] Approved by: Robbin Pressley MD on 07/19/2020 11:24 AM [facility] Station ID: [id number]
[2020-07-19] MEDS ORDERED: BENZONATATE 100 MG CAPSULE PO PRN (11:34)
[2020-07-19] MEDS ORDERED: MAGNESIUM HYDROXIDE 2,400 MG/30 ML UDC PO PRN (11:52)
[2020-07-19] MEDS: LATANOPROST 0.005% OPHTH DROPS EACHEYE SCH (21:16)
[2020-07-20 05:20] LABS: BASOPHILS % (AUTO) 0.5 %; EOSINOPHILS # (AUTO) 0.2 10^3/uL (0.0-0.7); EOSINOPHILS % (AUTO) 2.8 %; HGB - HEMOGLOBIN 14.3 g/dL (12.0-16.0); LYMPHOCYTES # (AUTO) 2.9 10^3/uL (1.5-3.5); LYMPHOCYTES % (AUTO) 36.1 %; MEAN CORPUSCULAR HEMOGLOBIN 30.5 pg (27.0-31.0); MEAN CORPUSCULAR HGB CONC 32.3 g/dL (32.0-36.0); MEAN CORPUSCULAR VOLUME 94.5 fL (81.0-99.0); MONOCYTES # (AUTO) 0.6 10^3/uL (0.0-1.0); NEUTROPHILS # (AUTO) 4.1 10^3/uL (1.5-6.6); NEUTROPHILS % (AUTO) 52.2 %; PLT - PLATELET COUNT 235 10^3/uL (130-450); RED BLOOD COUNT 4.69 10^6/uL (4.20-5.40); RED CELL DISTRIBUTION WIDTH 14.6 % (12.0-15.0); WHITE BLOOD COUNT 7.9 x10^3/uL (4.8-10.8)
[2020-07-20] MEDS: BRIMONIDINE 0.2% OPHTH DROPS 5 ML EACHEYE SCH ×3 (05:22→21:22)
[2020-07-20] MEDS: DORZOLAMIDE 2% OPHTH DROPS EACHEYE SCH ×3 (05:23→21:24)
[2020-07-20 05:28] LABS: CALCIUM 8.4 mg/dL (8.5-10.3); CREATININE 0.6 mg/dL (0.4-1.0); MAGNESIUM 2.1 mg/dL (1.7-2.8)
[2020-07-20] MEDS: IPRATROPIUM/ALBUTEROL 3 ML NEB INH SCH ×3 (07:12→19:55)
[2020-07-20] MEDS: CALCIUM CARBONATE CHEW 500 MG TABLET PO SCH (08:03)
[2020-07-20] MEDS: CHOLECALCIFEROL 25 MCG TABLET PO SCH (08:04)
[2020-07-20] MEDS: ENOXAPARIN 40 MG/0.4 ML SYRINGE SUBQ SCH (08:04)
[2020-07-20] MEDS: CYANOCOBALAMIN 500 MCG TABLET PO SCH (08:04)
[2020-07-20] MEDS: predniSONE 10 MG TABLET PO SCH (08:04)
[2020-07-20] MEDS: CEFEPIME 1 GM in SODIUM CHLORIDE 0.9% MINIBAG 100 ML IV SCH ×2 (08:10→20:40)
[2020-07-20] MEDS: SODIUM CHLORIDE FLUSH 0.9% 10 ML SYRINGE IVP SCH ×3 (08:11→23:30)
[2020-07-20] MEDS: INSULIN ASPART 300 UNIT/3 ML PEN SUBQ SCH ×4 (08:11→21:24)
[2020-07-20] MEDS: polyethylene glycoL 3350 17 GM PACKET PO SCH (08:11)
[2020-07-20] MEDS: DOXYCYCLINE INJ 100 MG in SODIUM CHLORIDE 0.9% MINIBAG 100 ML IV SCH ×2 (09:18→21:19)
[2020-07-20] MEDS ORDERED: HYDROCORTISONE SUCCINATE 100 MG/2 ML VIAL IVP SCH (10:01)
[2020-07-20] MEDS: POTASSIUM CHLOR 10 MEQ/100 ML 10 MEQ/100 ML BAG IV SCH ×4 (10:38→16:02)
[2020-07-20 10:44] LABS: CK- CREATINE KINASE 29 IU/L (22-269)
[2020-07-20 10:46] LABS: CRP - C-REACTIVE PROTEIN < 1.0 mg/dL (0-1.0)
--- NOTE | 2020-07-20 11:07 | PROVIDER PROGRESS NOTE ---
Subjective - Prog Note Date Prog Note Date: 07/20/20 - Subjective Subjective: Her daughter told me the patient was more alert this morning was able to eat most of her breakfast and asked for more food. She was able to talk on the phone to the daughter's . Shortly after, she went back to sleep. The patient still complains of being extremely fatigued and weak. She was able to have multiple bowel movements overnight. She still complains of some lower abdominal pain although this is improved compared to yesterday. She continues to have a productive cough. Denies difficulty breathing. Current Medications - Current Medications Current Medications: Active Medications Acetaminophen (Acetaminophen 325 Mg Tablet) 650 mg PO Q4HR PRN PRN Reason: Pain 1 to 4 Last Admin: 07/18/20 13:12 Dose: 650 mg Documented by: Albuterol/Ipratropium (Ipratropium/Albuterol 3 Ml Neb) 3 ml INH RTTID [facility] Last Admin: 07/20/20 07:12 Dose: 3 ml Documented by: Benzonatate (Benzonatate 100 Mg Capsule) 100 mg PO TID PRN PRN Reason: Cough Brimonidine Tartrate (Brimonidine 0.2% Ophth Drops 5 Ml) 1 drops EACHEYE TID [facility] Last Admin: 07/20/20 05:22 Dose: 1 drops Documented by: Calcium Carbonate/Glycine (Calcium Carbonate Chew 500 Mg Tablet) 500 mg PO DAILY [facility] Last Admin: 07/20/20 08:03 Dose: 500 mg Documented by: Cholecalciferol (Cholecalciferol 25 Mcg Tablet) 50 mcg PO DAILY [facility] Last Admin: 07/20/20 08:04 Dose: 50 mcg Documented by: Cyanocobalamin (Cyanocobalamin 500 Mcg Tablet) 500 mcg PO DAILY [facility] Last Admin: 07/20/20 08:04 Dose: 500 mcg Documented by: Dorzolamide HCl (Dorzolamide 2% Ophth Drops) 1 drops EACHEYE TID [facility] Last Admin: 07/20/20 05:23 Dose: 1 drops Documented by: Enoxaparin Sodium (Enoxaparin 40 Mg/0.4 Ml Syringe) 40 mg SUBQ DAILY [facility] Last Admin: 07/20/20 08:04 Dose: 40 mg Documented by: Guaifenesin (Guaifenesin 100 Mg/5 Ml Udc) 500 mg PO BID [facility] Hydrocortisone Sodium Succinate (Hydrocortisone Succinate 100 Mg/2 Ml Vial) 50 mg IVP Q6HR [facility] Last Admin: 07/20/20 10:37 Dose: 50 mg Documented by: Cefepime HCl 1 gm/ Sodium (Chloride) 100 mls @ 200 mls/hr IV Q12H [facility] Last Infusion: 07/20/20 09:19 Dose: Infused Documented by: Doxycycline Hyclate 100 mg/ (Sodium Chloride) 100 mls @ 100 mls/hr IV BID [facility] Last Infusion: 07/20/20 10:45 Dose: Infused Documented by: Potassium Chloride (Potassium Chloride) 10 meq in 100 mls @ 100 mls/hr IV Q1H [facility] Stop: 07/20/20 14:59 Last Infusion: 07/20/20 10:45 Dose: 50 mls/hr Documented by: Insulin Aspart (Insulin Aspart 300 Unit/3 Ml Pen) 1 - 5 unit SUBQ 0800,1200,1 700,2100 [facility]; Protocol Last Admin: 07/20/20 08:11 Dose: Not Given Documented by: Latanoprost (Latanoprost 0.005% Ophth Drops) 1 drops EACHEYE QPM [facility] Last Admin: 07/19/20 21:16 Dose: 1 drops Documented by: Ondansetron HCl (Ondansetron 4 Mg/2 Ml Vial) 4 mg IVP Q6HR PRN PRN Reason: Nausea / Vomiting Polyethylene Glycol (Polyethylene Glycol 3350 17 Gm Packet) 17 gm PO DAILY [facility] Last Admin: 07/20/20 08:11 Dose: Not Given Documented by: Sodium Chloride (Sodium Chloride Flush 0.9% 10 Ml Syringe) 10 ml IVP PRN PRN PRN Reason: NEEDED PER PROVIDER ORDERS Last Admin: 07/19/20 11:14 Dose: 10 ml Documented by: Sodium Chloride (Sodium Chloride Flush 0.9% 10 Ml Syringe) 10 ml IVP 0100,0900,1700 [facility] Last Admin: 07/20/20 08:11 Dose: 10 ml Documented by: Brimonidine 0.2% Ophth Drops [Alphagan P 0.2% Ophth Drops] 1 drops EACHEYE TID 07/16/20 Calcium Carbonate [Tums (Calcium Carbonate 500mg)] 500 mg PO TID 07/16/20 Cyanocobalamin (Vitamin B-12) [Vitamin B-12 (500 mcg sublingual)] 500 mcg PO DAILY 07/16/20 Dorzolamide 2% Ophth Drops [Trusopt 2% Ophth Drops] 1 drops EACHEYE TID 07/16/20 Ipratropium/Albuterol [Duoneb] 1 neb INH TID 07/16/20 L. Acidophilus/Pectin, [place] [Acidophilus Capsule] 2 cap PO DAILY 07/16/20 Midodrine HCl 5 mg PO DAILY 07/16/20 Mupirocin 1 applic TOP TID 07/16/20 Peg 400/Hypromellose/Glycerin [Visine Tears Drops] 1 drops EACHEYE QID 07/16/20 Pregabalin [Lyrica] 2.5 ml PO QPM 07/16/20 Pregabalin [Lyrica] 5 ml PO BID 07/16/20 Tiotropium [place] [Spiriva] 1 cap INH DAILY 07/16/20 Travoprost [Travatan Z] 1 drops EACHEYE DAILY 07/16/20 Vit A/Vit C/Vit E/Zinc/Copper [Preservision Areds Softgel] 1 tab PO DAILY 07/16/20 guaiFENesin [Chest Congestion Relief] 5 ml PO BID 07/16/20 predniSONE [Deltasone] 30 mg PO DAILY 07/16/20 traMADol [Ultram] 50 mg PO TID 07/16/20 Objective - Vital Signs/Intake & Output Reviewed Vital Signs: Yes Vital Signs: Vital Signs x48h Temp Pulse Pulse Resp BP BP BP 07/20/20 09:08 37.3 C 68 15 123/58 L 07/20/20 08:00 36.7 C 72 17 100/55 L 07/20/20 07:18 70 16 07/20/20 05:33 36.5 C 63 16 116/61 Pulse Ox 07/20/20 09:08 99 07/20/20 08:00 95 07/20/20 07:18 07/20/20 05:33 94 Intake & Output: Intake & Output 07/17/20 07/18/20 07/19/20 07/20/20 23:59 23:59 23:59 23:59 Intake Total 3305 2880 1956.666 411.667 Output Total 975 2000 1750 Balance 2330 880 206.666 411.667 - Objective General Appearance: positive: Lethargic (She still appears quite lethargic. Will open her eyes but quickly shut them again. Will speak in very short sentences. Prefers to nod yes or no) Eyes Bilateral: positive: Normal inspection ENT: positive: ENT inspection nml Respiratory: positive: No respiratory distress, Rhonchi. negative: Wheezes, Rales Cardiovascular: positive: Regular rate & rhythm, No murmur. negative: Tachycardia Abdomen: positive: Nml bowel sounds, No distention, Tenderness (She has tenderness in the suprapubic and right lower quadrant. This appears improved). negative: Non-tender Skin: positive: Warm, Dry Extremities: positive: Full ROM, No pedal edema Neurologic/Psychiatric: positive: Other (She does not have any focal deficits.). negative: Disoriented to person, Disoriented to place - Lab Results Fish Bones: 07/20/20 05:00 07/20/20 05:00 Other Labs: Lab Results x24hrs 07/20/20 07/20/20 07/20/20 Range/Units 05:00 05:00 05:00 WBC 7.9 (4.8-10.8) x10^3/uL RBC 4.69 (4.20-5.40) 10^6/uL Hgb 14.3 (12.0-16.0) g/dL Hct 44.3 (37.0-47.0) % MCV 94.5 (81.0-99.0) fL MCH 30.5 (27.0-31.0) pg MCHC 32.3 (32.0-36.0) g/dL RDW 14.6 (12.0-15.0) % Plt Count 235 (130-450) 10^3/uL MPV 10.0 (7.9-10.8) fL Neut # (Auto) 4.1 (1.5-6.6) 10^3/uL Lymph # (Auto) 2.9 (1.5-3.5) 10^3/uL [place] # (Auto) 0.6 (0.0-1.0) 10^3/uL Eos # (Auto) 0.2 (0.0-0.7) 10^3/uL Baso # (Auto) 0.0 (0.0-0.1) 10^3/uL Absolute Nucleated RBC 0.00 x10^3/uL Nucleated RBC % 0.0 /100WBC Sodium 140 (135-145) mmol/L Potassium 3.4 L (3.5-5.0) mmol/L Chloride 110 (101-111) mmol/L Carbon Dioxide 22 (21-32) mmol/L Anion Gap 8.0 (6-13) BUN 13 (6-20) mg/dL Creatinine 0.6 (0.4-1.0) mg/dL Estimated GFR (MDRD) 94 (>89) Glucose 96 (70-100) mg/dL Calcium 8.4 L (8.5-10.3) mg/dL Magnesium 2.1 (1.7-2.8) mg/dL Ammonia (7-35) umol/L Total Creatine Kinase 29 (22-269) IU/L Troponin I High Sens (2.3-14.8) ng/L C-Reactive Protein < 1.0 (0-1.0) mg/dL TSH (0.34-5.60) uIU/mL 07/19/20 07/19/20 07/19/20 Range/Units 11:50 11:50 04:13 WBC (4.8-10.8) x10^3/uL RBC (4.20-5.40) 10^6/uL Hgb (12.0-16.0) g/dL Hct (37.0-47.0) % MCV (81.0-99.0) fL MCH (27.0-31.0) pg MCHC (32.0-36.0) g/dL RDW (12.0-15.0) % Plt Count (130-450) 10^3/uL MPV (7.9-10.8) fL Neut # (Auto) (1.5-6.6) 10^3/uL Lymph # (Auto) (1.5-3.5) 10^3/uL [place] # (Auto) (0.0-1.0) 10^3/uL Eos # (Auto) (0.0-0.7) 10^3/uL Baso # (Auto) (0.0-0.1) 10^3/uL Absolute Nucleated RBC x10^3/uL Nucleated RBC % /100WBC Sodium (135-145) mmol/L Potassium (3.5-5.0) mmol/L Chloride (101-111) mmol/L Carbon Dioxide (21-32) mmol/L Anion Gap (6-13) BUN (6-20) mg/dL Creatinine (0.4-1.0) mg/dL Estimated GFR (MDRD) (>89) Glucose (70-100) mg/dL Calcium (8.5-10.3) mg/dL Magnesium (1.7-2.8) mg/dL Ammonia 18.5 (7-35) umol/L Total Creatine Kinase (22-269) IU/L Troponin I High Sens 7.8 (2.3-14.8) ng/L C-Reactive Protein 1.7 H (0-1.0) mg/dL TSH (0.34-5.60) uIU/mL 07/19/20 Range/Units 04:13 WBC (4.8-10.8) x10^3/uL RBC (4.20-5.40) 10^6/uL Hgb (12.0-16.0) g/dL Hct (37.0-47.0) % MCV (81.0-99.0) fL MCH (27.0-31.0) pg MCHC (32.0-36.0) g/dL RDW (12.0-15.0) % Plt Count (130-450) 10^3/uL MPV (7.9-10.8) fL Neut # (Auto) (1.5-6.6) 10^3/uL Lymph # (Auto) (1.5-3.5) 10^3/uL [place] # (Auto) (0.0-1.0) 10^3/uL Eos # (Auto) (0.0-0.7) 10^3/uL Baso # (Auto) (0.0-0.1) 10^3/uL Absolute Nucleated RBC x10^3/uL Nucleated RBC % /100WBC Sodium (135-145) mmol/L Potassium (3.5-5.0) mmol/L Chloride (101-111) mmol/L Carbon Dioxide (21-32) mmol/L Anion Gap (6-13) BUN (6-20) mg/dL Creatinine (0.4-1.0) mg/dL Estimated GFR (MDRD) (>89) Glucose (70-100) mg/dL Calcium (8.5-10.3) mg/dL Magnesium (1.7-2.8) mg/dL Ammonia (7-35) umol/L Total Creatine Kinase (22-269) IU/L Troponin I High Sens (2.3-14.8) ng/L C-Reactive Protein (0-1.0) mg/dL TSH 1.42 (0.34-5.60) uIU/mL ABX Reporting Has patient been on IV antibiotics over the past 48 hours?: Yes Assessment/Plan - Problem List (1) Lethargy Impression: She is no longer disoriented but still remains quite lethargic and fatigued. She does have moments where she is more lucid but on my evaluation this morning she appears quite fatigued and barely able to open her eyes. I am not sure why she is so fatigued at this point in time. We have treated her for possible pneumonia and a urinary tract infection and she has no fevers, white count, and her CRP is normal. We did check a troponin yesterday and this was also within normal limits so doubt this would be related to heart disease. She had a CT on admission which showed no acute intracranial abnormalities and her abdomen pelvis just showed constipation. Her TSH is also within normal limits. She is on chronic prednisone and I wonder if there could be a component of adrenal insufficiency. We will try her on stress dose steroids today with 50 mg IV every 6 hours. If there is no improvement despite this, will consider repeating imaging of the head. She does not have any focal deficits on exam to suggest a stroke at this time. (2) Pseudomonas urinary tract infection Impression: Her urine culture is growing Pseudomonas which is sensitive to cefepime. Today is day 5 of antibiotics and will be the last day of treatment. Although this is likely asymptomatic bacteriuria, we have decided to treat her given her initial presentation and ongoing lethargy. (3) Community acquired pneumonia Impression: Her x-ray was concerning for bilateral infiltrates. She has not been on doxycycline for 3 days and cefepime for 5 days. She is not hypoxic or tachypneic but continues have a productive cough. I am not sure if this is contributing to her lethargy or not but I would have expected her to improve by now if the pneumonia was the cause of her fatigue. We will continue doxycycline for 2 more days to complete 5 days of therapy. Today is last day of cefepime. (4) Constipation Impression: >Repeat abdominal film yesterday was not concerning for obstruction. She was finally able to have bowel movement after receiving MiraLAX. We will continue her on bowel regimen with MiraLAX. (5) History of COPD Impression: This does not appear to be an exacerbation. We will continue antibiotics for the pneumonia as mentioned above. Continue with her home inhalers. (6) Diabetes mellitus Impression: Blood sugars have been well controlled. Continue with carb controlled diet. Qualifiers: Diabetes mellitus type: type 2 (7) Glaucoma Impression: Continue her home eyedrops. (8) Altered mental status Impression: This has resolved. She is no longer disoriented but remains quite lethargic. Plan as mentioned above for lethargy. Qualifiers: Altered mental status type: somnolence Qualified Code(s): R40.0 - Somnolence
[2020-07-20] MEDS ORDERED: MIN OIL/DIMETHICON/COCONUT OIL 92 GM TUBE TOP PRN (11:14)
[2020-07-20] MEDS: guaiFENesin 600 MG TABLET PO SCH ×2 (11:43→20:40)
[2020-07-20] MEDS: HYDROCORTISONE SUCCINATE 100 MG/2 ML VIAL IVP SCH ×3 (13:18→23:30)
[2020-07-20] MEDS: LATANOPROST 0.005% OPHTH DROPS EACHEYE SCH (20:47)
[2020-07-21] MEDS ORDERED: CALAMINE/ZINC OXIDE 177 ML BOTTLE TOP PRN (01:19)
[2020-07-21] MEDS ORDERED: ZINC OXIDE 20% OINT 30 GM TUBE TOP PRN (01:27)
[2020-07-21] MEDS: HYDROCORTISONE SUCCINATE 100 MG/2 ML VIAL IVP SCH ×4 (05:05→23:52)
[2020-07-21] MEDS: DORZOLAMIDE 2% OPHTH DROPS EACHEYE SCH ×3 (05:05→21:09)
[2020-07-21] MEDS: BRIMONIDINE 0.2% OPHTH DROPS 5 ML EACHEYE SCH ×3 (05:06→21:08)
[2020-07-21 05:55] LABS: ALBUMIN 3.2 g/dL (3.2-5.5); BILIRUBIN,DIRECT 0.1 mg/dL (0.1-0.5); BILIRUBIN,TOTAL 1.1 mg/dL (0.2-1.0); CALCIUM 8.3 mg/dL (8.5-10.3); CREATININE 0.6 mg/dL (0.4-1.0); PHOSPHORUS 2.7 mg/dL (2.5-4.6); TOTAL PROTEIN 5.3 g/dL (6.7-8.2)
[2020-07-21 06:27] LABS: BASOPHILS % (AUTO) 0.2 %; HGB - HEMOGLOBIN 13.8 g/dL (12.0-16.0); LYMPHOCYTES # (AUTO) 1.9 10^3/uL (1.5-3.5); LYMPHOCYTES % (AUTO) 21.7 %; MEAN CORPUSCULAR HEMOGLOBIN 31.2 pg (27.0-31.0); MEAN CORPUSCULAR HGB CONC 31.9 g/dL (32.0-36.0); MEAN CORPUSCULAR VOLUME 97.7 fL (81.0-99.0); MEAN PLATELET VOLUME 10.1 fL (7.9-10.8); MONOCYTES # (AUTO) 0.3 10^3/uL (0.0-1.0); MONOCYTES % (AUTO) 3.7 %; NEUTROPHILS # (AUTO) 6.6 10^3/uL (1.5-6.6); NEUTROPHILS % (AUTO) 74.1 %; PLT - PLATELET COUNT 170 10^3/uL (130-450); RED BLOOD COUNT 4.43 10^6/uL (4.20-5.40); RED CELL DISTRIBUTION WIDTH 14.6 % (12.0-15.0); WHITE BLOOD COUNT 8.9 x10^3/uL (4.8-10.8)
[2020-07-21] MEDS: IPRATROPIUM/ALBUTEROL 3 ML NEB INH SCH ×3 (07:22→21:29)
[2020-07-21] MEDS: INSULIN ASPART 300 UNIT/3 ML PEN SUBQ SCH ×4 (08:25→20:52)
[2020-07-21] MEDS: CALCIUM CARBONATE CHEW 500 MG TABLET PO SCH (08:25)
[2020-07-21] MEDS: CHOLECALCIFEROL 25 MCG TABLET PO SCH (08:26)
[2020-07-21] MEDS: CYANOCOBALAMIN 500 MCG TABLET PO SCH (08:26)
[2020-07-21] MEDS: guaiFENesin 600 MG TABLET PO SCH ×2 (08:26→17:01)
[2020-07-21] MEDS: polyethylene glycoL 3350 17 GM PACKET PO SCH (08:27)
[2020-07-21] MEDS: ENOXAPARIN 40 MG/0.4 ML SYRINGE SUBQ SCH (08:29)
[2020-07-21] MEDS: SODIUM CHLORIDE FLUSH 0.9% 10 ML SYRINGE IVP SCH ×3 (08:40→23:51)
--- NOTE | 2020-07-21 09:14 | CT Report ---
PROCEDURE: HEAD WO INDICATIONS: Weakness. TECHNIQUE: Noncontrast 4.5 mm thick angled axial sections acquired from the foramen magnum to the vertex. For r adiation dose reduction, the following was used: automated exposure control, adjustment of mA and/or kV according to patient size. COMPARISON: 07/16/2020, 03/09/2020, 03/25/2020 FINDINGS: Image quality: Excellent. CSF spaces: Basal cisterns are patent. No extra-axial fluid collections. Ventricles are normal in size and shape. Brain: No midline shift. No intracranial masses or hemorrhage. Mckeon-white matter interface is norm al. Skull and face: Calvarium and visualized facial bones are intact, without suspicious lesions. Sinuses: Visualized sinuses and mastoids are clear. IMPRESSION: Unremarkable intracranial study for age, without an acute abnormality seen. If there is strong clinical concern for a stroke, please consider a dedicated brain MRI for further e valuation (assuming that there is no contraindication to MRI). Reviewed by: Juaquin Lovell MD on 07/21/2020 8:13 AM [facility] Approved by: Juaquin Lovell MD on 07/21/2020 8:13 AM [facility] Station ID: [id number]
[2020-07-21] MEDS: DOXYCYCLINE INJ 100 MG in SODIUM CHLORIDE 0.9% MINIBAG 100 ML IV SCH (12:30)
--- NOTE | 2020-07-21 12:30 | CONSULTATION NOTE ---
Consultation Report: Call for IV placement after multiple failed attempts, hx of difficult IV start. Procedure explained to dtr and patient. R arm extended and prepped after tourniquet. 20ga 1.88" catheter placed at R brachial v. attempt x1. Easily aspirates and flushes after cap and Jloop placed. Secured with tegaderm and tape. Pt tolerated procedure without complication. RN notified of new IV placement. Recommend TKO IVF as this is 3rd IV to occlude.
--- NOTE | 2020-07-21 13:15 | PROVIDER PROGRESS NOTE ---
Subjective - Prog Note Date Prog Note Date: 07/21/20 - Subjective Subjective: She still feels really fatigued and lethargic. Was able to eat breakfast this morning. Still has a productive cough. States her abdominal pain has resolved. Current Medications - Current Medications Current Medications: Active Medications Acetaminophen (Acetaminophen 325 Mg Tablet) 650 mg PO Q4HR PRN PRN Reason: Pain 1 to 4 Last Admin: 07/18/20 13:12 Dose: 650 mg Documented by: Albuterol/Ipratropium (Ipratropium/Albuterol 3 Ml Neb) 3 ml INH RTTID [facility] Last Admin: 07/21/20 12:36 Dose: 3 ml Documented by: Benzonatate (Benzonatate 100 Mg Capsule) 100 mg PO TID PRN PRN Reason: Cough Brimonidine Tartrate (Brimonidine 0.2% Ophth Drops 5 Ml) 1 drops EACHEYE TID [facility] Last Admin: 07/21/20 05:06 Dose: 1 drops Documented by: Calcium Carbonate/Glycine (Calcium Carbonate Chew 500 Mg Tablet) 500 mg PO DAILY [facility] Last Admin: 07/21/20 08:25 Dose: 500 mg Documented by: Cholecalciferol (Cholecalciferol 25 Mcg Tablet) 50 mcg PO DAILY [facility] Last Admin: 07/21/20 08:26 Dose: 50 mcg Documented by: Cyanocobalamin (Cyanocobalamin 500 Mcg Tablet) 500 mcg PO DAILY [facility] Last Admin: 07/21/20 08:26 Dose: 500 mcg Documented by: Dorzolamide HCl (Dorzolamide 2% Ophth Drops) 1 drops EACHEYE TID [facility] Last Admin: 07/21/20 05:05 Dose: 1 drops Documented by: Doxycycline Hyclate (Doxycycline 100 Mg Tablet) 100 mg PO BID [facility] Enoxaparin Sodium (Enoxaparin 40 Mg/0.4 Ml Syringe) 40 mg SUBQ DAILY [facility] Last Admin: 07/21/20 08:29 Dose: 40 mg Documented by: Guaifenesin (Guaifenesin 600 Mg Tablet) 600 mg PO BID [facility] Last Admin: 07/21/20 08:26 Dose: 600 mg Documented by: Hydrocortisone Sodium Succinate (Hydrocortisone Succinate 100 Mg/2 Ml Vial) 50 mg IVP Q6HR [facility] Last Admin: 07/21/20 12:30 Dose: 50 mg Documented by: Insulin Aspart (Insulin Aspart 300 Unit/3 Ml Pen) 1 - 5 unit SUBQ 0800,1200,1700,2100 [facility]; Protocol Last Admin: 07/21/20 12:31 Dose: Not Given Documented by: Latanoprost (Latanoprost 0.005% Ophth Drops) 1 drops EACHEYE QPM [facility] Last Admin: 07/20/20 20:47 Dose: 1 drops Documented by: Mineral Oil (Min Oil/Dimethicon/Coconut Oil 92 Gm Tube) 1 applic TOP PRN PRN PRN Reason: Skin Care Multi-Ingredient Ointment (Zinc Oxide 20% Oint 30 Gm Tube) 1 applic TOP PRN PRN PRN Reason: Skin Care Last Admin: 07/21/20 02:49 Dose: 1 applic Documented by: Ondansetron HCl (Ondansetron 4 Mg/2 Ml Vial) 4 mg IVP Q6HR PRN PRN Reason: Nausea / Vomiting Polyethylene Glycol (Polyethylene Glycol 3350 17 Gm Packet) 17 gm PO DAILY [facility] Last Admin: 07/21/20 08:27 Dose: Not Given Documented by: Sodium Chloride (Sodium Chloride Flush 0.9% 10 Ml Syringe) 10 ml IVP PRN PRN PRN Reason: NEEDED PER PROVIDER ORDERS Last Admin: 07/19/20 11:14 Dose: 10 ml Documented by: Sodium Chloride (Sodium Chloride Flush 0.9% 10 Ml Syringe) 10 ml IVP 0100,0900,1700 [facility] Last Admin: 07/21/20 08:40 Dose: 10 ml Documented by: Brimonidine 0.2% Ophth Drops [Alphagan P 0.2% Ophth Drops] 1 drops EACHEYE TID 07/16/20 Calcium Carbonate [Tums (Calcium Carbonate 500mg)] 500 mg PO TID 07/16/20 Cyanocobalamin (Vitamin B-12) [Vitamin B-12 (500 mcg sublingual)] 500 mcg PO DAILY 07/16/20 Dorzolamide 2% Ophth Drops [Trusopt 2% Ophth Drops] 1 drops EACHEYE TID 07/16/20 Ipratropium/Albuterol [Duoneb] 1 neb INH TID 07/16/20 L. Acidophilus/Pectin, [place] [Acidophilus Capsule] 2 cap PO DAILY 07/16/20 Midodrine HCl 5 mg PO DAILY 07/16/20 Mupirocin 1 applic TOP TID 07/16/20 Peg 400/Hypromellose/Glycerin [Visine Tears Drops] 1 drops EACHEYE QID 07/16/20 Pregabalin [Lyrica] 2.5 ml PO QPM 07/16/20 Pregabalin [Lyrica] 5 ml PO BID 07/16/20 Tiotropium [place] [Spiriva] 1 cap INH DAILY 07/16/20 Travoprost [Travatan Z] 1 drops EACHEYE DAILY 07/16/20 Vit A/Vit C/Vit E/Zinc/Copper [Preservision Areds Softgel] 1 tab PO DAILY 07/16/20 guaiFENesin [Chest Congestion Relief] 5 ml PO BID 07/16/20 predniSONE [Deltasone] 30 mg PO DAILY 07/16/20 traMADol [Ultram] 50 mg PO TID 07/16/20 Objective - Vital Signs/Intake & Output Reviewed Vital Signs: Yes Vital Signs: Vital Signs x48h Temp Pulse Pulse Resp BP BP Pulse Ox 07/21/20 12:38 76 20 07/21/20 11:15 36.3 C L 65 16 130/55 L 97 07/21/20 08:05 36.4 C L 68 16 116/48 L 100 07/21/20 07:22 63 20 07/21/20 06:11 36.9 C 62 14 117/50 L 97 Intake & Output: Intake & Output 07/18/20 07/19/20 07/20/20 07/21/20 23:59 23:59 23:59 23:59 Intake Total 2880 3919.557 8525.167 400 Output Total 1999 1750 100 600 Balance 880 206.666 999.167 -200 - Objective General Appearance: positive: No acute distress, Lethargic (Appears very fatigued) Eyes Bilateral: positive: Normal inspection ENT: positive: ENT inspection nml Neck: positive: Nml inspection Respiratory: positive: No respiratory distress, Rhonchi. negative: Wheezes, Rales Cardiovascular: positive: Regular rate & rhythm, No murmur. negative: Tachycardia Abdomen: positive: Nml bowel sounds, No distention. negative: Tenderness, Guarding, Rebound Skin: positive: Warm, Dry Extremities: positive: No pedal edema Neurologic/Psychiatric: positive: Other (She is moving all 4 extremities.). negative: Disoriented to person, Disoriented to place - Lab Results Fish Bones: 07/21/20 06:22 07/21/20 05:30 Other Labs: Lab Results x24hrs 07/21/20 07/21/20 Range/Units 06:22 05:30 WBC 8.9 (4.8-10.8) x10^3/uL RBC 4.43 (4.20-5.40) 10^6/uL Hgb 13.8 (12.0-16.0) g/dL Hct 43.3 (37.0-47.0) % MCV 97.7 (81.0-99.0) fL MCH 31.2 H (27.0-31.0) pg MCHC 31.9 L (32.0-36.0) g/dL RDW 14.6 (12.0-15.0) % Plt Count 170 (130-450) 10^3/uL MPV 10.1 (7.9-10.8) fL Neut # (Auto) 6.6 (1.5-6.6) 10^3/uL Lymph # (Auto) 1.9 (1.5-3.5) 10^3/uL [place] # (Auto) 0.3 (0.0-1.0) 10^3/uL Eos # (Auto) 0.0 (0.0-0.7) 10^3/uL Baso # (Auto) 0.0 (0.0-0.1) 10^3/uL Absolute Nucleated RBC 0.00 x10^3/uL Nucleated RBC % 0.0 /100WBC Sodium 139 (135-145) mmol/L Potassium 3.7 (3.5-5.0) mmol/L Chloride 111 (101-111) mmol/L Carbon Dioxide 20 L (21-32) mmol/L Anion Gap 8.0 (6-13) BUN 16 (6-20) mg/dL Creatinine 0.6 (0.4-1.0) mg/dL Estimated GFR (MDRD) 94 (>89) Glucose 126 H (70-100) mg/dL Calcium 8.3 L (8.5-10.3) mg/dL Phosphorus 2.7 (2.5-4.6) mg/dL Magnesium 2.0 (1.7-2.8) mg/dL Total Bilirubin 1.1 H (0.2-1.0) mg/dL Direct Bilirubin 0.1 (0.1-0.5) mg/dL AST 18 (10-42) IU/L ALT 20 (10-60) IU/L Alkaline Phosphatase 42 (42-121) IU/L Total Protein 5.3 L (6.7-8.2) g/dL Albumin 3.2 (3.2-5.5) g/dL Globulin 2.1 (2.1-4.2) g/dL Assessment/Plan - Problem List (1) Lethargy Impression: She is alert and oriented but extremely lethargic and fatigued. She sleeps at most a day after eating breakfast, lunch, and dinner. I am not sure as to why she is so fatigued and lethargic. Her labs are unremarkable. Her CRP and CK were within normal limits. Troponin has been negative. We will trial her on stress dose steroids without much improvement but we will continue these for [address] of the head on admission was unremarkable and we will repeat this today given her ongoing lethargic and this is also unremarkable. I do not think this was related to a urinary tract infection as she was treated with cefepime and the Pseudomonas was sensitive to this. This could be due to pneumonia but clinically she does not have signs of severe infection given lack of fever, white count, hypoxia. I did discuss with her daughter this morning briefly about consideration for a lumbar puncture although I am not sure it would be of much yield given the lack of mental status change. We will see how she does today and consider this tomorrow. Will also check ABG. (2) Community acquired pneumonia Impression: She is not hypoxic or tachypneic. She still has rhonchorous breath sounds but this is improved. We will switch her to oral doxycycline today and repeat an x- ray in the morning. (3) History of COPD Impression: This is not in exacerbation. Continue home inhalers. (4) Diabetes mellitus Impression: Stable. Continue carb controlled diet and sliding scale. Qualifiers: Diabetes mellitus type: type 2 (5) Glaucoma Impression: Continue home eyedrops. (6) Altered mental status Impression: This has resolved. Qualifiers: Altered mental status type: somnolence Qualified Code(s): R40.0 - Yang nolence (7) Pseudomonas urinary tract infection Impression: She has completed treatment with 5 days of cefepime IV. (8) Constipation Impression: This has resolved after receiving laxatives. Imaging was negative for obstruction. Her abdominal pain has also resolved. Continue with bowel regimen.
[2020-07-21 14:59] LABS: ABG PH 7.48 (7.35-7.45)
[2020-07-21 15:00] LABS: ABG BASE EXCESS -0.8 mmol/L (-2.0-3.0); ABG HCO3 21.6 mmol/L (22.0-26.0); ABG OXYGEN SATURATION 98 % (94-98); ABG PCO2 30 mmHg (34-45); ABG PO2 98 mmHg (80-100); ABG TCO2 22.5 MMOL/L (21.0-29.0); ALLEN TEST POSITIVE
[2020-07-21] MEDS ORDERED: SODIUM CHLORIDE 0.9% 500 ML IV PRN (15:03)
[2020-07-21] MEDS: LATANOPROST 0.005% OPHTH DROPS EACHEYE SCH (20:51)
[2020-07-21] MEDS: DOXYCYCLINE 100 MG TABLET PO SCH (20:53)
[2020-07-21] MEDS: SODIUM CHLORIDE FLUSH 0.9% 10 ML SYRINGE IVP PRN (23:55)
[2020-07-22] MEDS: BRIMONIDINE 0.2% OPHTH DROPS 5 ML EACHEYE SCH ×3 (05:06→21:02)
[2020-07-22] MEDS: DORZOLAMIDE 2% OPHTH DROPS EACHEYE SCH ×3 (05:06→21:03)
[2020-07-22] MEDS: HYDROCORTISONE SUCCINATE 100 MG/2 ML VIAL IVP SCH ×3 (05:22→18:26)
[2020-07-22 05:26] LABS: BASOPHILS % (AUTO) 0.2 %; HGB - HEMOGLOBIN 13.7 g/dL (12.0-16.0); LYMPHOCYTES # (AUTO) 1.9 10^3/uL (1.5-3.5); LYMPHOCYTES % (AUTO) 16.9 %; MEAN CORPUSCULAR HEMOGLOBIN 30.7 pg (27.0-31.0); MEAN CORPUSCULAR HGB CONC 31.9 g/dL (32.0-36.0); MEAN CORPUSCULAR VOLUME 96.2 fL (81.0-99.0); MONOCYTES # (AUTO) 0.3 10^3/uL (0.0-1.0); MONOCYTES % (AUTO) 2.6 %; NEUTROPHILS # (AUTO) 8.8 10^3/uL (1.5-6.6); NEUTROPHILS % (AUTO) 79.8 %; PLT - PLATELET COUNT 238 10^3/uL (130-450); RED BLOOD COUNT 4.46 10^6/uL (4.20-5.40); RED CELL DISTRIBUTION WIDTH 14.8 % (12.0-15.0); WHITE BLOOD COUNT 11.1 x10^3/uL (4.8-10.8)
[2020-07-22 05:39] LABS: CALCIUM 8.7 mg/dL (8.5-10.3); CREATININE 0.7 mg/dL (0.4-1.0)
[2020-07-22] MEDS: IPRATROPIUM/ALBUTEROL 3 ML NEB INH SCH ×3 (07:48→18:09)
[2020-07-22] MEDS: INSULIN ASPART 300 UNIT/3 ML PEN SUBQ SCH ×4 (08:16→20:53)
--- NOTE | 2020-07-22 08:18 | PROVIDER PROGRESS NOTE ---
Subjective - Prog Note Date Prog Note Date: 07/22/20 - Subjective Subjective: Patient still complains of extreme fatigue and weakness. She reports no pain. Denies numbness. Just feels extremely tired and weak. Current Medications - Current Medications Current Medications: Active Medications Acetaminophen (Acetaminophen 325 Mg Tablet) 650 mg PO Q4HR PRN PRN Reason: Pain 1 to 4 Last Admin: 07/18/20 13:12 Dose: 650 mg Documented by: Albuterol/Ipratropium (Ipratropium/Albuterol 3 Ml Neb) 3 ml INH RTTID [facility] Last Admin: 07/22/20 13:26 Dose: 3 ml Documented by: Benzonatate (Benzonatate 100 Mg Capsule) 100 mg PO TID PRN PRN Reason: Cough Brimonidine Tartrate (Brimonidine 0.2% Ophth Drops 5 Ml) 1 drops EACHEYE TID [facility] Last Admin: 07/22/20 13:48 Dose: 1 drops Documented by: Calcium Carbonate/Glycine (Calcium Carbonate Chew 500 Mg Tablet) 500 mg PO 1200 [facility] Last Admin: 07/22/20 12:09 Dose: 500 mg Documented by: Cholecalciferol (Cholecalciferol 25 Mcg Tablet) 50 mcg PO 1200 [facility] Last Admin: 07/22/20 12:08 Dose: 50 mcg Documented by: Cyanocobalamin (Cyanocobalamin 500 Mcg Tablet) 500 mcg PO DAILY [facility] Last Admin: 07/22/20 08:25 Dose: 500 mcg Documented by: Dorzolamide HCl (Dorzolamide 2% Ophth Drops) 1 drops EACHEYE TID [facility] Last Admin: 07/22/20 13:48 Dose: 1 drops Documented by: Enoxaparin Sodium (Enoxaparin 40 Mg/0.4 Ml Syringe) 40 mg SUBQ DAILY [facility] Last Admin: 07/22/20 08:26 Dose: 40 mg Documented by: Guaifenesin (Guaifenesin 600 Mg Tablet) 600 mg PO 0800,1700 [facility] Last Admin: 07/22/20 08:26 Dose: 600 mg Documented by: Hydrocortisone Sodium Succinate (Hydrocortisone Succinate 100 Mg/2 Ml Vial) 50 mg IVP Q6HR [facility] Last Admin: 07/22/20 13:47 Dose: 50 mg Documented by: Sodium Chloride (Normal Saline 0.9%) 500 mls @ 0 mls/hr IV Q24H PRN PRN Reason: TKO RATE Lactated Ringer's (Lr) 1,000 mls @ 100 mls/hr IV .Q10H [facility] Stop: 07/23/20 03:59 Last Infusion: 07/22/20 14:05 Dose: 100 mls/hr Documented by: Doxycycline Hyclate 100 mg/ (Sodium Chloride) 100 mls @ 100 mls/hr IV BID [facility] Insulin Aspart (Insulin Aspart 300 Unit/3 Ml Pen) 1 - 5 unit SUBQ 0800,1200,1700,2100 [facility]; Protocol Last Admin: 07/22/20 12:09 Dose: 1 unit Documented by: Latanoprost (Latanoprost 0.005% Ophth Drops) 1 drops EACHEYE QPM [facility] Last Admin: 07/21/20 20:51 Dose: 1 drops Documented by: Mineral Oil (Min Oil/Dimethicon/Coconut Oil 92 Gm Tube) 1 applic TOP PRN PRN PRN Reason: Skin Care Multi-Ingredient Ointment (Zinc Oxide 20% Oint 30 Gm Tube) 1 applic TOP PRN PRN PRN Reason: Skin Care Last Admin: 07/21/20 02:49 Dose: 1 applic Documented by: Ondansetron HCl (Ondansetron 4 Mg/2 Ml Vial) 4 mg IVP Q6HR PRN PRN Reason: Nausea / Vomiting Polyethylene Glycol (Polyethylene Glycol 3350 17 Gm Packet) 17 gm PO DAILY [facility] Last Admin: 07/22/20 08:27 Dose: Not Given Documented by: Sodium Chloride (Sodium Chloride Flush 0.9% 10 Ml Syringe) 10 ml IVP PRN PRN PRN Reason: NEEDED PER PROVIDER ORDERS Last Admin: 07/21/20 23:55 Dose: 10 ml Documented by: Sodium Chloride (Sodium Chloride Flush 0.9% 10 Ml Syringe) 10 ml IVP 0100,0900,1700 [facility] Last Admin: 07/22/20 08:27 Dose: 10 ml Documented by: Cyanocobalamin (Vitamin B-12) [Vitamin B-12 (500 mcg sublingual)] 500 mcg PO DAILY 07/16/20 L. Acidophilus/Pectin, [place]ine [Acidophilus Capsule] 2 cap PO DAILY 07/16/20 Peg 400/Hypromellose/Glycerin [Visine Tears Drops] 1 drops EACHEYE QID 07/16/20 RX: Brimonidine 0.2% Ophth Drops [Alphagan P 0.2% Ophth Drops] 1 drops EACHEYE TID 07/16/20 RX: Calcium Carbonate [Tums (Calcium Carbonate 500mg)] 500 mg PO TID 07/16/20 RX: Dorzolamide 2% Ophth Drops [Trusopt 2% Ophth Drops] 1 drops EACHEYE TID 07/16/20 RX: Ipratropium/Albuterol [Duoneb] 1 neb INH TID 07/16/20 RX: Midodrine HCl 5 mg PO DAILY 07/16/20 RX: Mupirocin 1 applic TOP TID 07/16/20 RX: Pregabalin [Lyrica] 2.5 ml PO QPM 07/16/20 RX: Pregabalin [Lyrica] 5 ml PO BID 07/16/20 RX: Travoprost [Travatan Z] 1 drops EACHEYE DAILY 07/16/20 RX: guaiFENesin [Chest Congestion Relief] 5 ml PO BID 07/16/20 RX: predniSONE [Deltasone] 30 mg PO DAILY 07/16/20 RX: traMADol [Ultram] 50 mg PO TID 07/16/20 Tiotropium [place] [Spiriva] 1 cap INH DAILY 07/16/20 Vit A/Vit C/Vit E/Zinc/Copper [Preservision Areds Softgel] 1 tab PO DAILY 07/16/20 Objective - Vital Signs/Intake & Output Reviewed Vital Signs: Yes Vital Signs: Vital Signs x48h Pulse Pulse Resp BP Pulse Ox 07/22/20 07:48 69 11 L 07/22/20 04:57 66 17 125/62 96 Intake & Output: Intake & Output 07/19/20 07/20/20 07/21/20 07/22/20 23:59 23:59 23:59 23:59 Intake Total 8316.395 9485.167 800 75 Output Total 4954 345 1607 225 Balance 206.666 999.167 -800 -150 - Objective General Appearance: positive: No acute distress, Lethargic, Other (She is able to speak in short sentences. Appears very fatigued and weak.) Eyes Bilateral: positive: Normal inspection ENT: positive: ENT inspection nml Neck: positive: Nml inspection Respiratory: positive: No respiratory distress, Rhonchi. negative: Wheezes, Rales Cardiovascular: positive: Regular rate & rhythm, No murmur. negative: Tachycardia Abdomen: positive: Non-tender, No distention. negative: Tenderness Skin: positive: Warm, Dry Neurologic/Psychiatric: positive: Sensation nml, Other (She is able to move all 4 extremities but she hasMotor strength weakness. Her strength is about the 3-4 out of 5 in all 4 extremities. She cannot keep her arm elevated against gravity.). negative: Disoriented to person, Disoriented to place, Facial droop, Slurred/abnml speech - Lab Results Fish Bones: 07/22/20 05:14 07/22/20 05:14 Other Labs: Lab Results x24hrs 07/22/20 07/22/20 07/21/20 Range/Units 05:14 05:14 14:36 WBC 11.1 H (4.8-10.8) x10^3/uL RBC 4.46 (4.20-5.40) 10^6/uL Hgb 13.7 (12.0-16.0) g/dL Hct 42.9 (37.0-47.0) % MCV 96.2 (81.0-99.0) fL MCH 30.7 (27.0-31.0) pg MCHC 31.9 L (32.0-36.0) g/dL RDW 14.8 (12.0-15.0) % Plt Count 238 (130-450) 10^3/uL MPV 10.0 (7.9-10.8) fL Neut # (Auto) 8.8 H (1.5-6.6) 10^3/uL Lymph # (Auto) 1.9 (1.5-3.5) 10^3/uL [place] # (Auto) 0.3 (0.0-1.0) 10^3/uL Eos # (Auto) 0.0 (0.0-0.7) 10^3/uL Baso # (Auto) 0.0 (0.0-0.1) 10^3/uL Absolute Nucleated RBC 0.00 x10^3/uL Nucleated RBC % 0.0 /100WBC Bld Gas Analysis Time 1443 Sample Site LEFT BRACHIAL ABG pH 7.48 H (7.35-7.45) ABG pCO2 30 L (34-45) mmHg ABG pO2 98 (80-100) mmHg ABG HCO3 21.6 L (22.0-26.0) mmol/L ABG Total CO2 22.5 (21.0-29.0) MMOL/L ABG O2 Saturation 98 (94-98) % ABG Base Excess -0.8 (-2.0-3.0) mmol/L Hernandez Test POSITIVE Room Air YES Sodium 142 (135-145) mmol/L Potassium 3.7 (3.5-5.0) mmol/L Chloride 113 H (101-111) mmol/L Carbon Dioxide 21 (21-32) mmol/L Anion Gap 8.0 (6-13) BUN 21 H (6-20) mg/dL Creatinine 0.7 (0.4-1.0) mg/dL Estimated GFR (MDRD) 79 L (>89) Glucose 131 H (70-100) mg/dL Calcium 8.7 (8.5-10.3) mg/dL ABX Reporting Has patient been on IV antibiotics over the past 48 hours?: No Assessment/Plan - Problem List (1) Lethargy Impression: She is becoming progressively weaker throughout this hospitalization and the etiology of this is not clear. She has had 2 CT of the head now and both of them are unremarkable. MRI is not available and we cannot obtain one due to her having a nerve stimulator. Her labs have been unremarkable at this hospitalization. Her CRP is normal as well as her troponin. We will treat her for urinary tract infection with cefepime and we also treated her for possible pneumonia with doxycycline and repeat chest x-ray today shows improvement. Do not think that pneumonia would explain her weakness given the lack of fever, l eukocytosis. We also placed her on stress dose steroids given she is on chronic prednisone but she has not had improvement with this. I did discuss with the patient's daughter today about obtaining a lumbar puncture. After discussion with her siblings, she is agreeable to this. She we also discussed transferring her to higher level of care for a neurology evaluation given her progressive weakness as she may potentially need EMG and further work-up as not available here. The daughter is agreeable to transfer and prefers [facility] in [place] given that is where her mother's physicians are located. I have spoken with [facility] and they believe bed may be available later today or tomorrow. I am still waiting to speak with provider regarding transfer. The patient's daughter would prefer to defer the lumbar puncture until transfer. (2) Community acquired pneumonia Impression: Repeat chest x-ray today showed improvement in the right sided infiltrate. She is not hypoxic and is not tachypneic but her white count is slightly increased today. We will place her back on doxycycline IV and we will plan for 2 more days of antibiotics to complete 7 days of therapy. Qualifiers: Laterality: right (3) History of COPD Impression: Stable and not in exacerbation. Continue her home inhalers. (4) Diabetes mellitus Impression: Her blood sugars have been stable. Continue carb controlled diet and sliding scale. Qualifiers: Diabetes mellitus type: type 2 (5) Glaucoma Impression: Continue home eyedrops. (6) Altered mental status Impression: She is no longer altered just lethargic as mentioned above. Qualifiers: Altered mental status type: somnolence Qualified Code(s): R40.0 - Somnolence (7) Pseudomonas urinary tract infection Impression: She completed 5 days of cefepime IV for Pseudomonas UTI. (8) Constipation Impression: This has resolved. Continue with current bowel regimen.
[2020-07-22] MEDS: LACTATED RINGERS 1,000 ML IV SCH ×2 (08:22→20:59)
[2020-07-22] MEDS: CYANOCOBALAMIN 500 MCG TABLET PO SCH (08:25)
[2020-07-22] MEDS: guaiFENesin 600 MG TABLET PO SCH ×2 (08:26→17:15)
[2020-07-22] MEDS: ENOXAPARIN 40 MG/0.4 ML SYRINGE SUBQ SCH (08:26)
[2020-07-22] MEDS: polyethylene glycoL 3350 17 GM PACKET PO SCH (08:27)
[2020-07-22] MEDS: SODIUM CHLORIDE FLUSH 0.9% 10 ML SYRINGE IVP SCH ×2 (08:27→18:26)
--- NOTE | 2020-07-22 09:06 | XRAY Report ---
PROCEDURE: Chest 1 View X-Ray INDICATIONS: Cough. Follow up infiltrates. TECHNIQUE: One view of the chest was acquired. COMPARISON: CXR 07/17/2020, 07/16/2020, 03/11/2020, 10/11/2012. Lung bases on CT abdomen and pelvis 07/01. FINDINGS: Surgical changes and devices: Cholecystectomy clips. Lungs and pleura: No pleural effusions or pneumothorax. Mild airspace opacity most pronounced in the right lung field, more conspicuous. Emphysematous change. Mediastinum: Mediastinal contours appear normal. Heart size is normal. Bones and chest wall: No suspicious bony lesions. Rounded calcific density projecting over the right humeral head. IMPRESSION: Mild airspace opacity in the right midlung field which appears more defined compared to the prior exa m. Given the symptoms of cough this is most suspicious for pneumonia. Emphysematous change. Reviewed by: Arcenio Jett MD on 07/22/2020 9:04 AM [facility] Approved by: Arcenio Jett MD on 07/22/2020 9:04 AM [facility] Station ID: [id number]
[2020-07-22] MEDS: DOXYCYCLINE 100 MG TABLET PO SCH (10:49)
[2020-07-22] MEDS: CHOLECALCIFEROL 25 MCG TABLET PO SCH (12:08)
[2020-07-22] MEDS: CALCIUM CARBONATE CHEW 500 MG TABLET PO SCH (12:09)
[2020-07-22] MEDS: LATANOPROST 0.005% OPHTH DROPS EACHEYE SCH (20:55)
[2020-07-22] MEDS: DOXYCYCLINE INJ 100 MG in SODIUM CHLORIDE 0.9% MINIBAG 100 ML IV SCH (20:57)
[2020-07-23] MEDS: HYDROCORTISONE SUCCINATE 100 MG/2 ML VIAL IVP SCH ×4 (00:35→17:41)
[2020-07-23] MEDS: SODIUM CHLORIDE FLUSH 0.9% 10 ML SYRINGE IVP SCH ×3 (00:46→17:40)
[2020-07-23] MEDS: DORZOLAMIDE 2% OPHTH DROPS EACHEYE SCH ×2 (05:34→14:37)
[2020-07-23] MEDS: BRIMONIDINE 0.2% OPHTH DROPS 5 ML EACHEYE SCH ×2 (05:38→14:37)
[2020-07-23 05:52] LABS: BASOPHILS % (AUTO) 0.2 %; HGB - HEMOGLOBIN 14.1 g/dL (12.0-16.0); LYMPHOCYTES # (AUTO) 1.9 10^3/uL (1.5-3.5); LYMPHOCYTES % (AUTO) 16.1 %; MEAN CORPUSCULAR HGB CONC 31.3 g/dL (32.0-36.0); MEAN CORPUSCULAR VOLUME 98.9 fL (81.0-99.0); MEAN PLATELET VOLUME 11.2 fL (7.9-10.8); MONOCYTES # (AUTO) 0.3 10^3/uL (0.0-1.0); MONOCYTES % (AUTO) 2.6 %; NEUTROPHILS # (AUTO) 9.5 10^3/uL (1.5-6.6); NEUTROPHILS % (AUTO) 80.7 %; PLT - PLATELET COUNT 113 10^3/uL (130-450); RED BLOOD COUNT 4.55 10^6/uL (4.20-5.40); RED CELL DISTRIBUTION WIDTH 14.6 % (12.0-15.0); WHITE BLOOD COUNT 11.8 x10^3/uL (4.8-10.8)
[2020-07-23 06:08] LABS: CALCIUM 8.5 mg/dL (8.5-10.3); CREATININE 0.6 mg/dL (0.4-1.0)
[2020-07-23] MEDS: INSULIN ASPART 300 UNIT/3 ML PEN SUBQ SCH ×3 (07:40→17:40)
[2020-07-23] MEDS: guaiFENesin 600 MG TABLET PO SCH ×2 (07:51→17:40)
[2020-07-23] MEDS: DOXYCYCLINE INJ 100 MG in SODIUM CHLORIDE 0.9% MINIBAG 100 ML IV SCH (07:52)
[2020-07-23] MEDS: polyethylene glycoL 3350 17 GM PACKET PO SCH (07:52)
[2020-07-23] MEDS: CYANOCOBALAMIN 500 MCG TABLET PO SCH (07:52)
[2020-07-23] MEDS: IPRATROPIUM/ALBUTEROL 3 ML NEB INH SCH ×2 (08:15→15:30)
[2020-07-23] MEDS: CHOLECALCIFEROL 25 MCG TABLET PO SCH (12:15)
[2020-07-23] MEDS: CALCIUM CARBONATE CHEW 500 MG TABLET PO SCH (12:15)
[2020-07-23 16:31] VITALS: BP 122/47
--- NOTE | 2020-07-23 18:16 | PROVIDER PROGRESS NOTE ---
Assessment/Plan - Problem List (1) Lethargy Assessment/Plan: She is becoming progressively weaker throughout this hospitalization and the etiology of this is not clear. She has had 2 CT of the head now and both of them are unremarkable. MRI is not available and we cannot obtain one due to her having a nerve stimulator. Her labs have been unremarkable at this hospitalization. Her CRP is normal as well as her troponin. We will treat her for urinary tract infection with cefepime and we also treated her for possible pneumonia with doxycycline and repeat chest x-ray today shows improvement. Do not think that pneumonia would explain her weakness given the lack of fever, leukocytosis. We also placed her on stress dose steroids given she is on chronic prednisone but she has not had improvement with this. I did discuss with the patient's daughter today about obtaining a lumbar puncture. After discussion with her siblings, she is agreeable to this. She we also discussed transferring her to higher level of care for a neurology evaluation given her progressive weakness as she may potentially need EMG and further work-up as not available here. The daughter is agreeable to transfer and prefers [facility] in [place] given that is where her mother's physicians are located. I have spoken with [facility] and they believe bed may be available later today or tomorrow. I am still waiting to speak with provider regarding transfer. The patient's daughter would prefer to defer the lumbar puncture until transfer. (2) Community acquired pneumonia Impression: Repeat chest x-ray today showed improvement in the right sided infiltrate. She is not hypoxic and is not tachypneic but her white count is slightly increased today. We will place her back on doxycycline IV and we will plan for 2 more days of antibiotics to complete 7 days of therapy. Qualifiers: Laterality: right (3) History of COPD Impression: Stable and not in exacerbation. Continue her home inhalers. (4) Diabetes mellitus Impression: Her blood sugars have been stable. Continue carb controlled diet and sliding scale. Qualifiers: Diabetes mellitus type: type 2 (5) Glaucoma Impression: Continue home eyedrops. (6) Altered mental status Impression: She is no longer altered just lethargic as mentioned above. Qualifiers: Altered mental status type: somnolence Qualified Code(s): R40.0 - Somnolence (7) Pseudomonas urinary tract infection Impression: She completed 5 days of cefepime IV for Pseudomonas UTI. (8) Constipation Impression: This has resolved. Continue with current bowel regimen. - Current Meds Current Meds: Current Medications Generic Name Dose Route Start Last Admin Trade Name Vita PRN Reason Stop Dose Admin Acetaminophen 650 mg 07/16/20 17:23 07/18/20 13:12 Acetaminophen 325 Mg Tablet PO 650 mg Q4HR PRN Administration Pain 1 to 4 Albuterol/Ipratropium 3 ml 07/16/20 22:00 07/23/20 15:30 Ipratropium/Albuterol 3 Ml Neb INH 3 ml RTTID [facility] Administration Brimonidine Tartrate 1 drops 07/16/20 22:00 07/23/20 14:37 Brimonidine 0.2% Ophth Drops 5 Ml EACHEYE Not Given TID [facility] Calcium Carbonate/Glycine 500 mg 07/22/20 12:00 07/23/20 12:15 Calcium Carbonate Chew 500 Mg Tablet PO 500 mg 1200 [facility] Administration Cholecalciferol 50 mcg 07/22/20 12:00 07/23/20 12:15 Cholecalciferol 25 Mcg Tablet PO 50 mcg 1200 [facility] Administration Cyanocobalamin 500 mcg 07/17/20 09:00 07/23/20 07:52 Cyanocobalamin 500 Mcg Tablet PO 500 mcg DAILY [facility] Administration Dorzolamide HCl 1 drops 07/16/20 22:00 07/23/20 14:37 Dorzolamide 2% Ophth Drops EACHEYE Not Given TID [facility] Guaifenesin 600 mg 07/21/20 17:00 07/23/20 17:40 Guaifenesin 600 Mg Tablet PO 600 mg 0800,1700 [facility] Administration Hydrocortisone Sodium Succinate 50 mg 07/20/20 13:00 07/23/20 17:41 Hydrocortisone Succinate 100 Mg/2 Ml Vial IVP 50 mg Q6HR [facility] Administration Sodium Chloride 500 mls @ 0 mls/hr 07/21/20 15:03 07/23/20 09:08 Normal Saline 0.9% IV 20 mls/hr Q24H PRN Administration TKO RATE TKO Doxycycline Hyclate 100 mg/ 100 mls @ 100 mls/hr 07/22/20 21:00 07/23/20 09:06 Sodium Chloride IV Infused BID [facility] Infusion Insulin Aspart 1 - 5 unit 07/16/20 21:00 07/23/20 17:40 Insulin Aspart 300 Unit/3 Ml Pen SUBQ 1 unit 0800,1200,1700,2100 [facility] Administration Protocol Latanoprost 1 drops 07/16/20 21:00 07/22/20 20:55 Latanoprost 0.005% Ophth Drops EACHEYE 1 drops QPM [facility] Administration Multi-Ingredient Ointment 1 applic 07/21/20 01:27 07/21/20 02:49 Zinc Oxide 20% Oint 30 Gm Tube TOP 1 applic PRN PRN Administration Skin Care Polyethylene Glycol 17 gm 07/18/20 09:00 07/23/20 07:52 Polyethylene Glycol 3350 17 Gm Packet PO 17 gm DAILY [facility] Administration Sodium Chloride 10 ml 07/16/20 17:23 07/21/20 23:55 Sodium Chloride Flush 0.9% 10 Ml Syringe IVP 10 ml PRN PRN Administration NEEDED PER PROVIDER ORDERS Sodium Chloride 10 ml 07/17/20 01:00 07/23/20 17:40 Sodium Chloride Flush 0.9% 10 Ml Syringe IVP 10 ml 0100,0900,1700 [facility] Administration - Lab Result Fish Bone Diagrams: 07/23/20 05:35 07/23/20 05:35 Objective Vital Signs: Vital Signs - 24 hr 07/22/20 07/23/20 07/23/20 20:22 00:47 06:00 Temperature 36.2 C L 36.5 C 36.5 C Heart Rate Heart Rate [ 48 L 57 L Brachial] Heart Rate [ 57 L Radial] Respiratory 16 16 15 Rate Blood Pressure [Right Brachial artery] Blood Pressure 115/43 L 136/68 H 148/53 H [Right Radial artery] O2 Saturation 100 95 98 07/23/20 07/23/20 07/23/20 07:37 08:15 12:22 Temperature 36.5 C 36.9 C Heart Rate 68 Heart Rate [ 57 L 71 Brachial] Heart Rate [ Radial] Respiratory 16 16 16 Rate Blood Pressure 154/55 H 122/53 L [Right Brachial artery] Blood Pressure [Right Radial artery] O2 Saturation 98 96 07/23/20 07/23/20 15:30 16:28 Temperature 36.4 C L Heart Rate 68 Heart Rate [ 72 Brachial] Heart Rate [ Radial] Respiratory 16 16 Rate Blood Pressure 122/47 L [Right Brachial artery] Blood Pressure [Right Radial artery] O2 Saturation 96 Oxygen O2 Source Room air I&O (Last 24 Hrs): Intake and Output Totals x24h 07/21/20 07/22/20 07/23/20 23:59 23:59 23:59 Intake Total 800 9274.781 0905.333 Output Total 1600 425 450 Balance -800 3790.248 5134.333 - Results Results: Laboratory Results WBC 11.8 x10^3/uL (4.8-10.8) H 07/23/20 05:35 RBC 4.55 10^6/uL (4.20-5.40) 07/23/20 05:35 Hgb 14.1 g/dL (12.0-16.0) 07/23/20 05:35 Hct 45.0 % (37.0-47.0) 07/23/20 05:35 MCV 98.9 fL (81.0-99.0) 07/23/20 05:35 MCH 31.0 pg (27.0-31.0) 07/23/20 05:35 MCHC 31.3 g/dL (32.0-36.0) L 07/23/20 05:35 RDW 14.6 % (12.0-15.0) 07/23/20 05:35 Plt Count 113 10^3/uL (130-450) L 07/23/20 05:35 MPV 11.2 fL (7.9-10.8) H 07/23/20 05:35 Neut # (Auto) 9.5 10^3/uL (1.5-6.6) H 07/23/20 05:35 Lymph # (Auto) 1.9 10^3/uL (1.5-3.5) 07/23/20 05:35 [place] # (Auto) 0.3 10^3/uL (0.0-1.0) 07/23/20 05:35 Eos # (Auto) 0.0 10^3/uL (0.0-0.7) 07/23/20 05:35 Baso # (Auto) 0.0 10^3/uL (0.0-0.1) 07/23/20 05:35 Absolute Nucleated RBC 0.00 x10^3/uL 07/23/20 05:35 Nucleated RBC % 0.0 /100WBC 07/23/20 05:35 PT 11.8 secs (9.9-12.6) 07/16/20 12:44 INR 1.1 (0.8-1.2) 07/16/20 12:44 APTT 27.2 secs (24.9-33.3) 07/16/20 12:44 Bld Gas Analysis Time 1443 07/21/20 14:36 Sample Site LEFT BRACHIAL 07/21/20 14:36 ABG pH 7.48 (7.35-7.45) H 07/21/20 14:36 ABG pCO2 30 mmHg (34-45) L 07/21/20 14:36 ABG pO2 98 mmHg (80-100) 07/21/20 14:36 ABG HCO3 21.6 mmol/L (22.0-26.0) L 07/21/20 14:36 ABG Total CO2 22.5 MMOL/L (21.0-29.0) 07/21/20 14:36 ABG O2 Saturation 98 % (94-98) 07/21/20 14:36 ABG Base Excess -0.8 mmol/L (-2.0-3.0) 07/21/20 14:36 Hernandez Test POSITIVE 07/21/20 14:36 Room Air YES 07/21/20 14:36 Sodium 140 mmol/L (135-145) 07/23/20 05:35 Potassium 3.9 mmol/L (3.5-5.0) 07/23/20 05:35 Chloride 111 mmol/L (101-111) 07/23/20 05:35 Carbon Dioxide 20 mmol/L (21-32) L 07/23/20 05:35 Anion Gap 9.0 (6-13) 07/23/20 05:35 BUN 21 mg/dL (6-20) H 07/23/20 05:35 Creatinine 0.6 mg/dL (0.4-1.0) 07/23/20 05:35 Estimated GFR (MDRD) 94 (>89) 07/23/20 05:35 Glucose 120 mg/dL (70-100) H 07/23/20 05:35 Lactic Acid 1.2 mmol/L (0.5-2.2) 07/16/20 12:44 Calcium 8.5 mg/dL (8.5-10.3) 07/23/20 05:35 Phosphorus 2.7 mg/dL (2.5-4.6) 07/21/20 05:30 Magnesium 2.0 mg/dL (1.7-2.8) 07/21/20 05:30 Total Bilirubin 1.1 mg/dL (0.2-1.0) H 07/21/20 05:30 Direct Bilirubin 0.1 mg/dL (0.1-0.5) 07/21/20 05:30 AST 18 IU/L (10-42) 07/21/20 05:30 ALT 20 IU/L (10-60) 07/21/20 05:30 Alkaline Phosphatase 42 IU/L (42-121) 07/21/20 05:30 Ammonia 18.5 umol/L (7-35) 07/19/20 11:50 Total Creatine Kinase 29 IU/L (22-269) 07/20/20 05:00 Troponin I High Sens 7.8 ng/L (2.3-14.8) 07/19/20 11:50 C-Reactive Protein < 1.0 mg/dL (0-1.0) 07/20/20 05:00 Total Protein 5.3 g/dL (6.7-8.2) L 07/21/20 05:30 Albumin 3.2 g/dL (3.2-5.5) 07/21/20 05:30 Globulin 2.1 g/dL (2.1-4.2) 07/21/20 05:30 Albumin/Globulin Ratio 1.7 (1.0-2.2) 07/16/20 12:44 Lipase 25 U/L (22-51) 07/16/20 12:44 TSH 1.42 uIU/mL (0.34-5.60) 07/19/20 04:13 Urine Color DARK YELLOW 07/16/20 13:19 Urine Clarity HAZY (CLEAR) 07/16/20 13:19 Urine pH 6.0 PH (5.0-7.5) 07/16/20 13:19 Ur Specific Jeff 1.020 (1.002-1.030) 07/16/20 13:19 Urine Protein TRACE mg/dL (NEGATIVE) 07/16/20 13:19 Urine Glucose (UA) NEGATIVE mg/dL (NEGATIVE) 07/16/20 13:19 Urine Ketones NEGATIVE mg/dL (NEGATIVE) 07/16/20 13:19 Urine Occult Blood MODERATE (NEGATIVE) H 07/16/20 13:19 Urine Nitrite POSITIVE (NEGATIVE) H 07/16/20 13:19 Urine Bilirubin NEGATIVE (NEGATIVE) 07/16/20 13:19 Urine Urobilinogen 0.2 (NORMAL) E.U./dL (NORMAL) 07/16/20 13:19 Ur Leukocyte Esterase MODERATE (NEGATIVE) H 07/16/20 13:19 Urine RBC TNTC /HPF (0-5) H 07/16/20 13:19 Urine WBC >25 /HPF (0-5) H 07/16/20 13:19 Urine WBC Clumps PRESENT 07/16/20 13:19 Ur Epithelial Cells FEW Renal Tubular /HPF (<= Few) 07/16/20 13:19 Ur Squamous Epith Cells NONE SEEN (<= Few) 07/16/20 13:19 Urine Bacteria Moderate /HPF (None Seen) H 07/16/20 13:19 Ur Microscopic Review INDICATED 07/16/20 13:19 Urine Culture Comments INDICATED 07/16/20 13:19 Nasal Adenovirus (PCR) NOT DETECTED 07/16/20 15:30 Nasal B. parapertussis DNA (PCR) NOT DETECTED 07/16/20 15:30 Nasal Coronavir 229E PCR NOT DETECTED 07/16/20 15:30 Nasal Coronavir HKU1 PCR NOT DETECTED 07/16/20 15:30 Nasal Coronavir NL63 PCR NOT DETECTED 07/16/20 15:30 Nasal Coronavir OC43 PCR NOT DETECTED 07/16/20 15:30 Nasal Enterovir/Rhinovir PCR NOT DETECTED 07/16/20 15:30 Nasal Influenza B PCR NOT DETECTED 07/16/20 15:30 Nasal Influenza A PCR NOT DETECTED 07/16/20 15:30 Nasal Parainfluen 1 PCR NOT DETECTED 07/16/20 15:30 Nasal Parainfluen 2 PCR NOT DETECTED 07/16/20 15:30 Nasal Parainfluen 3 PCR NOT DETECTED 07/16/20 15:30 Nasal Parainfluen 4 PCR NOT DETECTED 07/16/20 15:30 Nasal RSV (PCR) NOT DETECTED 07/16/20 15:30 Nasal B.pertussis DNA PCR NOT DETECTED 07/16/20 15:30 Nasal C.pneumoniae (PCR) NOT DETECTED 07/16/20 15:30 Connor Human Metapneumo PCR NOT DETECTED 07/16/20 15:30 Nasal M.pneumoniae (PCR) NOT DETECTED 07/16/20 15:30 Nasal SARS-CoV-2 (PCR) NOT DETECTED 07/16/20 15:30 - Procedures Procedures: Procedures INSERTION OF INFUSION DEV INTO SUP VENA CAVA, PERC APPROACH (03/25/20)
--- NOTE | 2020-07-24 08:39 | DISCHARGE SUMMARY ---
Discharge Summary Admit Date: 07/16/20 Discharge Date: 07/23/20 Discharging Provider: Dr Reina Vaughan Primary Care Provider: Colby Swenson Code Status: Do Not Attempt Resuscitation Condition at Discharge: Poor Discharge Disposition: 02 Transfer Acute Care Hosp - [facility] History of Present Illness: From the admission H&P of Dr Rufino Robertsonf: This is a 89-year-old female with a past medical history significant for macular degeneration, COPD, rheumatoid arthritis, recurrent urinary tract infections who presents today after being found unresponsive at [facility]. History is obtained from the ER physician and the patient's daughter as she is unable to provide a history given her altered mental status. Per the daughter, the patient was in her usual state of health yesterday when she was with her. This morning she was told that she was doing well at around 9 AM and when she was checked on an hour later, she was found unresponsive. She states her mother has had a cough for the past few weeks and has had issues with swallowing in the past. She is supposed be on a pured diet due to history of dysphagia. She stated otherwise her mother did not appear ill whatsoever and had no other real complaints. She has been hospitalized in the past for similar episodes and has received IV fluids and antibiotics with improvement in her weakness symptoms by 48 hours. Her daughter noted that each time she had an unresponsive episode, it happens abruptly but she tends to improve quite quickly as well. In the emergency department, she was found to be afebrile and with a heart rate in the 50s. Hypertensive with a systolic blood pressure in the 150s. She was not tachypneic and saturating well on room air. Labs were significant for a white count of 16.6. Her potassium was 3.1. She had a normal lactic acid and troponin. Her urinalysis revealed pyuria with WBC clumps, moderate bacteria, moderate leukocyte esterase, positive nitrites as well as moderate occult blood and too numerous to count RBCs. She underwent a CT of the head which showed no acute abnormalities. CT of the abdomen pelvis was also unremarkable. She was given meropenem IV in the emergency department. Given the above findings, Hospitalist Team was consulted for admission. The patient does have a POLST form which states that she is a DNR. I confirmed this with the patient's daughter, Esme. - HOSPITAL COURSE Hospital Course: (1) Lethargy She became progressively weaker throughout this 7 day hospitalization and the etiology of this was not clear. Her neuro exam was non-focal, her memory was intact, however her ability to squeeze with her hands, for example, was rated 2/5. This was completely unlike her previous hospitalizations when she was able to walk with PT by 48 hours. She had 2 CTs of the head and both of them were unremarkable. MRI was not available (and we could not obtain one due to her having an implanted nerve stimulator). Her labs had been unremarkable during this hospitalization. Her CRP, Lactic Acid, troponin, CK, Hemoglobin and TSH were all normal. We treated her for thr urinary tract infection with Cefepime and we also treated her for possible pneumonia with doxycycline and repeat chest x-ray showed improvement; we did not think that pneumonia would explain her weakness given the lack of fever, or leukocytosis. We also placed her on stress dose steroids given she had been on chronic Prednisone for treating RA, but she had no improvement in her marked fatigue and weakness with this. There was history of getting her first COVID vaccination 2 weeks before these symptoms started, and we considered a delayed and prolonged fatigue reaction. We then considered obtaining a lumbar puncture and also discussed transferring the patient to higher level of care for a complete Neurology evaluation, given her progressive weakness, as she may potentially need EMG and further work-up not available here. The daughter was agreeable to transfer with LP to be done by Neurology, and preferred [facility] in [place], given that is where her mother's physicians are located. We reached out to Neurology at [facility] who agreed to be consultants and the patient was kindly accepted on the Hospitalist Team at [facility], and she was transferred there on 07/23/20, with stable vital signs. (2) Community acquired pneumonia Repeat chest x-ray today showed improvement in the right sided infiltrate. She was not hypoxic and not tachypneic. She completed 7 days of antibiotic therapy. (3) History of COPD Stable and was not in exacerbation. We continued her scheduled home inhalers. (4) Diabetes mellitus Her blood sugars were stable. She was on a carb controlled diet and sliding scale Insulin coverage. (5) Glaucoma Continued home eyedrops. (6) Altered mental status She was no longer altered or somnolent, just lethargic as mentioned above. (7) Pseudomonas urinary tract infection She completed 5 days of Cefepime IV for Pseudomonas UTI. (8) Constipation This resolved. \We continued a bowel regimen. - ALLERGIES Allergies/Adverse Reactions: Allergies Allergy/AdvReac Type Severity Reaction Status Date / Time azithromycin Allergy Anaphylaxis Verified 07/16/20 12:22 diclofenac Allergy Hives Verified 07/16/20 12:22 hydrocodone [Hydrocodone] Allergy Rash Verified 07/16/20 12:22 penicillin G Allergy Hives Verified 07/16/20 12:22 Penicillins Allergy Rash Verified 07/16/20 12:22 rofecoxib [From Vioxx] Allergy Rash Verified 07/16/20 12:22 Sulfa (Sulfonamide Allergy Hives Verified 07/16/20 12:22 Antibiotics) Cephalosporins AdvReac Unknown Verified 07/16/20 12:22 codeine AdvReac Hives Verified 07/16/20 12:22 oxycodone AdvReac Unknown Verified 07/16/20 12:22 - MEDICATIONS Home Medications: Ambulatory Orders Medication Instructions Recorded Confirmed Brimonidine 0.2% Ophth Drops 1 drops EACHEYE TID 07/16/20 07/17/20 [Alphagan P 0.2% Ophth Drops] Calcium Carbonate [Tums (Calcium 500 mg PO TID 07/16/20 07/17/20 Carbonate 500mg)] Cyanocobalamin (Vitamin B-12) 500 mcg PO DAILY 07/16/20 07/17/20 [Vitamin B-12 (500 mcg sublingual)] Dorzolamide 2% Ophth Drops 1 drops EACHEYE TID 07/16/20 07/17/20 [Trusopt 2% Ophth Drops] Ipratropium/Albuterol [Duoneb] 1 neb INH TID 07/16/20 07/17/20 L. Acidophilus/Pectin, [place] 2 cap PO DAILY 07/16/20 07/17/20 [Acidophilus Capsule] Midodrine HCl 5 mg PO DAILY 07/16/20 07/17/20 Mupirocin 1 applic TOP TID 07/16/20 07/17/20 Peg 400/Hypromellose/Glycerin 1 drops EACHEYE QID 07/16/20 07/17/20 [Visine Tears Drops] Pregabalin [Lyrica] 2.5 ml PO QPM 07/16/20 07/17/20 Pregabalin [Lyrica] 5 ml PO BID 07/16/20 07/17/20 Tiotropium [place] [Spiriva] 1 cap INH DAILY 07/16/20 07/17/20 Travoprost [Travatan Z] 1 drops EACHEYE DAILY 07/16/20 07/17/20 Vit A/Vit C/Vit E/Zinc/Copper 1 tab PO DAILY 07/16/20 07/17/20 [Preservision Areds Softgel] guaiFENesin [Chest Congestion 5 ml PO BID 07/16/20 07/17/20 Relief] predniSONE [Deltasone] 30 mg PO DAILY 07/16/20 07/17/20 traMADol [Ultram] 50 mg PO TID 07/16/20 07/17/20 - PHYSICAL EXAM AT DISCHARGE General Appearance: positive: No acute distress, Lethargic Eyes Bilateral: positive: Normal inspection ENT: positive: ENT inspection nml, No signs of dehydration Neck: positive: Nml inspection, No JVD Respiratory: positive: No respiratory distress, Breath sounds nml Cardiovascular: positive: Regular rate & rhythm, No murmur Abdomen: positive: Non-tender, Nml bowel sounds, No distention Skin: positive: Color nml, Warm, Dry Extremities: positive: Non-tender, No pedal edema Neurologic/Psychiatric: positive: Oriented x3, Other (2/5 motor strength upper & lower extrem, moves spontaneously) - LABS Result Diagrams: 07/23/20 05:35 07/23/20 05:35 - DIAGNOSTIC IMAGING Diagnostic Imaging Results: Final report reviewed - FOLLOW UP Follow Up: To be determined after hospitalization at [facility]. - TIME SPENT Time Spent in Discharge (Minutes): 60
== END 2020-07-23 19:50 | disposition short-term general hospital (02) | DRG 947 ==
LOC: EDUNIT# → ED 12:02 → UNDOADMIN 17:23 → MS2 17:23
PROVIDERS: ADMIT Internal Medicine; ATTEND Internal Medicine
DX: R40.0 Somnolence (principal); R53.83 Other fatigue; J18.9 Pneumonia, unspecified organism; R91.1 Solitary pulmonary nodule; N30.00 Acute cystitis without hematuria; R41.82 Altered mental status, unspecified; J44.9 Chronic obstructive pulmonary disease, unspecified; E11.42 Type 2 diabetes mellitus with diabetic polyneuropathy; B96.5 Pseudomonas (aeruginosa) (mallei) (pseudomallei) as the cause of diseases classified elsewhere; K59.00 Constipation, unspecified; Z66 Do not resuscitate; M06.9 Rheumatoid arthritis, unspecified; H35.30 Unspecified macular degeneration; I10 Essential (primary) hypertension; I25.10 Atherosclerotic heart disease of native coronary artery without angina pectoris; F03.90 Unspecified dementia, unspecified severity, without behavioral disturbance, psychotic disturbance, mood disturbance, and anxiety; E86.0 Dehydration; E87.6 Hypokalemia; H40.9 Unspecified glaucoma; Z86.73 Personal history of transient ischemic attack (TIA), and cerebral infarction without residual deficits; H54.7 Unspecified visual loss; Z79.899 Other long term (current) drug therapy
CPT/HCPCS: 36415; 36600; 51701; 70450; 71045; 74018; 74176; 80048; 80053; 80076; 81001; 82140; 82550; 82803; 83605; 83690; 83735; 84100; 84443; 84484; 85025; 85610; 85730; 86140; 87040; 87077; 87086; 87181; 87631; 92610; 93005; 94640; 96361; 96365; 97110; 97161; 97165; 97530; 99285; A6250; A9270; J1650; J2185; J7120; 0202U; 81003

== ENCOUNTER 2020-07-23 19:55 | Outpatient (CLI) | payer MEDICARE, OTHER | END 2020-07-23 19:56 | disposition short-term general hospital (02) | LOC: EMS 19:55 | DX: R53.1 Weakness (principal); R53.83 Other fatigue; Z74.01 Bed confinement status | CPT/HCPCS: A0425; A0428 ==

== ENCOUNTER 2021-03-22 15:43 | Emergency (ER) | payer MEDICARE, OTHER ==
--- NOTE | 2021-03-22 16:03 | ED Physician Documentation ---
History of Present Illness - Stated complaint Stated Complaint: FEMALE - Chief complaint Chief Complaint: General - History obtained from History obtained from: Patient - Additonal information Additional information: 89 yo F with approximately 1 week of feeling weak and states her legs are "wobbly." She denies any other symptoms including fever chills cough or cold symptoms chest pain or dyspnea, abdominal pain, nausea vomiting or diarrhea, dysuria urgency frequency or other urinary problems. She does note however that she has had UTIs numerous times in the past and typically weakness is her only symptom. She denies any falls, no focal weakness but generally feels unsteady on her feet. Review of Systems Ten Systems: 10 systems reviewed and negative Constitutional: reports: Reviewed and negative GI: reports: Reviewed and negative Neurologic: reports: Generalized weakness. denies: Focal weakness, Numbness, Difficulty speaking, Near syncope, Syncope, Seizure, Confused, Altered mental status, Unresponsive, Headache, Head injury, LOC PD PAST MEDICAL HISTORY - Past Medical History Past Medical History: Yes Cardiovascular: Hypertension, High cholesterol, Coronary artery disease Respiratory: Asthma, COPD, Other Neuro: Dementia, TIA, Peripheral neuropathy Endocrine/Autoimmune: Type 2 diabetes GI: GERD : Chronic bladder infection HEENT: Glaucoma, Macular degeneration, Chronic hearing loss Psych: Depression, Anxiety Musculoskeletal: Osteoarthritis, Rheumatoid arthritis, Fatigue Derm: None - Past Surgical History Past Surgical History: Yes General: Cholecystectomy, Other Ortho: 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 Acidophilus/Pectin, Between 2 cap PO DAILY 07/16/20 07/17/20 [Acidophilus Capsule] Midodrine HCl 5 mg PO DAILY 07/16/20 07/17/20 Mupirocin 1 applic TOP TID 07/16/20 07/17/20 Peg 400/Hypromellose/Glycerin 1 drops EACHEYE QID 07/16/20 07/17/20 [Visine Tears Drops] Pregabalin [Lyrica] 2.5 ml PO QPM 07/16/20 07/17/20 Pregabalin [Lyrica] 5 ml PO BID 07/16/20 07/17/20 Tiotropium [place] [Spiriva] 1 cap INH DAILY 07/16/20 07/17/20 Travoprost [Travatan Z] 1 drops EACHEYE DAILY 07/16/20 07/17/20 Vit A/Vit C/Vit E/Zinc/Copper 1 tab PO DAILY 07/16/20 07/17/20 [Preservision Areds Softgel] guaiFENesin [Chest Congestion 5 ml PO BID 07/16/20 07/17/20 Relief] predniSONE [Deltasone] 30 mg PO DAILY 07/16/20 07/17/20 traMADol [Ultram] 50 mg PO TID 07/16/20 07/17/20 Cefdinir 300 mg PO BID #20 cap 03/22/21 - Allergies Allergies/Adverse Reactions: Allergies Allergy/AdvReac Type Severity Reaction Status Date / Time azithromycin Allergy Anaphylaxis Verified 03/22/21 15:55 diclofenac Allergy Hives Verified 03/22/21 15:55 hydrocodone [Hydrocodone] Allergy Rash Verified 03/22/21 15:55 penicillin G Allergy Hives Verified 03/22/21 15:55 Penicillins Allergy Rash Verified 03/22/21 15:55 rofecoxib [From Vioxx] Allergy Rash Verified 03/22/21 15:55 Sulfa (Sulfonamide Allergy Hives Verified 03/22/21 15:55 Antibiotics) Cephalosporins AdvReac Unknown Verified 03/22/21 15:55 codeine AdvReac Hives Verified 03/22/21 15:55 oxycodone AdvReac Unknown Verified 03/22/21 15:55 - Social History Does the pt smoke?: No Smoking Status: Never smoker Does the pt drink ETOH?: No Does the pt have substance abuse?: No - Immunizations Immunizations are current?: Yes - POLST Patient has POLST: Yes POLST Status: DNR PD ED PE NORMAL - Vitals Vital signs reviewed: Yes - General General: Alert and oriented X 3, No acute distress, Well developed/nourished - HEENT HEENT: Atraumatic, Moist mucous membranes, Pharynx benign - Neck Neck: Supple, no meningeal sign, No JVD - Cardiac Cardiac: RRR, No murmur, No gallop, No rub - Respiratory Respiratory: No respiratory distress, Clear bilaterally - Abdomen Abdomen: Normal bowel sounds, Soft, Non tender, Non distended - Back Back: No CVA TTP, No spinal TTP - Derm Derm: Normal color, Warm and dry, No rash - Extremities Extremities: No deformity, No tenderness to palpate, Normal ROM s pain, No edema, No calf tenderness / cord - Neuro Neuro: Alert and oriented X 3 Eye Opening: Spontaneous Motor: Obeys Commands Verbal: Oriented GCS Score: 15 - Psych Psych: Normal mood, Normal affect Results - Vitals Vitals: Vital Signs - 24 hr 03/22/21 03/22/21 03/22/21 15:55 17:11 17:54 Temperature 36.8 C Heart Rate 60 52 L 58 L Respiratory 16 14 14 Rate Blood Pressure 124/54 L 133/72 H 140/71 H O2 Saturation 98 97 97 Oxygen O2 Source Room air - Labs Labs: Laboratory Tests 03/22/21 03/22/21 03/22/21 16:11 16:25 16:25 WBC 10.2 RBC 4.47 Hgb 14.5 Hct 43.5 MCV 97.3 MCH 32.4 H MCHC 33.3 RDW 15.2 H Plt Count 281 MPV 9.0 Neut # (Auto) 7.1 H Lymph # (Auto) 2.4 [place] # (Auto) 0.6 Eos # (Auto) 0.0 Baso # (Auto) 0.0 Absolute Nucleated RBC 0.00 Nucleated RBC % 0.0 Sodium 140 Potassium 4.1 Chloride 104 Carbon Dioxide 26 Anion Gap 10.0 BUN 16 Creatinine 0.8 Estimated GFR (MDRD) 68 L Glucose 108 H Calcium 9.0 Total Bilirubin 1.0 AST 18 ALT 22 Alkaline Phosphatase 53 Total Protein 6.1 L Albumin 3.7 Globulin 2.4 Albumin/Globulin Ratio 1.5 Lipase 27 Urine Color STRAW Urine Clarity HAZY Urine pH 6.0 Ur Specific [place] <=1.005 Urine Protein NEGATIVE Urine Glucose (UA) NEGATIVE Urine Ketones NEGATIVE Urine Occult Blood TRACE-INTA Urine Nitrite NEGATIVE Urine Bilirubin NEGATIVE Urine Urobilinogen 0.2 (NORMAL) Ur Leukocyte Esterase LARGE H Urine RBC 0-5 Urine WBC >25 H Ur Squamous Epith Cells RARE Squamous Urine Bacteria Moderate H Ur Microscopic Review INDICATED Urine Culture Comments INDICATED PD MEDICAL DECISION MAKING - ED course Complexity details: reviewed old records, reviewed results, re-evaluated patient, considered differential, d/w patient ED course: This is an 89-year-old female who presented with generalized weakness. She is well-appearing on exam without any acute physical exam findings. Her vitals are stable. We obtained labs and her CBC and CMP are reassuring. She does have signs of a urinary tract infection per UA. I reviewed prior cultures which showed primarily Pseudomonas, multidrug resistant. She also has a number of antibiotic allergies. It appears she has received cefepime and has tolerated cephalosporins in the past (though listed as allergy) therefore I treated her with the first dose of cefepime 2 mg IV here which she tolerated without difficulty and I will discharge her on cefdinir for 10 days pending culture results. Patient was advised to return if she developed a fever, flank pain, vomiting, altered mental status or lethargy or other new concerns. Departure - Departure Disposition: 01 Home, Self Care Clinical Impression: UTI (urinary tract infection) Qualifiers: Urinary tract infection type: acute cystitis Hematuria presence: without hematuria Qualified Code(s): N30.00 - Acute cystitis without hematuria Instructions: ED UTI Cystitis Female Prescriptions: Cefdinir 300 mg PO BID #20 cap Comments: You presented with weakness and it appears that you have a urinary tract infection again. Your other labs are stable. Your prior urinary tract infections are resistant to a number of antibiotics therefore we will treat this with cefdinir. Please follow-up with your primary care provider in the next week to reassess. Return to the ER if you develop fever, vomiting, diarrhea, increasing weakness or altered mental status or other new concerns. Discharge Date/Time: 03/22/21 17:56
[2021-03-22 16:21] LABS: BILIRUBIN,URINE NEGATIVE (NEGATIVE); GLUCOSE, URINE (UA) NEGATIVE (NEGATIVE); KETONES,URINE (UA) NEGATIVE (NEGATIVE); LEUKOCYTE ESTERASE, URINE LARGE (NEGATIVE); NITRITE,URINE NEGATIVE (NEGATIVE); OCCULT BLOOD,URINE TRACE-INTA (NEGATIVE); PROTEIN,URINE NEGATIVE (NEGATIVE); UROBILINOGEN,URINE 0.2 (NORMAL) E.U./dL (NORMAL)
[2021-03-22 16:23] LABS: CLARITY,URINE HAZY (CLEAR)
[2021-03-22 16:32] LABS: BASOPHILS % (AUTO) 0.4 %; EOSINOPHILS % (AUTO) 0.4 %; HCT - HEMATOCRIT 43.5 % (37.0-47.0); HGB - HEMOGLOBIN 14.5 g/dL (12.0-16.0); LYMPHOCYTES # (AUTO) 2.4 10^3/uL (1.5-3.5); LYMPHOCYTES % (AUTO) 23.6 %; MEAN CORPUSCULAR HEMOGLOBIN 32.4 pg (27.0-31.0); MEAN CORPUSCULAR HGB CONC 33.3 g/dL (32.0-36.0); MEAN CORPUSCULAR VOLUME 97.3 fL (81.0-99.0); MONOCYTES # (AUTO) 0.6 10^3/uL (0.0-1.0); MONOCYTES % (AUTO) 5.4 %; NEUTROPHILS # (AUTO) 7.1 10^3/uL (1.5-6.6); NEUTROPHILS % (AUTO) 69.9 %; PLT - PLATELET COUNT 281 10^3/uL (130-450); RED BLOOD COUNT 4.47 10^6/uL (4.20-5.40); RED CELL DISTRIBUTION WIDTH 15.2 % (12.0-15.0); WHITE BLOOD COUNT 10.2 x10^3/uL (4.8-10.8)
[2021-03-22 16:44] LABS: ALBUMIN 3.7 g/dL (3.2-5.5); ALBUMIN/GLOBULIN RATIO 1.5 (1.0-2.2); CREATININE 0.8 mg/dL (0.4-1.0); POTASSIUM 4.1 mmol/L (3.5-5.0); TOTAL PROTEIN 6.1 g/dL (6.7-8.2)
[2021-03-22 16:44] LABS: BACTERIA,URINE Moderate /HPF (None Seen); RBC,URINE 0-5 /HPF (0-5); SQUAMOUS EPITHELIAL CELL,UR RARE Squamous (<= Few); WBC,URINE >25 /HPF (0-5)
[2021-03-22] MEDS ORDERED: CEFEPIME 2 GM in SODIUM CHLORIDE 0.9% MINIBAG 100 ML IV STA (16:53)
[2021-03-22 17:56] VITALS: BP 140/71
--- NOTE | 2021-03-24 12:13 | ED Physician Documentation ---
ED Addendum - Addendum Addendum: 03/24/21 12:12 Culture reviewed, per chart patient has no signs or symptoms of UTI. I asked the ED nurse to call the patient and if she still has no signs or symptoms of UTI, infection, fever, antibiotic should be stopped. If patient has symptoms of UTI, then she can be called in Cipro 250 mg p.o. twice daily for 3 days.
== END 2021-03-22 17:56 | disposition home or self-care (01) ==
LOC: ED 15:43
DX: N30.00 Acute cystitis without hematuria (principal); I10 Essential (primary) hypertension; E11.42 Type 2 diabetes mellitus with diabetic polyneuropathy
CPT/HCPCS: 36415; 80053; 81001; 81003; 83690; 85025; 87077; 87086; 87181; 96365; 99283

== ENCOUNTER 2021-06-12 07:33 | Outpatient (CLI) | payer MEDICARE, OTHER | END 2021-06-12 23:59 | disposition critical access hospital (66) | LOC: EMS 07:33 | DX: R41.0 Disorientation, unspecified (principal); R53.1 Weakness; R53.83 Other fatigue | CPT/HCPCS: A0425; A0429 ==

== ENCOUNTER 2021-06-12 07:58 | Emergency (ER) | payer MEDICARE, OTHER ==
[2021-06-12] MEDS ORDERED: SODIUM CHLORIDE 0.9% 1,000 ML IV STA (08:27)
[2021-06-12 08:46] LABS: BASOPHILS # (AUTO) 0.1 10^3/uL (0.0-0.1); BASOPHILS % (AUTO) 0.9 %; EOSINOPHILS # (AUTO) 0.1 10^3/uL (0.0-0.7); EOSINOPHILS % (AUTO) 1.2 %; HCT - HEMATOCRIT 45.5 % (37.0-47.0); LYMPHOCYTES % (AUTO) 23.9 %; MEAN CORPUSCULAR HEMOGLOBIN 32.5 pg (27.0-31.0); MEAN CORPUSCULAR VOLUME 98.5 fL (81.0-99.0); MEAN PLATELET VOLUME 9.4 fL (7.9-10.8); MONOCYTES # (AUTO) 0.9 10^3/uL (0.0-1.0); MONOCYTES % (AUTO) 10.1 %; NEUTROPHILS # (AUTO) 5.4 10^3/uL (1.5-6.6); NEUTROPHILS % (AUTO) 63.5 %; PLT - PLATELET COUNT 240 10^3/uL (130-450); RED BLOOD COUNT 4.62 10^6/uL (4.20-5.40); RED CELL DISTRIBUTION WIDTH 13.6 % (12.0-15.0); WHITE BLOOD COUNT 8.4 x10^3/uL (4.8-10.8)
[2021-06-12 08:59] LABS: ALBUMIN 3.8 g/dL (3.2-5.5); ALBUMIN/GLOBULIN RATIO 1.7 (1.0-2.2); BILIRUBIN,TOTAL 0.7 mg/dL (0.2-1.0); CALCIUM 9.2 mg/dL (8.5-10.3); CREATININE 0.9 mg/dL (0.4-1.0); POTASSIUM 4.4 mmol/L (3.5-5.0); TOTAL PROTEIN 6.1 g/dL (6.7-8.2)
[2021-06-12 11:24] LABS: BILIRUBIN,URINE NEGATIVE (NEGATIVE); GLUCOSE, URINE (UA) NEGATIVE (NEGATIVE); KETONES,URINE (UA) NEGATIVE (NEGATIVE); LEUKOCYTE ESTERASE, URINE LARGE (NEGATIVE); NITRITE,URINE POSITIVE (NEGATIVE); OCCULT BLOOD,URINE TRACE-INTA (NEGATIVE); PH,URINE 6.5 PH (5.0-7.5); PROTEIN,URINE NEGATIVE (NEGATIVE); UROBILINOGEN,URINE 0.2 (NORMAL) E.U./dL (NORMAL)
[2021-06-12 11:27] LABS: CLARITY,URINE SL. CLOUDY (CLEAR)
[2021-06-12 11:34] LABS: BACTERIA,URINE Moderate /HPF (None Seen); RBC,URINE 0-5 /HPF (0-5); SQUAMOUS EPITHELIAL CELL,UR RARE Squamous (<= Few); WBC,URINE >25 /HPF (0-5)
[2021-06-12] MEDS ORDERED: NITROFURANTOIN MACRO 100 MG CAPSULE PO STA (12:22)
--- NOTE | 2021-06-12 13:20 | ED Physician Documentation ---
History of Present Illness - Stated complaint Stated Complaint: CONFUSION/FATIGUE - Chief complaint Chief Complaint: UTI - History obtained from History obtained from: Patient, EMS - Additonal information Additional information: Patient was sent to the emergency department by EMS from [facility], where she lives in assisted living, after being found to seem fatigued and somewhat confused. The patient states that a couple of days ago, she began to have dysuria and frequency, and is concerned that she has a urinary tract infection. She denies fevers or chills. No nausea or vomiting. She states she just feels tired. At baseline, the patient has some history of dementia and gets around to her apartment with either a walker or a wheelchair. She has continued to do this since developing UTI symptoms. The patient denies other complaints at this time. No pain that is out of the ordinary for her. No lightheadedness. Review of Systems Ten Systems: 10 systems reviewed and negative Constitutional: reports: Fatigue. denies: Fever, Chills Eyes: reports: Reviewed and negative Ears: reports: Reviewed and negative Nose: reports: Reviewed and negative Throat: reports: Reviewed and negative Cardiac: reports: Reviewed and negative Respiratory: reports: Reviewed and negative GI: reports: Reviewed and negative. denies: Nausea, Vomiting : reports: Dysuria, Frequency Skin: reports: Reviewed and negative Musculoskeletal: reports: Reviewed and negative Neurologic: reports: Reviewed and negative Psychiatric: reports: Reviewed and negative Endocrine: reports: Reviewed and negative Immunocompromised: reports: Reviewed and negative PD PAST MEDICAL HISTORY - Past Medical History Past Medical History: Yes Cardiovascular: Hypertension, High cholesterol, Coronary artery disease Respiratory: Asthma, COPD, Other Neuro: Dementia, TIA, Peripheral neuropathy Endocrine/Autoimmune: Type 2 diabetes GI: GERD : Chronic bladder infection HEENT: Glaucoma, Macular degeneration, Chronic hearing loss Psych: Depression, Anxiety Musculoskeletal: Osteoarthritis, Rheumatoid arthritis, Fatigue Derm: None - Past Surgical History Past Surgical History: Yes General: Cholecystectomy, Other Ortho: 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 Acidophilus/Pectin, [place] 2 cap PO DAILY 07/16/20 07/17/20 [Acidophilus Capsule] Midodrine HCl 5 mg PO DAILY 07/16/20 07/17/20 Mupirocin 1 applic TOP TID 07/16/20 07/17/20 Peg 400/Hypromellose/Glycerin 1 drops EACHEYE QID 07/16/20 07/17/20 [Visine Tears Drops] Pregabalin [Lyrica] 2.5 ml PO QPM 07/16/20 07/17/20 Pregabalin [Lyrica] 5 ml PO BID 07/16/20 07/17/20 Tiotropium [place] [Spiriva] 1 cap INH DAILY 07/16/20 07/17/20 Travoprost [Travatan Z] 1 drops EACHEYE DAILY 07/16/20 07/17/20 Vit A/Vit C/Vit E/Zinc/Copper 1 tab PO DAILY 07/16/20 07/17/20 [Preservision Areds Softgel] guaiFENesin [Chest Congestion 5 ml PO BID 07/16/20 07/17/20 Relief] predniSONE [Deltasone] 30 mg PO DAILY 07/16/20 07/17/20 traMADol [Ultram] 50 mg PO TID 07/16/20 07/17/20 Cefdinir 300 mg PO BID #20 cap 03/22/21 Nitrofurantoin [Macrobid] 100 mg PO BID #14 cap 06/12/21 - Allergies Allergies/Adverse Reactions: Allergies Allergy/AdvReac Type Severity Reaction Status Date / Time azithromycin Allergy Anaphylaxis Verified 06/12/21 08:20 diclofenac Allergy Hives Verified 06/12/21 08:20 hydrocodone [Hydrocodone] Allergy Rash Verified 06/12/21 08:20 penicillin G Allergy Hives Verified 06/12/21 08:20 Penicillins Allergy Rash Verified 06/12/21 08:20 rofecoxib [From Vioxx] Allergy Rash Verified 06/12/21 08:20 Sulfa (Sulfonamide Allergy Hives Verified 06/12/21 08:20 Antibiotics) Cephalosporins AdvReac Unknown Verified 06/12/21 08:20 codeine AdvReac Hives Verified 06/12/21 08:20 oxycodone AdvReac Unknown Verified 06/12/21 08:20 - Social History Does the pt smoke?: No Smoking Status: Never smoker Does the pt drink ETOH?: No Does the pt have substance abuse?: No - Immunizations Immunizations are current?: Yes - POLST Patient has POLST: Yes POLST Status: DNR PD ED PE NORMAL - Vitals Vital signs reviewed: Yes - General General: No acute distress, Well developed/nourished, Other (Patient is somewhat slowed in her responses but answers appropriately, with clear diction.) - HEENT HEENT: Atraumatic, PERRL, EOMI, Moist mucous membranes - Cardiac Cardiac: RRR, No murmur, Strong equal pulses - Respiratory Respiratory: No respiratory distress, Clear bilaterally - Abdomen Abdomen: Soft, Non distended, Other (Mild suprapubic tenderness. 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, No motor deficit, No sensory deficit, Normal speech, Other (Answers questions appropriately.) - Psych Psych: Normal mood, Normal affect Results - Vitals Vitals: Vital Signs - 24 hr 06/12/21 08:17 Temperature 36.5 C Heart Rate 60 Respiratory 19 Rate Blood Pressure 110/48 L O2 Saturation 97 Oxygen O2 Source Room air - Labs Labs: Laboratory Tests 06/12/21 06/12/21 06/12/21 08:38 08:38 11:05 WBC 8.4 RBC 4.62 Hgb 15.0 Hct 45.5 MCV 98.5 MCH 32.5 H MCHC 33.0 RDW 13.6 Plt Count 240 MPV 9.4 Neut # (Auto) 5.4 Lymph # (Auto) 2.0 [place] # (Auto) 0.9 Eos # (Auto) 0.1 Baso # (Auto) 0.1 Absolute Nucleated RBC 0.00 Nucleated RBC % 0.0 Sodium 143 Potassium 4.4 Chloride 107 Carbon Dioxide 28 Anion Gap 8.0 BUN 8 Creatinine 0.9 Estimated GFR (MDRD) 59 L Glucose 101 H Calcium 9.2 Total Bilirubin 0.7 AST 21 ALT 20 Alkaline Phosphatase 47 Total Protein 6.1 L Albumin 3.8 Globulin 2.3 Albumin/Globulin Ratio 1.7 Lipase 24 Urine Color YELLOW Urine Clarity SL. CLOUDY Urine pH 6.5 Ur Specific [place] 1.015 Urine Protein NEGATIVE Urine Glucose (UA) NEGATIVE Urine Ketones NEGATIVE Urine Occult Blood TRACE-INTA Urine Nitrite POSITIVE H Urine Bilirubin NEGATIVE Urine Urobilinogen 0.2 (NORMAL) Ur Leukocyte Esterase LARGE H Urine RBC 0-5 Urine WBC >25 H Ur Squamous Epith Cells RARE Squamous Urine Bacteria Moderate H Ur Microscopic Review INDICATED Urine Culture Comments INDICATED PD MEDICAL DECISION MAKING - ED course Complexity details: reviewed results, re-evaluated patient, considered differential, d/w patient, d/w family ED course: The patient was worked up with laboratory studies, which were unremarkable, and urinalysis, which showed evidence of infection. She had extremely difficult peripheral access and despite multiple attempts including with ultrasound, IV was unable to be obtained. As such, instead of giving the patient a liter bolus 0.9 normal saline, she was given a liter of oral fluids which she did drink in the emergency department. Patient's mental status improved significantly after this. The patient was sitting up in bed, bright and alert. Her daughter came in to visit and remarked how much better she looked. The patient was started on Macrobid for her urinary tract infection, due to multiple antibiotic allergies to everything else. I feel she is stable for discharge back to [facility]. We have discussed the need to drink plenty of fluids to avoid dehydration and also, and to take the antibiotics every day, as directed, until course is complete. We have discussed the usual indications for return. Departure - Departure Disposition: 01 Home, Self Care Clinical Impression: Cystitis, Dehydration Condition: Stable Instructions: ED UTI Cystitis Female, ED Dehydration Prescriptions: Nitrofurantoin [Macrobid] 100 mg PO BID #14 cap Comments: Your labs overall look good. Your urinalysis does show signs of infection. You were found to be dehydrated today, and you had very difficult veins to access via IV, we did have you drink nearly a liter of water here in the emergency department. Your alertness and mental status have improved significantly, and as such, it is very important that you continue to drink plenty of water at home. Please take the medicine for your urinary tract infection twice a day every day, until gone. You have been given the first dose here in the emergency department.
[2021-06-12 14:53] VITALS: BP 148/78
== END 2021-06-12 14:51 | disposition home or self-care (01) ==
LOC: EDBD → EDUNIT# → ED 07:58
DX: N30.90 Cystitis, unspecified without hematuria (principal); E86.0 Dehydration; I10 Essential (primary) hypertension; J44.9 Chronic obstructive pulmonary disease, unspecified; E11.42 Type 2 diabetes mellitus with diabetic polyneuropathy
CPT/HCPCS: 36415; 80053; 81001; 83690; 85025; 87077; 87086; 87181; 99283; A9270; 81003

== ENCOUNTER 2021-09-01 13:35 | Emergency (ER) | payer MEDICARE, OTHER ==
--- OUTSIDE RECORDS SUMMARY | 2021-09-01 14:09 | EXTERNAL MEDICAL SUMMARY RPT | Continuity of Care Document ---
:1930 Author Organization [facility] Address [address] [id number] Phone Allergies No information. Encounters No information. Medications No information. Problems date description facility [id number] [facility] [employer] Results No information.
[2021-09-01] MEDS ORDERED: LIDOCAINE PATCH 5% TOP STA (14:15)
--- NOTE | 2021-09-01 14:55 | XRAY Report ---
PROCEDURE: Chest 2 View X-Ray INDICATIONS: cough TECHNIQUE: 2 view(s) of the chest. COMPARISON: None. FINDINGS: Surgical changes and devices: None. Lungs and pleura: No pleural effusions or pneumothorax. Lungs are clear. Mediastinum: Mediastinal contours are normal. Heart size is normal. Bones and chest wall: No suspicious bony abnormalities. Soft tissues appear unremarkable. IMPRESSION: No acute process. Reviewed by: Milly Pathak MD on 09/01/2021 2:54 PM PDT Approved by: Milly Pathak MD on 09/01/2021 2:54 PM PDT Station ID: [id number]
--- NOTE | 2021-09-01 14:56 | ED Physician Documentation ---
History of Present Illness - Stated complaint Stated Complaint: COUGH/SORE CHEST - Chief complaint Chief Complaint: Resp - History obtained from History obtained from: Patient, Family - History of Present Illness Timing: Today Pain level max: 7 Pain level now: 5 - Additonal information Additional information: 89-year-old female states that she has a chronic cough. She states she coughed hard last night and had chest pain, sharp, worse with movement, breathing and palpation. The pain did not resolve with tramadol. She went to the walk-in clinic today and they said they could not do blood work so sent her here. The patient has no other chest pain. She does not have any fevers. Cough is unchanged from baseline. Has a history of COPD and uses nebulizer treatments at home. No nausea, vomiting, shortness of air, diaphoresis. Review of Systems Ten Systems: 10 systems reviewed and negative Constitutional: denies: Fever, Chills Throat: denies: Sore throat Cardiac: denies: Chest pain / pressure, Palpitations Respiratory: denies: Dyspnea, Wheezing GI: denies: Abdominal Pain, Abdominal Swelling, Nausea, Vomiting, Diarrhea : denies: Dysuria Skin: denies: Rash Musculoskeletal: denies: Neck pain, Back pain Neurologic: denies: Headache PD PAST MEDICAL HISTORY - Past Medical History Cardiovascular: Hypertension, High cholesterol, Coronary artery disease Respiratory: Asthma, COPD, Other Neuro: Dementia, TIA, Peripheral neuropathy Endocrine/Autoimmune: Type 2 diabetes GI: GERD : Chronic bladder infection HEENT: Glaucoma, Macular degeneration, Chronic hearing loss Psych: Depression, Anxiety Musculoskeletal: Osteoarthritis, Rheumatoid arthritis, Fatigue Derm: None - Past Surgical History Past Surgical History: Yes General: Cholecystectomy, Other Ortho: 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 Acidophilus/Pectin, [place] 2 cap PO DAILY 07/16/20 07/17/20 [Acidophilus Capsule] Midodrine HCl 5 mg PO DAILY 07/16/20 07/17/20 Mupirocin 1 applic TOP TID 07/16/20 07/17/20 Peg 400/Hypromellose/Glycerin 1 drops EACHEYE QID 07/16/20 07/17/20 [Visine Tears Drops] Pregabalin [Lyrica] 2.5 ml PO QPM 07/16/20 07/17/20 Pregabalin [Lyrica] 5 ml PO BID 07/16/20 07/17/20 Tiotropium [place] [Spiriva] 1 cap INH DAILY 07/16/20 07/17/20 Travoprost [Travatan Z] 1 drops EACHEYE DAILY 07/16/20 07/17/20 Vit A/Vit C/Vit E/Zinc/Copper 1 tab PO DAILY 07/16/20 07/17/20 [Preservision Areds Softgel] guaiFENesin [Chest Congestion 5 ml PO BID 07/16/20 07/17/20 Relief] predniSONE [Deltasone] 30 mg PO DAILY 07/16/20 07/17/20 traMADol [Ultram] 50 mg PO TID 07/16/20 07/17/20 Cefdinir 300 mg PO BID #20 cap 03/22/21 Nitrofurantoin [Macrobid] 100 mg PO BID #14 cap 06/12/21 Lidocaine Patch 5% [Lidoderm Patch] 1 patch TOP DAILY PRN #10 patch 09/01/21 traMADol [Ultram] 50 - 100 mg PO TID PRN #20 tablet 09/01/21 - Allergies Allergies/Adverse Reactions: Allergies Allergy/AdvReac Type Severity Reaction Status Date / Time azithromycin Allergy Anaphylaxis Verified 09/01/21 13:55 diclofenac Allergy Hives Verified 09/01/21 13:55 hydrocodone [Hydrocodone] Allergy Rash Verified 09/01/21 13:55 penicillin G Allergy Hives Verified 09/01/21 13:55 Penicillins Allergy Rash Verified 09/01/21 13:55 rofecoxib [From Vioxx] Allergy Rash Verified 09/01/21 13:55 Sulfa (Sulfonamide Allergy Hives Verified 09/01/21 13:55 Antibiotics) Cephalosporins AdvReac Unknown Verified 09/01/21 13:55 codeine AdvReac Hives Verified 09/01/21 13:55 oxycodone AdvReac Unknown Verified 09/01/21 13:55 - Social History Does the pt smoke?: No Smoking Status: Never smoker Does the pt drink ETOH?: No Does the pt have substance abuse?: No - Immunizations Immunizations are current?: Yes - POLST Patient has POLST: Yes POLST Status: DNR PD ED PE NORMAL - Vitals Vital signs reviewed: Yes - General General: Alert and oriented X 3, No acute distress - HEENT HEENT: Moist mucous membranes - Neck Neck: Supple, no meningeal sign - Cardiac Cardiac: RRR - Respiratory Respiratory: No respiratory distress, Clear bilaterally - Abdomen Abdomen: Soft, Non tender, Non distended - Derm Derm: Warm and dry - Extremities Extremities: No edema, No calf tenderness / cord - Neuro Neuro: Alert and oriented X 3 - Free text exam Free text exam: Tender palpation over the right anterior chest wall, reproduces her pain. No crepitus. No ecchymosis. Results - Vitals Vitals: Vital Signs - 24 hr 09/01/21 09/01/21 09/01/21 13:55 13:58 15:08 Temperature 36.5 C 36.5 C 36.5 C Heart Rate 60 60 62 Respiratory 18 18 16 Rate Blood Pressure 167/80 H 167/80 H 150/70 H O2 Saturation 100 100 100 Oxygen O2 Source Room air - Rads (name of study) Chest x-ray Radiology: Final report received, EMP read contemporaneously, See rad report ( No acute process. ) PD MEDICAL DECISION MAKING - ED course Complexity details: reviewed results, re-evaluated patient, considered differential, d/w patient, d/w family ED course: 89-year-old female with coughing and chest pain after coughing. Reproducible with palpation. No evidence of acute coronary syndrome. No indication for acute coronary syndrome evaluation at this time. Patient is on tramadol at home, has allergies to virtually every other pain medication. We will increase her from 50 to 100 mg as needed. We will also trial her on Lidoderm patches. No evidence of pneumonia. Patient and family counseled regarding signs and symptoms for which I believe and urgent re-evaluation would be necessary. Patient with good understanding of and agreement to plan and is comfortable going home at this time This document was made in part using voice recognition software. While efforts are made to proofread this document, sound alike and grammatical errors may occur. Departure - Departure Disposition: 01 Home, Self Care Clinical Impression: Chest wall pain COPD (chronic obstructive pulmonary disease) Qualifiers: COPD type: unspecified COPD Qualified Code(s): J44.9 - Chronic obstructive pulmonary disease, unspecified Condition: Good Instructions: ED Strain Chest Wall Follow-Up: SABINA WORLEY MD [Primary Care Provider] - Within 1 week Prescriptions: Lidocaine Patch 5% [Lidoderm Patch] 1 patch TOP DAILY PRN #10 patch PRN Reason: pain traMADol [Ultram] 50 - 100 mg PO TID PRN #20 tablet PRN Reason: pain Comments: 1Your prescriptions were sent to the [facility] pharmacy. Please follow-up with your doctor for further care. Your x-ray does not show any evidence of pneumonia today. The coughing spell may have caused a cracked rib, but we do not see this on x-ray. Wear the Lidoderm patches for 12 hours and then remove them for 12 hours, they should be reapplied at the point of maximal pain. Discharge Date/Time: 09/01/21 15:08
[2021-09-01 15:09] VITALS: BP 150/70
== END 2021-09-01 15:08 | disposition home or self-care (01) ==
LOC: ED 13:35
DX: R07.89 Other chest pain (principal); J44.9 Chronic obstructive pulmonary disease, unspecified; Z66 Do not resuscitate
CPT/HCPCS: 71046; 99282; 99283; A9270